=== PATIENT | female | born 1945 | race Caucasian/White ===

== ENCOUNTER 2019-05-12 19:15 | Emergency (ER) | payer MEDICARE, SELFPAY ==
[2019-05-12] VITALS (8 sets, daily range): BP systolic 117–135; BP diastolic 57–71; PULSE 67–86; RESP 15–25; TEMP 30–36.7; O2SAT 97–99
--- NOTE | ~2019-05-12 | XR_ITS ---
EXAMINATION: XR chest 2V EXAM DATE: 05/12/2019 19:53 INDICATION: Cough and shortness of breath, symptoms one week. TECHNIQUE: Frontal and lateral projections of the chest obtained and reviewed. There is no prior laila dy for comparison. FINDINGS: Symmetric nodular densities, patient's nipples. Chondral cartilage calcification. Right ax illary surgical clips. No confluent consolidation, pneumothorax or pleural effusion suspected. Chroni c hyperinflation. Cardiomediastinal silhouette is normal. There are mild bony degenerative changes. M ild to moderate chronic anterior wedging midthoracic level. IMPRESSION: 1. Hyperinflation. Reviewed, dictated and finalized at [facility]. ER IMPRESSION: 1. Hyperinflation.
--- NOTE | 2019-05-12 19:41 | ECG_ITS ---
Measurements Intervals [place] Rate: 69 P: 70 ID: [id number] QRS: 24 QRSD: 98 T: 65 QT: 434 QTc: 467 Interpretive Statements SINUS RHYTHM NONSPECIFIC T-WAVE ABNORMALITY- LATERAL LEADS BORDERLINE ECG Electronically Signed On 05-13-2019 7:01:38 REVENUE STAMP CLERK by Armond Hanson D.O.
[2019-05-12 20:07] LABS: Hematocrit 34.2 % (37.0-47.0); Hemoglobin 11.2 g/dL (12.0-15.0); Mean Corpuscular HGB Conc 32.7 g/dl (32-36); Mean Corpuscular Hemoglobin 31.3 pg (26-34); Mean Corpuscular Volume 95.5 fl (80-100); Mean Platelet Volume 9.9 fl (7.4-10.4); Platelet Count Result 179 k/mm3 (150-375); Red Blood Count 3.58 M/mm3 (4.2-5.4); Red Cell Distribution Width 13.4 % (11.5-14.5); White Blood Count 2.6 K/mm3 (4.5-10.0)
[2019-05-12 20:19] LABS: Blood Urea Nitrogen 16 mg/dL (7-17); Calcium 9.6 mg/dL (8.4-10.2); Carbon Dioxide 22 mmol/L (22-30); Chloride 95 mmol/L (98-107); Estimated CRCL calculation 31 ml/min; Estimated Glomerular Filt Rate 48; Glucose 74 mg/dL (65-105); Potassium 3.3 mmol/L (3.4-5.0); Sodium 135 mmol/L (137-145)
[2019-05-12 20:24] LABS: Band Neutrophils Percent 4 % (0-6); Lymphocytes Absolute Manual 0.88 K/mm3 (1.1-4.5); Monocytes Absolute Manual 0.33 K/mm3 (0.1-0.90); Monocytes Percent Manual 13 % (3-9); Neutrophils Absolute Manual 1.37 K/mm3 (1.7-7.2); Neutrophils Percent Manual 49 % (46-73); Total Cells Counted 100
[2019-05-12 20:25] LABS: Platelet Estimate Adequate (Adequate)
[2019-05-12 20:26] LABS: Anisocytosis 1+ (NORMAL)
[2019-05-12] MEDS: predniSONE 20 MG TABLET 60 MG PO (21:36)
[2019-05-12] MEDS: SODIUM CHLORIDE 0.9% IV 1,000 ML 999 ML IV CONT (21:37)
[2019-05-12] MEDS: IPRATROPIUM BR 0.02% INH SOLN 0.5 MG/2.5 ML VIAL INHALATION (21:43)
[2019-05-12] MEDS: ALBUTEROL SULFATE NEB 2.5 MG/0.5 ML INH 5 MG INHALATION (21:43)
[2019-05-12 21:59] LABS: Lactic Acid Reflex 0.8 mmol/L (0.7-2.1)
[2019-05-12 22:00] LABS: Alanine Aminotransferase 24 U/L (4-35); Albumin Level 4.1 g/dL (3.5-5.1); Alkaline Phosphatase 58 U/L (38-126); Aspartate Amino Transferase 42 U/L (14-36); Bilirubin,Total 0.4 mg/dL (0.2-1.3)
--- NOTE | 2019-05-12 22:04 | ED.URI ---
HPI - URI/Sore Throat General Chief Complaint: Upper Respiratory Infection Stated Complaint: SOB and abnormal bowel movements Time Seen by Provider: 05/12/19 20:58 Source: patient Mode of arrival: ambulatory Limitations: no limitations History of Present Illness HPI Narrative: A 73 y/o female presents to the ED with c/o a productive cough with clear phlegm since February 2019. Pt describes the phlegm as ?glue-like.? Pt also c/o a fever that she has measured to be around 100 degrees F at night. Pt last took Tytlenol for her fever 2 days ago. Pt has not been able to see a doctor in regards to these complaints because she ?has a broken back and I just haven?t felt well enough.? Pt has not been on antibiotics in the past 2 months. She reports SOB, generalized weakness, but denies N/V, CP, rhinorrhea, and a PMHx of asthma and COPD. Onset (ago): month(s) (February 2019) Description of mucous: clear Related Data Home Medications Medication Instructions Recorded Confirmed ascorbic acid (vitamin C) 1,000 mg 1,000 mg PO Q12H 03/07/19 tablet,extended release cholecalciferol (vitamin D3) 125 2,000 unit PO DAILY 03/07/19 mcg (5,000 unit) capsule citalopram 20 mg tablet 20 mg PO DAILY 03/07/19 hydrochlorothiazide 25 mg tablet 25 mg PO DAILY 03/07/19 hydroxychloroquine 200 mg tablet 200 mg PO BID 03/07/19 levothyroxine 75 mcg tablet 75 mcg PO DAILY 03/07/19 simvastatin 10 mg tablet 10 mg PO HS 03/07/19 acetaminophen 650 mg PO Q4H PRN 05/12/19 calcium carbonate-vitamin D3 1 tablet PO DAILY 05/12/19 clobetasol 1 applic TOPICAL BID PRN 05/12/19 coenzyme Q10 [CoQ-10] 100 mg PO DAILY 05/12/19 cranberry extract 200 mg PO QID 05/12/19 estradiol [Estrace] 2 g VAGINAL DAILY PRN 05/12/19 multivitamin 1 tablet PO DAILY 05/12/19 mycophenolate mofetil [CellCept] 1,500 mg PO Q12H 05/12/19 oxycodone 5 mg PO Q4H PRN 05/12/19 valacyclovir 500 mg PO DAILY 05/12/19 Allergies Allergy/AdvReac Type Severity Reaction Status Date / Time gemfibrozil Allergy Unknown elevated Verified 05/12/19 22:26 liver enzymes milk Allergy Unknown Nausea Verified 05/12/19 22:26 Sulfa (Sulfonamide Allergy Unknown Skin Verified 05/12/19 22:26 Antibiotics) Reaction sulfacetamide Allergy Unknown Rash Unverified 05/12/19 22:26 sulfamethizole Allergy Unknown Skin Verified 05/12/19 22:26 Reaction Review of Systems Review of Systems: All systems reviewed & are unremarkable except as noted in HPI and below Constitutional: Constitutional: Reports fever(s) and Reports weakness (generalized) ENT: Comments: Denies: rhinorrhea Cardiovascular: Cardiovascular: Denies chest pain Respiratory: Respiratory: Reports cough (productive with clear phlegm) and Reports dyspnea Gastrointestinal: Gastrointestinal: Denies nausea and Denies vomiting PMFSH Past Medical History Medical History (Updated 05/13/19 @ 00:00 by Pernell Matthews) History of right breast cancer HTN (hypertension) Hyperthyroidism UTI (urinary tract infection) Surgical History Surgical History (Updated 05/12/19 @ 22:38 by Grazyna Godoy) H/O mastectomy H/O: hysterectomy History of removal of ovarian cyst History of surgery Nodule removed from skin and Laryngeal nerve removed Family History Family History Father Depression Family history of lung cancer Mother Depression Hypertension Family history of elevated blood lipids Other No family history of cardiovascular disease Social History Social History Smoking status: Former smoker (quit 37 years ago) Alcohol intake: never Gender identity (if verbalized by the patient): Female Comments PCP: Dr. Guevara Exam Const: General: no acute distress and alert Orientation/consciousness: patient oriented x3 HENMT: Head: normocephalic and atraumatic Ears: hearing grossly normal bilaterally, external ears no
[2019-05-12 22:33] LABS: Add Urine Microscopic? YES; Appearance Urine Clear (Clear); Bacteria Urine Trace /hpf; Bilirubin Urine Negative (Negative); Color Urine Yellow (Yellow); Glucose Urine UA Negative (Negative); Ketones Urine 2+ mg/dL (Negative); Leukocyte Esterase Ur 2+ LEU/UL (Negative); Mucus Urine Rare /lpf; Nitrate Urine Negative (Negative); Protein Urine Negative (Negative); RBC Urine 0-2 /hpf (0-2); Specific Grav Ur 1.019 (1.001-1.035); Squamous Epithelial Cell Urine Few /hpf (Few); Urobilinogen Urine Negative mg/dL (<2.0); WBC Urine 16-20 /hpf
[2019-05-12 22:34] LABS: Blood Urine Negative (Negative)
[2019-05-12] MEDS: OSELTAMIVIR PHOSPHATE 75 MG CAP PO (23:00)
== END 2019-05-12 23:15 | disposition home or self-care (01) ==
PROVIDERS: Emergency Medicine; Emergency Provider General Practice
DX: J10.1 Influenza due to other identified influenza virus with other respiratory manifestations (principal); I10 Essential (primary) hypertension; Z85.3 Personal history of malignant neoplasm of breast; Z90.10 Acquired absence of unspecified breast and nipple; E05.90 Thyrotoxicosis, unspecified without thyrotoxic crisis or storm; Z87.891 Personal history of nicotine dependence
CPT/HCPCS: 36415; 71046; 80048; 80076; 81001; 83605; 83735; 85025; 87086; 87088; 87804; 93005; 94640; 99284; A9270; J7030; J7512

== ENCOUNTER 2020-08-20 11:28 | Emergency (ER) | payer MEDICARE, SELFPAY ==
[2020-08-20] VITALS (19 sets, daily range): BP systolic 109–133; BP diastolic 44–58; PULSE 67–74; RESP 16–26; TEMP 37.1; O2SAT 98–100
--- NOTE | 2020-08-20 12:12 | ED.GENADULT ---
HPI - General Adult General Chief complaint: Nausea/Vomiting/Diarrhea Stated complaint: DIARRHEA X10D Time Seen by Provider: 08/20/20 11:34 Source: patient History of Present Illness HPI narrative: Patient is a 74 y/o female complaining of severe diarrhea for last 1 1/2 weeks. She describes her diarrhea as watery with no blood. There is no alleviating or exacerbating factor. She had one episode of vomiting yesterday. She has no abdominal pain. Of note, she was on antibiotics after she had jaw surgery recently. She states that she saw her dentist today for follow up and was told to come to ED to be checked for possible C diff. Related Data Home Medications Medication Instructions Recorded Confirmed ascorbic acid (vitamin C) 1,000 mg 1,000 mg PO Q12H 03/07/19 07/16/20 tablet,extended release cholecalciferol (vitamin D3) 125 2,000 unit PO DAILY 03/07/19 07/16/20 mcg (5,000 unit) capsule citalopram 20 mg tablet 20 mg PO DAILY 03/07/19 07/16/20 hydroxychloroquine 200 mg tablet 200 mg PO BID 03/07/19 07/16/20 acetaminophen 650 mg PO Q4H PRN 05/12/19 07/16/20 calcium carbonate-vitamin D3 1 tablet PO DAILY 05/12/19 07/16/20 clobetasol 1 applic TOPICAL BID PRN 05/12/19 07/16/20 coenzyme Q10 [CoQ-10] 100 mg PO DAILY 05/12/19 07/16/20 cranberry extract 200 mg PO QID 05/12/19 07/16/20 multivitamin 1 tablet PO DAILY 05/12/19 07/16/20 mycophenolate mofetil [CellCept] 1,500 mg PO Q12H 05/12/19 07/16/20 Allergies Allergy/AdvReac Type Severity Reaction Status Date / Time Sulfa (Sulfonamide Allergy Unknown Skin Verified 08/20/20 12:01 Antibiotics) Reaction sulfacetamide Allergy Unknown Rash Verified 08/20/20 12:01 sulfamethizole Allergy Unknown Skin Verified 08/20/20 12:01 Reaction gemfibrozil AdvReac Unknown elevated Verified 08/20/20 12:14 liver enzymes milk AdvReac Unknown Nausea Verified 08/20/20 12:14 Review of Systems Constitutional: Constitutional: Denies chills, Denies fever(s), Denies headache(s) and Reports weakness Eyes: Eyes: Denies blurry vision ENT: Denies headache(s) and Denies neck pain Cardiovascular: Cardiovascular: Denies chest pain and Denies dyspnea Respiratory: Respiratory: Denies cough and Denies dyspnea Gastrointestinal: Gastrointestinal: Denies abdominal pain, Reports diarrhea, Reports nausea and Reports vomiting Genitourinary: Genitourinary: Denies hematuria and Denies dysuria Musculoskeletal: Musculoskeletal: Denies back pain and Denies neck pain Neurologic: Denies headache(s) and Denies weakness [facility] Past Medical History Medical History (Updated 08/20/20 @ 16:05 by China Washington MD) GERD (gastroesophageal reflux disease) History of right breast cancer HTN (hypertension) Hyperthyroidism Mixed hyperlipidemia UTI (urinary tract infection) Surgical History Surgical History H/O mastectomy H/O: hysterectomy History of removal of ovarian cyst History of surgery Nodule removed from skin and Laryngeal nerve removed Family History Family History Father Depression Family history of lung cancer Mother Depression Hypertension Family history of elevated blood lipids Other No family history of cardiovascular disease Social History Social History (Updated 08/03/20 @ 10:16 by Jenni Bourgeois [facility]) Years smoked: 5 Smoking status: Former smoker Alcohol intake: never Substance use: unknown Gender identity (if verbalized by the patient): Female Exam Const: General: no acute distress and well developed Orientation/consciousness: oriented to person, oriented to place, oriented to time and patient oriented x3 HENMT: Head: normocephalic Ears: external ears normal General nose exam: Normal external nose present Eyes: General: appearance normal, both eyes and all related structures Conjunctivae: conjunctivae normal Neck: Neck: normal visual i
[2020-08-20] MEDS: SODIUM CHLORIDE 0.9% IV 1,000 ML 999 ML IV CONT ×2 (12:13→13:12)
[2020-08-20 12:41] LABS: Basophils Percent Auto 0.5 % (0.2-1.2); Eosinophils Percent Auto 0.6 % (0-4.4); Hematocrit 34.7 % (37.0-47.0); Hemoglobin 11.1 g/dL (12.0-15.0); Immature Granulocyte Absolute 0.03 K/mm3 (0.00-0.031); Immature Granulocyte Percent A 0.5 % (0-0.5); Lymphocytes Absolute Auto 0.84 K/mm3 (0.9-3.2); Lymphocytes Percent Auto 13.5 % (18.3-44.2); Mean Corpuscular Hemoglobin 28.7 pg (26-34); Mean Corpuscular Volume 89.7 fl (80-100); Mean Platelet Volume 9.6 fl (7.4-10.4); Monocytes Percent Auto 16.2 % (2.6-8.5); Neutrophils Absolute Auto 4.3 K/mm3 (1.3-6.7); Neutrophils Percent Auto 68.7 % (45.5-73.1); Platelet Count Result 263 k/mm3 (150-375); Red Blood Count 3.87 M/mm3 (4.2-5.4); Red Cell Distribution Width 13.7 % (11.5-14.5); White Blood Count 6.2 K/mm3 (4.5-10.0)
[2020-08-20 12:53] LABS: Alanine Aminotransferase 14 U/L (4-35); Albumin Level 4.4 g/dL (3.5-5.1); Alkaline Phosphatase 52 U/L (38-126); Anion Gap 16 mmol/L (8-16); Aspartate Amino Transferase 45 U/L (14-36); Bilirubin,Total 0.5 mg/dL (0.2-1.3); Blood Urea Nitrogen 15 mg/dL (7-17); Calcium 10.6 mg/dL (8.4-10.2); Carbon Dioxide 19 mmol/L (22-30); Chloride 101 mmol/L (98-107); Estimated CRCL calculation 37 ml/min; Estimated Glomerular Filt Rate > 60; Glucose 71 mg/dL (65-105); Lipase 171 U/L (23-300); Potassium 3.6 mmol/L (3.4-5.0); Sodium 136 mmol/L (137-145)
[2020-08-20] MEDS: LOPERAMIDE HCL 2 MG CAPSULE PO (12:58)
[2020-08-20 13:29] LABS: Add Urine Microscopic? YES; Appearance Urine Cloudy (Clear); Bilirubin Urine Negative (Negative); Budding Yeast Urine Present /hpf; Color Urine Amber (Yellow); Glucose Urine UA Negative (Negative); Hyaline Casts Urine 15-19 /lpf; Ketones Urine 2+ mg/dL (Negative); Leukocyte Esterase Ur 1+ LEU/UL (Negative); Mucus Urine Heavy /lpf; Nitrate Urine Negative (Negative); Protein Urine 3+ mg/dL (Negative); Squamous Epithelial Cell Urine Many /hpf (Few); Urobilinogen Urine Negative mg/dL (<2.0); WBC Urine 31-50 /hpf
[2020-08-20 13:31] LABS: Blood Urine Negative (Negative); Specific Grav Ur 1.039 (1.001-1.035)
== END 2020-08-20 16:15 | disposition home or self-care (01) ==
PROVIDERS: Emergency Provider Emergency Medicine; PCP Family Medicine
DX: R19.7 Diarrhea, unspecified (principal); K21.9 Gastro-esophageal reflux disease without esophagitis; Z85.3 Personal history of malignant neoplasm of breast; I10 Essential (primary) hypertension; E05.90 Thyrotoxicosis, unspecified without thyrotoxic crisis or storm; E78.2 Mixed hyperlipidemia; Z87.440 Personal history of urinary (tract) infections; Z87.891 Personal history of nicotine dependence; Z90.10 Acquired absence of unspecified breast and nipple; R82.998 Other abnormal findings in urine
CPT/HCPCS: 36415; 80053; 81001; 83690; 85025; 87086; 87088; 96360; 96361; 99283; A9270; J7030

== ENCOUNTER 2020-08-23 15:06 | Outpatient (NON) | payer MEDICARE, SELFPAY | END 2020-08-23 15:07 | disposition home or self-care (01) | PROVIDERS: PCP Family Medicine; Referring Provider Family Medicine; Visit Provider Emergency Medicine | DX: R19.7 Diarrhea, unspecified (principal) | CPT/HCPCS: 87045; 87046; 87427 ==

== ENCOUNTER → 2020-08-24 09:17 | Outpatient (CLI) | payer MEDICARE, SELFPAY ==
--- NOTE | ~2020-08-24 | CT_ITS ---
EXAMINATION: CT abdomen pelvis wo con DATE: 08/24/2020 09:42 INDICATION: Ventral hernia. History of breast cancer. Diarrhea. TECHNIQUE: Computed tomography (CT) of the abdomen and pelvis was performed without intravenous contr ast. Automated exposure control and iterative reconstruction technique were employed. Exam dose: 337 .92 mGy-cm total exam DLP. COMPARISON: None. FINDINGS: There is a prominent band of discoid atelectasis or more likely scarring in the left lower lobe. No consolidation at the included lower lung zones. Heart size is within normal limits. No pericardial or pleural effusion. Right breast implant is noted. The liver, gallbladder, bile ducts, spleen, pancreas, pancreatic duct and adrenal glands are unremark able. 2.2 cm probable posterior mid left renal cyst. No urinary tract calculus or hydroureteronephrosis. There is atherosclerotic calcification of the abdominal aorta but no aneurysm. No intraperitoneal or retroperitoneal or pelvic mass lesion or adenopathy or ascites. The urinary bladder is unremarkable. Status post hysterectomy. Normal appendix. No bowel obstruction. There is however a herniated loop of small bowel through a rig ht anterolateral abdominal spigelian hernia. Severe degenerative disc disease at L4-5 Grade 1 anterolisthesis at L4-5 due to degenerative change at the apophyseal joints. No suspicious osteolytic or osteoblastic lesions. IMPRESSION: Anterolateral right ventral spigelian hernia containing a nonobstructed loop of small alisha wel Right breast implant; history of breast cancer 2.2 cm left renal cyst Reviewed, dictated and finalized at [facility]. Reviewed, dictated and finalized at [facility]. IMPRESSION: Anterolateral right ventral spigelian hernia containing a nonobstr ucted loop of small bowel Right breast implant; history of breast cancer 2.2 cm left renal cyst
== END ==
PROVIDERS: PCP Family Medicine; Visit Provider Surgery
DX: K43.9 Ventral hernia without obstruction or gangrene (principal); Z85.3 Personal history of malignant neoplasm of breast; Z98.82 Breast implant status; N28.1 Cyst of kidney, acquired
CPT/HCPCS: 74176

== ENCOUNTER 2020-09-27 11:32 | Outpatient (CLI) | payer MEDICARE, SELFPAY ==
--- NOTE | 2020-09-27 11:33 | ECG_ITS ---
Measurements Intervals [place] Rate: 75 P: 82 NC: 173 QRS: 66 QRSD: 85 T: 78 QT: 412 QTc: 461 Interpretive Statements SINUS RHYTHM CANNOT RULE OUT SEPTAL INFARCT, AGE INDETERMINATE NONSPECIFIC T-WAVE ABNORMALITY- HIGH LATERAL LEADS BASELINE ARTIFACT- I, III, AVR, AVL, AVF ABNORMAL ECG Electronically Signed On 09-27-2020 11:51:02 CDT by Armond Hanson D.O.
== END 2020-09-27 11:33 | disposition home or self-care (01) ==
LOC: ANHSURGERY 11:33
PROVIDERS: PCP Family Medicine; Visit Provider Surgery
DX: Z01.818 Encounter for other preprocedural examination (principal); K43.9 Ventral hernia without obstruction or gangrene; I10 Essential (primary) hypertension
CPT/HCPCS: 36415; 86850; 86900; 86901; 93005

== ENCOUNTER 2020-10-03 00:34 | Day surgery (SDC) | payer MEDICARE, SELFPAY ==
[2020-08-24 15:52] VITALS: BMI 21.7
--- NOTE | 2020-09-25 18:05 | PC.NURSE ---
Pt. states no changes since interview completed on 08/24/2020. Medications and allergies reviewed and instructions updated. Verbalizes understanding.
--- NOTE | 2020-10-02 09:12 | WPDANESEPPF ---
Anes - Initial Pre Proc Eval Procedure: Operation Date: 10/03/20 07:30 Proposed Procedures p Laparoscopic Right Spigelian Hernia Repair with Mesh, Davinci Assisted - Hill Martinez DO Date/Time: 10/02/20 09:12 Surgeon: Hill Martinez DO Pre Op Diagnosis: right spigelian hernia Patient Data Age: 75 Gender: F Height: 1.6 m Weight: 55.8 kg Allergies Allergy/AdvReac Type Severity Reaction Status Date / Time Sulfa (Sulfonamide AdvReac Mild Skin Verified 10/03/20 06:20 Antibiotics) Reaction sulfamethizole AdvReac Mild Skin Verified 10/03/20 06:20 Reaction gemfibrozil AdvReac Unknown elevated Verified 10/03/20 06:20 liver enzymes milk AdvReac Unknown Thickened Verified 10/03/20 06:20 phlegm sulfacetamide AdvReac Unknown Rash Verified 10/03/20 06:20 Home Medications Medication Instructions Recorded Confirmed Type ascorbic acid (vitamin C) 1,000 mg 1,000 mg PO Q12H 03/07/19 10/03/20 History tablet,extended release cholecalciferol (vitamin D3) 125 2,000 unit PO DAILY 03/07/19 10/03/20 History mcg (5,000 unit) capsule citalopram 20 mg tablet 20 mg PO DAILY 03/07/19 10/03/20 History hydroxychloroquine 200 mg tablet 200 mg PO BID 03/07/19 10/03/20 History acetaminophen 650 mg PO Q4H PRN 05/12/19 08/24/20 History albuterol sulfate [ProAir HFA] 2 puff INHALATION QID #6.7 gm 05/12/19 08/24/20 Rx clobetasol 1 applic TOPICAL BID PRN 05/12/19 08/24/20 History coenzyme Q10 [CoQ-10] 100 mg PO DAILY 05/12/19 10/03/20 History cranberry extract 200 mg PO BID 05/12/19 10/03/20 History multivitamin 1 tablet PO DAILY 05/12/19 10/03/20 History mycophenolate mofetil [CellCept] 1,500 mg PO Q12H 05/12/19 10/03/20 History hydrochlorothiazide 25 mg tablet 25 mg PO DAILY #90 tablet 08/13/20 08/24/20 Rx levothyroxine 75 mcg tablet 75 mcg PO DAILY #90 tablet 09/24/20 10/03/20 Rx gabapentin 100 mg PO TID 09/25/20 10/03/20 History metoprolol succinate 50 mg PO DAILY 09/25/20 10/03/20 History omeprazole 20 mg PO DAILY 09/25/20 09/25/20 History simvastatin 10 mg PO HS 09/25/20 09/25/20 History Patient hx anesthesia problems: none Family hx anesthesia problems: none [facility] Past Medical History Medical History GERD (gastroesophageal reflux disease) History of right breast cancer HTN (hypertension) Hyperthyroidism Mixed hyperlipidemia UTI (urinary tract infection) Surgical History Surgical History H/O mastectomy H/O: hysterectomy History of removal of ovarian cyst History of surgery Nodule removed from skin and Laryngeal nerve removed Family History Family History Father Depression Family history of lung cancer Mother Depression Hypertension Family history of elevated blood lipids Other No family history of cardiovascular disease Social History Social History Smoking packs per day: 0.5 Smoking cigarettes per day: 10.0 Years smoked: 10 Smoking pack-years: 5.00 Smoking status: Former smoker Tobacco type: cigarettes Smoking end date: 03/09/69 Alcohol intake: never Substance use: unknown Living arrangements: alone Gender identity (if verbalized by the patient): Female Spiritual care concerns: No Anes - Eval Final PreProcedure Day of Procedure 10/02/20 09:12 Patient weight: normal Heart: regular rate and rhythm Lungs: clear to auscultation Airway: Mallampati scale class II Neurological: alert and oriented Last oral intake: >/= 8 hours ASA classification: III Emergent: no Anesthetic plan: proceed Anesthesia type and monitoring: general ETT and standard monitoring Informed Consent: The patient's anesthetic plan and its attendant risks and benefits were discussed with the patient/family/POA. Questions were solicited and answers provid
[2020-10-03] VITALS (10 sets, daily range): BP systolic 100–127; BP diastolic 47–62; PULSE 64–85; RESP 16–20; TEMP 36.7–36.9; O2SAT 97–100; BMI 22.2
[2020-10-03] MEDS: LACTATED RINGERS 1,000 ML 30 ML IV CONT ×2 (06:35→09:54)
[2020-10-03] MEDS: KETOROLAC 15 MG/ML VIAL (*BKC) IV PUSH (06:40)
[2020-10-03] MEDS: ACETAMINOPHEN 500 MG TABLET 1000 MG PO (06:41)
--- NOTE | 2020-10-03 07:01 | PM.IMHP ---
H&P: HPI History of Present Illness Date/Time: 10/03/20 07:01 Chief Complaint: R spigelian hernia Narrative: 75 yo woman presents for right spigelian hernia repair. She was having pain and a bulge in her RLQ. A CT was obtained which confirmed a hernia in this location. Review of Systems Review of Systems: All systems reviewed & are unremarkable except as noted in HPI and below Constitutional: Constitutional: Denies chills, Denies fever(s), Denies headache(s) and Denies weight loss Eyes: Eyes: Denies change in vision ENT: Denies dizziness, Denies headache(s), Denies neck mass and Denies throat swelling Cardiovascular: Cardiovascular: Denies chest pain, Denies lightheadedness and Denies dyspnea Respiratory: Respiratory: Denies cough, Denies dyspnea and Denies wheezing Gastrointestinal: Gastrointestinal: Denies abdominal pain, Denies change in bowel habits, Denies nausea and Denies vomiting Genitourinary: Genitourinary: Denies hematuria and Denies dysuria Musculoskeletal: Musculoskeletal: Reports as per HPI Integumentary/Breasts: Skin/Breast: Reports as per HPI Neurologic: Denies dizziness and Denies headache(s) Allergic/Immunologic: Allergic/Immunologic: Denies throat swelling and Denies wheezing PMFSH Past Medical History Medical History GERD (gastroesophageal reflux disease) History of right breast cancer HTN (hypertension) Hyperthyroidism Mixed hyperlipidemia UTI (urinary tract infection) Surgical History Surgical History H/O mastectomy H/O: hysterectomy History of removal of ovarian cyst History of surgery Nodule removed from skin and Laryngeal nerve removed Family History Family History Father Depression Family history of lung cancer Mother Depression Hypertension Family history of elevated blood lipids Other No family history of cardiovascular disease Social History Social History Smoking packs per day: 0.5 Smoking cigarettes per day: 10.0 Years smoked: 10 Smoking pack-years: 5.00 Smoking status: Former smoker Tobacco type: cigarettes Smoking end date: 03/09/69 Alcohol intake: never Substance use: unknown Living arrangements: alone Gender identity (if verbalized by the patient): Female Spiritual care concerns: No Meds Home Medications and Allergies Home Medications Medication Instructions Recorded Confirmed Type ascorbic acid (vitamin C) 1,000 mg 1,000 mg PO Q12H 03/07/19 10/03/20 History tablet,extended release cholecalciferol (vitamin D3) 125 2,000 unit PO DAILY 03/07/19 10/03/20 History mcg (5,000 unit) capsule citalopram 20 mg tablet 20 mg PO DAILY 03/07/19 10/03/20 History hydroxychloroquine 200 mg tablet 200 mg PO BID 03/07/19 10/03/20 History acetaminophen 650 mg PO Q4H PRN 05/12/19 08/24/20 History albuterol sulfate [ProAir HFA] 2 puff INHALATION QID #6.7 gm 05/12/19 08/24/20 Rx clobetasol 1 applic TOPICAL BID PRN 05/12/19 08/24/20 History coenzyme Q10 [CoQ-10] 100 mg PO DAILY 05/12/19 10/03/20 History cranberry extract 200 mg PO BID 05/12/19 10/03/20 History multivitamin 1 tablet PO DAILY 05/12/19 10/03/20 History mycophenolate mofetil [CellCept] 1,500 mg PO Q12H 05/12/19 10/03/20 History hydrochlorothiazide 25 mg tablet 25 mg PO DAILY #90 tablet 08/13/20 08/24/20 Rx levothyroxine 75 mcg tablet 75 mcg PO DAILY #90 tablet 09/24/20 10/03/20 Rx gabapentin 100 mg PO TID 09/25/20 10/03/20 History metoprolol succinate 50 mg PO DAILY 09/25/20 10/03/20 History omeprazole 20 mg PO DAILY 09/25/20 09/25/20 History simvastatin 10 mg PO HS 09/25/20 09/25/20 History Allergies Allergy/AdvReac Type Severity Reaction Status Date / Time Sulfa (Sulfonamide AdvReac Mild Skin Verified 10/03/20 06:20 Antibiotics) Reaction sulfa
--- NOTE | 2020-10-03 07:04 | WPDHPUPDATE1 ---
History and Physical Update Update Date/Time: 10/03/20 07:04 History and Physical has been reviewed, including an updated exam of the patient. There are NO changes in the patient's condition. Risks, benefits, and alternatives have been discussed and questions answered. Patient agrees to proceed with procedure.
[2020-10-03] MEDS: ceFAZolin 2 GM/D5W 50 ML 2 GM/50 ML BAG IVPB (07:33)
--- NOTE | 2020-10-03 09:51 | W.PM.PROC2 ---
Procedure Note - Detailed Date of Procedure 10/03/20 Pre-op Diagnosis right spigelian hernia Post-op Diagnosis other (RLQ incisional hernia) Procedure Performed Laparoscopic RLQ Incisional Hernia Repair with Mesh, da Josephine assisted Surgeon Hill Martinez, Anesthesia general and local (Exparel) Indications this is a 75-year-old woman who presents with a right lower quadrant bulge and groin pain for the past several years. This has gradually become more prominent and is causing more significant pain. She also notices that there is bowel protruding into the hernia and this causes some gurgling sounds through the hernia. A CT of her abdomen and pelvis was performed and this showed evidence of a right lower quadrant abdominal wall hernia consistent with a spigelian hernia. Discussions were made with the patient about treatment options and decision was made to proceed with laparoscopic right spigelian hernia repair with mesh, de Josephine assisted. Findings Upon entering the abdominal cavity laparoscopically, there were many abdominal adhesions. Omentum and 1 loop of bowel were adherent up to the abdominal wall. The bowel was carefully taken down from the abdominal wall using robotic curved scissors. The remainder of the omental adhesions came down easily with scissors with electrocautery. I was then able to visualize the entire lower abdominal wall and the hernia appeared to be an incisional hernia at the lateral edge of a prior low Pfannenstiel incision. Due to the low location near the iliac crest and inguinal region, I chose to perform a preperitoneal approach similar to repairing a inguinal hernia. A preperitoneal pocket was started up above the hernia defect and this was extended caudally to below the inguinal tract. I also transected the round ligament using scissors with electrocautery to ensure that the mesh was going to lie flat within the preperitoneal pocket. The hernia defect measured 2 cm and was in close proximity to the iliac bone which made me concerned about closing the defect and entrapping a nerve. I chose to leave the defect open and repair this with the [employer] mesh. The 10 cm x 15 cm mesh was too large to fit within the preperitoneal pocket, therefore I cut this down to 10 cm x 10 cm. The mesh was then placed within the preperitoneal pocket with it centered on the hernia defect. The preperitoneal pocket was then closed using 3 0 V lock running absorbable suture. No specimens were obtained for pathology. Description of Procedure Procedure as well as risks, benefits, and alternatives were discussed with the patient. Written consent was obtained and placed in chart prior to procedure. Patient was brought back to surgical suite. She was placed supine on operating table. Time-out was done to confirm patient and procedure. She was then intubated by the anesthesia department. Her abdomen was prepped and draped in sterile fashion using chlorhexidine prep. A 5 millimeter incision was made in the left upper quadrant, and a 5 millimeter Optiview trocar was advanced through the abdominal layers under direct visualization. Once inside the abdominal cavity, carbon dioxide insufflation was used to create a pneumoperitoneum. Her abdomen was inspected. An 8 millimeter incision was made in the right upper quadrant, and an 8 millimeter robotic trocar was placed under direct visualization. Another 8 millimeter incision was made in the supraumbilical region, and an 8 millimeter robotic trocar was placed under direct visualization. Exparel was infiltrated along the lateral abdominal price to perform a transversus abdominis plane block bilaterally. The robotic arms were brought up to the patient's bedside and secured to the ports. The camera and instruments were inserted, and I then moved over to the robotic console and took control of the camera and instruments. After careful thorough inspection of the abdominal cavity, I began my dissection at
[2020-10-03] MEDS: oxyCODONE HCL (*CRX) 2.5 MG TAB IR PO (11:14)
== END 2020-10-03 12:11 | disposition home or self-care (01) ==
PROVIDERS: PCP Family Medicine; Visit Provider Surgery
PROC: (CPT 49654; principal; 2020-10-03 07:30)
DX: K43.2 Incisional hernia without obstruction or gangrene (principal); I10 Essential (primary) hypertension; E78.2 Mixed hyperlipidemia; K21.9 Gastro-esophageal reflux disease without esophagitis; Z85.3 Personal history of malignant neoplasm of breast; Z79.51 Long term (current) use of inhaled steroids; Z87.891 Personal history of nicotine dependence
CPT/HCPCS: 49654; S2900; A9270; C1781; C9290; J0690; J1100; J1885; J2405; J2704; J3010; J7030; J7120

== ENCOUNTER 2020-12-06 10:32 | Inpatient (IN) | payer MEDICARE, SELFPAY ==
[2020-12-06] VITALS (23 sets, daily range): BP systolic 114–158; BP diastolic 48–64; PULSE 71–99; RESP 14–32; TEMP 36.6–37.2; O2SAT 99–100
--- NOTE | ~2020-12-06 | CT_ITS ---
EXAMINATION: CT abdomen pelvis w con DATE: 12/06/2020 12:24 INDICATION: Abdominal pain, nausea, diarrhea for 2 weeks TECHNIQUE: Computed tomography (CT) of the abdomen and pelvis was performed with 100 cc Omnipaque 350 intravenous contrast. Automated exposure control and iterative reconstruction technique were employe d. Exam dose: 230.67 mGy-cm total exam DLP. COMPARISON: 08/24/2020 CT abdomen pelvis FINDINGS: Right breast implant. Mild discoid atelectasis or scarring at the lung bases, left lobe greater than right lower lobe. No p ulmonary consolidation. Normal heart size. Trace pericardial fluid. The gallbladder is distended; no gallbladder wall thickening or bile duct or pancreatic duct dilatati on is evident. The liver, spleen, pancreas and adrenal glands are unremarkable. A very small right renal cyst is suggested. 2.4 cm and 7 mm left renal cysts. No urinary tract calculus or hydroureteronephrosis is detected. There is atherosclerotic calcification but normal caliber of the abdominal aorta. No intraperitoneal or retroperitoneal or pelvic mass lesion or adenopathy or ascites is detected. The urinary bladder is unremarkable. Status post hysterectomy. No bowel obstruction, bowel wall thickening, pneumatosis or intraperitoneal free air is detected. The right-sided spigelian hernia is no longer evident since 08/24/2020. Transitional lumbosacral vertebra. Severe degenerative disc disease and grade 1 anterolisthesis at L5-S1. Severe degenerative change at the apophyseal joints at L5-S1. IMPRESSION: Right spigelian hernia is no longer evident since 08/24/2020 Right breast implant Renal cysts Status post hysterectomy Reviewed, dictated and finalized at [facility]. Reviewed, dictated and finalized at [facility].
--- NOTE | ~2020-12-06 | US_ITS ---
US right upper quadrant INDICATION: Abdominal pain PROCEDURE: Realtime right upper abdominal ultrasound. COMPARISON: No prior studies for comparison. FINDINGS: The pancreas is normal without focal mass or pancreatic ductal dilation. Liver echotexture is normal without focal mass or intrahepatic biliary dilatation. There is normal directional flow i n the portal vein. The gallbladder is normal without stones, gallbladder wall thickening or pericholecystic fluid. Comm on bile duct measures 7 mm. No sonographic Shafer's sign. IMPRESSION: 1: Mild biliary dilatation. CBD measures 7 mm. No obstructing stone or mass identified. Reviewed, dictated and finalized at [facility]. IMPRESSION: 1: Mild biliary dilatation. CBD measures 7 mm. No obstructing stone or mass kevin ntified.
[2020-12-06] MEDS: SODIUM CHLORIDE 0.9% IV 1,000 ML 999 ML IV CONT ×2 (11:25→16:44)
--- NOTE | 2020-12-06 11:26 | ED.ABDPAIN ---
HPI - Abdominal Pain General Chief Complaint: Abdominal Pain Stated Complaint: diarrhea Time Seen by Provider: 12/06/20 11:00 Source: RN notes reviewed History of Present Illness HPI narrative: Patient presents emergency department from home for diarrhea. Patient states symptoms been ongoing for the past 2 weeks she states she has loose stools whenever she eats states is associate with abdominal pain described as cramping she denies any current abdominal pain she denies any fevers or chills nausea vomiting or any other symptoms states she has had problems with diarrhea before in the past and has had a colonoscopy Related Data Home Medications Medication Instructions Recorded Confirmed ascorbic acid (vitamin C) 1,000 mg 1,000 mg PO Q12H 03/07/19 11/16/20 tablet,extended release cholecalciferol (vitamin D3) 125 2,000 unit PO DAILY 03/07/19 11/16/20 mcg (5,000 unit) capsule citalopram 20 mg tablet 20 mg PO DAILY 03/07/19 11/16/20 hydroxychloroquine 200 mg tablet 200 mg PO BID 03/07/19 11/16/20 acetaminophen 650 mg PO Q4H PRN 05/12/19 11/16/20 clobetasol 1 applic TOPICAL BID PRN 05/12/19 11/16/20 coenzyme Q10 [CoQ-10] 100 mg PO DAILY 05/12/19 11/16/20 cranberry extract 200 mg PO BID 05/12/19 11/16/20 multivitamin 1 tablet PO DAILY 05/12/19 11/16/20 mycophenolate mofetil [CellCept] 1,500 mg PO Q12H 05/12/19 11/16/20 omeprazole 20 mg PO DAILY 09/25/20 11/16/20 simvastatin 10 mg PO HS 09/25/20 11/16/20 Allergies Allergy/AdvReac Type Severity Reaction Status Date / Time Sulfa (Sulfonamide AdvReac Mild Skin Verified 12/06/20 10:46 Antibiotics) Reaction sulfamethizole AdvReac Mild Skin Verified 12/06/20 10:46 Reaction gemfibrozil AdvReac Unknown elevated Verified 12/06/20 10:46 liver enzymes milk AdvReac Unknown Thickened Verified 12/06/20 10:46 phlegm sulfacetamide AdvReac Unknown Rash Verified 12/06/20 10:46 Review of Systems Review of Systems: Gen.: Denies fevers or chills ENT: Denies congestion Respiratory: Denies shortness of breath or cough CV: Denies chest pain or palpitations GI: See HPI Musculoskeletal: Denies back pain or muscle pain Neuro: Denies numbness, tingling, weakness or focal weakness Skin: Denies rash Except as documented, all other systems reviewed and negative PMFSH Past Medical History Medical History GERD (gastroesophageal reflux disease) History of right breast cancer HTN (hypertension) Hyperthyroidism Mixed hyperlipidemia UTI (urinary tract infection) Surgical History Surgical History H/O mastectomy H/O: hysterectomy History of incisional hernia repair 10/03/20 Laparoscopic RLQ Incisional Hernia Repair with Mesh, da Josephine assisted History of removal of ovarian cyst History of surgery Nodule removed from skin and Laryngeal nerve removed Family History Family History Father Depression Family history of lung cancer Mother Depression Hypertension Family history of elevated blood lipids Other No family history of cardiovascular disease Social History Social History Smoking packs per day: 0.5 Smoking cigarettes per day: 10.0 Years smoked: 10 Smoking pack-years: 5.00 Smoking status: Former smoker Tobacco type: cigarettes Smoking end date: 03/09/69 Alcohol intake: never Substance use: unknown Gender identity (if verbalized by the patient): Female Spiritual care concerns: No Exam Narrative: APPEARANCE: No acute distress, nontoxic, resting in bed HEENT: Normocephalic, atraumatic, OMM RESPIRATORY: No respiratory distress, clear to auscultation bilaterally with no rhonchi wheezing or rales CARDIOVASCULAR: RRR s murmur ABDOMINAL: Soft nondistended diffusely tender palpation no rebound or guarding MUSCULOSKELE
[2020-12-06 11:40] LABS: Basophils Absolute Auto 0.1 K/mm3 (0.0-0.1); Eosinophils Absolute Auto 0.1 K/mm3 (0-0.3); Eosinophils Percent Auto 0.8 % (0-4.4); Hematocrit 40.1 % (37.0-47.0); Hemoglobin 13.1 g/dL (12.0-15.0); Immature Granulocyte Absolute 0.24 K/mm3 (0.00-0.031); Immature Granulocyte Percent A 2.7 % (0-0.5); Lymphocytes Absolute Auto 1.34 K/mm3 (0.9-3.2); Mean Corpuscular HGB Conc 32.7 g/dl (32-36); Mean Corpuscular Hemoglobin 28.7 pg (26-34); Mean Corpuscular Volume 87.7 fl (80-100); Mean Platelet Volume 9.3 fl (7.4-10.4); Monocytes Absolute Auto 0.9 K/mm3 (0.1-0.6); Monocytes Percent Auto 9.5 % (2.6-8.5); Neutrophils Absolute Auto 6.3 K/mm3 (1.3-6.7); Platelet Count Result 280 k/mm3 (150-375); Red Blood Count 4.57 M/mm3 (4.2-5.4); Red Cell Distribution Width 12.9 % (11.5-14.5); White Blood Count 8.9 K/mm3 (4.5-10.0)
--- NOTE | 2020-12-06 12:01 | ECG_ITS ---
Measurements Intervals [place] Rate: 83 P: 86 NE: 168 QRS: 17 QRSD: 90 T: -30 QT: 380 QTc: 448 Interpretive Statements SINUS RHYTHM CANNOT RULE OUT SEPTAL INFARCT, AGE INDETERMINATE BORDERLINE T WAVE ABNORMALITY- DIFFUSE LEADS BASELINE ARTIFACT- I, II, III, AVR, AVL, AVF, V1-V6 ABNORMAL ECG Electronically Signed On 12-06-2020 12:55:29 CDT by Armond Hanson D.O.
[2020-12-06 12:02] LABS: Alanine Aminotransferase 15 U/L (4-35); Albumin Level 4.6 g/dL (3.5-5.1); Alkaline Phosphatase 67 U/L (38-126); Anion Gap 25 mmol/L (8-16); Aspartate Amino Transferase 37 U/L (14-36); Bilirubin,Total 0.6 mg/dL (0.2-1.3); Blood Urea Nitrogen 20 mg/dL (7-17); Calcium 10.3 mg/dL (8.4-10.2); Carbon Dioxide 17 mmol/L (22-30); Chloride 95 mmol/L (98-107); Estimated CRCL calculation 27 ml/min; Estimated Glomerular Filt Rate 44; Glucose 80 mg/dL (65-110); Lipase 106 U/L (23-300); Potassium 2.7 mmol/L (3.4-5.0); Sodium 137 mmol/L (137-145)
[2020-12-06] MEDS: SODIUM CHLORIDE 0.9% IV 1,000 ML 100 ML IV CONT (12:33)
[2020-12-06 12:53] LABS: Magnesium 2.1 mg/dL (1.6-2.3)
[2020-12-06 13:24] LABS: Add Urine Microscopic? YES; Appearance Urine Clear (Clear); Bacteria Urine Trace /hpf; Bilirubin Urine Negative (Negative); Color Urine Yellow (Yellow); Glucose Urine UA Negative (Negative); Ketones Urine 2+ mg/dL (Negative); Leukocyte Esterase Ur Trace LEU/UL (Negative); Nitrate Urine Negative (Negative); Protein Urine 1+ mg/dL (Negative); Squamous Epithelial Cell Urine Few /hpf (Few); Urobilinogen Urine Negative mg/dL (<2.0)
[2020-12-06 13:26] LABS: Blood Urine Negative (Negative); Specific Grav Ur 1.046 (1.001-1.035)
[2020-12-06] MEDS: POTASSIUM CHLORIDE 20 MEQ TABLET 40 MEQ PO (13:47)
--- NOTE | 2020-12-06 15:58 | PC.NURSE ---
This patient, Christen Black, was admitted to 3 [facility] Surg Room 305-01 on 12/06/20 @ 5858. Patient/family oriented to hospital policies and general routines including ID bracelet, bed and alarms, visiting hours, pain management, procedures, bathroom and other care routines, personal items, smoking policy, room service/diet, and visiting hours. Information on how to activate the Rapid Response Team has been discussed. Patient/Family are encouraged to report perceived risks to care and to ask questions if they do not understand what they are told or what they should do.
--- NOTE | 2020-12-06 16:00 | PM.IMHP ---
H&P: HPI History of Present Illness Date/Time: 12/06/20 16:00 Chief Complaint: Abdominal pain, nausea, and diarrhea. 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 For the past couple of weeks she has had intermittent nausea however she has been able to eat a bit at a time. Unfortunately not long after eating she will develop abdominal cramping followed by loose stools. She believes that she has lost several lbs due to decreased intake and ongoing diarrhea and she has also become progressively more weak. Despite drinking Pedialyte and Gatorade she continues to feel weak and dehydrated. She goes on to say that she has been off of her mycophenolate and hydroxychloroquine for right around a month as she held it 2 weeks before her 3rd COVID booster shot and she was told to hold it after her booster ?for as long as I can manage.? She has not had fever, chills, or sweats. She denies recent travel. No recent antibiotic use. She denies sick contacts. No blood or mucus in the stool. Review of Systems Review of Systems: Twelve systems were reviewed with pertinent positives and negatives as per HPI. No recent cold or flu symptoms. She had issues with recurrent urinary tract infections though that has improved since she started taking cranberry extract. She does have GERD but has not had an increase in symptoms recently though she has been belching and passing a bit more gas than usual. No focal weakness or paresthesias. No syncope or near syncope. No chest pain or shortness of breath. Except as documented, all other systems were reviewed and are negative. [facility] Past Medical History Medical History (Updated 12/06/20 @ 23:16 by Radha Mccarty PA-C) Anxiety and depression Cancer of right breast Dermatomyositis Gastroesophageal reflux disease Hypertension Hypothyroidism Long-term use of immunosuppressant medication Mixed hyperlipidemia Stable burst fracture of T8 vertebra Surgical History Surgical History (Updated 12/06/20 @ 15:57 by Radha Mccarty PA-C) History of hysterectomy History of incisional hernia repair (10/03/20) Laparoscopic right lower quadrant incisional hernia repair with mesh, Christopheri per Dr. Martinez. History of removal of ovarian cyst History of right mastectomy (2010) History of surgery Nodule removed from skin and Laryngeal nerve removed Family History Family History Father Depression Family history of lung cancer Mother Depression Hypertension Family history of elevated blood lipids Other No family history of cardiovascular disease Social History Social History Social History: Surrogate decision maker: Viridiana Becker, daughter. Code status: Full code. Smoking packs per day: 0.5 Smoking cigarettes per day: 10.0 Years smoked: 10 Smoking pack-years: 5.00 Smoking status: Former smoker Tobacco type: cigarettes Smoking end date: 03/09/69 Alcohol intake: never Substance use: never Substance use type: does not use Additional living arrangements comments: Resides in her own home in [place]. as of December 2019. Additional occupation/education comments: Retired. Spiritual care concerns: No Meds Home Medications and Allergies Home Medications Medication Instructions Recorded Confirmed Type cholecalciferol (vitamin D3) 125 5,000 unit PO DAILY 03/07/19 12/06/20 History mcg (5,000 unit) capsule citalopram 20 mg tablet 20 mg PO DAILY 03/07/19 12/06/20 History hydroxychloroquine 200 mg tablet 200 mg PO BID 03/07/19 12/06/20 History clobetasol 1 applic TOPICAL BID PRN 05/12/19 12/06/20 History coenzyme Q10 [CoQ-10] 200 mg PO DAILY 05/12/19 12/06/20 History cran
[2020-12-06 17:16] LABS: Anion Gap 12 mmol/L (8-16); Blood Urea Nitrogen 16 mg/dL (7-17); Calcium 8.9 mg/dL (8.4-10.2); Carbon Dioxide 21 mmol/L (22-30); Chloride 100 mmol/L (98-107); Estimated CRCL calculation 36 ml/min; Estimated Glomerular Filt Rate > 60; Glucose 119 mg/dL (65-110); Potassium 3.2 mmol/L (3.4-5.0); Sodium 133 mmol/L (137-145)
[2020-12-06] MEDS: POTASSIUM CHLORIDE 20 MEQ TABLET PO (23:50)
[2020-12-07] VITALS (11 sets, daily range): BP systolic 112–147; BP diastolic 49–58; PULSE 71–109; RESP 16–20; TEMP 36.8–37.2; O2SAT 97–99; BMI 19.5
[2020-12-07] MEDS: LEVOTHYROXINE SODIUM 75 MCG TABLET PO (05:49)
[2020-12-07 06:42] LABS: Hemoglobin 10.7 g/dL (12.0-15.0); Mean Corpuscular HGB Conc 32.4 g/dl (32-36); Mean Corpuscular Hemoglobin 28.8 pg (26-34); Mean Corpuscular Volume 88.9 fl (80-100); Mean Platelet Volume 9.6 fl (7.4-10.4); Platelet Count Result 215 k/mm3 (150-375); Red Blood Count 3.71 M/mm3 (4.2-5.4); Red Cell Distribution Width 12.8 % (11.5-14.5); White Blood Count 6.7 K/mm3 (4.5-10.0)
[2020-12-07 06:53] LABS: Anion Gap 9 mmol/L (8-16); Blood Urea Nitrogen 9 mg/dL (7-17); Calcium 8.9 mg/dL (8.4-10.2); Carbon Dioxide 20 mmol/L (22-30); Chloride 107 mmol/L (98-107); Estimated CRCL calculation 40 ml/min; Estimated Glomerular Filt Rate > 60; Glucose 77 mg/dL (65-110); Magnesium 1.8 mg/dL (1.6-2.3); Potassium 3.2 mmol/L (3.4-5.0); Sodium 136 mmol/L (137-145)
--- NOTE | 2020-12-07 09:00 | PM.IMPN ---
Progress Note: A&P Assessment and Plan (1) Dehydration: Code(s): E86.0 - Dehydration Status: Acute Assessment and Plan: ongoing diarrhea and decreased oral intake. Hydrated with repeat BMP BUN and creatinine are correcting as well as her anion gap secondary to ketoacidosis related to poor oral intake x2 weeks BUN/Cr 9/0.80 Continue to trend labs PT/OT (2) Hypokalemia: Code(s): E87.6 - Hypokalemia Status: Acute Assessment and Plan: Potassium is being replaced and will be monitored closely. Magnesium 1.8 Continue to trend replace as needed (3) Diarrhea: Code(s): R19.7 - Diarrhea, unspecified Status: Acute Assessment and Plan: intermittent issues with diarrhea No infection noted on the CT Did show the gallbladder is distended RUQ ultrasound ordered (4) Hypertension: Code(s): I10 - Essential (primary) hypertension Status: Acute Assessment and Plan: Blood pressures were reviewed and they are well controlled. Today 147/56 Hydrochlorothiazide is currently on hold given dehydration and increased creatinine from baseline. Continue metoprolol monitor blood pressures daily. (5) Long-term use of immunosuppressant medication: Code(s): Z79.899 - [facility] ([facility] drug therapy Status: Acute Assessment and Plan: been off hydroxychloroquine and mycophenolate per cloud services architect as she received the COVID booster due to progressive weakness hydroxychloroquine restarted yesterday mycophenolate restarted today (6) Anxiety and depression: Code(s): F41.9 - Anxiety disorder, unspecified; F32.9 - Major depressive disorder, single episode, unspecified Status: Acute Assessment and Plan: No acute issues. Continue citalopram. monitor as her last year DEC 25 (7) Hypothyroidism: Code(s): E03.9 - Hypothyroidism, unspecified Status: Acute Assessment and Plan: Continue levothyroxine TSH 2.860 (8) Dermatomyositis: Code(s): M33.90 - Dermatopolymyositis, unspecified, organ involvement unspecified Status: Acute Assessment and Plan: Continue home medications (9) Hypokalemia: Code(s): E87.6 - Hypokalemia Status: Acute Assessment and Plan: K 3.2 Replace as needed Trend labs Time Spent With Patient Time with patient: Greater than 35 minutes Subjective Date/time seen: 12/07/20 09:00 Interval history: Patient is a 75-year-old female with past medical history of hypertension, dyslipidemia, and dermatomyositis who is here for abdominal pain, nausea, vomiting and diarrhea. Today she stated that she is not having the abdominal pain, diarrhea, or nausea. She did state that she has not ate anything for her to have those things. She did state that when she does it comes with explosive gas. She also stated that she is weak and having some appetite issues. She also stated that she just did not feel good and could not explain to me what was going on. Patient denies nausea, vomiting, diarrhea, constipation, chills, fevers, sweats. Patient also denies chest pain and shortness of breath. I did notice on her CT that does show the gallbladder is distended with no wall thickening or bile duct or pancreatic duct dilatation. I did get a ultrasound of the right upper quadrant to check to make sure that this isn't the reason for the nausea vomiting diarrhea or abdominal pain issue. Review of Systems Review of Systems: All systems reviewed & are unremarkable except as noted in HPI and below Exam Const: General: cooperative, healthy appearing, no acute distress, well developed, alert and awake Nutritional Appearance: well nourished Orientation/consciousness: oriented to person, oriented to place, oriented to time and patient oriented x3 Limitations: no limitations HENMT: Head
--- NOTE | 2020-12-07 09:00 | P.PNIM_ITS ---
Progress Note: A&P Assessment and Plan (1) Dehydration: Code(s): E86.0 - Dehydration Status: Acute Assessment and Plan: * ongoing diarrhea and decreased oral intake. * Hydrated with repeat BMP * BUN and creatinine are correcting as well as her anion gap * secondary to ketoacidosis related to poor oral intake x2 weeks * BUN/Cr 9/0.80 * Continue to trend labs * PT/OT (2) Hypokalemia: Code(s): E87.6 - Hypokalemia Status: Acute Assessment and Plan: * Potassium is being replaced and will be monitored closely. * Magnesium 1.8 * Continue to trend * replace as needed (3) Diarrhea: Code(s): R19.7 - Diarrhea, unspecified Status: Acute Assessment and Plan: * intermittent issues with diarrhea * No infection noted on the CT * Did show the gallbladder is distended * RUQ ultrasound ordered (4) Hypertension: Code(s): I10 - Essential (primary) hypertension Status: Acute Assessment and Plan: * Blood pressures were reviewed and they are well controlled. Today 147/56 * Hydrochlorothiazide is currently on hold given dehydration and increased creatinine from baseline. * Continue metoprolol * monitor blood pressures daily. (5) Long-term use of immunosuppressant medication: Code(s): Z79.899 - Other [facility] (current) drug therapy Status: Acute Assessment and Plan: * been off hydroxychloroquine and mycophenolate per perioperative tech as she received the COVID booster * due to progressive weakness hydroxychloroquine restarted yesterday * mycophenolate restarted today (6) Anxiety and depression: Code(s): F41.9 - Anxiety disorder, unspecified; F32.9 - Major depressive disorder, single episode, unspecified Status: Acute Assessment and Plan: * No acute issues. Continue citalopram. * monitor as her last year DEC 25 (7) Hypothyroidism: Code(s): E03.9 - Hypothyroidism, unspecified Status: Acute Assessment and Plan: * Continue levothyroxine * TSH 2.860 (8) Dermatomyositis: Code(s): M33.90 - Dermatopolymyositis, unspecified, organ involvement unspecified Status: Acute Assessment and Plan: * Continue home medications (9) Hypokalemia: Code(s): E87.6 - Hypokalemia Status: Acute Assessment and Plan: * K 3.2 * Replace as needed * Trend labs Time Spent With Patient Time with patient: Greater than 35 minutes Subjective Date/time seen: 12/07/20 09:00 Interval history: Patient is a 75-year-old female with past medical history of hypertension, dyslipidemia, and dermatomyositis who is here for abdominal pain, nausea, vomiting and diarrhea. Today she stated that she is not having the abdominal pain, diarrhea, or nausea. She did state that she has not ate anything for her to have those things. She did state that when she does it comes with explosive gas. She also stated that she is weak and having some appetite issues. She also stated that she just did not feel good and could not explain to me what was going on. Patient denies nausea, vomiting, diarrhea, constipation, chills, fevers, sweats. Patient also denies chest pain and shortness of breath. I did notice on her CT that does show the gallbladder is distended with no wall thickening or bile duct or pancreatic duct dilatation. I did get a ultrasound of the right upper quadrant to check to gely
[2020-12-07] MEDS: mycophenolate mofetiL 250 MG CAPSULE 500 MG PO ×3 (09:27→18:57)
[2020-12-07] MEDS: CHOLECALCIFEROL 1,000 UNITS TABLET 5000 UNITS PO (09:28)
[2020-12-07] MEDS: MULTIVITAMINS THERAPEUTIC TAB (*BKC) 1 TABLET PO (09:29)
[2020-12-07] MEDS: HYDROXYCHLOROQUINE SULFATE 200 MG TABLET PO ×2 (09:29→16:30)
[2020-12-07] MEDS: METOPROLOL SUCCINATE EXT REL 50 MG TABCR PO (09:29)
[2020-12-07] MEDS: CITALOPRAM HYDROBROMIDE 20 MG TABLET PO (09:29)
[2020-12-07] MEDS: GABAPENTIN 100 MG CAPSULE PO ×3 (09:29→18:57)
[2020-12-07] MEDS: ALBUTEROL SULFATE (*SP) AEROSOL 1 PUFF 2 PUFF INHALATION ×2 (09:45→14:01)
[2020-12-07 22:13] LABS: Glucose Point of Care 91 mg/dl (65-105)
[2020-12-08] VITALS (11 sets, daily range): BP systolic 116–132; BP diastolic 51–61; PULSE 65–88; RESP 16–18; TEMP 36.7–37.2; O2SAT 98–99
[2020-12-08] MEDS: LEVOTHYROXINE SODIUM 75 MCG TABLET PO (06:41)
[2020-12-08 06:43] LABS: Basophils Absolute Auto 0.1 K/mm3 (0.0-0.1); Basophils Percent Auto 1.2 % (0.2-1.2); Eosinophils Absolute Auto 0.2 K/mm3 (0-0.3); Eosinophils Percent Auto 2.3 % (0-4.4); Hematocrit 32.9 % (37.0-47.0); Hemoglobin 10.8 g/dL (12.0-15.0); Immature Granulocyte Absolute 0.25 K/mm3 (0.00-0.031); Immature Granulocyte Percent A 3.6 % (0-0.5); Lymphocytes Percent Auto 21.6 % (18.3-44.2); Mean Corpuscular HGB Conc 32.8 g/dl (32-36); Mean Corpuscular Hemoglobin 28.4 pg (26-34); Mean Corpuscular Volume 86.6 fl (80-100); Mean Platelet Volume 9.3 fl (7.4-10.4); Monocytes Percent Auto 14.1 % (2.6-8.5); Neutrophils Percent Auto 57.2 % (45.5-73.1); Platelet Count Result 223 k/mm3 (150-375); Red Cell Distribution Width 12.9 % (11.5-14.5)
[2020-12-08 07:00] LABS: Alanine Aminotransferase 13 U/L (4-35); Albumin Level 3.2 g/dL (3.5-5.1); Alkaline Phosphatase 42 U/L (38-126); Anion Gap 9 mmol/L (8-16); Aspartate Amino Transferase 35 U/L (14-36); Bilirubin,Total 0.4 mg/dL (0.2-1.3); Blood Urea Nitrogen 6 mg/dL (7-17); Carbon Dioxide 22 mmol/L (22-30); Chloride 107 mmol/L (98-107); Estimated CRCL calculation 48 ml/min; Estimated Glomerular Filt Rate > 60; Glucose 82 mg/dL (65-110); Magnesium 1.8 mg/dL (1.6-2.3); Potassium 2.8 mmol/L (3.4-5.0); Sodium 138 mmol/L (137-145)
--- NOTE | 2020-12-08 08:37 | P.PNIM_ITS ---
Progress Note: A&P Assessment and Plan (1) Dehydration: Code(s): E86.0 - Dehydration Status: Acute Assessment and Plan: * ongoing diarrhea and decreased oral intake. * Hydrated with repeat BMP, replenishing electrolytes * BUN and creatinine are correcting as well as her anion gap * secondary to ketoacidosis related to poor oral intake x2 weeks * BUN/Cr 9/0.80 * Continue to trend labs * PT/OT * tolerating POs well, but still having diarrhea (2) Hypokalemia: Code(s): E87.6 - Hypokalemia Status: Acute Assessment and Plan: * Potassium is being replaced and will be monitored closely. * Magnesium 1.8 * She was dehydrated * low potassium at admission, and continues to have low potassium (K=2.8 today).Improved to 3.5 with 2 dosings today. * Continue to trend * replace as needed (3) Diarrhea: Code(s): R19.7 - Diarrhea, unspecified Status: Acute Assessment and Plan: * intermittent issues with diarrhea continue on a daily basis * No infection noted on the CT * CT at admission showed gallbladder distended; no gallbladder wall thickening or bile duct or pancreatic duct dilatation is evident. * US showed only mild biliary dilatation. CBD measures 7 mm. * Lipase was normal. * Stool cultures pending. Added C.diff toxin test. * Prior to this, she has been consistently continent, with no difficulties. * Today she continues to have the abdominal pain, diarrhea, gas, and cramping. These symptoms can be intermittent and may or may not be related to eating. She stated that after eating, she will develop abdominal pain with explosive gas and an urgency to have a BM. Then after stooling, she experiences relief. She also complained of intermittent abdominal cramping and urgency with incontinence when not after a meal. * Appreciate GI consultation. * Unable to see her stool today. Will hold off on IV antibiotics until stool culture results are known. * Checking LDH and CRP levels. Monitoring K level and ordering oral supplementation. (4) Hypertension: Code(s): I10 - Essential (primary) hypertension Status: Acute Assessment and Plan: * Blood pressures were reviewed and they are well controlled. Today 132/61 * Hydrochlorothiazide is currently on hold given dehydration and increased creatinine from baseline. * Continue metoprolol * monitor blood pressures daily. (5) Long-term use of immunosuppressant medication: Code(s): Z79.899 - Other [facility] drug therapy Status: Acute Assessment and Plan: * been off hydroxychloroquine and mycophenolate per cider maker as she received the COVID booster * due to progressive weakness hydroxychloroquine restarted yesterday * mycophenolate restarted today (6) Anxiety and depression: Code(s): F41.9 - Anxiety disorder, unspecified; F32.9 - Major depressive disorder, single episode, unspecified Status: Acute Assessment and Plan: * No acute issues. Continue citalopram. * monitor as her last year DEC 25 (7) Hypothyroidism: Code(s): E03.9 - Hypothyroidism, unspecified Status: Acute Assessment and Plan: * Continue levothyroxine * TSH 2.860 (8) Dermatomyositis: Code(s): M33.90 - Dermatopolymyositis, unspecified, organ involvement unspecified Status: Acute Assessment and Plan: * Continue home medications Subjective Date/time seen: 12/08/20 08:37 Interval history: Patient is a 75-year-old female with past medical history o
--- NOTE | 2020-12-08 08:37 | PM.IMPN ---
Progress Note: A&P Assessment and Plan (1) Dehydration: Code(s): E86.0 - Dehydration Status: Acute Assessment and Plan: ongoing diarrhea and decreased oral intake. Hydrated with repeat BMP, replenishing electrolytes BUN and creatinine are correcting as well as her anion gap secondary to ketoacidosis related to poor oral intake x2 weeks BUN/Cr 9/0.80 Continue to trend labs PT/OT tolerating POs well, but still having diarrhea (2) Hypokalemia: Code(s): E87.6 - Hypokalemia Status: Acute Assessment and Plan: Potassium is being replaced and will be monitored closely. Magnesium 1.8 She was dehydrated low potassium at admission, and continues to have low potassium (K=2.8 today).Improved to 3.5 with 2 dosings today. Continue to trend replace as needed (3) Diarrhea: Code(s): R19.7 - Diarrhea, unspecified Status: Acute Assessment and Plan: intermittent issues with diarrhea continue on a daily basis No infection noted on the CT CT at admission showed gallbladder distended; no gallbladder wall thickening or bile duct or pancreatic duct dilatation is evident. US showed only mild biliary dilatation. CBD measures 7 mm. Lipase was normal. Stool cultures pending. Added C.diff toxin test. Prior to this, she has been consistently continent, with no difficulties. Today she continues to have the abdominal pain, diarrhea, gas, and cramping. These symptoms can be intermittent and may or may not be related to eating. She stated that after eating, she will develop abdominal pain with explosive gas and an urgency to have a BM. Then after stooling, she experiences relief. She also complained of intermittent abdominal cramping and urgency with incontinence when not after a meal. Appreciate GI consultation. Unable to see her stool today. Will hold off on IV antibiotics until stool culture results are known. Checking LDH and CRP levels. Monitoring K level and ordering oral supplementation. (4) Hypertension: Code(s): I10 - Essential (primary) hypertension Status: Acute Assessment and Plan: Blood pressures were reviewed and they are well controlled. Today 132/61 Hydrochlorothiazide is currently on hold given dehydration and increased creatinine from baseline. Continue metoprolol monitor blood pressures daily. (5) Long-term use of immunosuppressant medication: Code(s): Z79.899 - Other superintendent marine oil terminal (current) drug therapy Status: Acute Assessment and Plan: been off hydroxychloroquine and mycophenolate per cleaner housekeeping as she received the COVID booster due to progressive weakness hydroxychloroquine restarted yesterday mycophenolate restarted today (6) Anxiety and depression: Code(s): F41.9 - Anxiety disorder, unspecified; F32.9 - Major depressive disorder, single episode, unspecified Status: Acute Assessment and Plan: No acute issues. Continue citalopram. 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 She was dehydrated and had low potassium at admission, and continues to have low potassium (K=2.8 today). Prior to this, she has been consistently continent, with no difficulties. Today she continues to have the abdominal pain, diarrhea, gas, and cramping. These symptoms can be intermittent and may or may not be relat
[2020-12-08] MEDS: ALBUTEROL SULFATE (*SP) AEROSOL 1 PUFF 2 PUFF INHALATION ×3 (09:34→21:07)
[2020-12-08] MEDS: POTASSIUM CHLORIDE 20 MEQ TABLET 40 MEQ PO ×2 (10:41→12:07)
[2020-12-08] MEDS: HYDROXYCHLOROQUINE SULFATE 200 MG TABLET PO ×2 (10:41→17:13)
[2020-12-08] MEDS: MULTIVITAMINS THERAPEUTIC TAB (*BKC) 1 TABLET PO (10:41)
[2020-12-08] MEDS: GABAPENTIN 100 MG CAPSULE PO ×3 (10:41→17:14)
[2020-12-08] MEDS: METOPROLOL SUCCINATE EXT REL 50 MG TABCR PO (10:42)
[2020-12-08] MEDS: mycophenolate mofetiL 250 MG CAPSULE 500 MG PO ×3 (10:42→17:10)
[2020-12-08] MEDS: CITALOPRAM HYDROBROMIDE 20 MG TABLET PO (10:43)
[2020-12-08] MEDS: CHOLECALCIFEROL 1,000 UNITS TABLET 5000 UNITS PO (10:43)
[2020-12-08 15:28] LABS: Anion Gap 9 mmol/L (8-16); Blood Urea Nitrogen 7 mg/dL (7-17); Calcium 8.8 mg/dL (8.4-10.2); Carbon Dioxide 23 mmol/L (22-30); Chloride 105 mmol/L (98-107); Estimated CRCL calculation 48 ml/min; Estimated Glomerular Filt Rate > 60; Glucose 102 mg/dL (65-110); Potassium 3.5 mmol/L (3.4-5.0); Sodium 137 mmol/L (137-145)
[2020-12-08] MEDS: POTASSIUM CHLORIDE 20 MEQ TABLET PO (17:09)
[2020-12-08 20:34] LABS: IFOB Positive Control Positive; Immunochemical Fecal Occult Bl Positive (N)
[2020-12-09] VITALS (10 sets, daily range): BP systolic 107–127; BP diastolic 53–67; PULSE 64–86; RESP 16–20; TEMP 36.1–36.3; O2SAT 97–100
[2020-12-09] MEDS: LEVOTHYROXINE SODIUM 75 MCG TABLET PO (06:31)
[2020-12-09 06:43] LABS: Hematocrit 33.1 % (37.0-47.0); Hemoglobin 10.4 g/dL (12.0-15.0); Mean Corpuscular HGB Conc 31.4 g/dl (32-36); Mean Corpuscular Hemoglobin 28.3 pg (26-34); Mean Corpuscular Volume 90.2 fl (80-100); Mean Platelet Volume 9.7 fl (7.4-10.4); Platelet Count Result 223 k/mm3 (150-375); Red Blood Count 3.67 M/mm3 (4.2-5.4); Red Cell Distribution Width 13.2 % (11.5-14.5); White Blood Count 6.6 K/mm3 (4.5-10.0)
[2020-12-09 06:57] LABS: Alanine Aminotransferase 12 U/L (4-35); Albumin Level 2.8 g/dL (3.5-5.1); Alkaline Phosphatase 28 U/L (38-126); Anion Gap 4 mmol/L (8-16); Aspartate Amino Transferase 28 U/L (14-36); Bilirubin,Total 0.3 mg/dL (0.2-1.3); Blood Urea Nitrogen 8 mg/dL (7-17); Calcium 8.9 mg/dL (8.4-10.2); Carbon Dioxide 22 mmol/L (22-30); Chloride 111 mmol/L (98-107); Estimated CRCL calculation 48 ml/min; Estimated Glomerular Filt Rate > 60; Glucose 90 mg/dL (65-110); Lactate Dehydrogenase 491 U/L (313-618); Phosphorus 2.6 mg/dL (2.5-4.5); Potassium 3.8 mmol/L (3.4-5.0); Sodium 137 mmol/L (137-145)
[2020-12-09] MEDS: CHOLECALCIFEROL 1,000 UNITS TABLET 5000 UNITS PO (08:08)
[2020-12-09] MEDS: MULTIVITAMINS THERAPEUTIC TAB (*BKC) 1 TABLET PO (08:08)
[2020-12-09] MEDS: CITALOPRAM HYDROBROMIDE 20 MG TABLET PO (08:09)
[2020-12-09] MEDS: METOPROLOL SUCCINATE EXT REL 50 MG TABCR PO (08:09)
[2020-12-09] MEDS: GABAPENTIN 100 MG CAPSULE PO ×3 (08:09→17:34)
[2020-12-09] MEDS: mycophenolate mofetiL 250 MG CAPSULE 500 MG PO ×3 (08:09→17:34)
[2020-12-09] MEDS: HYDROXYCHLOROQUINE SULFATE 200 MG TABLET PO ×2 (08:10→17:35)
[2020-12-09] MEDS: ALBUTEROL SULFATE (*SP) AEROSOL 1 PUFF 2 PUFF INHALATION ×2 (08:47→14:49)
--- NOTE | 2020-12-09 08:52 | P.PNIM_ITS ---
Progress Note: A&P Assessment and Plan (1) Dehydration: Code(s): E86.0 - Dehydration Status: Acute Assessment and Plan: * ongoing diarrhea and decreased oral intake, and now colonoscopy prep too. * replenishing electrolytes * secondary to ketoacidosis related to poor oral intake x2 weeks * creat 0.7 * Continue to trend labs * tolerating POs not very well, any fluid or supplement leads to diarrhea output * Started continuous IVFs today as she looks dry and the colonoscopy prep may only exacerbate that. Her Albumin is also dropping at 2.8, replenished overnight. Rechecking in morning. (2) Hypokalemia: Code(s): E87.6 - Hypokalemia Status: Acute Assessment and Plan: * Potassium is being replaced and will be monitored closely. * Magnesium 1.8 * She was dehydrated * low potassium at admission, and continues to have low potassium (K=2.8 today).Improved to 3.5 with 2 dosings today. * Continue to trend * replace as needed * last potassium (K=3.8) (3) Diarrhea: Code(s): R19.7 - Diarrhea, unspecified Status: Acute Assessment and Plan: * intermittent issues with diarrhea continue on a daily basis * No infection noted on the CT * CT at admission showed gallbladder distended; no gallbladder wall thickening or bile duct or pancreatic duct dilatation is evident. * US showed only mild biliary dilatation. CBD measures 7 mm. * Lipase was normal. * Prior to this, she has been consistently continent, with no difficulties. * Appreciate GI consultation. * Unable to see her stool today. Will hold off on IV antibiotics until stool culture results are known. * GI planning colonoscopy on Thursday. * Stool cultures and samples pending, including salmonella and C.Diff. * LDH and CRP levels normal. Monitoring K level. Strict I and Os. (4) Hypertension: Code(s): I10 - Essential (primary) hypertension Status: Acute Assessment and Plan: * Blood pressures were reviewed and they are well controlled. Today 132/61 * Hydrochlorothiazide is currently on hold given dehydration and increased creatinine from baseline. * Continue metoprolol * monitor blood pressures daily. 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 Continue citalopram. 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 She was dehydrated and had low potassium at admission, and potassium (K=3.8) replenished. [place]
--- NOTE | 2020-12-09 08:52 | PM.IMPN ---
Progress Note: A&P Assessment and Plan (1) Dehydration: Code(s): E86.0 - Dehydration Status: Acute Assessment and Plan: ongoing diarrhea and decreased oral intake, and now colonoscopy prep too. replenishing electrolytes secondary to ketoacidosis related to poor oral intake x2 weeks creat 0.7 Continue to trend labs tolerating POs not very well, any fluid or supplement leads to diarrhea output Started continuous IVFs today as she looks dry and the colonoscopy prep may only exacerbate that. Her Albumin is also dropping at 2.8, replenished overnight. Rechecking in morning. (2) Hypokalemia: Code(s): E87.6 - Hypokalemia Status: Acute Assessment and Plan: Potassium is being replaced and will be monitored closely. Magnesium 1.8 She was dehydrated low potassium at admission, and continues to have low potassium (K=2.8 today).Improved to 3.5 with 2 dosings today. Continue to trend replace as needed last potassium (K=3.8) (3) Diarrhea: Code(s): R19.7 - Diarrhea, unspecified Status: Acute Assessment and Plan: intermittent issues with diarrhea continue on a daily basis No infection noted on the CT CT at admission showed gallbladder distended; no gallbladder wall thickening or bile duct or pancreatic duct dilatation is evident. US showed only mild biliary dilatation. CBD measures 7 mm. Lipase was normal. Prior to this, she has been consistently continent, with no difficulties. Appreciate GI consultation. Unable to see her stool today. Will hold off on IV antibiotics until stool culture results are known. GI planning colonoscopy on Thursday. Stool cultures and samples pending, including salmonella and C.Diff. LDH and CRP levels normal. Monitoring K level. Strict I and Os. (4) Hypertension: Code(s): I10 - Essential (primary) hypertension Status: Acute Assessment and Plan: Blood pressures were reviewed and they are well controlled. Today 132/61 Hydrochlorothiazide is currently on hold given dehydration and increased creatinine from baseline. Continue metoprolol monitor blood pressures daily. (5) Long-term use of immunosuppressant medication: Code(s): Z79.899 - Other senior living (current) drug therapy Status: Acute Assessment and Plan: been off hydroxychloroquine and mycophenolate per firestopper installer as she received the COVID booster due to progressive weakness hydroxychloroquine restarted yesterday mycophenolate restarted today (6) Anxiety and depression: Code(s): F41.9 - Anxiety disorder, unspecified; F32.9 - Major depressive disorder, single episode, unspecified Status: Acute Assessment and Plan: No acute issues. Continue citalopram. 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 She was dehydrated and had low potassium at admission, and potassium (K=3.8) replenished. Prior to this, she has been consistently continent, with no difficulties. Today she continues to have the abdominal pain, diarrhea, gas, and cramping. These symptoms can be intermittent and may or may not be related to eating. She stated that after eating, she will develop abdominal pain with explosive gas and an urgency to have a BM. Then after stooling, she experiences relief. She also complained of intermittent abdominal cramping
--- NOTE | 2020-12-09 10:13 | WPDGICN ---
Assessment and Plan Assessment and plan (1) Diarrhea: Code(s): R19.7 - Diarrhea, unspecified Status: Acute Assessment and Plan: given immunocompromised state and duration of diarrhea, will perform colonoscopy tomorrow with bx (assess if microscopic colitis, infectious, etc) pending other stool studies will get also serology for celiac disease dehydration already treated will prescribe questran to see if will help to slow down diarrhea (after her colonoscopy) and bentyl prn (2) Acute renal insufficiency: Code(s): N28.9 - Disorder of kidney and ureter, unspecified Status: Acute Assessment and Plan: on admission but resolved after treatment (3) Acute hypokalemia: Code(s): E87.6 - Hypokalemia Status: Acute Assessment and Plan: resolved after treated with kcl (4) Dermatomyositis: Code(s): 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) here with almost 3 weeks of persistent diarrhea. She says that few months ago had self-limited diarrhea after taking antibiotics when had oral surgery but then went back to her baseline, also about 2 months ago had right spigelian hernia repaired without any problem. For almost 3 weeks she has been having explosive diarrhea mostly after eating with gas and abdominal cramping. She had colonoscopy ~ 5 years ago and last year had cologuard. Also had intermittent nausea and lost some weight. On presentation to hospital had hypokalemia 2.7 but corrected since, also had mild shen with creatinine 1.2 and now normal. She is still having loose stools after eating, stool studies pending. CT scan a/p reviewed and no major findings, also normal liver enzymes. Review of Systems Constitutional: Constitutional: Denies chills Eyes: Eyes: Denies blurry vision ENT: Reports Normal hearing present Cardiovascular: Cardiovascular: Denies chest pain Respiratory: Respiratory: Denies dyspnea Gastrointestinal: Gastrointestinal: Reports abdominal pain and Reports diarrhea Genitourinary: Genitourinary: Denies hematuria Musculoskeletal: Comments: h/p dermatomyositis Integumentary/Breasts: Skin/Breast: Denies dry skin Neurologic: Denies headache(s) Psychiatric: Psychiatric: Reports no additional psychiatric complaints ON LICENSE OF [facility] Past Medical History Medical History (Updated 12/07/20 @ 16:40 by JOSSELYN Manrique) Anxiety and depression Cancer of right breast Dermatomyositis Gastroesophageal reflux disease Hypertension Hypothyroidism Long-term use of immunosuppressant medication Mixed hyperlipidemia Stable burst fracture of T8 vertebra Surgical History Surgical History (Updated 12/06/20 @ 15:57 by Radha Mccarty PA-C) History of hysterectomy History of incisional hernia repair (10/03/20) Laparoscopic right lower quadrant incisional hernia repair with mesh, Brian per Dr. Martinez. History of removal of ovarian cyst History of right mastectomy (2010) History of surgery Nodule removed from skin and Laryngeal nerve removed Family History Family History Father Depression Family history of lung cancer Mother Depression Hypertension Family history of elevated blood lipids Other No family history of cardiovascular disease Social History Social History Social History: Surrogate decision maker: Viridiana Becker
[2020-12-09] MEDS: SODIUM CHLORIDE 0.9% IV 1,000 ML 100 ML IV CONT ×2 (11:40→22:56)
[2020-12-09] MEDS: BISACODYL 5 MG TABLET EC 20 MG PO (17:34)
[2020-12-09] MEDS: polyethylene glycoL 3350 238 GM BOTTLE PO (17:36)
[2020-12-09] MEDS: ALBUMIN HUMAN 25% 25 GM/100 ML 100 ML IVPB ×2 (18:40→23:52)
[2020-12-09] MEDS: ALBUTEROL SULFATE (*SP) INHALER 2 PUFF INHALATION (22:06)
--- NOTE | 2020-12-09 23:07 | PC.NURSE ---
per GI, HOLD colonoscopy prep due to new c.diff dx
[2020-12-09] MEDS: VANCOMYCIN ORAL 125 MG/2.5 ML SYRUP PO (23:52)
[2020-12-10] VITALS: PULSE 82
[2020-12-10 06:00] VITALS: BP 126/53; PULSE 73; RESP 16; TEMP 36.1; O2SAT 98
[2020-12-10] MEDS: ALBUMIN HUMAN 25% 25 GM/100 ML 100 ML IVPB (06:09)
[2020-12-10] MEDS: VANCOMYCIN ORAL 125 MG/2.5 ML SYRUP PO ×4 (06:09→23:41)
[2020-12-10] MEDS: LEVOTHYROXINE SODIUM 75 MCG TABLET PO (06:09)
[2020-12-10 06:46] LABS: Hematocrit 31.6 % (37.0-47.0); Hemoglobin 9.9 g/dL (12.0-15.0); Mean Corpuscular HGB Conc 31.3 g/dl (32-36); Mean Corpuscular Hemoglobin 28.7 pg (26-34); Mean Corpuscular Volume 91.6 fl (80-100); Mean Platelet Volume 9.6 fl (7.4-10.4); Platelet Count Result 184 k/mm3 (150-375); Red Blood Count 3.45 M/mm3 (4.2-5.4); Red Cell Distribution Width 13.4 % (11.5-14.5); White Blood Count 6.3 K/mm3 (4.5-10.0)
[2020-12-10 07:05] LABS: Anion Gap 8 mmol/L (8-16); Blood Urea Nitrogen 4 mg/dL (7-17); Calcium 8.8 mg/dL (8.4-10.2); Carbon Dioxide 21 mmol/L (22-30); Chloride 110 mmol/L (98-107); Estimated CRCL calculation 48 ml/min; Estimated Glomerular Filt Rate > 60; Glucose 95 mg/dL (65-110); Potassium 3.1 mmol/L (3.4-5.0); Sodium 139 mmol/L (137-145)
[2020-12-10] MEDS: ALBUTEROL SULFATE (*SP) INHALER 2 PUFF INHALATION ×3 (07:50→21:30)
[2020-12-10] MEDS: SODIUM CHLORIDE 0.9% IV 1,000 ML 100 ML IV CONT (09:54)
[2020-12-10 09:55] VITALS: PULSE 62
[2020-12-10] MEDS: DICYCLOMINE HCL 10 MG CAPSULE PO (09:55)
[2020-12-10] MEDS: CLOBETASOL PROPIONATE 0.05% CREAM 30 GM 1 APPLIC TOPICAL (09:55)
[2020-12-10] MEDS: METOPROLOL SUCCINATE EXT REL 50 MG TABCR PO (09:55)
[2020-12-10] MEDS: HYDROXYCHLOROQUINE SULFATE 200 MG TABLET PO ×2 (09:55→18:05)
[2020-12-10] MEDS: SACCHAROMYCES BOULARDII 250 MG CAPSULE PO ×2 (09:55→18:06)
[2020-12-10] MEDS: GABAPENTIN 100 MG CAPSULE PO ×3 (09:55→18:05)
[2020-12-10] MEDS: mycophenolate mofetiL 250 MG CAPSULE 500 MG PO ×3 (09:55→18:05)
[2020-12-10] MEDS: CHOLECALCIFEROL 1,000 UNITS TABLET 5000 UNITS PO (09:55)
[2020-12-10] MEDS: MULTIVITAMINS THERAPEUTIC TAB (*BKC) 1 TABLET PO (09:56)
[2020-12-10] MEDS: POTASSIUM CHLORIDE 20 MEQ PACKET (FOR LIQUID) 40 MEQ PO (09:56)
[2020-12-10] MEDS: CITALOPRAM HYDROBROMIDE 20 MG TABLET PO (09:56)
[2020-12-10 14:00] VITALS: BP 113/63; PULSE 71; RESP 16; TEMP 36.6; O2SAT 100
--- NOTE | 2020-12-10 16:34 | P.PNIM_ITS ---
Progress Note: A&P Assessment and Plan (1) Clostridium difficile colitis: Code(s): A04.72 - Enterocolitis due to Clostridium difficile, not specified as recurrent Status: Acute Assessment and Plan: Stool cultures collected 12/08/2020 positive for C diff. She reports recent prolonged antibiotic use given oral surgery and hernia surgery * Continue oral vancomycin * Continue probiotics, questran, banatrol * Gentle IV fluid rehydration given ongoing diarrhea * Appreciate gastroenterology consultation * Colonoscopy planned for today given ongoing diarrhea, however this was canceled after positive C diff result. She did complete prep for this yesterday. (2) Dehydration: Code(s): E86.0 - Dehydration Status: Acute Assessment and Plan: Secondary to ongoing diarrhea and poor p.o. intake * She has been rehydrated with IV fluids and appears euvolemic on exam today * Continue with gentle IV fluid rehydration while diarrhea persists * Continue to monitor volume status closely (3) Hypokalemia: Code(s): E87.6 - Hypokalemia Status: Acute Assessment and Plan: Secondary to GI losses * Potassium low at 3.1 today * Supplement with 40 mEq p.o. KCl * Given ongoing diarrhea, will schedule 20 meq b.i.d. * Monitor BMP closely, check magnesium levels (4) Hypertension: Code(s): I10 - Essential (primary) hypertension Status: Acute Assessment and Plan: Blood pressure reviewed and has been generally well controlled. Last BP 113/63 * Hydrochlorothiazide is currently on hold given dehydration * Continue metoprolol * Monitor blood pressure trends daily (5) Long-term use of immunosuppressant medication: Code(s): Z79.899 - Other termite control technician (current) drug therapy Status: Acute Assessment and Plan: She is maintained on hydroxychloroquine and mycophenolate for history of dermatomyositis * Had been on hold for approximately 1 month following administration of COVID- 19 booster vaccine (Moderna-11/15/2020) per Rheumatology recommendations * Hydroxychloroquine and mycophenolate have been restarted this admission due to progressive weakness (6) Anxiety and depression: Code(s): F41.9 - Anxiety disorder, unspecified; F32.9 - Major depressive disorder, single episode, unspecified Status: Acute Assessment and Plan: Mood is stable at this time * Continue citalopram (7) Hypothyroidism: Code(s): E03.9 - Hypothyroidism, unspecified Status: Acute Assessment and Plan: TSH is within normal limits * Continue levothyroxine Subjective Date/time seen: 12/10/20 16:34 Interval history: Date of service: 12/10/2020 Christen Black is a 75-year-old female with a history of breast cancer, dermat omyositis on long-term immunosuppressive therapy, hypertension, hypothyroidism, anxiety and depression who is seen in follow-up for C diff colitis. She is feeling a little bit better today. She notes that when she eats anything she has abdominal cramping and this triggers her to have more episodes of diarrhea. Continues to endorse watery stool. She did undergo colonoscopy prep last night but was unable to have a colonoscopy completed as she tested positive for C diff. Denies fevers, chills, nausea, or vomiting. Denies shortness breath, chest pain, or palpitations. Endorses chronic cough, no sputum production. Denies headaches or body aches. She has no additional concerns at this time. Review of Systems Review of Systems: All system
--- NOTE | 2020-12-10 16:34 | PM.IMPN ---
Progress Note: A&P Assessment and Plan (1) Clostridium difficile colitis: Code(s): A04.72 - Enterocolitis due to Clostridium difficile, not specified as recurrent Status: Acute Assessment and Plan: Stool cultures collected 12/08/2020 positive for C diff. She reports recent prolonged antibiotic use given oral surgery and hernia surgery Continue oral vancomycin Continue probiotics, questran, banatrol Gentle IV fluid rehydration given ongoing diarrhea Appreciate gastroenterology consultation Colonoscopy planned for today given ongoing diarrhea, however this was canceled after positive C diff result. She did complete prep for this yesterday. (2) Dehydration: Code(s): E86.0 - Dehydration Status: Acute Assessment and Plan: Secondary to ongoing diarrhea and poor p.o. intake She has been rehydrated with IV fluids and appears euvolemic on exam today Continue with gentle IV fluid rehydration while diarrhea persists Continue to monitor volume status closely (3) Hypokalemia: Code(s): E87.6 - Hypokalemia Status: Acute Assessment and Plan: Secondary to GI losses Potassium low at 3.1 today Supplement with 40 mEq p.o. KCl Given ongoing diarrhea, will schedule 20 meq b.i.d. Monitor BMP closely, check magnesium levels (4) Hypertension: Code(s): I10 - Essential (primary) hypertension Status: Acute Assessment and Plan: Blood pressure reviewed and has been generally well controlled. Last BP 113/63 Hydrochlorothiazide is currently on hold given dehydration Continue metoprolol Monitor blood pressure trends daily (5) Long-term use of immunosuppressant medication: Code(s): Z79.899 - Other rat exterminator (current) drug therapy Status: Acute Assessment and Plan: She is maintained on hydroxychloroquine and mycophenolate for history of dermatomyositis Had been on hold for approximately 1 month following administration of COVID-19 booster vaccine (Moderna-11/15/2020) per Rheumatology recommendations Hydroxychloroquine and mycophenolate have been restarted this admission due to progressive weakness (6) Anxiety and depression: Code(s): F41.9 - Anxiety disorder, unspecified; F32.9 - Major depressive disorder, single episode, unspecified Status: Acute Assessment and Plan: Mood is stable at this time Continue citalopram (7) Hypothyroidism: Code(s): E03.9 - Hypothyroidism, unspecified Status: Acute Assessment and Plan: TSH is within normal limits Continue levothyroxine Subjective Date/time seen: 12/10/20 16:34 Interval history: Date of service: 12/10/2020 Christen Black is a 75-year-old female with a history of breast cancer, dermatomyositis on long-term immunosuppressive therapy, hypertension, hypothyroidism, anxiety and depression who is seen in follow-up for C diff colitis. She is feeling a little bit better today. She notes that when she eats anything she has abdominal cramping and this triggers her to have more episodes of diarrhea. Continues to endorse watery stool. She did undergo colonoscopy prep last night but was unable to have a colonoscopy completed as she tested positive for C diff. Denies fevers, chills, nausea, or vomiting. Denies shortness breath, chest pain, or palpitations. Endorses chronic cough, no sputum production. Denies headaches or body aches. She has no additional concerns at this time. Review of Systems Review of Systems: All systems reviewed & are unremarkable except as noted in HPI and below Exam Narrative: Ms. Black is a well-nourished, well-appearing 75-year-old female who is lying semi recumbent in bed. She appears comfortable and is in NARD. Neuro: awake, alert and oriented x4, speech clear, no focal neuro deficits noted HEENMT: normocephalic, atraumatic, EOMI, sclerae anicteric, moist oral mucosa Neck: supple, no lymphadenopathy Respirat
--- NOTE | 2020-12-10 17:44 | WPDGIPROGNO ---
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 C diff stool was positive therefore canceled colonoscopy today (she had some of bowel prep last night) and started on oral vancomycin Review of Systems Review of Systems: All systems reviewed & are unremarkable except as noted in HPI and below Exam Const: General: comfortable and no acute distress HENMT: General nose exam: Normal nares present Eyes: General: appearance normal, both eyes and all related structures Neck: Neck: no JVD Resp: Auscultation: clear to auscultation bilaterally Cardio: Rate: regular rate Rhythm: regular rhythm GI: Inspection: non-distended GI Palp: Yes Soft to palpation and Yes Tenderness to palpation present (GI) (mild ttp, no rebound) Auscultation: normal bowel sounds Skin: General skin exam: normal color Neuro: Speech: normal speech Motor exam (neuro): Normal motor muscle tone present throughout Extrem: General: normal to inspection Psych: Mental Status: mental status grossly normal Objective Data Vital Signs Vital Signs: Vital Signs - 24 hr 12/09/20 20:00 12/09/20 22:00 12/10/20 00:00 Temperature 97.3 F L Pulse Rate 65 73 82 Respiratory Rate 16 Blood Pressure 127/67 Pulse Oximetry 100 12/10/20 06:00 12/10/20 09:55 12/10/20 14:00 Temperature 97 F L 97.9 F Pulse Rate 73 62 71 Respiratory Rate 16 16 Blood Pressure 126/53 L 113/63 Pulse Oximetry 98 100 Intake/Output Intake/Output: Intake & Output 12/07/20 12/08/20 12/09/20 12/10/20 23:59 23:59 23:59 23:59 Intake Total 1730 1480 3320 2405 Output Total 186 681 8409 Balance 3410 691 5960 2405 Meds/Results Medications: Active Medications Generic Name Dose Route Start Last Admin Trade Name Freq PRN Reason Stop Dose Admin Albuterol 2 puff 12/09/20 20:00 12/10/20 13:57 Albuterol Sulfate (*Sp) Inhaler INHALATION 2 puff TIDRT FERN Administration Cholestyramine Resin 4 gm 12/11/20 10:00 Cholestyramine Light 4 Gm Powd.Pack PO QAM@1000 [facility] Citalopram Hydrobromide 20 mg 12/07/20 09:00 12/10/20 09:56 Citalopram Hydrobromide 20 Mg Tablet PO 20 mg DAILY FERN Administration Clobetasol Propionate 1 applic 12/06/20 23:21 12/10/20 09:55 Clobetasol Propionate 0.05% Cream 30 Gm TOPICAL 1 applic BID PRN Administration Rash Dicyclomine HCl 10 mg 12/09/20 10:22 12/10/20 09:55 Dicyclomine Hcl 10 Mg Capsule PO 10 mg Q8H PRN Administration Abdominal Cramping Gabapentin 100 mg 12/07/20 09:00 12/10/20 12:33 Gabapentin 100 Mg Capsule PO 100 mg TID FERN Administration Hydroxychloroquine Sulfate 200 mg 12/07/20 08:00 12/10/20 09:55 Hydroxychloroquine Sulfate 200 Mg Tablet PO 200 mg BIDWM FERN Administration Sodium Chloride 1,000 mls @ 65 mls/hr 12/09/20 11:05 12/10/20 09:54 Normal Saline Iv IV CONT 100 mls/hr .[id number] FERN Administration Levothyroxine Sodium 75 mcg 12/07/20 06:30 12/10/20 06:09 Levothyroxine Sodium 75 Mcg Tablet P
[2020-12-10] MEDS: SODIUM CHLORIDE 0.9% IV 1,000 ML 65 ML IV CONT (20:41)
[2020-12-10 21:30] VITALS: PULSE 71; RESP 16
[2020-12-10 22:00] VITALS: BP 120/57; PULSE 74; RESP 18; TEMP 37.1; O2SAT 100
[2020-12-11 00:40] VITALS: PULSE 71; RESP 16; O2SAT 98
[2020-12-11 06:00] VITALS: BP 114/54; PULSE 66; RESP 18; TEMP 36.7; O2SAT 98
[2020-12-11] MEDS: VANCOMYCIN ORAL 125 MG/2.5 ML SYRUP PO ×3 (06:20→17:27)
[2020-12-11] MEDS: LEVOTHYROXINE SODIUM 75 MCG TABLET PO (06:20)
[2020-12-11 06:48] LABS: Hematocrit 27.9 % (37.0-47.0); Hemoglobin 8.9 g/dL (12.0-15.0); Mean Corpuscular HGB Conc 31.9 g/dl (32-36); Mean Corpuscular Hemoglobin 28.9 pg (26-34); Mean Corpuscular Volume 90.6 fl (80-100); Mean Platelet Volume 9.8 fl (7.4-10.4); Platelet Count Result 155 k/mm3 (150-375); Red Blood Count 3.08 M/mm3 (4.2-5.4); Red Cell Distribution Width 13.4 % (11.5-14.5); White Blood Count 3.8 K/mm3 (4.5-10.0)
[2020-12-11 06:59] LABS: Anion Gap 8 mmol/L (8-16); Blood Urea Nitrogen 4 mg/dL (7-17); Calcium 8.5 mg/dL (8.4-10.2); Carbon Dioxide 21 mmol/L (22-30); Chloride 111 mmol/L (98-107); Estimated CRCL calculation 48 ml/min; Estimated Glomerular Filt Rate > 60; Glucose 89 mg/dL (65-110); Magnesium 1.7 mg/dL (1.6-2.3); Sodium 140 mmol/L (137-145)
[2020-12-11] MEDS: MAGNESIUM SULF 2 GM/WATER 50ML 2 GM/50 ML BAG IVPB (10:39)
[2020-12-11] MEDS: SODIUM CHLORIDE 0.9% IV 1,000 ML 65 ML IV CONT (10:44)
--- NOTE | 2020-12-11 10:44 | PCNFU ---
Nutrition Follow-Up Complete: Unintended weight loss as related to Diarrhea/Nausea as evdienced by 11 ibs weight loss in 3 weeks. Goal: Adequate Intake of at least 75% of meals/supplements Patient is progressing towards goal. We will continue current goal. Pt current nutrition is Low fiber. Last recorded weight is 59 kg, up from 50 kg on admit. Bowel Motility:+BM reported 12/10 Labs Reviewed: K 3.0,BUN 4,Hct 27.9, Hgb 8.9 Meds Noted:Celexa,Bentyl, Synthroid, Toprol, MVI, NS , Vanco, Vit D Additional Notes: Nutrition follow up. Patient is consuming 50-75% of low fiber diet. Banatrol Plus TID for stool bulking. Agree with diet orders.Skin: WNL. Monitoring :Will monitor every 5 days.
[2020-12-11 10:47] VITALS: PULSE 67
[2020-12-11] MEDS: SACCHAROMYCES BOULARDII 250 MG CAPSULE PO ×2 (10:47→17:28)
[2020-12-11] MEDS: CITALOPRAM HYDROBROMIDE 20 MG TABLET PO (10:47)
[2020-12-11] MEDS: METOPROLOL SUCCINATE EXT REL 50 MG TABCR PO (10:47)
[2020-12-11] MEDS: mycophenolate mofetiL 250 MG CAPSULE 500 MG PO ×3 (10:48→17:29)
[2020-12-11] MEDS: GABAPENTIN 100 MG CAPSULE PO ×3 (10:49→17:29)
[2020-12-11] MEDS: DICYCLOMINE HCL 10 MG CAPSULE PO (10:49)
[2020-12-11] MEDS: HYDROXYCHLOROQUINE SULFATE 200 MG TABLET PO ×2 (10:49→17:29)
[2020-12-11] MEDS: MULTIVITAMINS THERAPEUTIC TAB (*BKC) 1 TABLET PO (10:49)
[2020-12-11] MEDS: CHOLECALCIFEROL 1,000 UNITS TABLET 5000 UNITS PO (10:50)
[2020-12-11] MEDS: POTASSIUM CHLORIDE 20 MEQ PACKET (FOR LIQUID) PO ×2 (10:51→17:30)
[2020-12-11] MEDS: CHOLESTYRAMINE LIGHT 4 GM POWD.PACK PO (12:56)
[2020-12-11] MEDS: ALBUTEROL SULFATE (*SP) INHALER 2 PUFF INHALATION ×2 (13:03→19:59)
[2020-12-11 14:00] VITALS: BP 131/58; PULSE 74; RESP 16; TEMP 36.8; O2SAT 97
--- NOTE | 2020-12-11 16:34 | WPDGIPROGNO ---
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, unspecified, organ involvement unspecified Status: Acute Assessment and Plan: no acute issues (5) Long-term use of immunosuppressant medication: Code(s): Z79.899 - Other correction (current) drug therapy Status: Acute Assessment and Plan: higher risk for more infections Subjective Date/time seen: 12/11/20 16:34 Interval history: slowly doing better with less diarrhea and more appetite today Review of Systems Review of Systems: All systems reviewed & are unremarkable except as noted in HPI and below Exam Const: General: comfortable and no acute distress HENMT: General nose exam: Normal nares present Eyes: General: appearance normal, both eyes and all related structures Neck: Neck: no JVD Resp: Auscultation: clear to auscultation bilaterally Cardio: Rate: regular rate Rhythm: regular rhythm GI: Inspection: non-distended GI Palp: Yes Soft to palpation and Yes Tenderness to palpation present (GI) (mild ttp, no rebound) Auscultation: normal bowel sounds Skin: General skin exam: normal color Neuro: Speech: normal speech Motor exam (neuro): Normal motor muscle tone present throughout Extrem: General: normal to inspection Psych: Mental Status: mental status grossly normal Objective Data Vital Signs Vital Signs: Vital Signs - 24 hr 12/10/20 21:30 12/10/20 22:00 12/11/20 00:40 Temperature 98.7 F Pulse Rate 71 74 71 Respiratory Rate 16 18 16 Blood Pressure 120/57 L Pulse Oximetry 100 98 12/11/20 06:00 12/11/20 10:47 12/11/20 14:00 Temperature 98.1 F 98.2 F Pulse Rate 66 67 74 Respiratory Rate 18 16 Blood Pressure 114/54 L 131/58 L Pulse Oximetry 98 97 Intake/Output Intake/Output: Intake & Output 12/08/20 12/09/20 12/10/20 12/11/20 23:59 23:59 23:59 23:59 Intake Total 1480 3320 3975 2090 Output Total 900 1050 250 150 Balance 580 2270 3725 1940 Meds/Results Medications: Active Medications Generic Name Dose Route Start Last Admin Trade Name Freq PRN Reason Stop Dose Admin Albuterol 2 puff 12/09/20 20:00 12/11/20 13:04 Albuterol Sulfate (*Sp) Inhaler INHALATION Not Given TIDRT [facility] Cholestyramine Resin 4 gm 12/11/20 10:00 12/11/20 12:56 Cholestyramine Light 4 Gm Powd.Pack PO 4 gm QAM@1000 FERN Administration Citalopram Hydrobromide 20 mg 12/07/20 09:00 12/11/20 10:47 Citalopram Hydrobromide 20 Mg Tablet PO 20 mg DAILY FERN Administration Clobetasol Propionate 1 applic 12/06/20 23:21 12/10/20 09:55 Clobetasol Propionate 0.05% Cream 30 Gm TOPICAL 1 applic BID PRN Administration Rash Dicyclomine HCl 10 mg 12/09/20 10:22 12/11/20 10:49 Dicyclomine Hcl 10 Mg Capsule PO 10 mg Q8H PRN Administration Abdominal Cramping Gabapentin 100 mg 12/07/20 09:00 12/11/20 12:56 Gabapentin 100 Mg Capsule PO 100 mg TID FERN Administration Hydroxychloroquine Sulfate 200 mg 12/07/20 08:00 12/11/20 10:49 Hydroxychloroquine Sulfate 200 Mg Tablet PO 200 mg BIDWM FERN Administration Sodium Chloride 1,000 mls @ 65 mls/hr 12/09/20 11:05 12/11/20 15:48 Normal Saline Iv IV CONT 65 mls/hr .[id number] FERN Infusion Levothyroxine Sodium 75 mcg 12/07/20 06:30 12/11/20 06:20 Levothyroxine Sodium 75 Mcg Tablet PO 75 mcg DAILY@063
--- NOTE | 2020-12-11 16:57 | P.PNIM_ITS ---
Progress Note: A&P Assessment and Plan (1) Clostridium difficile colitis: Code(s): A04.72 - Enterocolitis due to Clostridium difficile, not specified as recurrent Status: Acute Assessment and Plan: Stool cultures collected 12/08/2020 positive for C diff. She reports recent prolonged antibiotic use given oral surgery and hernia surgery * Continue oral vancomycin, started on 12/10 * Continue probiotics, questran, banatrol * Gentle IV fluid rehydration given ongoing diarrhea * Appreciate gastroenterology consultation * Dicyclomine as needed for cramping. Simethicone as needed for gas. (2) Dehydration: Code(s): E86.0 - Dehydration Status: Acute Assessment and Plan: Secondary to ongoing diarrhea and poor p.o. intake * She has been rehydrated with IV fluids and appears euvolemic on exam today * Continue with gentle IV fluid rehydration, decreased to 50 ml/hr, while diarrhea persists * Monitor volume status closely (3) Hypokalemia: Code(s): E87.6 - Hypokalemia Status: Acute Assessment and Plan: Secondary to GI losses * Potassium low at 3.0 today * Supplement with 40 mEq IV KCl * Magnesium 1.7 today, supplement with 2 g IV magnesium sulfate * Continue with 20 mEq KCL p.o. b.i.d. given ongoing diarrhea * Monitor BMP closely (4) Hypertension: Code(s): I10 - Essential (primary) hypertension Status: Acute Assessment and Plan: Blood pressure reviewed and has been generally well controlled. Last BP 131/58 * Holding hydrochlorothiazide * Continue metoprolol * Monitor blood pressure trends daily (5) Long-term use of immunosuppressant medication: Code(s): Z79.899 - Other ferry [employer] (current) drug therapy Status: Acute Assessment and Plan: She is maintained on hydroxychloroquine and mycophenolate for history of dermatomyositis * Had been on hold for approximately 1 month following administration of COVID- 19 booster vaccine (Moderna-11/15/2020) per Rheumatology recommendations * Hydroxychloroquine and mycophenolate have been restarted this admission as she had been feeling weak. (6) Anxiety and depression: Code(s): F41.9 - Anxiety disorder, unspecified; F32.9 - Major depressive disorder, single episode, unspecified Status: Acute Assessment and Plan: Mood is stable at this time * Continue citalopram (7) Hypothyroidism: Code(s): E03.9 - Hypothyroidism, unspecified Status: Acute Assessment and Plan: TSH is within normal limits * Continue levothyroxine Subjective Date/time seen: 12/11/20 16:57 Interval history: Date of service: 12/10/2020 Christen Black is a 75-year-old female with a history of breast cancer, dermatomyositis on long-term immunosuppressive therapy, hypertension, hypothyroidism, anxiety and depression who is seen in follow-up for C diff colitis. She is doing better today. She is having less diarrhea and reports her stools becoming more formed. She reports approximately 3 episodes of loose stool today. She does endorse abdominal cramping and complains of gas. She has not been eating much due to this discomfort. She has been drinking plenty of liquids and states that today is the first day her mouth and lips have not been feeling dry. She denies nausea or vomiting. Denies fevers or chills. She has been able to get up to the commode without difficulty. Denies dizziness or lightheadedness. No shortness of breath or chest pain. She does complain of postnasal drip that has been making her
--- NOTE | 2020-12-11 16:57 | PM.IMPN ---
Progress Note: A&P Assessment and Plan (1) Clostridium difficile colitis: Code(s): A04.72 - Enterocolitis due to Clostridium difficile, not specified as recurrent Status: Acute Assessment and Plan: Stool cultures collected 12/08/2020 positive for C diff. She reports recent prolonged antibiotic use given oral surgery and hernia surgery Continue oral vancomycin, started on 12/10 Continue probiotics, questran, banatrol Gentle IV fluid rehydration given ongoing diarrhea Appreciate gastroenterology consultation Dicyclomine as needed for cramping. Simethicone as needed for gas. (2) Dehydration: Code(s): E86.0 - Dehydration Status: Acute Assessment and Plan: Secondary to ongoing diarrhea and poor p.o. intake She has been rehydrated with IV fluids and appears euvolemic on exam today Continue with gentle IV fluid rehydration, decreased to 50 ml/hr, while diarrhea persists Monitor volume status closely (3) Hypokalemia: Code(s): E87.6 - Hypokalemia Status: Acute Assessment and Plan: Secondary to GI losses Potassium low at 3.0 today Supplement with 40 mEq IV KCl Magnesium 1.7 today, supplement with 2 g IV magnesium sulfate Continue with 20 mEq KCL p.o. b.i.d. given ongoing diarrhea Monitor BMP closely (4) Hypertension: Code(s): I10 - Essential (primary) hypertension Status: Acute Assessment and Plan: Blood pressure reviewed and has been generally well controlled. Last BP 131/58 Holding hydrochlorothiazide Continue metoprolol Monitor blood pressure trends daily (5) Long-term use of immunosuppressant medication: Code(s): Z79.899 - Other [facility] (current) drug therapy Status: Acute Assessment and Plan: She is maintained on hydroxychloroquine and mycophenolate for history of dermatomyositis Had been on hold for approximately 1 month following administration of COVID-19 booster vaccine (Moderna-11/15/2020) per Rheumatology recommendations Hydroxychloroquine and mycophenolate have been restarted this admission as she had been feeling weak. (6) Anxiety and depression: Code(s): F41.9 - Anxiety disorder, unspecified; F32.9 - Major depressive disorder, single episode, unspecified Status: Acute Assessment and Plan: Mood is stable at this time Continue citalopram (7) Hypothyroidism: Code(s): E03.9 - Hypothyroidism, unspecified Status: Acute Assessment and Plan: TSH is within normal limits Continue levothyroxine Subjective Date/time seen: 12/11/20 16:57 Interval history: Date of service: 12/10/2020 Christen Black is a 75-year-old female with a history of breast cancer, dermatomyositis on long-term immunosuppressive therapy, hypertension, hypothyroidism, anxiety and depression who is seen in follow-up for C diff colitis. She is doing better today. She is having less diarrhea and reports her stools becoming more formed. She reports approximately 3 episodes of loose stool today. She does endorse abdominal cramping and complains of gas. She has not been eating much due to this discomfort. She has been drinking plenty of liquids and states that today is the first day her mouth and lips have not been feeling dry. She denies nausea or vomiting. Denies fevers or chills. She has been able to get up to the commode without difficulty. Denies dizziness or lightheadedness. No shortness of breath or chest pain. She does complain of postnasal drip that has been making her cough today. Denies sinus congestion or chest congestion. Review of Systems Review of Systems: All systems reviewed & are unremarkable except as noted in HPI and below Exam Narrative: Ms. Black is a well-nourished, well-appearing 75-year-old female who is lying semi recumbent in bed. She appears comfortable and is in NARD. Neuro: awake, alert and oriented x4, speech clear, no focal neuro def
[2020-12-11 19:59] VITALS: PULSE 75; RESP 18; O2SAT 98
[2020-12-11 22:00] VITALS: BP 122/61; PULSE 68; RESP 18; TEMP 36.7; O2SAT 98
[2020-12-12] MEDS: VANCOMYCIN ORAL 125 MG/2.5 ML SYRUP PO ×5 (00:49→23:23)
[2020-12-12] MEDS: LEVOTHYROXINE SODIUM 75 MCG TABLET PO (05:30)
[2020-12-12 06:00] VITALS: BP 117/53; PULSE 68; RESP 18; TEMP 36.6; O2SAT 99
[2020-12-12] MEDS: ALBUTEROL SULFATE (*SP) INHALER 2 PUFF INHALATION ×3 (08:40→19:36)
[2020-12-12] MEDS: SACCHAROMYCES BOULARDII 250 MG CAPSULE PO ×2 (08:41→17:11)
[2020-12-12] MEDS: HYDROXYCHLOROQUINE SULFATE 200 MG TABLET PO ×2 (08:42→17:11)
[2020-12-12] MEDS: MULTIVITAMINS THERAPEUTIC TAB (*BKC) 1 TABLET PO (08:42)
[2020-12-12] MEDS: CHOLECALCIFEROL 1,000 UNITS TABLET 5000 UNITS PO (08:42)
[2020-12-12] MEDS: DICYCLOMINE HCL 10 MG CAPSULE PO (08:42)
[2020-12-12] MEDS: CITALOPRAM HYDROBROMIDE 20 MG TABLET PO (08:42)
[2020-12-12 08:43] VITALS: PULSE 67
[2020-12-12] MEDS: mycophenolate mofetiL 250 MG CAPSULE 500 MG PO ×3 (08:43→17:11)
[2020-12-12] MEDS: METOPROLOL SUCCINATE EXT REL 50 MG TABCR PO (08:43)
[2020-12-12] MEDS: POTASSIUM CHLORIDE 20 MEQ PACKET (FOR LIQUID) PO ×2 (08:44→17:11)
[2020-12-12] MEDS: GABAPENTIN 100 MG CAPSULE PO ×3 (09:00→17:11)
[2020-12-12 09:48] LABS: Hematocrit 30.2 % (37.0-47.0); Hemoglobin 9.5 g/dL (12.0-15.0); Mean Corpuscular HGB Conc 31.5 g/dl (32-36); Mean Corpuscular Hemoglobin 28.7 pg (26-34); Mean Corpuscular Volume 91.2 fl (80-100); Mean Platelet Volume 9.7 fl (7.4-10.4); Platelet Count Result 163 k/mm3 (150-375); Red Blood Count 3.31 M/mm3 (4.2-5.4); Red Cell Distribution Width 13.7 % (11.5-14.5); White Blood Count 3.8 K/mm3 (4.5-10.0)
[2020-12-12 09:58] LABS: Anion Gap 5 mmol/L (8-16); Blood Urea Nitrogen 3 mg/dL (7-17); Calcium 9.1 mg/dL (8.4-10.2); Carbon Dioxide 25 mmol/L (22-30); Chloride 108 mmol/L (98-107); Estimated CRCL calculation 42 ml/min; Estimated Glomerular Filt Rate > 60; Glucose 104 mg/dL (65-110); Magnesium 2.2 mg/dL (1.6-2.3); Potassium 3.9 mmol/L (3.4-5.0); Sodium 138 mmol/L (137-145)
--- NOTE | 2020-12-12 10:50 | P.PNIM_ITS ---
Progress Note: A&P Assessment and Plan (1) Clostridium difficile colitis: Code(s): A04.72 - Enterocolitis due to Clostridium difficile, not specified as recurrent Status: Acute Assessment and Plan: Stool cultures collected 12/08/2020 positive for C diff. She reports recent prolonged antibiotic use given oral surgery and hernia surgery * Continue oral vancomycin, started on 12/10 * Continue probiotics, questran, banatrol * Gentle IV fluid rehydration given ongoing diarrhea * Appreciate gastroenterology consultation * Dicyclomine as needed for cramping. Simethicone as needed for gas. * Slowly improving, stools becoming less frequent and more formed (2) Dehydration: Code(s): E86.0 - Dehydration Status: Acute Assessment and Plan: Secondary to ongoing diarrhea and poor p.o. intake * She has been rehydrated with IV fluids and appears euvolemic on exam today * Continue with gentle IV fluid rehydration, decreased to 50 ml/hr, while diarrhea persists * Monitor volume status closely (3) Hypokalemia: Code(s): E87.6 - Hypokalemia Status: Acute Assessment and Plan: Secondary to GI losses * Potassium stable at 3.9 today * Continue with 20 mEq KCL p.o. b.i.d. given ongoing diarrhea * Monitor BMP closely (4) Hypertension: Code(s): I10 - Essential (primary) hypertension Status: Acute Assessment and Plan: Blood pressure reviewed and has been generally well controlled. Last BP 117/53 * Holding hydrochlorothiazide * Continue metoprolol * Monitor blood pressure trends daily (5) Long-term use of immunosuppressant medication: Code(s): Z79.899 - Other skilled nursing (current) drug therapy Status: Acute Assessment and Plan: She is maintained on hydroxychloroquine and mycophenolate for history of dermatomyositis * Had been on hold for approximately 1 month following administration of COVID- 19 booster vaccine (Moderna-11/15/2020) per Rheumatology recommendations * Hydroxychloroquine and mycophenolate have been restarted this admission as she had been feeling weak. (6) Anxiety and depression: Code(s): F41.9 - Anxiety disorder, unspecified; F32.9 - Major depressive disorder, single episode, unspecified Status: Acute Assessment and Plan: Mood is stable at this time * Continue citalopram (7) Hypothyroidism: Code(s): E03.9 - Hypothyroidism, unspecified Status: Acute Assessment and Plan: TSH is within normal limits * Continue levothyroxine Subjective Date/time seen: 12/12/20 10:50 Interval history: Date of service: 12/12/2020 Christen Black is a 75-year-old female with a history of breast cancer, dermatomyositis on long-term immunosuppressive therapy, hypertension, hypothyroidism, anxiety and depression who is seen in follow-up for C diff colitis. She is feeling about the same today. She continues to report loose stools, but feels they are starting to become more formed. She has been able to get up to the commode without difficulty. She continues to endorse abdominal cramping and this is worse when she eats anything. She does have some acid reflux today. Denies nausea, vomiting, fever, or chills. Denies shortness breath, cough, chest pain, palpitations, dizziness, lightheadedness. Review of Systems Review of Systems: All systems reviewed & are unremarkable except as noted in HPI and below Exam Narrative: Ms. Black is a well-nourished, well-appearin
--- NOTE | 2020-12-12 10:50 | PM.IMPN ---
Progress Note: A&P Assessment and Plan (1) Clostridium difficile colitis: Code(s): A04.72 - Enterocolitis due to Clostridium difficile, not specified as recurrent Status: Acute Assessment and Plan: Stool cultures collected 12/08/2020 positive for C diff. She reports recent prolonged antibiotic use given oral surgery and hernia surgery Continue oral vancomycin, started on 12/10 Continue probiotics, questran, banatrol Gentle IV fluid rehydration given ongoing diarrhea Appreciate gastroenterology consultation Dicyclomine as needed for cramping. Simethicone as needed for gas. Slowly improving, stools becoming less frequent and more formed (2) Dehydration: Code(s): E86.0 - Dehydration Status: Acute Assessment and Plan: Secondary to ongoing diarrhea and poor p.o. intake She has been rehydrated with IV fluids and appears euvolemic on exam today Continue with gentle IV fluid rehydration, decreased to 50 ml/hr, while diarrhea persists Monitor volume status closely (3) Hypokalemia: Code(s): E87.6 - Hypokalemia Status: Acute Assessment and Plan: Secondary to GI losses Potassium stable at 3.9 today Continue with 20 mEq KCL p.o. b.i.d. given ongoing diarrhea Monitor BMP closely (4) Hypertension: Code(s): I10 - Essential (primary) hypertension Status: Acute Assessment and Plan: Blood pressure reviewed and has been generally well controlled. Last BP 117/53 Holding hydrochlorothiazide Continue metoprolol Monitor blood pressure trends daily (5) Long-term use of immunosuppressant medication: Code(s): Z79.899 - Other nursing home (current) drug therapy Status: Acute Assessment and Plan: She is maintained on hydroxychloroquine and mycophenolate for history of dermatomyositis Had been on hold for approximately 1 month following administration of COVID-19 booster vaccine (Moderna-11/15/2020) per Rheumatology recommendations Hydroxychloroquine and mycophenolate have been restarted this admission as she had been feeling weak. (6) Anxiety and depression: Code(s): F41.9 - Anxiety disorder, unspecified; F32.9 - Major depressive disorder, single episode, unspecified Status: Acute Assessment and Plan: Mood is stable at this time Continue citalopram (7) Hypothyroidism: Code(s): E03.9 - Hypothyroidism, unspecified Status: Acute Assessment and Plan: TSH is within normal limits Continue levothyroxine Subjective Date/time seen: 12/12/20 10:50 Interval history: Date of service: 12/12/2020 Christen Black is a 75-year-old female with a history of breast cancer, dermatomyositis on long-term immunosuppressive therapy, hypertension, hypothyroidism, anxiety and depression who is seen in follow-up for C diff colitis. She is feeling about the same today. She continues to report loose stools, but feels they are starting to become more formed. She has been able to get up to the commode without difficulty. She continues to endorse abdominal cramping and this is worse when she eats anything. She does have some acid reflux today. Denies nausea, vomiting, fever, or chills. Denies shortness breath, cough, chest pain, palpitations, dizziness, lightheadedness. Review of Systems Review of Systems: All systems reviewed & are unremarkable except as noted in HPI and below Exam Narrative: Ms. Black is a well-nourished, well-appearing 75-year-old female who is lying semi recumbent in bed. She appears comfortable and is in NARD. Neuro: awake, alert and oriented x4, speech clear, no focal neuro deficits noted HEENMT: normocephalic, atraumatic, EOMI, sclerae anicteric, moist oral mucosa Neck: supple, no lymphadenopathy Respiratory: clear to auscultation bilaterally, nonlabored breathing Cardio: regular rate, regular rhythm with S1-S2 Abdomen: nondistended, normoactive bowel sounds, soft
[2020-12-12] MEDS: CHOLESTYRAMINE LIGHT 4 GM POWD.PACK PO (11:46)
[2020-12-12 14:00] VITALS: BP 124/65; PULSE 66; RESP 18; TEMP 36.4; O2SAT 99
[2020-12-12] MEDS: SODIUM CHLORIDE 0.9% IV 1,000 ML 50 ML IV CONT (14:47)
--- NOTE | 2020-12-12 15:56 | WPDGIPROGNO ---
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, unspecified, organ involvement unspecified Status: Acute Assessment and Plan: no acute issues (5) Long-term use of immunosuppressant medication: Code(s): Z79.899 - Other geospatial extractor analysis (current) drug therapy Status: Acute Subjective Date/time seen: 12/12/20 15:56 Interval history: feeling better, stools more formed Review of Systems Review of Systems: All systems reviewed & are unremarkable except as noted in HPI and below Exam Const: General: comfortable and no acute distress HENMT: General nose exam: Normal nares present Eyes: General: appearance normal, both eyes and all related structures Neck: Neck: no JVD Resp: Auscultation: clear to auscultation bilaterally Cardio: Rate: regular rate Rhythm: regular rhythm GI: Inspection: non-distended GI Palp: Yes Soft to palpation and No Guarding due to palpation present (GI) Auscultation: normal bowel sounds Skin: General skin exam: normal color Neuro: Speech: normal speech Motor exam (neuro): Normal motor muscle tone present throughout Extrem: General: normal to inspection Psych: Mental Status: mental status grossly normal Objective Data Vital Signs Vital Signs: Vital Signs - 24 hr 12/11/20 19:59 12/11/20 22:00 12/12/20 06:00 Temperature 98.0 F 97.9 F Pulse Rate 75 68 68 Respiratory Rate 18 18 18 Blood Pressure 122/61 117/53 L Pulse Oximetry 98 98 99 12/12/20 08:43 12/12/20 14:00 Temperature 97.6 F Pulse Rate 67 66 Respiratory Rate 18 Blood Pressure 124/65 Pulse Oximetry 99 Intake/Output Intake/Output: Intake & Output 12/09/20 12/10/20 12/11/20 12/12/20 23:59 23:59 23:59 23:59 Intake Total 3320 3975 3380 2070 Output Total 8764 126 0260 800 Balance 2270 3725 2030 1270 Meds/Results Medications: Active Medications Generic Name Dose Route Start Last Admin Trade Name Freq PRN Reason Stop Dose Admin Albuterol 2 puff 12/09/20 20:00 12/12/20 14:53 Albuterol Sulfate (*Sp) Inhaler INHALATION 2 puff TIDRT FERN Administration Calcium Carbonate 200 mg 12/12/20 12:35 Calcium Carbonate (Tums) 500 Mg (200 Mg Elemental) PO Q6H PRN Indigestion Cholestyramine Resin 4 gm 12/11/20 10:00 12/12/20 11:46 Cholestyramine Light 4 Gm Powd.Pack PO 4 gm QAM@1000 FERN Administration Citalopram Hydrobromide 20 mg 12/07/20 09:00 12/12/20 08:42 Citalopram Hydrobromide 20 Mg Tablet PO 20 mg DAILY FERN Administration Clobetasol Propionate 1 applic 12/06/20 23:21 12/10/20 09:55 Clobetasol Propionate 0.05% Cream 30 Gm TOPICAL 1 applic BID PRN Administration Rash Dicyclomine HCl 10 mg 12/09/20 10:22 12/12/20 08:42 Dicyclomine Hcl 10 Mg Capsule PO 10 mg Q8H PRN Administration Abdominal Cramping Famotidine 20 mg 12/12/20 21:00 Famotidine 20 Mg Tablet PO Q12HR FERN Gabapentin 100 mg 12/07/20 09:00 12/12/20 13:11 Gabapentin 100 Mg Capsule PO 100 mg TID FERN Administration Hydroxychloroquine Sulfate 200 mg 12/07/20 08:00 12/12/20 08:42 Hydroxychloroquine Sulfate 200 Mg Tablet PO 200 mg BIDWM FERN Administration Sodium Chloride 1,000 mls @ 50 mls/hr 12/09/20 11:05 12/12/20 14:47 Normal Saline Iv IV CONT 50 ml
--- NOTE | 2020-12-12 16:17 | PC.NURSE ---
pt's daughter,Shyanne Plasencia, called wanting an update on pt's condition as well as needing information about precautions for when pt is discharged. Shyanne also asked if I knew when pt was going to be discharged. Shyanne finally asked that she be given as much notice of pt's discharge so that arrangements for transportation and preparation of the home environment can be made.
[2020-12-12] MEDS: FAMOTIDINE 20 MG TABLET PO (20:43)
[2020-12-12 22:00] VITALS: BP 127/56; PULSE 73; RESP 18; TEMP 36.2; O2SAT 97
[2020-12-13] VITALS (8 sets, daily range): BP systolic 94–132; BP diastolic 53–66; PULSE 64–97; RESP 16–64; TEMP 36.4–37; O2SAT 90–100
[2020-12-13] MEDS: VANCOMYCIN ORAL 125 MG/2.5 ML SYRUP PO ×3 (05:24→17:19)
[2020-12-13] MEDS: LEVOTHYROXINE SODIUM 75 MCG TABLET PO (05:25)
[2020-12-13 06:39] LABS: Hematocrit 30.7 % (37.0-47.0); Hemoglobin 8.9 g/dL (12.0-15.0); Mean Corpuscular Hemoglobin 28.3 pg (26-34); Mean Corpuscular Volume 97.5 fl (80-100); Mean Platelet Volume 10.1 fl (7.4-10.4); Platelet Count Result 161 k/mm3 (150-375); Red Blood Count 3.15 M/mm3 (4.2-5.4); White Blood Count 4.6 K/mm3 (4.5-10.0)
[2020-12-13 06:50] LABS: Anion Gap 6 mmol/L (8-16); Blood Urea Nitrogen 2 mg/dL (7-17); Calcium 9.1 mg/dL (8.4-10.2); Carbon Dioxide 23 mmol/L (22-30); Chloride 110 mmol/L (98-107); Estimated CRCL calculation 42 ml/min; Estimated Glomerular Filt Rate > 60; Glucose 89 mg/dL (65-110); Potassium 4.2 mmol/L (3.4-5.0); Sodium 139 mmol/L (137-145)
[2020-12-13] MEDS: ALBUTEROL SULFATE (*SP) INHALER 2 PUFF INHALATION ×3 (08:49→22:13)
[2020-12-13] MEDS: FAMOTIDINE 20 MG TABLET PO ×2 (08:51→20:04)
[2020-12-13] MEDS: HYDROXYCHLOROQUINE SULFATE 200 MG TABLET PO ×2 (08:52→16:13)
[2020-12-13] MEDS: mycophenolate mofetiL 250 MG CAPSULE 500 MG PO ×3 (08:52→16:13)
[2020-12-13] MEDS: CITALOPRAM HYDROBROMIDE 20 MG TABLET PO (08:52)
[2020-12-13] MEDS: CHOLECALCIFEROL 1,000 UNITS TABLET 5000 UNITS PO (08:52)
[2020-12-13] MEDS: MULTIVITAMINS THERAPEUTIC TAB (*BKC) 1 TABLET PO (08:52)
[2020-12-13] MEDS: METOPROLOL SUCCINATE EXT REL 50 MG TABCR PO (08:53)
[2020-12-13] MEDS: DICYCLOMINE HCL 10 MG CAPSULE PO (08:56)
[2020-12-13] MEDS: POTASSIUM CHLORIDE 20 MEQ PACKET (FOR LIQUID) PO (08:56)
[2020-12-13] MEDS: GABAPENTIN 100 MG CAPSULE PO ×3 (08:56→16:14)
[2020-12-13] MEDS: CHOLESTYRAMINE LIGHT 4 GM POWD.PACK PO (08:56)
[2020-12-13] MEDS: SACCHAROMYCES BOULARDII 250 MG CAPSULE PO ×2 (11:50→16:13)
--- NOTE | 2020-12-13 15:03 | PM.IMPN ---
Progress Note: A&P Assessment and Plan (1) Clostridium difficile colitis: Code(s): A04.72 - Enterocolitis due to Clostridium difficile, not specified as recurrent Status: Acute Assessment and Plan: Stool cultures collected 12/08/2020 positive for C diff. She reports recent prolonged antibiotic use given oral surgery and hernia surgery Continue oral vancomycin, started on 12/10. Planning for 2 weeks of treatment per GI recommendations. I have requested martínez check per CC. Continue probiotics, questran, banatrol Appreciate gastroenterology consultation Dicyclomine as needed for cramping. Simethicone as needed for gas. She is tolerating low-fiber diet Slowly improving, stools becoming less frequent and more formed. Hopeful discharge tomorrow if continued improvement. (2) Dehydration: Code(s): E86.0 - Dehydration Status: Acute Assessment and Plan: Secondary to ongoing diarrhea and poor p.o. intake She has been rehydrated with IV fluids and appears euvolemic on exam today Will discontinue IV fluids today as stool is becoming more formed and she is tolerating PO intake. Monitor volume status closely (3) Hypokalemia: Code(s): E87.6 - Hypokalemia Status: Acute Assessment and Plan: Secondary to GI losses Potassium stable at 4.2 today Had been getting 20 mEq KCL bid due to ongoing diarrhea. Will decrease to once daily. Monitor BMP closely (4) Hypertension: Code(s): I10 - Essential (primary) hypertension Status: Acute Assessment and Plan: Blood pressure reviewed and has been generally well controlled. Last BP 132/66 Resume hydrochlorothiazide Continue metoprolol Monitor blood pressure trends daily (5) Long-term use of immunosuppressant medication: Code(s): Z79.899 - Other jail (current) drug therapy Status: Acute Assessment and Plan: She is maintained on hydroxychloroquine and mycophenolate for history of dermatomyositis Had been on hold for approximately 1 month following administration of COVID-19 booster vaccine (Moderna-11/15/2020) per Rheumatology recommendations Hydroxychloroquine and mycophenolate have been restarted this admission as she had been feeling weak. (6) Anxiety and depression: Code(s): F41.9 - Anxiety disorder, unspecified; F32.9 - Major depressive disorder, single episode, unspecified Status: Acute Assessment and Plan: Mood is stable at this time Continue citalopram (7) Hypothyroidism: Code(s): E03.9 - Hypothyroidism, unspecified Status: Acute Assessment and Plan: TSH is within normal limits Continue levothyroxine Subjective Date/time seen: 12/13/20 15:03 Interval history: Date of service: 12/12/2020 Christen Black is a 75-year-old female with a history of breast cancer, dermatomyositis on long-term immunosuppressive therapy, hypertension, hypothyroidism, anxiety and depression who is seen in follow-up for C diff colitis. She is feeling better today. She reports 2 loose stools but reports that is becoming more formed. She has some cramping only when she has bowel movements. She is having less abdominal pain overall and her appetite is improving. She has been able to get up in ambulate without difficulty. She denies nausea or vomiting. No fevers, chills, dizziness, lightheadedness, weakness. She complains of cough that is nonproductive. No shortness of breath. Denies urinary symptoms. She has been sleeping well. She has no additional concerns at this time. She is having her home disinfected today and is hopeful for discharge home tomorrow. Review of Systems Review of Systems: All systems reviewed & are unremarkable except as noted in HPI and below Exam Narrative: Ms. Black is a well-nourished, well-appearing 75-year-old female who is lying semi recumbent in bed. She appears comfortable and is in NARD. Neuro
--- NOTE | 2020-12-13 15:03 | P.PNIM_ITS ---
Progress Note: A&P Assessment and Plan (1) Clostridium difficile colitis: Code(s): A04.72 - Enterocolitis due to Clostridium difficile, not specified as recurrent Status: Acute Assessment and Plan: Stool cultures collected 12/08/2020 positive for C diff. She reports recent prolonged antibiotic use given oral surgery and hernia surgery * Continue oral vancomycin, started on 12/10. Planning for 2 weeks of treatment per GI recommendations. I have requested martínez check per CC. * Continue probiotics, questran, banatrol * Appreciate gastroenterology consultation * Dicyclomine as needed for cramping. Simethicone as needed for gas. * She is tolerating low-fiber diet * Slowly improving, stools becoming less frequent and more formed. Hopeful discharge tomorrow if continued improvement. (2) Dehydration: Code(s): E86.0 - Dehydration Status: Acute Assessment and Plan: Secondary to ongoing diarrhea and poor p.o. intake * She has been rehydrated with IV fluids and appears euvolemic on exam today * Will discontinue IV fluids today as stool is becoming more formed and she is tolerating PO intake. * Monitor volume status closely (3) Hypokalemia: Code(s): E87.6 - Hypokalemia Status: Acute Assessment and Plan: Secondary to GI losses * Potassium stable at 4.2 today * Had been getting 20 mEq KCL bid due to ongoing diarrhea. Will decrease to once daily. * Monitor BMP closely (4) Hypertension: Code(s): I10 - Essential (primary) hypertension Status: Acute Assessment and Plan: Blood pressure reviewed and has been generally well controlled. Last BP 132/66 * Resume hydrochlorothiazide * Continue metoprolol * Monitor blood pressure trends daily (5) Long-term use of immunosuppressant medication: Code(s): Z79.899 - Other calender inspector (current) drug therapy Status: Acute Assessment and Plan: She is maintained on hydroxychloroquine and mycophenolate for history of dermatomyositis * Had been on hold for approximately 1 month following administration of COVID- 19 booster vaccine (Moderna-11/15/2020) per Rheumatology recommendations * Hydroxychloroquine and mycophenolate have been restarted this admission as she had been feeling weak. (6) Anxiety and depression: Code(s): F41.9 - Anxiety disorder, unspecified; F32.9 - Major depressive disorder, single episode, unspecified Status: Acute Assessment and Plan: Mood is stable at this time * Continue citalopram (7) Hypothyroidism: Code(s): E03.9 - Hypothyroidism, unspecified Status: Acute Assessment and Plan: TSH is within normal limits * Continue levothyroxine Subjective Date/time seen: 12/13/20 15:03 Interval history: Date of service: 12/12/2020 Christen Black is a 75-year-old female with a history of breast cancer, dermatomyositis on long-term immunosuppressive therapy, hypertension, hypothyroidism, anxiety and depression who is seen in follow-up for C diff colitis. She is feeling better today. She reports 2 loose stools but reports that is becoming more formed. She has some cramping only when she has bowel movements. She is having less abdominal pain overall and her appetite is improving. She has been able to get up in ambulate without difficulty. She denies nausea or vomiting. No fevers, chills, dizziness, lightheadedness, weakness. She complains of cough that is nonproductive. No shortness of breath. Denies urinary symptoms. She has been sleeping well. Sh
[2020-12-14] MEDS: VANCOMYCIN ORAL 125 MG/2.5 ML SYRUP PO ×3 (00:37→11:40)
[2020-12-14 00:48] VITALS: PULSE 61; O2SAT 99
[2020-12-14 06:00] VITALS: BP 108/53; PULSE 71; RESP 18; TEMP 36.9; O2SAT 98
[2020-12-14] MEDS: LEVOTHYROXINE SODIUM 75 MCG TABLET PO (06:06)
[2020-12-14 06:53] LABS: Hemoglobin 8.5 g/dL (12.0-15.0)
[2020-12-14 07:11] LABS: Anion Gap 5 mmol/L (8-16); Blood Urea Nitrogen 4 mg/dL (7-17); Calcium 8.3 mg/dL (8.4-10.2); Carbon Dioxide 21 mmol/L (22-30); Chloride 112 mmol/L (98-107); Estimated CRCL calculation 48 ml/min; Estimated Glomerular Filt Rate > 60; Glucose 82 mg/dL (65-110); Potassium 3.6 mmol/L (3.4-5.0); Sodium 138 mmol/L (137-145)
[2020-12-14] MEDS: POTASSIUM CHLORIDE 20 MEQ PACKET (FOR LIQUID) PO (08:08)
[2020-12-14] MEDS: ALBUTEROL SULFATE (*SP) INHALER 2 PUFF INHALATION (08:08)
[2020-12-14] MEDS: FAMOTIDINE 20 MG TABLET PO (08:09)
[2020-12-14] MEDS: HYDROXYCHLOROQUINE SULFATE 200 MG TABLET PO (08:09)
[2020-12-14] MEDS: mycophenolate mofetiL 250 MG CAPSULE 500 MG PO (08:09)
[2020-12-14] MEDS: CHOLECALCIFEROL 1,000 UNITS TABLET 5000 UNITS PO (08:09)
[2020-12-14] MEDS: SACCHAROMYCES BOULARDII 250 MG CAPSULE PO (08:09)
[2020-12-14 08:10] VITALS: PULSE 71
[2020-12-14] MEDS: hydroCHLOROthiazide 25 MG TABLET PO (08:10)
[2020-12-14] MEDS: METOPROLOL SUCCINATE EXT REL 50 MG TABCR PO (08:10)
[2020-12-14] MEDS: GABAPENTIN 100 MG CAPSULE PO (08:10)
[2020-12-14] MEDS: CITALOPRAM HYDROBROMIDE 20 MG TABLET PO (08:10)
[2020-12-14] MEDS: MULTIVITAMINS THERAPEUTIC TAB (*BKC) 1 TABLET PO (08:11)
[2020-12-14] MEDS: CHOLESTYRAMINE LIGHT 4 GM POWD.PACK PO (10:20)
--- NOTE | 2020-12-14 10:59 | P.DS_ITS ---
DS: Admitting Diagnosis Discharge Date 12/14/2020 Admitting Diagnosis diarrhea DS: Discharge Diagnosis Discharge Diagnosis (1) Clostridium difficile colitis: Code(s): A04.72 - Enterocolitis due to Clostridium difficile, not specified as recurrent Status: Acute Assessment and Plan: Stool cultures collected 12/08/2020 positive for C diff. She reports recent prolonged antibiotic use given oral surgery and hernia surgery * Continue oral vancomycin, started on 12/10. Planning for 2 weeks of treatment per GI recommendations, total 10 more days at [facility]. CC to check martínez and cost for the med * Continue probiotics, questran, banatrol * Appreciate gastroenterology consultation. will have her fu with him in 1 week. stool occult blod was also positive with some anemia. recheck level in a week and monitor. * Dicyclomine as needed for cramping. Simethicone as needed for gas. * She is tolerating low-fiber diet * Slowly improving, stools becoming less frequent and more formed. Hopeful discharge tomorrow if continued improvement. (2) Dehydration: Code(s): E86.0 - Dehydration Status: Acute Assessment and Plan: Secondary to ongoing diarrhea and poor p.o. intake * She has been rehydrated with IV fluids and appears euvolemic on exam ,discontinued ivf and encouraged oral intake (3) Hypokalemia: Code(s): E87.6 - Hypokalemia Status: Acute Assessment and Plan: Secondary to GI losses * Potassium stable at 4.2 * Had been getting 20 mEq KCL bid due to ongoing diarrhea. Will decrease to once daily. * with hctz will start k cl supp at discharge. recheck bmp in 1 week (4) Hypertension: Code(s): I10 - Essential (primary) hypertension Status: Acute Assessment and Plan: Blood pressure reviewed and has been generally well controlled. 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 (6) Anxiety and depression: Code(s): F41.9 - Anxiety disorder, unspecified; F32.9 - Major depressive disorder, single episode, unspecified Status: Acute Assessment and Plan: Mood is stable at this time * Continue citalopram (7) Hypothyroidism: Code(s): E03.9 - Hypothyroidism, unspecified Status: Acute Assessment and Plan: TSH is within normal limits * Continue levothyroxine DS: Summary Hospital Course Hospital Course: see above Time Spent with Patient Time attestation: Total time spent providing and/or coordinating discharge services:40 mins Exam Narrative: Neuro: awake, alert and oriented x4, speech clear, no focal neuro deficits noted HEENMT: normocephalic, atraumatic, EOMI, sclerae anicteric, moist oral mucosa Neck: supple, no lymphadenopathy Respiratory: clear to auscultation bilaterally, nonlabored breathing Cardio: regular rate, regular rhythm with S1-S2 Abdomen: nondistended, normoactive bowel sounds, soft, nontender
--- NOTE | 2020-12-14 10:59 | PM.DS ---
DS: Admitting Diagnosis Discharge Date 12/14/2020 Admitting Diagnosis diarrhea DS: Discharge Diagnosis Discharge Diagnosis (1) Clostridium difficile colitis: Code(s): A04.72 - Enterocolitis due to Clostridium difficile, not specified as recurrent Status: Acute Assessment and Plan: Stool cultures collected 12/08/2020 positive for C diff. She reports recent prolonged antibiotic use given oral surgery and hernia surgery Continue oral vancomycin, started on 12/10. Planning for 2 weeks of treatment per GI recommendations, total 10 more days at [facility] [place]. CC to check martínez and cost for the med Continue probiotics, questran, banatrol Appreciate gastroenterology consultation. will have her fu with him in 1 week. stool occult blod was also positive with some anemia. recheck level in a week and monitor. Dicyclomine as needed for cramping. Simethicone as needed for gas. She is tolerating low-fiber diet Slowly improving, stools becoming less frequent and more formed. Hopeful discharge tomorrow if continued improvement. (2) Dehydration: Code(s): E86.0 - Dehydration Status: Acute Assessment and Plan: Secondary to ongoing diarrhea and poor p.o. intake She has been rehydrated with IV fluids and appears euvolemic on exam ,discontinued ivf and encouraged oral intake (3) Hypokalemia: Code(s): E87.6 - Hypokalemia Status: Acute Assessment and Plan: Secondary to GI losses Potassium stable at 4.2 Had been getting 20 mEq KCL bid due to ongoing diarrhea. Will decrease to once daily. with hctz will start k cl supp at discharge. recheck bmp in 1 week (4) Hypertension: Code(s): I10 - Essential (primary) hypertension Status: Acute Assessment and Plan: Blood pressure reviewed and has been generally well controlled. Last BP 132/66 Resume hydrochlorothiazide Continue metoprolol Monitor blood pressure trends daily (5) Long-term use of immunosuppressant medication: Code(s): Z79.899 - Other buttermaker helper (current) drug therapy Status: Acute Assessment and Plan: She is maintained on hydroxychloroquine and mycophenolate for history of dermatomyositis Had been on hold for approximately 1 month following administration of COVID-19 booster vaccine (Moderna-11/15/2020) per Rheumatology recommendations Hydroxychloroquine and mycophenolate have been restarted this admission as she had been feeling weak. (6) Anxiety and depression: Code(s): F41.9 - Anxiety disorder, unspecified; F32.9 - Major depressive disorder, single episode, unspecified Status: Acute Assessment and Plan: Mood is stable at this time Continue citalopram (7) Hypothyroidism: Code(s): E03.9 - Hypothyroidism, unspecified Status: Acute Assessment and Plan: TSH is within normal limits Continue levothyroxine DS: Summary Hospital Course Hospital Course: see above Time Spent with Patient Time attestation: Total time spent providing and/or coordinating discharge services:40 mins Exam Narrative: Neuro: awake, alert and oriented x4, speech clear, no focal neuro deficits noted HEENMT: normocephalic, atraumatic, EOMI, sclerae anicteric, moist oral mucosa Neck: supple, no lymphadenopathy Respiratory: clear to auscultation bilaterally, nonlabored breathing Cardio: regular rate, regular rhythm with S1-S2 Abdomen: nondistended, normoactive bowel sounds, soft, nontender to palpation Extremities: no edema, erythema, or tenderness to palpation, DP pulses 2+ bilaterally Skin: no rashes or lesions, warm and dry Psych: appropriate mood and affect, judgment and insight intact DS: Data Data Completed and Pending Labs on day of discharge: Labs from last 24 hours 12/14/20 12/14/20 06:03 06:03 Hgb 8.5 L Hct 27.0 L Sodium 138 Potassium 3.6 Chloride 112 H Carbon Dioxide 21 L Anion Gap 5 L BUN 4 L Creatinine 0.
--- NOTE | 2020-12-14 12:59 | PC.NURSE ---
[facility] called for clarification of prevalite and cellcept interaction making cellcept less active. discuss with Dr. Barillas and he said only take prevalite as needed and not for long time use. Pharmacy called back with clarification.
--- NOTE | 2020-12-15 10:35 | PCCCNOTE ---
Received call from nursing that pt. discharge yesterday. Did not want [facility] at discharge and requested OP PT/OT. Pt. called this morning stating she changed her mind and would like [facility] to follow for PT/OT. Left message for Sonia at [facility] that pt. has changed her mind and would like PT/OT and to please call pt. to arrange.
[2020-12-16 20:43] LABS: Tissue Transglutaminase IgA Ab <1.0 U/mL (<15.0)
[2020-12-17 08:03] LABS: Tissue Transglutaminase IgG Ab <1.0 U/mL (<15.0)
== END 2020-12-14 12:06 | disposition home or self-care (01) | DRG 372 ==
LOC: ANHED 13:13 → ANH3MEDSUR 15:21
PROVIDERS: Internal Medicine Gastroenterology; Nurse Practitioner; Physician Assistant; Admitting Provider Family Medicine; Emergency Provider Emergency Medicine; PCP Family Medicine; Visit Provider Physician Assistant
DX: A04.72 Enterocolitis due to Clostridium difficile, not specified as recurrent (principal); M33.90 Dermatopolymyositis, unspecified, organ involvement unspecified; E87.2 Acidosis; N28.9 Disorder of kidney and ureter, unspecified; E86.0 Dehydration; E87.6 Hypokalemia; I10 Essential (primary) hypertension; E78.2 Mixed hyperlipidemia; F41.9 Anxiety disorder, unspecified; F32.9 Major depressive disorder, single episode, unspecified; E03.9 Hypothyroidism, unspecified; Z23 Encounter for immunization; Z79.899 Other long term (current) drug therapy; Z87.891 Personal history of nicotine dependence; Z85.3 Personal history of malignant neoplasm of breast
CPT/HCPCS: 36415; 74177; 76705; 80048; 80053; 81001; 82274; 82948; 83516; 83615; 83690; 83735; 84100; 84443; 85014; 85018; 85025; 85027; 86140; 87015; 87045; 87086; 87088; 87177; 87209; 87269; 87272; 87324; 87427; 89055; 90471; 90653; 93005; 94640; 96361; 96365; 96366; 97110; 97116; 97161; 97165; 99285; A9270; G0008; G0378; J3475; J3480; J7030; J7517; P9047; Q9967

== ENCOUNTER 2020-12-19 11:09 | Outpatient (NON) | payer MEDICARE, SELFPAY ==
[2020-12-19 12:57] LABS: Basophils Absolute Auto 0.1 K/mm3 (0.0-0.1); Basophils Percent Auto 1.8 % (0.2-1.2); Eosinophils Absolute Auto 0.1 K/mm3 (0-0.3); Eosinophils Percent Auto 3.5 % (0-4.4); Hematocrit 36.5 % (37.0-47.0); Hemoglobin 11.6 g/dL (12.0-15.0); Immature Granulocyte Absolute 0.01 K/mm3 (0.00-0.031); Immature Granulocyte Percent A 0.3 % (0-0.5); Lymphocytes Absolute Auto 1.36 K/mm3 (0.9-3.2); Lymphocytes Percent Auto 40.1 % (18.3-44.2); Mean Corpuscular HGB Conc 31.8 g/dl (32-36); Mean Corpuscular Hemoglobin 29.1 pg (26-34); Mean Corpuscular Volume 91.7 fl (80-100); Mean Platelet Volume 10.7 fl (7.4-10.4); Monocytes Absolute Auto 0.5 K/mm3 (0.1-0.6); Monocytes Percent Auto 13.3 % (2.6-8.5); Neutrophils Absolute Auto 1.4 K/mm3 (1.3-6.7); Platelet Count Result 267 k/mm3 (150-375); Red Blood Count 3.98 M/mm3 (4.2-5.4); Red Cell Distribution Width 13.8 % (11.5-14.5); White Blood Count 3.4 K/mm3 (4.5-10.0)
[2020-12-19 13:56] LABS: Alanine Aminotransferase 27 U/L (4-35); Albumin Level 4.6 g/dL (3.5-5.1); Alkaline Phosphatase 48 U/L (38-126); Anion Gap 8 mmol/L (8-16); Aspartate Amino Transferase 38 U/L (14-36); Bilirubin,Total 0.2 mg/dL (0.2-1.3); Blood Urea Nitrogen 11 mg/dL (7-17); Calcium 10.5 mg/dL (8.4-10.2); Carbon Dioxide 31 mmol/L (22-30); Chloride 99 mmol/L (98-107); Cholesterol 148 mg/dL (0-200); Estimated Glomerular Filt Rate 48; Glucose 91 mg/dL (65-110); HDL Direct 43 mg/dL; LDL Cholesterol Direct 64 mg/dL; Potassium 4.2 mmol/L (3.4-5.0); Sodium 138 mmol/L (137-145); Triglycerides 191 mg/dL (<150)
[2020-12-19 13:58] LABS: Free T4 Free Thyroxine 1.71 ng/mL (0.78-2.19)
== END 2020-12-19 11:10 | disposition home or self-care (01) ==
PROVIDERS: PCP Family Medicine; Visit Provider Family Medicine
DX: E87.6 Hypokalemia (principal); I12.9 Hypertensive chronic kidney disease with stage 1 through stage 4 chronic kidney disease, or unspecified chronic kidney disease; N18.30 Chronic kidney disease, stage 3 unspecified; A04.72 Enterocolitis due to Clostridium difficile, not specified as recurrent
CPT/HCPCS: 80053; 80061; 84439; 84443; 85025

== ENCOUNTER 2021-01-11 14:21 | Outpatient (NON) | payer MEDICARE, SELFPAY | END 2021-01-11 14:22 | disposition home or self-care (01) | LOC: ANHLAB 14:23 → HOME HLTH 14:27 | PROVIDERS: PCP Family Medicine; Visit Provider Internal Medicine Gastroenterology | DX: A04.72 Enterocolitis due to Clostridium difficile, not specified as recurrent (principal); I12.9 Hypertensive chronic kidney disease with stage 1 through stage 4 chronic kidney disease, or unspecified chronic kidney disease; N18.30 Chronic kidney disease, stage 3 unspecified; E87.6 Hypokalemia | CPT/HCPCS: 87324 ==

== ENCOUNTER 2021-03-07 16:10 | Outpatient (NON) | payer MEDICARE, SELFPAY | END 2021-03-07 16:11 | disposition home or self-care (01) | PROVIDERS: PCP Family Medicine; Visit Provider Internal Medicine Gastroenterology | DX: R19.7 Diarrhea, unspecified (principal) | CPT/HCPCS: 87045; 87324; 87427 ==

== ENCOUNTER 2021-04-11 17:37 | Inpatient (IN) | payer MEDICARE, SELFPAY ==
--- NOTE | ~2021-04-11 | CT_ITS ---
EXAMINATION: CT abdomen pelvis w con INDICATION: Fever and leukocytosis TECHNIQUE: Computed tomographic images of the abdomen and pelvis were obtained after the administrati on of 100 cc of Omnipaque 350 intravenous contrast. The dose-length product (DLP) was 484.34 mGy-cm. Automated exposure control and iterative reconstruction technique were employed. COMPARISON: 04/19/2021 FINDINGS: There are small to moderate-sized pleural effusions with passive atelectasis of the visuali zed lung bases. Changes of right mastectomy with implant reconstruction are noted. The heart size is normal. There is calcified coronary artery atherosclerosis. The nasogastric tube is in the distal sto mach. The liver, spleen, pancreas, and adrenal glands are normal. The gallbladder is distended. Cysts of the kidneys measure up to 2.7 cm on the left. There are surgical changes of right hemicolectomy. There is an approximately 9.2 x 3.4 cm abscess of the right lateral abdomen situated between the live r and kidney. There is a large abscess of the left abdomen which extends across the midline into the right pelvis. The abscess is difficult to measure due to multiple components. A component of the absc ess in the left abdomen measures approximately 20 cm from the inferior pole of the spleen and the lef t pelvis. This then crosses the midline with a nodular component measuring approximately 8 cm in cran iocaudal dimension. There is severe lumbar spondylosis at L4-5. IMPRESSION: 1. Large abdominal and pelvic abscesses as described above. 2. Gallbladder distention which may be due to fasting state. Reviewed, dictated and finalized at location A. GGER
--- NOTE | ~2021-04-11 | CT_ITS ---
EXAMINATION: CT abdomen pelvis w con EXAM DATE: 04/11/2021 19:11 INDICATION: Abdominal pain. C. difficile diagnosed one week ago. Vomiting. TECHNIQUE: Spiral CT of the abdomen and pelvis was performed following intravenous injection of 100 m L Omnipaque 350. Axial, coronal and sagittal images of the abdomen and pelvis were reviewed. The do se-length product (DLP) for this examination was 213.25 mGy-cm. The exposure was tailored according to patient size (auto mA exposure control), and iterative reconstruction (ASIR) was used as additiona l dose reduction technique. Comparison is made to prior examination from 12/06/2020. FINDINGS: Colonic redundancy was demonstrated on previous examination. There is severely dilated loop of bowel, most likely the cecum in the left upper quadrant. Differential diagnosis includes cecal ba scule, cecal volvulus. Ascending colonic transition point identified on axial image 76, coronal locat ion -22. Diameter of this air and fluid fluid-filled bowel up to 8 cm. The remainder of the colon is collapsed. No small bowel dilation. There is small amount of colonic fluid, diarrhea. The liver, spleen, adrenal glands and pancreas are unremarkable. The gallbladder is distended but ot herwise unremarkable. There is no biliary duct dilation. Portal and splenic veins are patent. Kidn eys enhance symmetrically. There is no hydronephrosis. There is a left renal 3 cm cyst. Small gastro esophageal hiatal hernia. Lung bases unremarkable. The uterus is not identified and has likely been surgically resected. The bladder is unremarkable. There is no retroperitoneal or pelvic lymphadenop athy. The heart is normal in size. There are no pericardial or pleural effusions. The lung bases are unre markable. There are no osteoblastic or osteolytic lesions identified. IMPRESSION: Distended, 8 cm bowel with air and fluid most likely cecum with ascending colonic transit ion point. Consider cecal bascule, cecal volvulus. No pneumatosis or perforation. Reviewed, dictated and finalized at location G. S FINISHER IMPRESSION: Distended, 8 cm bowel with air and fluid most likely cecum with asc ending colonic transition point. Consider cecal bascule, cecal volvulus. No pne umatosis or perforation.
--- NOTE | ~2021-04-11 | XR_ITS ---
XR abdomen NG/feed tube insert 05/07/2021 03:17 Indication: Verify NG tube placement Procedure: AP portable chest/abdomen Comparison: Comparison to multiple prior studies sequentially, with oldest reviewed study dated 04/22. Findings: NG tube in the stomach. Central line tip in the SVC. Visualized bowel gas pattern is nonobs tructive. There is left lower lobe airspace disease which may represent atelectasis and/or pneumonia. Impression: 1: NG tube in the stomach. Reviewed, dictated and finalized at location A. CARE CONTACT SPECIALIST Impression: 1: NG tube in the stomach.
--- NOTE | ~2021-04-11 | XR_ITS ---
EXAMINATION: XR abdomen NG/feed tube insert DATE: 04/20/2021 15:42 INDICATION: Nasogastric tube placement. TECHNIQUE: An upright view of the abdomen was obtained. COMPARISON: CT abdomen and pelvis 04/19/2021 FINDINGS: There are multiple dilated loops of small bowel. The colon is decompressed. The lower abdom en is not occluded. Skin rita are noted. The nasogastric tube tip is in the distal stomach. There are airspace opacities in the lower lung zones. There is a small right pleural effusion. Surgical cli ps overlie right chest. IMPRESSION: 1. Nasogastric tube tip in the distal stomach. 2. Dilated small bowel, likely adynamic ileus. 3. Airspace opacities in the lower lung zones, consistent with atelectasis versus pneumonia. 4. Small right pleural effusion. Reviewed, dictated and finalized at location E. LLMENT MANAGEMENT COORDINATOR IMPRESSION: 1. Nasogastric tube tip in the distal stomach. 2. Dilated small bowel, likely adynamic ileus. 3. Airspace opacities in the lower lung zones, consistent with atelectasis vers us pneumonia. 4. Small right pleural effusion.
--- NOTE | ~2021-04-11 | XR_ITS ---
XR abdomen/kub 1V DATE: 05/09/2021 05:48 INDICATION: Small bowel obstruction TECHNIQUE: Portable supine AP view on 05/26/2021 at 0523 hours COMPARISON: 05/07/2021 small bowel series FINDINGS: An NG tube is present in the upper body of the stomach. There is minimal residual contrast material within the proximal small bowel. Left lower lobe infiltrate and/or atelectasis. IMPRESSION: NG tube in stomach Minimal residual contrast material in the proximal small bowel; no contrast material is noted beyond the obstruction noted in the proximal jejunum on 05/07/2021 small bowel series Reviewed, dictated and finalized at Location A. Reviewed, dictated and finalized at location A. APPLIANCE TECHNICIAN IMPRESSION: NG tube in stomach Minimal residual contrast material in the proximal small bowel; no contrast mat erial is noted beyond the obstruction noted in the proximal jejunum on 05/07/2021 small bowel series
--- NOTE | ~2021-04-11 | CT_ITS ---
EXAMINATION: CT chest abdomen pelvis wo con EXAM DATE: 04/19/2021 10:06 INDICATION: Leukocytosis with abd pain; recent surgery for cecal volvulus. TECHNIQUE: Spiral CT of the chest, abdomen and pelvis was performed without contrast. Axial, fernandez l and sagittal images chest, abdomen and pelvis were reviewed. Coronal maximum intensity pixel image s of chest reviewed. The dose-length product (DLP) for this examination was 601.08 mGy-cm. The expo sure was tailored according to patient size (auto mA exposure control), and iterative reconstruction (ASIR) was used as additional dose reduction technique. Comparison is made to prior examination from 04/11/2021. FINDINGS: CHEST: There is moderate right, and small left pleural effusion. There is moderate pericardial effusi on. Bibasilar subsegmental atelectasis. No evidence of superimposed pneumonia. Tracheobronchial tree is patent. There is no mediastinal, hilar or axillary lymphadenopathy. There is no pneumothorax. Heart normal in size. Dense coronary arteries or stents. Right breast implant. Right axillary lagos rgical clips. ABDOMEN PELVIS: Laparotomy rita. There is moderate amount of pelvic fluid. Several punctate foci o f peritoneal gas. This could be postoperative given history provided. There is right hemicolectomy an d bowel anastomosis material. Multiple loops of moderately distended jejunum with air-fluid levels pr obably postoperative ileus. The colon appears collapsed. Liver, spleen, adrenal glands, pancreas are unremarkable. Small sliding gastroesophageal hiatal hernia with reflux demonstrated. There is a left renal 3 cm cyst. No hydronephrosis or nephrolithiasis. Bladder is unremarkable. Probable hysterectomy . There are no osteoblastic or osteolytic lesions identified. IMPRESSION: 1. Recent laparotomy, right hemicolectomy. Moderate amount of abdominal fluid with punctate foci of free peritoneal gas probably postoperative. 2. Moderately distended jejunum probably postoperative ileus. 3. Moderate right, small left pleural effusions with adjacent atelectasis. Reviewed, dictated and finalized at location B. K TRAILER FINAL INSPECTOR
--- NOTE | ~2021-04-11 | CT_ITS ---
EXAMINATION: CT abdomen pelvis w con EXAM DATE: 05/09/2021 08:47 INDICATION: Small bowel obstruction. TECHNIQUE: Spiral CT of the abdomen and pelvis was performed following intravenous injection of 100 m L Omnipaque 350. Axial, coronal and sagittal images of the abdomen and pelvis were reviewed. The do se-length product (DLP) for this examination was 259.19 mGy-cm. The exposure was tailored according to patient size (auto mA exposure control), and iterative reconstruction (ASIR) was used as additiona l dose reduction technique. Correlation is made to upper GI from 05/07/2021. FINDINGS: Previously seen large peritoneal abscess has significantly decreased in size, with once nick s-shaped pocket in the left anterior aspect measuring 3.5 cm in diameter by 7 mm in thickness, which does extend inferiorly to the midline, indicated with arrows on there may be 2 other smaller pockets of abscess in the right side of the pelvis, indicated on axial image 115. There is a nasogastric tube in position. Bowel anastomosis sites. Small amount residual contrast with in small bowel and also the rectum from small bowel exam performed 2 days ago. Only several mildly di lated regions of small bowel, probably ileus. There is inflammation throughout the abdomen. No gross free intraperitoneal gas. No significant bowel dilation. Probable laparotomy. Liver, gallbladder, adrenal glands, spleen, pancreas are unremarkable. Kidneys enhance symmetrically. There is a 3 cm left renal cyst. Couple punctate foci of gas within the bladder. Hysterectomy. No en larged retroperitoneal lymph nodes. Small to moderate left, small right pleural effusions with adjace nt atelectasis. There are no osteoblastic or osteolytic lesions identified. Right breast implant. IMPRESSION: 1. Small amount of residual small bowel and rectosigmoid contrast from administration 2 days earlier . Diffuse mesenteric inflammation. 2. Significant interval decrease in size of peritoneal abscesses. 3. Small to moderate left, small right pleural effusions. Adjacent atelectasis. Reviewed, dictated and finalized at location B. OPERATIONS FORESTER IMPRESSION: 1. Small amount of residual small bowel and rectosigmoid contrast from adminis tration 2 days earlier. Diffuse mesenteric inflammation. 2. Significant interval decrease in size of peritoneal abscesses. 3. Small to moderate left, small right pleural effusions. Adjacent atelectasis .
--- NOTE | ~2021-04-11 | XR_ITS ---
EXAMINATION: XR abdomen obstructive series DATE: 05/11/2021 12:10 INDICATION: Nausea and vomiting. TECHNIQUE: Upright and supine views of abdomen were obtained. COMPARISON: CT abdomen and pelvis 05/09/2021 FINDINGS: There are no dilated loops of bowel. There is a paucity of gas in the bowel. The nasogastri c tube tip is in the stomach. No free intraperitoneal gas. IMPRESSION: 1. Nonobstructive bowel gas pattern. Reviewed, dictated and finalized at location A. TING VEHICLE INFANTRYMAN
--- NOTE | ~2021-04-11 | XR_ITS ---
XR sm bowel follow through [facility] DATE: 05/07/2021 23:29 INDICATION: Vomiting TECHNIQUE: Serial images of the abdomen up to 8 1/2 hours after administration of 300 CC Omnipaque 35 0 water-soluble contrast material through the NG tube COMPARISON: April 23, 2021 CT abdomen pelvis FINDINGS: There is gastric distention. There is proximal small bowel dilatation with complete obstruc tion of the jejunum in the left midabdomen. IMPRESSION: Complete proximal small bowel obstruction; surgical consultation is recommended Reviewed, dictated and finalized at Location A. Reviewed, dictated and finalized at location A. TY GROOVING MACHINE OPERATOR
--- NOTE | ~2021-04-11 | XR_ITS ---
EXAMINATION: XR abdomen/kub 1V DATE: 04/22/2021 07:48 INDICATION: Adynamic ileus. TECHNIQUE: A supine view of the abdomen was obtained. COMPARISON: Abdomen radiograph 04/20/2021, CT abdomen and pelvis 04/19/2021 FINDINGS: There are multiple dilated loops of small bowel. The colon is decompressed. The nasogastric tube tip is in the distal stomach. Skin rita are noted. There are airspace opacities in the lower lung zones. IMPRESSION: 1. Persistently dilated small bowel, likely adynamic ileus. 2. Airspace opacities in the lower lung zones, consistent with atelectasis versus pneumonia. Reviewed, dictated and finalized at location A. NGE MAKER HELPER IMPRESSION: 1. Persistently dilated small bowel, likely adynamic ileus. 2. Airspace opacities in the lower lung zones, consistent with atelectasis vers us pneumonia.
--- NOTE | ~2021-04-11 | XR_ITS ---
EXAMINATION: XR abdomen/kub 1V DATE: 04/19/2021 16:16 INDICATION: Abdominal pain. Leukocytosis. TECHNIQUE: A supine view of the abdomen on 2 radiographs was obtained. COMPARISON: CT abdomen and pelvis 04/19/2021 FINDINGS: There are dilated loops of small bowel. The stomach is distended. The colon is normal in ca liber. Skin rita are noted. IMPRESSION: 1. Dilated small bowel, most likely postoperative ileus. Reviewed, dictated and finalized at location E. OME WAGON HOST/HOSTESS
--- NOTE | ~2021-04-11 | XR_ITS ---
EXAMINATION: XR abdomen NG/feed tube insert EXAM DATE: 04/11/2021 20:46 INDICATION: NG tube insert TECHNIQUE: Frontal projection(s) of the abdomen for interpretation. Correlation is made to CT perfor med earlier same date. FINDINGS: Feeding tube tip projects over the gastroesophageal junction; this could be safely advanced 5-cm. There is dilated loop of bowel in the upper abdomen with air-fluid level, probably the suspect ed cecum reported on CT scan. Contrast within nonobstructed calyces. Lung bases clear. IMPRESSION: Feeding tube could be safely advanced 5-10 cm. Distended loop of bowel. Reviewed, dictated and finalized at location G. T MARKETING INTERN IMPRESSION: Feeding tube could be safely advanced 5-10 cm. Distended loop of b owel.
--- NOTE | ~2021-04-11 | XR_ITS ---
EXAMINATION: XR abdomen/kub 1V INDICATION: Abdominal pain status post right hemicolectomy TECHNIQUE: Supine view of the abdomen is obtained. COMPARISON: 04/19/2021 FINDINGS: Mildly dilated loops of small bowel persist without significant change. Gastric distention also persists. The visualized lung bases are clear. The colon is normal in caliber. No free intraperi toneal gas is identified. IMPRESSION: 1. Unchanged mildly dilated small bowel, likely postoperative ileus. Reviewed, dictated and finalized at location A. ING CLERK
--- NOTE | ~2021-04-11 | XR_ITS ---
EXAMINATION: XR abdomen obstructive series EXAM DATE: 05/05/2021 12:28 INDICATION: New onset vomiting, 8 Days S/P Re-Exploration . TECHNIQUE: Frontal upright projection of the upper abdomen, frontal projection of the lower abdomen f or interpretation. Comparison is made to prior examination from 04/22/2021. FINDINGS: There is a left-sided PICC line. Left lower lobe segmental consolidation. Previously seen feeding tube has been removed. No evidence of free intraperitoneal gas. There is a nonobstructive bow el gas pattern. There are bony degenerative changes. IMPRESSION: 1. Nonobstructive bowel gas pattern. 2. Segmental left lower lobe consolidation. Reviewed, dictated and finalized at location A. ACT LENS POLISHER
[2021-04-11 17:39] VITALS: BP 140/76; PULSE 72; RESP 18; TEMP 36.6; O2SAT 100
[2021-04-11] MEDS: SODIUM CHLORIDE 0.9% IV 500 ML 999 ML IV CONT (18:08)
[2021-04-11] MEDS: ONDANSETRON INJ 4 MG/2 ML VIAL IV PUSH (18:11)
--- NOTE | 2021-04-11 18:27 | ED.ABDPAIN ---
HPI - Abdominal Pain General Chief Complaint: Abdominal Pain Stated Complaint: NAUSEA/VOMITING X 2-3 DAYS Time Seen by Provider: 04/11/21 17:41 Source: patient and RN notes reviewed History of Present Illness HPI narrative: 75-year-old female presented tot he emergency department for evaluation of nausea and vomiting. Patient does have a history of recent C. difficile infection. Patient states that this was recently taken care of. Patient states that last night she was eating chicken when she had onset of epigastric pain associated nausea and vomiting. Patient states even through the day she has been unable to keep fluids down. Related Data Home Medications Medication Instructions Recorded Confirmed cholecalciferol (vitamin D3) 125 5,000 unit PO DAILY 03/07/19 04/12/21 mcg (5,000 unit) capsule hydroxychloroquine 200 mg tablet 200 mg PO BID 03/07/19 04/12/21 multivitamin 1 tablet PO DAILY 05/12/19 04/12/21 albuterol sulfate [ProAir HFA] 2 puff INHALATION TID 12/06/20 04/12/21 gabapentin 100 mg PO TID 12/06/20 04/12/21 metoprolol succinate 50 mg PO DAILY 12/06/20 04/12/21 Allergies Allergy/AdvReac Type Severity Reaction Status Date / Time Sulfa (Sulfonamide AdvReac Mild Skin Verified 04/11/21 19:36 Antibiotics) Reaction sulfamethizole AdvReac Mild Skin Verified 04/11/21 19:36 Reaction gemfibrozil AdvReac Unknown elevated Verified 04/11/21 19:36 liver enzymes sulfacetamide AdvReac Unknown Rash Verified 04/11/21 19:36 Review of Systems Review of Systems: CONSTITUTIONAL: Denies fever, chills, or sweats. EYES: Denies visual changes, redness, or discharge. ENT: Denies rhinorrhea, congestion, sore throat, or otalgia. CARDIOVASCULAR: Denies chest pain, palpitations, or edema. RESPIRATORY: Denies cough or dyspnea. GASTROINTESTINAL: Abdominal pain with associated nausea and vomiting GENITOURINARY: Denies dysuria or hematuria. SKIN: Denies rash or itching. MUSCULOSKELETAL: Denies back pain, joint pain, or myalgia. NEUROLOGIC: Denies headache, numbness, or weakness. PSYCHIATRIC: Denies anxiety or depression. [facility] Past Medical History Medical History Anxiety and depression Cancer of right breast Dermatomyositis Gastroesophageal reflux disease Hypertension Hypothyroidism Long-term use of immunosuppressant medication Mixed hyperlipidemia Stable burst fracture of T8 vertebra Surgical History Surgical History History of hysterectomy History of incisional hernia repair (10/03/20) Laparoscopic right lower quadrant incisional hernia repair with mesh, daVinci per Dr. Martinez. History of removal of ovarian cyst History of right mastectomy (2010) History of surgery Nodule removed from skin and Laryngeal nerve removed Family History Family History Father Depression Family history of lung cancer Mother Depression Hypertension Family history of elevated blood lipids Other No family history of cardiovascular disease Social History Social History Social History: Surrogate decision maker: Viridiana Becker, daughter. Code status: Full code. Smoking packs per day: 0.5 Smoking cigarettes per day: 10.0 Years smoked: 10 Smoking pack-years: 5.00 Smoking status: Former smoker Tobacco type: cigarettes Smoking end date: 03/09/69 Alcohol intake: never Substance use: never Substance use type: does not use Additional living arrangements comments: Resides in her own home in [place]. as of December 2019. Additional occupation/education comments: Retired. Spiritual care concerns: No Exam Narrative: APPEARANCE: Well appearing, no pain, no distress, well-nourished. HEAD: normocephalic, atraumatic. EYES: PERRLA/EOMI, conjunctivae clear. NOSE: Normal
[2021-04-11 18:35] LABS: Hematocrit 36.5 % (37.0-47.0); Hemoglobin 11.9 g/dL (12.0-15.0); Mean Corpuscular HGB Conc 32.6 g/dl (32-36); Mean Corpuscular Hemoglobin 28.7 pg (26-34); Mean Platelet Volume 9.3 fl (7.4-10.4); Platelet Count Result 238 k/mm3 (150-375); Red Blood Count 4.15 M/mm3 (4.2-5.4); Red Cell Distribution Width 13.7 % (11.5-14.5); White Blood Count 8.3 K/mm3 (4.5-10.0)
[2021-04-11 18:43] LABS: Lactic Acid Reflex 3.3 mmol/L (0.7-2.1)
[2021-04-11 18:47] LABS: Alanine Aminotransferase 20 U/L (4-35); Albumin Level 4.6 g/dL (3.5-5.1); Alkaline Phosphatase 48 U/L (38-126); Anion Gap 13 mmol/L (8-16); Aspartate Amino Transferase 40 U/L (14-36); Bilirubin,Total 0.9 mg/dL (0.2-1.3); Blood Urea Nitrogen 25 mg/dL (7-17); Calcium 9.9 mg/dL (8.4-10.2); Carbon Dioxide 19 mmol/L (22-30); Chloride 101 mmol/L (98-107); Estimated CRCL calculation 38 ml/min; Estimated Glomerular Filt Rate > 60; Glucose 103 mg/dL (65-110); Lipase 102 U/L (23-300); Potassium 3.2 mmol/L (3.4-5.0); Sodium 133 mmol/L (137-145)
[2021-04-11 18:54] LABS: Band Neutrophils Percent 1 % (0-6); Lymphocytes Absolute Manual 1.07 K/mm3 (1.1-4.5); Lymphocytes Percent Manual 13 % (18-44); Monocytes Absolute Manual 0.49 K/mm3 (0.1-0.90); Monocytes Percent Manual 6 % (3-9); Neutrophils Absolute Manual 6.55 K/mm3 (1.7-7.2); Neutrophils Percent Manual 78 % (46-73); Total Cells Counted 100
[2021-04-11 18:55] LABS: Eosinophils Absolute Manual 0.16 K/mm3 (0.02-0.5); Eosinophils Percent Manual 2 % (0-4); Ovalocytes 1+ (NORMAL); Platelet Estimate Adequate (Adequate)
[2021-04-11 19:13] LABS: Add Urine Microscopic? YES; Appearance Urine Clear (Clear); Bilirubin Urine Negative (Negative); Color Urine Yellow (Yellow); Glucose Urine UA Negative (Negative); Ketones Urine 2+ mg/dL (Negative); Leukocyte Esterase Ur Negative LEU/UL (Negative); Mucus Urine Rare /lpf; Nitrate Urine Negative (Negative); Protein Urine 2+ mg/dL (Negative); Specific Grav Ur 1.028 (1.001-1.035); Squamous Epithelial Cell Urine Rare /hpf (Few); Urobilinogen Urine Negative mg/dL (<2.0)
[2021-04-11 19:18] LABS: Blood Urine Negative (Negative)
[2021-04-11 19:19] VITALS: BP 141/62; PULSE 83; RESP 22; O2SAT 100
--- NOTE | 2021-04-11 19:20 | PC.NURSE ---
Assumed care of pt at this time, report taken from Kary VANCE. Pt alert and upright on stretcher, wtih c/o pain in abd. Pt updated on POC.
[2021-04-11] MEDS: METOCLOPRAMIDE HCL INJ 10 MG/2 ML VIAL IV PUSH (19:36)
[2021-04-11] MEDS: fentaNYL CITRATE INJ (*CRX) 100 MCG/2 ML VIAL 50 MCG IV PUSH (19:46)
[2021-04-11 20:37] VITALS: BP 135/50; PULSE 85; RESP 18; O2SAT 100
[2021-04-11 21:32] LABS: Reflex Lactic Acid Yes or No Add Lactic
--- NOTE | 2021-04-11 21:36 | PM.IMHP ---
H&P: HPI History of Present Illness Date/Time: 04/11/21 21:36 Chief Complaint: Nausea and vomiting Narrative: This is a 75-year-old female with past medical history significant for right breast cancer, status post right total mastectomy, dermatomyositis, C difficile, patient on tapering course of vancomycin, hypothyroidism, hypertension, gastroesophageal reflux disease. Patient presented to the emergency room due to nausea vomiting of 1 day duration according to patient she has not been feeling well due to her C difficile colitis and on the day before she was feeling slightly better and decided to have a meal however then she started having nausea and vomiting. Patient has had some diarrhea as well, denies any rigors, any chills, any cough sputum production. Preliminary workup was significant for CT of abdomen and pelvis with possible volvulus. Patient is being admitted for the evaluation management and treatment. Review of Systems Review of Systems: Nausea vomiting and abdominal pain Constitutional: Constitutional: Denies chills, Denies fatigue, Denies fever(s), Denies malaise, Denies night sweats, Reports poor appetite and Denies weakness Eyes: Eyes: Denies change in vision ENT: Denies dysphagia, Denies vertigo, Denies dizziness, Denies nasal congestion, Denies nasal discharge, Denies nasal obstruction and Denies odynophagia Cardiovascular: Cardiovascular: Denies edema, Denies irregular heart rhythm, Denies claudication, Denies leg edema, Denies lightheadedness, Denies radiating jaw, neck or arm pain, Denies palpitations, Denies dyspnea on exertion and Denies orthopnea Respiratory: Respiratory: Denies cough, Denies excessive phlegm production and Denies dyspnea Gastrointestinal: Gastrointestinal: Reports abdominal pain, Denies melena, Denies hematochezia, Denies dyspepsia, Denies heartburn, Reports nausea and Reports vomiting Genitourinary: Genitourinary: Denies dysuria and Denies flank pain Musculoskeletal: Musculoskeletal: Denies arthralgias, Denies joint swelling and Denies muscle weakness Integumentary/Breasts: Skin/Breast: Denies rash Neurologic: Denies focal weakness and Denies Sensory deficit (Neuro) Psychiatric: Psychiatric: Reports no additional psychiatric complaints and Reports as per HPI Endocrine: Endocrine: Denies cold intolerance, Denies excessive sweating, Denies heat intolerance, Denies polyphagia, Denies polydipsia, Denies polyuria and Denies palpitations Hematologic/Lymphatic: Hematologic/Lymphatic: Reports no additional hematologic/lymphatic complaints and Reports as per HPI Allergic/Immunologic: Allergic/Immunologic: Reports no additional allergic/immunologic complaints and Reports as per HPI [facility] Past Medical History Medical History Anxiety and depression Cancer of right breast Dermatomyositis Gastroesophageal reflux disease Hypertension Hypothyroidism Long-term use of immunosuppressant medication Mixed hyperlipidemia Stable burst fracture of T8 vertebra Surgical History Surgical History History of hysterectomy History of incisional hernia repair (10/03/20) Laparoscopic right lower quadrant incisional hernia repair with mesh, Brian per Dr. Martinez. History of removal of ovarian cyst History of right mastectomy (2010) History of surgery Nodule removed from skin and Laryngeal nerve removed Family History Family History Father Depression Family history of lung cancer Mother Depression Hypertension Family history of elevated blood lipids Other No family history of cardiovascular disease Social History Social History Social History: Surrogate decision maker: Viridiana Becker, daughter. Code status: Full code. Smoking packs per day: 0.5 Smoking c
[2021-04-11 21:48] VITALS: BP 137/57; PULSE 78; RESP 19; O2SAT 99
--- NOTE | 2021-04-11 22:47 | PC.NURSE ---
Attempted to call report to floor at this time. Was informed RN is in pt room and will call back when available.
[2021-04-11] MEDS: HYDROmorphone HCL INJ (*CRX) 1 MG/ML SYR 0.5 MG IV PUSH (23:54)
[2021-04-11] MEDS: SODIUM CHLORIDE 0.9% IV 1,000 ML 125 ML IV CONT (23:55)
[2021-04-12] VITALS (14 sets, daily range): BP systolic 80–132; BP diastolic 40–52; PULSE 65–97; RESP 10–18; TEMP 36.2–37.4; O2SAT 98–100
--- NOTE | 2021-04-12 00:05 | ADMGEN ---
This patient, Christen Black, was admitted to 3 [facility] Surg Room 328-01. Patient/family oriented to hospital policies and general routines including ID bracelet, bed and alarms, visiting hours, pain management, procedures, bathroom and other care routines, personal items, smoking policy, room service/diet, and visiting hours. Information on how to activate the Rapid Response Team has been discussed. Patient/Family are encouraged to report perceived risks to care and to ask questions if they do not understand what they are told or what they should do.
[2021-04-12] MEDS: HYDROmorphone HCL INJ (*CRX) 1 MG/ML SYR 0.5 MG IV PUSH ×2 (05:45→10:12)
[2021-04-12 08:04] LABS: SARS-CoV-2 RNA PCR Negative
--- NOTE | 2021-04-12 09:09 | PM.CNGS ---
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 She has evidence of a cecal volvulus. I discussed that even with detorsion there is a high likelihood of recurrence. Surgical resection of the cecal volvulus will be the best long-term treatment. She was admitted to the hospital and NG tube was placed. Will plan to proceed with open right hemicolectomy today. She is not showing any signs of bowel ischemia currently and is remaining hemodynamically stable. I have discussed this treatment and the typical recovery with the patient in detail and she is in agreement with proceeding. I also discussed this with her daughter over the phone. History of Present Illness Consult details Consult date: 04/12/21 Reason for consult: other (Cecal volvulus) Requesting physician: Delgado Mao MD Narrative: This is a 75-year-old woman well known to me from a prior hernia repair who presented to the emergency department last night with abdominal pain and nausea and vomiting for the past 2 days. She states that she had eaten some fried chicken and began experiencing bloating with nausea and vomiting. She was experiencing some lower abdominal pain and right lower quadrant pain. She had never experienced anything like this before. She did have a small amount of diarrhea and even did have a small bowel movement yesterday, but she is not passing any flatus currently. She denies any fevers or chills. She has a recent history of C diff which has been treated over the past 4 months. Prior CTs showed no abnormality in relation to volvulus, but CT in the emergency department last night showed evidence of cecal volvulus. NG tube was placed and she was admitted to the hospital. Review of Systems Review of Systems: All systems reviewed & are unremarkable except as noted in HPI and below Constitutional: Constitutional: Denies chills and Denies fever(s) Eyes: Eyes: Denies change in vision ENT: Denies hearing loss, Denies neck pain and Denies sore throat Cardiovascular: Cardiovascular: Denies chest pain and Denies dyspnea Respiratory: Respiratory: Denies cough, Denies dyspnea and Denies wheezing Gastrointestinal: Gastrointestinal: Reports as per HPI Genitourinary: Genitourinary: Denies hematuria and Denies dysuria Musculoskeletal: Musculoskeletal: Denies arthralgias, Denies joint swelling and Denies neck pain Allergic/Immunologic: Allergic/Immunologic: Denies wheezing [facility] Past Medical History Medical History (Updated 04/12/21 @ 09:14 by Hill Martinez DO) Anxiety and depression Cancer of right breast Dermatomyositis Gastroesophageal reflux disease Hypertension Hypothyroidism Long-term use of immunosuppressant medication Mixed hyperlipidemia Stable burst fracture of T8 vertebra Surgical History Surgical History History of hysterectomy History of incisional hernia repair (10/03/20) Laparoscopic right lower quadrant incisional hernia repair with mesh, Brian per Dr. Martinez. History of removal of ovarian cyst History of right mastectomy (2010) History of surgery Nodule removed from skin and Laryngeal nerve removed Family History Family History Father Depression Family history of lung cancer Mother Depression Hypertension Family history of elevated blood lipids Other No family history of cardiovascular disease Social History Social History Social History: Surrogate decision maker: Viridiana Becker, daughter. Code status: Full code. Smoking packs per day: 0.5 Smoking cigarettes per day: 10.0 Years smoked: 10 Smoking pack-years: 5.00 Smoking status: Former smoker Tobacco type: cigare
[2021-04-12] MEDS: SODIUM CHLORIDE 0.9% IV 1,000 ML 125 ML IV CONT (09:20)
[2021-04-12 09:53] LABS: Basophils Percent Auto 0.3 % (0.2-1.2); Hematocrit 32.5 % (37.0-47.0); Hemoglobin 10.9 g/dL (12.0-15.0); Immature Granulocyte Absolute 0.02 K/mm3 (0.00-0.031); Immature Granulocyte Percent A 0.3 % (0-0.5); Lymphocytes Absolute Auto 0.96 K/mm3 (0.9-3.2); Lymphocytes Percent Auto 14.9 % (18.3-44.2); Mean Corpuscular HGB Conc 33.5 g/dl (32-36); Mean Corpuscular Hemoglobin 29.7 pg (26-34); Mean Corpuscular Volume 88.6 fl (80-100); Mean Platelet Volume 9.6 fl (7.4-10.4); Monocytes Absolute Auto 1.1 K/mm3 (0.1-0.6); Monocytes Percent Auto 17.3 % (2.6-8.5); Neutrophils Absolute Auto 4.3 K/mm3 (1.3-6.7); Neutrophils Percent Auto 67.2 % (45.5-73.1); Platelet Count Result 195 k/mm3 (150-375); Red Blood Count 3.67 M/mm3 (4.2-5.4); Red Cell Distribution Width 13.8 % (11.5-14.5); White Blood Count 6.4 K/mm3 (4.5-10.0)
[2021-04-12 10:06] LABS: Alanine Aminotransferase 13 U/L (4-35); Albumin Level 3.9 g/dL (3.5-5.1); Alkaline Phosphatase 42 U/L (38-126); Anion Gap 5 mmol/L (8-16); Aspartate Amino Transferase 30 U/L (14-36); Bilirubin,Total 0.6 mg/dL (0.2-1.3); Blood Urea Nitrogen 20 mg/dL (7-17); Calcium 9.3 mg/dL (8.4-10.2); Carbon Dioxide 20 mmol/L (22-30); Chloride 106 mmol/L (98-107); Estimated CRCL calculation 42 ml/min; Estimated Glomerular Filt Rate > 60; Glucose 101 mg/dL (65-110); Potassium 2.9 mmol/L (3.4-5.0); Sodium 131 mmol/L (137-145)
[2021-04-12] MEDS: ONDANSETRON INJ 4 MG/2 ML VIAL IV PUSH (10:11)
--- NOTE | 2021-04-12 10:33 | PM.IMPN ---
Progress Note: A&P Assessment and Plan (1) Volvulus: Code(s): K56.2 - Volvulus Status: Inactive Assessment and Plan: Patietn presents to ED with abd pain, nausea and vomiting. CT Abd/Pelvis showing distended bowel with air and fluid most likely cecum with ascending colonic transition point consistent with volvulus. Patient made NPO. NGT placed and on suction. General surgery consult with plans for surgery today. Resume metoprolol. (2) Lactic acidosis: Code(s): E87.2 - Acidosis Status: Acute Assessment and Plan: Patient presents with a nongap metabolic acidosis felt related to the Lactic acid level of 3.3. Not felt to be sepsis but more likely related to bowel ischemia from the volvulus. LA level normal now. Metabolic acidosis slightly better but with declining anion gap. Follow. (3) Nausea and vomiting: Code(s): R11.2 - Nausea with vomiting, unspecified Status: Acute Assessment and Plan: Likely secondary to volvulus. NGT in place and to suction. As above (4) Clostridium difficile colitis: Code(s): A04.72 - Enterocolitis due to Clostridium difficile, not specified as recurrent Status: Acute Assessment and Plan: Patient on tapering course of vancomycin on admission. Resume when able. (5) Chronic kidney disease, stage 3 (moderate): Code(s): N18.3 - Chronic kidney disease, stage 3 (moderate) Status: Chronic Assessment and Plan: Patient with a normal baseline Cr but with CrCl in the 30-40 range. Cr normal here but with metabolic nongap acidosis probably realted to the lactic acid. Continue to monitor BUN and creatinine. (6) Polymyositis, organ involvement unspecified: Code(s): M33.20 - Polymyositis, organ involvement unspecified Status: Chronic Assessment and Plan: Stable. Patient takes HCQ which irene resume when able. Follow-up in outpatient setting. (7) Long-term use of immunosuppressant medication: Code(s): Z79.899 - Other superintendent terminal (current) drug therapy Status: Acute Assessment and Plan: As above. (8) DVT prophylaxis: Code(s): Z29.9 - Encounter for prophylactic measures, unspecified Status: Acute Assessment and Plan: SCDs Subjective Date/time seen: 04/12/21 10:33 Interval history: 75yo female with CKD, HTN and recent CDiff currently on a taperinig dose of oral Vanco here for n/v and found to have cecal volvulus. Abd pain persistent in the right flank. No vomiting but nausea still requiring Zofran. She denies CP but has metoprolol for palpitations. Dry chronic cough. No hx of COVID and has had vaccine including booster. Exam Narrative: AF 99.0 132/50 78 16 100% ra Gen - NARD lying semi-recumbent in bed HEENT - NGT secured with dark brownish fluid in the tubing Chest - CTA bilaterally, nml RR CV - RRR S1/S2 Abd - Soft, Positive BS, mildly protuberant, tender in the right flank area. Ext - No pedal edema Psych - anxious mood Skin - Warm and dry Objective Data Vital Signs Vital Signs: Vital Signs - 24 hr 04/11/21 17:39 04/11/21 19:19 04/11/21 20:37 Temperature 97.8 F Pulse Rate 72 83 85 Respiratory Rate 18 22 H 18 Blood Pressure 140/76 141/62 H 135/50 L Pulse Oximetry 100 100 100 04/11/21 21:48 04/12/21 05:46 Temperature 99.0 F Pulse Rate 78 78 Respiratory Rate 19 16 Blood Pressure 137/57 L 132/50 L Pulse Oximetry 99 100 Intake/Output Intake/Output: Intake & Output 04/09/21 04/10/21 04/11/21 04/12/21 23:59 23:59 23:59 23:59 Intake Total 500 1750 Output Total 20 100 Balance 480 1650 Meds/Results Medications: Active Medications Generic Name Dose Route Start Last Admin Trade Name Freq PRN Reason Stop Dose Admin Acetaminophen 1,000 mg 04/12/21 13:00 Acetaminophen 500 Mg Tablet PO 04/12/21 13:01 ONCE ONE Hydromorphone HCl 0.5 mg 04/11/21 20:12 04/12/21 10:12 Hydromorp
[2021-04-12] MEDS: POTASSIUM CHLORIDE INJ 40 MEQ in SODIUM CHLORIDE 0.9% IV 500 ML 130 MEQ IVPB (11:01)
[2021-04-12] MEDS: METOPROLOL TARTRATE 12.5 MG TABLET PO ×2 (11:24→20:56)
--- NOTE | 2021-04-12 13:46 | WPDHPUPDATE1 ---
History and Physical Update Update Date/Time: 04/12/21 13:46 History and Physical has been reviewed, including an updated exam of the patient. There are NO changes in the patient's condition. Risks, benefits, and alternatives have been discussed and questions answered. Patient agrees to proceed with procedure.
[2021-04-12] MEDS: KETOROLAC 15 MG/ML VIAL (*BKC) IV PUSH (13:53)
--- NOTE | 2021-04-12 13:53 | WPDANESEPPF ---
Anes - Initial Pre Proc Eval Procedure: Operation Date: 04/12/21 14:30 Proposed Procedures p Right Hemicolectomy - Hill Martinez DO Date/Time: 04/12/21 13:53 Surgeon: Elsy Vee MD Pre Op Diagnosis: Cecal Volvulus Patient Data Age: 75 Gender: F Height: 1.6 m Weight: 54.9 kg Last Vital Signs Temp 37.2 C 04/12/21 05:46 Pulse 97 04/12/21 11:24 Resp 16 04/12/21 05:46 BP 80/40 L 04/12/21 12:30 Pulse Ox 100 04/12/21 05:46 Allergies Allergy/AdvReac Type Severity Reaction Status Date / Time Sulfa (Sulfonamide AdvReac Mild Skin Verified 04/11/21 19:36 Antibiotics) Reaction sulfamethizole AdvReac Mild Skin Verified 04/11/21 19:36 Reaction gemfibrozil AdvReac Unknown elevated Verified 04/11/21 19:36 liver enzymes sulfacetamide AdvReac Unknown Rash Verified 04/11/21 19:36 Home Medications Medication Instructions Recorded Confirmed Type cholecalciferol (vitamin D3) 125 5,000 unit PO DAILY 03/07/19 04/12/21 History mcg (5,000 unit) capsule hydroxychloroquine 200 mg tablet 200 mg PO BID 03/07/19 04/12/21 History multivitamin 1 tablet PO DAILY 05/12/19 04/12/21 History albuterol sulfate [ProAir HFA] 2 puff INHALATION TID 12/06/20 04/12/21 History gabapentin 100 mg PO TID 12/06/20 04/12/21 History metoprolol succinate 50 mg PO DAILY 12/06/20 04/12/21 History Saccharomyces boulardii [Florastor] 250 mg PO BID #60 cap 12/14/20 04/12/21 Rx simvastatin 10 mg tablet See Rx Instructions .ROUTE 01/01/21 04/11/21 Rx .COMPLEX #90 tablet cholestyramine-aspartame 4 gram 4 g PO QAM@1000 #14 ea 01/09/21 02/28/21 Rx oral powder for susp in a packet hydrochlorothiazide 25 mg tablet See Rx Instructions .ROUTE 02/05/21 04/12/21 Rx .COMPLEX #90 tablet vancomycin 125 mg capsule 125 mg PO DIRECTED #91 cap 03/08/21 04/12/21 Rx levothyroxine 75 mcg tablet 75 mcg PO DAILY #90 tablet 03/25/21 04/12/21 Rx Laboratory Tests 04/11/21 04/11/21 04/11/21 18:25 18:25 18:25 WBC 8.3 K/mm3 K/mm3 (4.5-10.0) RBC 4.15 M/mm3 L M/mm3 (4.2-5.4) Hgb 11.9 g/dL L g/dL (12.0-15.0) Hct 36.5 % L % (37.0-47.0) MCV 88.0 fl fl (80-100) MCH 28.7 pg pg (26-34) MCHC 32.6 g/dl g/dl (32-36) RDW 13.7 % % (11.5-14.5) Plt Count 238 k/mm3 k/mm3 (150-375) MPV 9.3 fl fl (7.4-10.4) Immature Gran % (Auto) Not Reportable Neut % (Auto) Not Reportable Lymph % (Auto) Not Reportable Nobles % (Auto) Not Reportable Eos % (Auto) Not Reportable Baso % (Auto) Not Reportable Lymph # (Auto) Not Reportable Nobles # (Auto) Not Reportable Eos # (Auto) Not Reportable Baso # (Auto) Not Reportable Abs Immat Gran (auto) Not Reportable Absolute Neuts (auto) Not Reportable Absolute Nucleated RBC Not Reportable Total Counted 100 Neutrophils % (Manual) 78 % H % (46-73) Band Neutrophils % 1 % % (0-6) Lymphocytes % (Manual) 13 % L % (18-44) Monocytes % (Manual) 6 % % (3-9) Eosinophils % (Manual) 2 % % (0-4) Nucleated RBC % Not Reportable Abs Neuts (Manual) 6.55 K/mm3 K/mm3 (1.7-7.2) Abs Lymphs (Manual) 1.07 K/mm3 L K/mm3 (1.1-4.5) Abs Monocytes (Manual) 0.49 K/mm3 K/mm3 (0.1-0.90) Absolute Eos (Manual) 0.16 K/mm3 K/mm3 (0.02-0.5) Platelet Estimate Adequate (Adequate) Ovalocytes 1+ (NORMAL) Sodium 133 mmol/L L mmol/L (137-145) Potassium 3.2 mmol/L L mmol/L (3.4-5.0) Chloride 101 mmol/L mmol/L (98-107) Carbon Dioxide 19 mmol/L L mmol/L (22-30) Anion Gap 13 mmol/L mmol/L (8-16) BUN 25 mg/dL H D mg/dL (7-17) Creatinine 0.90 mg/dL mg/dL
[2021-04-12] MEDS: LACTATED RINGERS 1,000 ML 30 ML IV CONT (13:57)
[2021-04-12] MEDS: ceFAZolin 2 GM/D5W 50 ML 2 GM/50 ML BAG IVPB (14:09)
[2021-04-12] MEDS: metroNIDAZOLE 500 MG/ISO 100ML 500 MG/100 ML BAG 100 MG IVPB (14:09)
--- NOTE | 2021-04-12 16:21 | W.PM.PROC2 ---
Procedure Note - Detailed Date of Procedure 04/12/21 Pre-op Diagnosis Cecal Volvulus Post-op Diagnosis same Procedure Performed Open right hemicolectomy with ileocolic anastomosis Surgeon Hill Martinez, DO Anesthesia general Indications This is a 75-year-old woman who presented to the emergency department with abdominal pain, bloating, nausea, and vomiting. CT of her abdomen and pelvis showed evidence of cecal volvulus. NG tube was placed and she was admitted to the hospital for further treatment. Discussions were made with the patient about treatment options and decision was made to proceed with open right hemicolectomy. Findings Open right hemicolectomy was performed. The cecum was de torsed and appeared very dilated but appeared healthy and viable. The cecum and ascending colon was very redundant. There were multiple loops of small bowel adherent down into the pelvis and there also appeared to be a small Meckel's diverticulum on the ileum. The adhesions were fairly dense down into the right pelvic region. I carefully took down all of these adhesions and then chose to resect the small bowel that was involved with these adhesions. More proximal small bowel all appeared to be decompressed and healthy and viable. A right hemicolectomy was performed and a [id number] stapled ileocolic anastomosis was performed. The right colon was sent to the lab for pathology. Description of Procedure Procedure as well as risks, benefits, and alternatives were discussed with the patient. Written consent was obtained and placed in chart prior to procedure. Patient was brought back to surgical suite. She was placed supine on operating table. Time-out was done to confirm patient and procedure. She was then intubated by the anesthesia department. Her abdomen was prepped and draped in sterile fashion using chlorhexidine prep. A 12 cm vertical midline incision was made using a 10 blade scalpel. Electrocautery was used for hemostasis and for dissection down through the subcutaneous tissue. The linea alba was then incised using electrocautery. The peritoneum was then entered using a curved hemostat. The fascial and peritoneal opening was then extended throughout the length of the skin incision using electrocautery. There were a few adhesions up to the abdominal wall and these were carefully taken down using blunt dissection and electrocautery. Once the abdominal wall was free of adhesions I was then able to place an Sumit wound protector. The abdominal cavity was then carefully inspected. The cecum was identified up in the left upper quadrant. Cecum was gently delivered through the incision and was carefully de torsed to allow the bowel to be carefully inspected for viability. Lateral peritoneal attachments were carefully taken down using electrocautery. Then took down the hepatic flexure with LigaSure bipolar cautery. This allowed adequate mobility the ascending colon and proximal transverse colon to perform the anastomosis. I then continued following the cecum down to the terminal ileum. The terminal ileum appeared densely adherent to the right pelvic wall. There were also 2 or 3 more loops of small bowel down in the pelvis with adhesions as well. These adhesions were carefully taken down using Metzenbaum scissors until the small bowel was able to be delivered through the incision. I then ensured that the small bowel came up to the transverse colon without any tension. Then chose a point on the ileum that appeared healthy viable and created a window in mesentery using blunt dissection with a curved hemostat. A MAIKEL 75 mm blue load stapler was then advanced across the ileum at this point and it was clamped and fired. I then identified a point on the transverse colon that appeared healthy and. Window was created in the mesocolon using electrocautery then a MAIKEL 75 mm blue load stapler was advanced across the transverse colon at this point. Stapler was clampe
[2021-04-12] MEDS: fentaNYL CITRATE INJ (*CRX) 100 MCG/2 ML VIAL 25 MCG IV PUSH ×2 (16:48→17:20)
--- NOTE | 2021-04-12 16:58 | SUR.PHASEI ---
Simple mask removed at 1655.
[2021-04-12] MEDS: MORPHINE SULFATE (*CRX) 4 MG/ML INJ IV PUSH (20:58)
[2021-04-13] VITALS (8 sets, daily range): BP systolic 118–132; BP diastolic 43–55; PULSE 74–84; RESP 16–18; TEMP 36.7–37.6; O2SAT 97–100
[2021-04-13] MEDS: MORPHINE SULFATE (*CRX) 4 MG/ML INJ IV PUSH ×4 (00:57→23:31)
[2021-04-13] MEDS: LACTATED RINGERS 1,000 ML 100 ML IV CONT ×2 (03:59→17:36)
[2021-04-13 07:01] LABS: Basophils Percent Auto 0.2 % (0.2-1.2); Hematocrit 31.6 % (37.0-47.0); Hemoglobin 9.8 g/dL (12.0-15.0); Immature Granulocyte Absolute 0.13 K/mm3 (0.00-0.031); Immature Granulocyte Percent A 0.9 % (0-0.5); Lymphocytes Absolute Auto 0.59 K/mm3 (0.9-3.2); Lymphocytes Percent Auto 4.1 % (18.3-44.2); Mean Corpuscular Hemoglobin 28.9 pg (26-34); Mean Corpuscular Volume 93.2 fl (80-100); Mean Platelet Volume 9.7 fl (7.4-10.4); Monocytes Absolute Auto 1.9 K/mm3 (0.1-0.6); Monocytes Percent Auto 13.5 % (2.6-8.5); Neutrophils Absolute Auto 11.6 K/mm3 (1.3-6.7); Neutrophils Percent Auto 81.3 % (45.5-73.1); Platelet Count Result 172 k/mm3 (150-375); Red Blood Count 3.39 M/mm3 (4.2-5.4); Red Cell Distribution Width 13.9 % (11.5-14.5); White Blood Count 14.3 K/mm3 (4.5-10.0)
[2021-04-13 07:13] LABS: Albumin Level 3.2 g/dL (3.5-5.1); Anion Gap 5 mmol/L (8-16); Blood Urea Nitrogen 25 mg/dL (7-17); Calcium 9.1 mg/dL (8.4-10.2); Carbon Dioxide 20 mmol/L (22-30); Chloride 108 mmol/L (98-107); Estimated CRCL calculation 38 ml/min; Estimated Glomerular Filt Rate > 60; Glucose 96 mg/dL (65-110); Magnesium 1.9 mg/dL (1.6-2.3); Potassium 3.8 mmol/L (3.4-5.0); Sodium 133 mmol/L (137-145)
--- NOTE | 2021-04-13 07:19 | WPDANESPN ---
Anes - Prog Note Post-Op Date/Time: 04/13/21 07:19 Cardiovascular status: normal Respiratory status: normal Airway patency: baseline Mental status: baseline Post-Op hydration status: normal Vital Signs: Last Vital Signs Temp 99.0 F 04/13/21 03:31 Pulse 78 04/13/21 03:31 Resp 16 04/13/21 03:31 BP 131/47 L 04/13/21 03:31 Pulse Ox 100 04/13/21 03:31 Pain Score (VAS): 03/18 I/O: Intake & Output 04/12/21 04/12/21 04/13/21 15:59 23:59 07:59 Intake Total 150 200 Output Total 82 Balance 150 118 Laboratory Tests 04/13/21 06:25 04/11/21 04/12/21 04/12/21 20:29 09:10 09:10 WBC 6.4 RBC 3.67 L Hgb 10.9 L Hct 32.5 L MCV 88.6 MCH 29.7 MCHC 33.5 RDW 13.8 Plt Count 195 MPV 9.6 Immature Gran % (Auto) 0.3 Neut % (Auto) 67.2 Lymph % (Auto) 14.9 L Boundary % (Auto) 17.3 H Eos % (Auto) 0.0 Baso % (Auto) 0.3 Lymph # (Auto) 0.96 Boundary # (Auto) 1.1 H Eos # (Auto) 0.0 Baso # (Auto) 0.0 Abs Immat Gran (auto) 0.02 Absolute Neuts (auto) 4.3 Absolute Nucleated RBC 0.0 Nucleated RBC % 0.0 Sodium 131 L Potassium 2.9 L Chloride 106 Carbon Dioxide 20 L Anion Gap 5 L BUN 20 H Creatinine 0.80 Estim Creat Clear Calc 42 Estimated GFR > 60 Glucose 101 Calcium 9.3 Phosphorus Magnesium Total Bilirubin 0.6 AST 30 ALT 13 Alkaline Phosphatase 42 Total Protein 6.0 L Albumin 3.9 SARS-CoV-2 RNA (RT-PCR) Negative Blood Type Antibody Screen 04/12/21 04/13/21 04/13/21 09:13 06:25 06:25 WBC Pending RBC Pending Hgb Pending Hct Pending MCV Pending MCH Pending MCHC Pending RDW Pending Plt Count Pending MPV Pending Immature Gran % (Auto) Pending Neut % (Auto) Pending Lymph % (Auto) Pending Boundary % (Auto) Pending Eos % (Auto) Pending Baso % (Auto) Pending Lymph # (Auto) Pending Boundary # (Auto) Pending Eos # (Auto) Pending Baso # (Auto) Pending Abs Immat Gran (auto) Pending Absolute Neuts (auto) Pending Absolute Nucleated RBC Pending Nucleated RBC % Pending Sodium 133 L Potassium 3.8 Chloride 108 H Carbon Dioxide 20 L Anion Gap 5 L BUN 25 H Creatinine 0.90 Estim Creat Clear Calc 38 Estimated GFR > 60 Glucose 96 Calcium 9.1 Phosphorus 3.0 Magnesium 1.9 Total Bilirubin AST ALT Alkaline Phosphatase Total Protein Albumin 3.2 L SARS-CoV-2 RNA (RT-PCR) Blood Type A Positive Antibody Screen Negative Post-procedural complaints: none Patient Feedback: Patient satisfied with anesthetic care.
[2021-04-13] MEDS: METOPROLOL TARTRATE 12.5 MG TABLET PO ×2 (08:25→19:34)
[2021-04-13] MEDS: ENOXAPARIN 40 MG/0.4 ML SYRINGE SUB-Q (08:26)
--- NOTE | 2021-04-13 10:49 | PM.IMPN ---
Progress Note: A&P Assessment and Plan (1) Volvulus: Code(s): K56.2 - Volvulus Status: Inactive Assessment and Plan: 2/ POD 1 Right hemicolectomy, doing well (2) Lactic acidosis: Onset Date: ~04/2021 Code(s): E87.2 - Acidosis Status: Acute Assessment and Plan: Resolved (3) Nausea and vomiting: Qualifiers: Vomiting type: unspecified Qualified Code(s): R11.2 - Nausea with vomiting, unspecified Code(s): R11.2 - Nausea with vomiting, unspecified Status: Acute Assessment and Plan: Likely secondary to volvulus. Resolved (4) Clostridium difficile colitis: Onset Date: Unknown Code(s): A04.72 - Enterocolitis due to Clostridium difficile, not specified as recurrent Status: Acute Assessment and Plan: Patient on tapering course of vancomycin on admission. Resume when feasible (5) Chronic kidney disease, stage 3 (moderate): Qualifiers: Chronic kidney disease stage 3 subtype: stage 3a (GFR 45-59) Qualified Code(s): N18.31 - Chronic kidney disease, stage 3a Code(s): N18.3 - Chronic kidney disease, stage 3 (moderate) Status: Chronic Assessment and Plan: 2 creatinine 0.9 Avoid nephrotoxic drugs F/u Lab (6) Polymyositis, organ involvement unspecified: Code(s): M33.20 - Polymyositis, organ involvement unspecified Status: Chronic Assessment and Plan: Stable. Patient takes HCQ which irene resume when able. Follow-up in outpatient setting. Subjective Date/time seen: 04/13/21 10:49 Interval history: Patient is status post right hemicolectomy on April 12 for cecal volvulus. 2/ visit. POD #1. Incisional discomfort moderate. Worse with movement. No chest pain or shortness of breath. No swelling. No nausea or vomiting. No flatus or stool. Review of Systems Review of Systems: All systems reviewed & are unremarkable except as noted in HPI and below Exam Narrative: HEENT: PERRL, sclerae nonicteric, pharyngeal mucosa pink and intact NECK: No JVD CHEST: Clear to auscultation. Normal effort. HEART: NL S1/S2, regular, no murmur ABDOMEN: Quiet. Incisional tenderness. Soft. EXTREMITIES: No cyanosis, edema, or clubbing NEUROLOGIC: CN intact and symmetric to inspection. MUSCULOSKELETAL: Tone and strength symmetric. PSYCH: Alert. Oriented to person, place, and time. Objective Data Vital Signs Vital Signs: Vital Signs - 24 hr 04/12/21 11:24 04/12/21 12:30 04/12/21 14:03 Temperature 98.7 F Pulse Rate 97 73 Respiratory Rate 18 Blood Pressure 80/40 L 121/51 L Pulse Oximetry 98 04/12/21 16:21 04/12/21 16:35 04/12/21 16:50 Temperature 97.6 F Pulse Rate 79 65 65 Respiratory Rate 16 10 L 18 Blood Pressure 120/46 L 125/47 L 128/50 L Pulse Oximetry 100 100 100 04/12/21 17:05 04/12/21 17:20 04/12/21 17:35 Temperature Pulse Rate 65 70 66 Respiratory Rate 17 18 16 Blood Pressure 128/52 L 121/48 L 119/49 L Pulse Oximetry 99 100 98 04/12/21 18:31 04/12/21 19:31 04/12/21 20:56 Temperature 97.1 F L 99.4 F Pulse Rate 76 73 74 Respiratory Rate 14 16 Blood Pressure 119/43 L 122/45 L Pulse Oximetry 100 100 04/12/21 23:31 04/13/21 03:31 04/13/21 07:31 Temperature 98.4 F 99.0 F 99.6 F Pulse Rate 84 78 74 Respiratory Rate 16 16 18 Blood Pressure 121/46 L 131/47 L 126/43 L Pulse Oximetry 100 100 100 04/13/21 08:25 Temperature Pulse Rate 74 Respiratory Rate Blood Pressure Pulse Oximetry Intake/Output Intake/Output: Intake & Output 04/10/21 04/11/21 04/12/21 04/13/21 23:59 23:59 23:59 23:59 Intake Total 500 2100 Output Total 20 182 Balance 480 1918 Meds/Results Medications: Active Medications Generic Name Dose Route Start Last Admin Trade Name Freq PRN Reason Stop Dose Admin Enoxaparin Sodium 40 mg 04/13/21 09:00 04/13/21 08:26 Enoxaparin 40 Mg/0.4 Ml Syringe SUB-Q 40 mg KAMRON
--- NOTE | 2021-04-13 14:03 | PM.PNGS ---
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 At the time of surgery significant adhesions were noted in the pelvis and had to be taken down in order to appropriately assure no postoperative small bowel obstruction and to lengthen the area small bowel that needed to be resected due to the finding of a Meckel's diverticulum. Cecum was viable at the time of resection. Right hemicolectomy performed (see op note). (2) Lactic acidosis: Onset Date: ~04/2021 Code(s): E87.2 - Acidosis Status: Acute Assessment and Plan: this is now resolved (3) Clostridium difficile colitis: Onset Date: Unknown Code(s): A04.72 - Enterocolitis due to Clostridium difficile, not specified as recurrent Status: Acute Assessment and Plan: This is been ongoing problem for the patient. However, she did have a bowel resection on unprepped bowel so therefore will continue her perioperative antibiotics for 24 hrs. and we will watch for signs of Infection and start antibiotics only if these occur. If any sign of significant diarrhea make consider prophylactic treatment with a once daily dose of vancomycin. Additional Plan I will begin a NG clamping routine and possibly remove NG if patient has a bowel movement or if there is minimal out during the 1/4 hours that it is clamped over the next half day. Time Spent With Patient Time with patient: less than 15 minutes Subjective Subjective Date/Time Seen: 04/13/21 14:03 Post Op day: 1 ( status post open right hemicolectomy with excision of some distal small bowel due to adhesions and possible Meckel's.) Patient reports: no new complaints, feels better, no flatus and no bowel movement Interval history: patient still with NG in but very little out overnight. States she is not nauseated. Review of Systems Review of Systems: All systems reviewed & are unremarkable except as noted in HPI and below Constitutional: Constitutional: Reports as per HPI, Denies chills and Denies fever(s) Cardiovascular: Cardiovascular: Denies chest pain and Denies dyspnea Respiratory: Respiratory: Reports no additional respiratory complaints and Denies dyspnea Gastrointestinal: Gastrointestinal: Reports as per HPI, Denies bloating, Denies loose stools, Denies nausea and Denies vomiting Musculoskeletal: Musculoskeletal: Reports no additional musculoskeletal complaints Neurologic: Denies memory loss Psychiatric: Psychiatric: Denies anxiety and Denies memory loss Exam Const: General: cooperative, comfortable, alert and awake Orientation/consciousness: patient oriented x3 HENMT: Head: normal to inspection Mouth: Yes moist mucous membranes Eyes: Sclera: sclerae normal Pupils: Equal, round and reactive pupils present Neck: Neck: normal visual inspection and no JVD Chest: Chest palpation & inspection: normal inspection of the chest Resp: Effort & Inspection: normal respiratory effort Auscultation: clear to auscultation bilaterally Cardio: Jugular venous distension: no JVD Rate: regular rate GI: Inspection: incision ( Dressing not changed today. Postoperative dressing clean and dry.) GI Palp: Yes abdominal tenderness ( mild near incision) Auscultation: Hypoactive bowel sounds present Rectal Exam: deferred Neuro: General: patient oriented x3 Cranial nerves: Yes Equal, round and reactive pupils present Objective Data Vital Signs Vital Signs: Vital Signs - 24 hr 04/12/21 16:21 04/12/21 16:35 04/12/21 16:50 Temperature 36.4 C Pulse Rate 79 65 65 Respiratory Rate 16 10 L 18 Blood Pressure 120/46 L 125/47 L 128/50 L Pulse Oximetry 100 100 100 04/12/21 17:05 04/12/21 17:20 04/12/21 17:35 Temperature Pulse Rate 65 70 66 Respiratory Rate 17 18 16 Blood Pressure 128/52 L 121/48 L 119/49 L
[2021-04-13] MEDS: MORPHINE SULFATE (*CRX) 2 MG/ML INJ IV PUSH ×2 (15:34→19:32)
[2021-04-14] VITALS (11 sets, daily range): BP systolic 130–156; BP diastolic 55–75; PULSE 79–101; RESP 16–18; TEMP 36.6–37.1; O2SAT 95–98
[2021-04-14] MEDS: LACTATED RINGERS 1,000 ML 100 ML IV CONT ×2 (02:44→13:02)
[2021-04-14] MEDS: MORPHINE SULFATE (*CRX) 2 MG/ML INJ IV PUSH ×4 (02:57→20:44)
[2021-04-14 06:48] LABS: Basophils Absolute Auto 0.1 K/mm3 (0.0-0.1); Basophils Percent Auto 0.6 % (0.2-1.2); Eosinophils Absolute Auto 0.2 K/mm3 (0-0.3); Eosinophils Percent Auto 2.2 % (0-4.4); Hematocrit 28.7 % (37.0-47.0); Hemoglobin 8.8 g/dL (12.0-15.0); Immature Granulocyte Absolute 0.06 K/mm3 (0.00-0.031); Immature Granulocyte Percent A 0.7 % (0-0.5); Lymphocytes Absolute Auto 0.53 K/mm3 (0.9-3.2); Lymphocytes Percent Auto 6.4 % (18.3-44.2); Mean Corpuscular HGB Conc 30.7 g/dl (32-36); Mean Corpuscular Hemoglobin 29.3 pg (26-34); Mean Corpuscular Volume 95.7 fl (80-100); Mean Platelet Volume 9.8 fl (7.4-10.4); Monocytes Absolute Auto 1.1 K/mm3 (0.1-0.6); Monocytes Percent Auto 12.7 % (2.6-8.5); Neutrophils Absolute Auto 6.4 K/mm3 (1.3-6.7); Neutrophils Percent Auto 77.4 % (45.5-73.1); Platelet Count Result 165 k/mm3 (150-375); Red Cell Distribution Width 14.1 % (11.5-14.5); White Blood Count 8.3 K/mm3 (4.5-10.0)
[2021-04-14 07:06] LABS: Anion Gap 4 mmol/L (8-16); Blood Urea Nitrogen 22 mg/dL (7-17); Carbon Dioxide 24 mmol/L (22-30); Chloride 107 mmol/L (98-107); Estimated CRCL calculation 48 ml/min; Estimated Glomerular Filt Rate > 60; Glucose 98 mg/dL (65-110); Potassium 3.7 mmol/L (3.4-5.0); Sodium 135 mmol/L (137-145)
[2021-04-14] MEDS: ONDANSETRON INJ 4 MG/2 ML VIAL IV PUSH ×3 (08:02→20:57)
--- NOTE | 2021-04-14 08:31 | PC.NURSE ---
This nurse and charge nurse made aware of abdominal wound dressing saturated in blood. Upon assessment, wound site noted to have slow active bleeding at umbilicus site. Dr. Vargas exchange paged. New orders noted. Patient denies any pain or discomfort when asked. Wound site clotting noted upon Dr. Vargas's arrival. Lab orders received. Patient noted to lay flat and to call for any assistance. Patient's call light placed within reach and understanding to call for any assistance. Monitor site in one hour prior to patient getting up unless noted earlier. Will continue to monitor.
[2021-04-14 09:21] LABS: Hematocrit 23.6 % (37.0-47.0); Hemoglobin 7.8 g/dL (12.0-15.0)
[2021-04-14] MEDS: METOPROLOL TARTRATE 12.5 MG TABLET PO ×2 (09:30→20:43)
[2021-04-14 09:32] LABS: INR 1.3; Partial Thromboplastin Time 32.5 SECONDS (22.3-36.8); Prothrombin Time 15.5 Seconds (11.1-14.7)
[2021-04-14] MEDS: MORPHINE SULFATE (*CRX) 4 MG/ML INJ IV PUSH ×2 (10:53→16:31)
--- NOTE | 2021-04-14 10:53 | PCOTNOTE ---
Attempted to see pt for occupational therapy tx this AM, however, due to increased bleeding at incision site and Dr not wanting pt to move, RN advised for pt to not be seen for tx today. Will continue per poc duration/frequency tomorrow.
--- NOTE | 2021-04-14 11:26 | PCPTNOTE ---
Attempted therapy session, due to increased bleeding at incision site and Dr not wanting pt to move, RN advised to hold therapy this date. Will continue per poc duration/frequency tomorrow.
--- NOTE | 2021-04-14 11:50 | PM.IMPN ---
Progress Note: A&P Assessment and Plan (1) Volvulus: Code(s): K56.2 - Volvulus Status: Inactive Assessment and Plan: 2/ POD 2 Right hemicolectomy, doing well (2) Lactic acidosis: Onset Date: ~04/2021 Code(s): E87.2 - Acidosis Status: Acute Assessment and Plan: Resolved (3) Nausea and vomiting: Qualifiers: Vomiting type: unspecified Qualified Code(s): R11.2 - Nausea with vomiting, unspecified Code(s): R11.2 - Nausea with vomiting, unspecified Status: Acute Assessment and Plan: Likely secondary to volvulus. Resolved (4) Clostridium difficile colitis: Onset Date: Unknown Code(s): A04.72 - Enterocolitis due to Clostridium difficile, not specified as recurrent Status: Acute Assessment and Plan: Patient on tapering course of vancomycin on admission. Resume when feasible 2/6 Staring clear liquids (5) Chronic kidney disease, stage 3 (moderate): Qualifiers: Chronic kidney disease stage 3 subtype: stage 3a (GFR 45-59) Qualified Code(s): N18.31 - Chronic kidney disease, stage 3a Code(s): N18.3 - Chronic kidney disease, stage 3 (moderate) Status: Chronic Assessment and Plan: 2/ creatinine 0.9, 2/ 0.7 Avoid nephrotoxic drugs F/u Lab (6) Polymyositis, organ involvement unspecified: Code(s): M33.20 - Polymyositis, organ involvement unspecified Status: Chronic Assessment and Plan: Stable. Patient takes HCQ, resume when able. Subjective Date/time seen: 04/14/21 11:50 Interval history: Patient is status post right hemicolectomy on April 12 for cecal volvulus. 2/ visit. POD #2 NG out Incisional discomfort moderate. Worse with movement. No chest pain or shortness of breath. No swelling. No nausea or vomiting. No flatus or stool. Review of Systems Review of Systems: All systems reviewed & are unremarkable except as noted in HPI and below Exam Narrative: HEENT: PERRL, sclerae nonicteric, pharyngeal mucosa pink and intact NECK: No JVD CHEST: Clear to auscultation. Normal effort. HEART: NL S1/S2, regular, no murmur ABDOMEN: BS+. Incisional tenderness. Soft. EXTREMITIES: No cyanosis, edema, or clubbing NEUROLOGIC: CN intact and symmetric to inspection. MUSCULOSKELETAL: Tone and strength symmetric. PSYCH: Alert. Oriented to person, place, and time. Objective Data Vital Signs Vital Signs: Vital Signs - 24 hr 04/13/21 15:31 04/13/21 19:34 04/13/21 22:00 Temperature 98.1 F 98.3 F Pulse Rate 76 80 84 Respiratory Rate 16 16 Blood Pressure 118/44 L 128/55 L Pulse Oximetry 97 97 04/14/21 06:00 04/14/21 08:00 04/14/21 09:30 Temperature 98 F Pulse Rate 79 84 84 Respiratory Rate 18 18 Blood Pressure 130/55 L Pulse Oximetry 98 98 Intake/Output Intake/Output: Intake & Output 04/11/21 04/12/21 04/13/21 04/14/21 23:59 23:59 23:59 23:59 Intake Total 500 2100 1120 1000 Output Total 20 182 250 Balance 480 6335 414 6508 Meds/Results Medications: Active Medications Generic Name Dose Route Start Last Admin Trade Name Freq PRN Reason Stop Dose Admin Hydrocodone Bitart/Acetaminophen 1 tab 04/13/21 14:11 Hydrocodone/Acetaminophen (*Crx) 5-325 Mg Tablet PO Q6H PRN Pain Rated 4-6 Hydrocodone Bitart/Acetaminophen 1 tab 04/13/21 14:11 Hydrocodone/Acetaminophen (*Crx) 7.5-325 Mg Tablet PO Q6H PRN Pain Rated 7-10 Enoxaparin Sodium 40 mg 04/13/21 09:00 04/14/21 08:27 Enoxaparin 40 Mg/0.4 Ml Syringe SUB-Q Not Given DAILY FERN Lactated Ringer's 1,000 mls @ 100 mls/hr 04/12/21 17:46 04/14/21 02:44 Lr - Lactated Ringers Iv IV CONT 100 mls/hr .Q10H FERN Administration Metoprolol Tartrate 12.5 mg 04/12/21 21:00 04/14/21 09:30 Metoprolol Tartrate 12.5 Mg Tablet PO 12.5 mg Q12HR FERN Administration Morphine Sulfate 2 mg 04/12/21 17:46 04/14/21 08:02 Morph
--- NOTE | 2021-04-14 13:53 | PM.PNGS ---
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 At the time of surgery significant adhesions were noted in the pelvis and had to be taken down in order to appropriately assure no postoperative small bowel obstruction and to lengthen the area small bowel that needed to be resected due to the finding of a Meckel's diverticulum. Cecum was viable at the time of resection. Right hemicolectomy performed (see op note). postop day# 2.---- Has tolerated the NG out and some clear liquids. We have cut her backed ice chips until we sort out the bleeding noted below. (2) Lactic acidosis: Onset Date: ~04/2021 Code(s): E87.2 - Acidosis Status: Acute Assessment and Plan: this is now resolved (3) Clostridium difficile colitis: Onset Date: Unknown Code(s): A04.72 - Enterocolitis due to Clostridium difficile, not specified as recurrent Status: Acute Assessment and Plan: This is been ongoing problem for the patient. However, she did have a bowel resection on unprepped bowel so therefore will continue her perioperative antibiotics for 24 hrs. and we will watch for signs of Infection and start antibiotics only if these occur. If any sign of significant diarrhea make consider prophylactic treatment with a once daily dose of vancomycin. (4) Postoperative bleeding from incision: Status: Acute Assessment and Plan: Hold Lovenox, follow q.6 hours H&H is. Possible CT scan if hemoglobin continues to drop. Additional Plan NG tube has been out since last evening. She started having oozing from her incision this morning so we held the Lovenox. Pressure was applied and yet she saturated the dressing again. This seems to be now only coming from the upper 3rd of the incision. She states she did have some big coughing so I suspect that the incision just disrupted a little bit in the subcu tissues and that is worse bleeding. Her hemoglobin however has dropped some. We are rechecking this q.6 hours if it becomes worse will do CT scan of the abdomen and pelvis to be sure there is not intra-abdominal bleeding leaking up through. Will hold Lovenox Will give 1 unit of FFP since her INR and her PT or just slightly elevated. Subjective Subjective Date/Time Seen: 04/14/21 13:53 Patient lying in bed when I entered the room. The nurse called me because she was having some general oozing along her incision. This did look like fairly bright red blood. We applied pressure and a new dressing. I 1st saw her at about 0 900 and then came back at this time. It seems to be that initially she was losing both at the umbilicus and in the upper abdomen now it seems to be just about 3 cm down from the top of the incision and it tends to stop with pressure. Her H&H has been dropping slightly so we are doing q.6 our H&H is. Patient is complaining of some incisional pain but nothing out of the ordinary. Tolerated her NG tube out and is passing gas but no bowel movement yet Review of Systems Review of Systems: All systems reviewed & are unremarkable except as noted in HPI and below Constitutional: Constitutional: Reports as per HPI, Denies chills and Denies fever(s) Eyes: Eyes: Denies change in vision ENT: Denies hearing loss, Denies neck pain and Denies sore throat Cardiovascular: Cardiovascular: Denies chest pain and Denies dyspnea Respiratory: Respiratory: Reports no additional respiratory complaints, Denies cough, Denies dyspnea and Denies wheezing Gastrointestinal: Gastrointestinal: Reports as per HPI, Denies bloating, Denies loose stools, Denies nausea and Denies vomiting Genitourinary: Genitourinary: Denies hematuria and Denies dysuria Musculoskeletal: Musculoskeletal: Reports no additional musculoskeletal complaints, Denies arthralg
[2021-04-14 15:29] LABS: Hematocrit 26.6 % (37.0-47.0); Hemoglobin 8.5 g/dL (12.0-15.0)
[2021-04-14 22:08] LABS: Hemoglobin 8.1 g/dL (12.0-15.0)
[2021-04-15] MEDS: MORPHINE SULFATE (*CRX) 4 MG/ML INJ IV PUSH ×4 (01:23→18:06)
[2021-04-15 03:14] VITALS: BP 124/53; PULSE 88; RESP 17; TEMP 37.2; O2SAT 98
[2021-04-15 07:23] LABS: Basophils Percent Auto 0.3 % (0.2-1.2); Hemoglobin 7.5 g/dL (12.0-15.0); Immature Granulocyte Absolute 0.06 K/mm3 (0.00-0.031); Immature Granulocyte Percent A 0.8 % (0-0.5); Lymphocytes Absolute Auto 0.29 K/mm3 (0.9-3.2); Mean Corpuscular Volume 96.5 fl (80-100); Mean Platelet Volume 9.8 fl (7.4-10.4); Monocytes Absolute Auto 0.6 K/mm3 (0.1-0.6); Monocytes Percent Auto 8.5 % (2.6-8.5); Neutrophils Absolute Auto 6.2 K/mm3 (1.3-6.7); Neutrophils Percent Auto 86.4 % (45.5-73.1); Platelet Count Result 189 k/mm3 (150-375); Red Blood Count 2.59 M/mm3 (4.2-5.4); Red Cell Distribution Width 14.1 % (11.5-14.5); White Blood Count 7.2 K/mm3 (4.5-10.0)
[2021-04-15 07:32] LABS: Prothrombin Time 13.5 Seconds (11.1-14.7)
[2021-04-15 07:33] LABS: Partial Thromboplastin Time 32.1 SECONDS (22.3-36.8)
[2021-04-15 07:34] LABS: Anion Gap 8 mmol/L (8-16); Blood Urea Nitrogen 20 mg/dL (7-17); Carbon Dioxide 21 mmol/L (22-30); Chloride 104 mmol/L (98-107); Estimated CRCL calculation 48 ml/min; Estimated Glomerular Filt Rate > 60; Glucose 99 mg/dL (65-110); Potassium 3.4 mmol/L (3.4-5.0); Sodium 133 mmol/L (137-145)
[2021-04-15] MEDS: ONDANSETRON INJ 4 MG/2 ML VIAL IV PUSH ×3 (08:38→18:06)
[2021-04-15 08:41] VITALS: PULSE 88
[2021-04-15] MEDS: METOPROLOL TARTRATE 12.5 MG TABLET PO ×2 (08:41→20:29)
[2021-04-15] MEDS: MORPHINE SULFATE (*CRX) 2 MG/ML INJ IV PUSH (08:41)
[2021-04-15 08:54] LABS: Platelet Estimate Adequate (Adequate)
[2021-04-15 08:59] LABS: Acanthocytes 2+ (NORMAL); Anisocytosis 1+ (NORMAL)
--- NOTE | 2021-04-15 12:10 | PM.PNGS ---
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 Increase activity Await return of bowel function. NG out currently, but if patient having more nausea or vomiting, might have to replace NG. Subjective Subjective Date/Time Seen: 04/15/21 12:10 Interval history: Passing some flatus. Still feeling bloated and nauseated. Not getting up much. No BM yet. Exam GI: Inspection: incision (minimal ecchymosis superior to umbilicus. No bleeding.) GI Palp: Yes Soft to palpation and Yes Tenderness to palpation present (GI) (incisional) Auscultation: Hypoactive bowel sounds present Objective Data Vital Signs Vital Signs: Vital Signs - 24 hr 04/14/21 14:16 04/14/21 16:44 04/14/21 17:06 Temperature 36.7 C 37.1 C 36.8 C Pulse Rate 86 99 91 Respiratory Rate 18 18 16 Blood Pressure 136/56 L 155/66 H 156/63 H Pulse Oximetry 98 96 95 04/14/21 18:06 04/14/21 19:51 04/14/21 20:05 Temperature 36.7 C 36.6 C 36.6 C Pulse Rate 96 99 99 Respiratory Rate 18 18 18 Blood Pressure 147/60 H 140/75 140/75 Pulse Oximetry 96 95 95 04/14/21 20:43 04/14/21 20:50 04/15/21 03:14 Temperature 36.7 C 37.2 C Pulse Rate 99 101 H 88 Respiratory Rate 18 17 Blood Pressure 150/60 H 124/53 L Pulse Oximetry 96 98 04/15/21 08:41 Temperature Pulse Rate 88 Respiratory Rate Blood Pressure Pulse Oximetry Intake/Output Intake/Output: Intake & Output 04/12/21 04/13/21 04/14/21 04/15/21 23:59 23:59 23:59 23:59 Intake Total 2100 1120 2307 Output Total 182 250 Balance 6431 234 3648 Meds/Results Medications: Active Medications Generic Name Dose Route Start Last Admin Trade Name Freq PRN Reason Stop Dose Admin Hydrocodone Bitart/Acetaminophen 1 tab 04/13/21 14:11 Hydrocodone/Acetaminophen (*Crx) 5-325 Mg Tablet PO Q6H PRN Pain Rated 4-6 Hydrocodone Bitart/Acetaminophen 1 tab 04/13/21 14:11 Hydrocodone/Acetaminophen (*Crx) 7.5-325 Mg Tablet PO Q6H PRN Pain Rated 7-10 Enoxaparin Sodium 40 mg 04/13/21 09:00 04/14/21 08:27 Enoxaparin 40 Mg/0.4 Ml Syringe SUB-Q Not Given DAILY FERN Lactated Ringer's 1,000 mls @ 100 mls/hr 04/12/21 17:46 04/14/21 13:02 Lr - Lactated Ringers Iv IV CONT 100 mls/hr .Q10H FERN Administration Metoprolol Tartrate 12.5 mg 04/12/21 21:00 04/15/21 08:41 Metoprolol Tartrate 12.5 Mg Tablet PO 12.5 mg Q12HR FERN Administration Morphine Sulfate 2 mg 04/12/21 17:46 04/15/21 08:41 Morphine Sulfate (*Crx) 2 Mg/Ml Inj IV PUSH 2 mg Q2H PRN Administration Pain Rated 4-6 Morphine Sulfate 4 mg 04/12/21 17:46 04/15/21 05:47 Morphine Sulfate (*Crx) 4 Mg/Ml Inj IV PUSH 4 mg Q2H PRN Administration Pain Rated 7-10 Ondansetron HCl 4 mg 04/11/21 20:12 04/15/21 08:38 Ondansetron Inj 4 Mg/2 Ml Vial IV PUSH 4 mg Q4H PRN Administration Nausea Radiology Results: ITS Impressions Abdomen/Pelvis CT 04/11/21 19:17 IMPRESSION: Distended, 8 cm bowel with air and fluid most likely cecum with ascending colonic transition point. Consider cecal bascule, cecal volvulus. No pneumatosis or perforation. Abdomen X-Ray 04/11/21 20:49 IMPRESSION: Feeding tube could be safely advanced 5-10 cm. Distended loop of bowel. Labs Labs: Laboratory Results - last 24 hr 04/14/21 04/14/21 04/15/21 15:23 21:58 06:31 WBC RBC Hgb 8.5 L 8.1 L Hct 26.6 L 25.0 L MCV MCH MCHC RDW Plt Count MPV Immature Gran % (Auto) Neut % (Auto) Lymph % (Auto) [place] % (Auto) Eos % (Auto) Baso % (Auto) Lymph # (Auto) [place] # (Auto) Eos # (Auto) Baso # (Auto) Abs Immat Gran (auto) Absolute Neuts (auto) Absolute Nucleated RBC Nucleated RBC % Platelet Estimate Anisocytosis
--- NOTE | 2021-04-15 12:39 | PM.IMPN ---
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 CT Abd/Pelvis showing distended bowel with air and fluid most likely cecum with ascending colonic transition point consistent with volvulus. Patient made NPO. NGT placed and General surgery consulted. Patient underwent open right hemicolectomy with ileocolic anastomosis 04/12/21. She is POD #3. Pasing flatus but no BM. Increase activity as tolerated. Diet per surgery (2) Anemia: Code(s): D64.9 - Anemia, unspecified Status: Acute Assessment and Plan: Hgb on admission was 11.9 and has dropped to 7.5 today. EBL was 100mL. Suspect related to acute blood loss anemia from surgery, from the recent blood loss from the incision and possibly from IV fluids. Did receive FFP x1. Remains on IV fluids. Follow HH. Transfuse as needed. Decrease IV fluid rate. Lovenox on hold. (3) Lactic acidosis: Onset Date: ~04/2021 Code(s): E87.2 - Acidosis Status: Acute Assessment and Plan: Patient presents with a nongap metabolic acidosis felt related to the Lactic acid level of 3.3. Not felt to be sepsis but more likely related to bowel ischemia from the volvulus. LA level normal now. Mild metabolic acidosis with closed anion gap. Follow. (4) Abnormal urinalysis: Code(s): R82.90 - Unspecified abnormal findings in urine Status: Acute Assessment and Plan: Urinalysis showing 2+ protein, 2+ ketones, 11-20 red cells and 7-9 white cells. Patient denies any urinary symptoms on admission. Urine culture growing [place] of 10-49K CFU. White count is normal and no fevers. Suspect this is a contaminated specimen. Will continue to monitor for evidence of infection. (5) Nausea and vomiting: Qualifiers: Vomiting type: unspecified Qualified Code(s): R11.2 - Nausea with vomiting, unspecified Code(s): R11.2 - Nausea with vomiting, unspecified Status: Acute Assessment and Plan: Likely secondary to volvulus. NGT was in place and now out. Continue to follow. (6) Clostridium difficile colitis: Onset Date: Unknown Code(s): A04.72 - Enterocolitis due to Clostridium difficile, not specified as recurrent Status: Acute Assessment and Plan: Patient on tapering course of vancomycin on admission. Resume when able. (7) Chronic kidney disease, stage 3 (moderate): Qualifiers: Chronic kidney disease stage 3 subtype: stage 3a (GFR 45-59) Qualified Code(s): N18.31 - Chronic kidney disease, stage 3a Code(s): N18.3 - Chronic kidney disease, stage 3 (moderate) Status: Chronic Assessment and Plan: Patient with a normal baseline Cr but with CrCl in the 30-40 range. Cr normal here but with metabolic nongap acidosis probably realted to the lactic acid. Cr 0.7 with CrCl 48 now. Continue to monitor BUN and creatinine. (8) Polymyositis, organ involvement unspecified: Code(s): M33.20 - Polymyositis, organ involvement unspecified Status: Chronic Assessment and Plan: Stable. Patient takes HCQ which irene resume when able. Follow-up in outpatient setting. (9) Long-term use of immunosuppressant medication: Code(s): Z79.899 - Other senior care (current) drug therapy Status: Acute Assessment and Plan: As above. (10) DVT prophylaxis: Code(s): Z29.9 - Encounter for prophylactic measures, unspecified Status: Acute Assessment and Plan: SCDs Subjective Date/time seen: 04/15/21 12:39 Interval history: 75yo female with CKD, HTN and recent CDiff currently on a taperinig dose of oral Vanco here for n/v and found to have cecal volvulus. Resuming care. Chart reviewed. No BM but having flatus. No CP or SOB. Not out of bed much due to 'bleedi
[2021-04-15] MEDS: LACTATED RINGERS 1,000 ML 100 ML IV CONT (13:38)
[2021-04-15 13:57] LABS: Hematocrit 23.8 % (37.0-47.0); Hemoglobin 7.6 g/dL (12.0-15.0)
[2021-04-15 14:00] VITALS: BP 130/52; PULSE 74; RESP 18; TEMP 36.5; O2SAT 98
--- NOTE | 2021-04-15 15:40 | PCPTNOTE ---
PT attempted to see patient 2x this afternoon. Patient declined both attempts due to feeling nauseated. PT will continue to follow per plan of care.
[2021-04-15] MEDS: BISACODYL 10 MG SUPPOSITORY RECTAL (18:07)
[2021-04-15 19:29] LABS: Hematocrit 22.4 % (37.0-47.0); Hemoglobin 7.1 g/dL (12.0-15.0)
[2021-04-15 20:29] VITALS: PULSE 82
[2021-04-15 22:00] VITALS: BP 141/55; PULSE 78; RESP 18; TEMP 36.8; O2SAT 97
[2021-04-16] MEDS: ONDANSETRON INJ 4 MG/2 ML VIAL IV PUSH ×3 (00:10→12:26)
[2021-04-16] MEDS: MORPHINE SULFATE (*CRX) 4 MG/ML INJ IV PUSH ×2 (00:10→04:48)
[2021-04-16 06:00] VITALS: BP 151/60; PULSE 97; RESP 18; TEMP 36.4; O2SAT 92
[2021-04-16 08:19] VITALS: PULSE 97
[2021-04-16] MEDS: METOPROLOL TARTRATE 12.5 MG TABLET PO ×2 (08:19→20:27)
[2021-04-16 08:50] LABS: Hematocrit 24.4 % (37.0-47.0); Hemoglobin 7.9 g/dL (12.0-15.0); Mean Corpuscular HGB Conc 32.4 g/dl (32-36); Mean Corpuscular Hemoglobin 29.8 pg (26-34); Mean Corpuscular Volume 92.1 fl (80-100); Mean Platelet Volume 9.3 fl (7.4-10.4); Platelet Count Result 218 k/mm3 (150-375); Red Blood Count 2.65 M/mm3 (4.2-5.4); Red Cell Distribution Width 14.1 % (11.5-14.5); White Blood Count 6.6 K/mm3 (4.5-10.0)
--- NOTE | 2021-04-16 08:51 | PM.PNGS ---
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 - Volvulus Status: Acute Assessment and Plan: Start clear liquids today Increase activity Subjective Subjective Date/Time Seen: 04/16/21 08:51 Interval history: Bowels moving. Still having some nausea. Pain controlled. Exam GI: Inspection: incision (minimal ecchymosis superior to umbilicus. No bleeding.) GI Palp: Yes Soft to palpation and Yes Tenderness to palpation present (GI) (incisional) Auscultation: normal bowel sounds Objective Data Vital Signs Vital Signs: Vital Signs - 24 hr 04/15/21 14:00 04/15/21 20:29 04/15/21 22:00 Temperature 36.5 C 36.8 C Pulse Rate 74 82 78 Respiratory Rate 18 18 Blood Pressure 130/52 L 141/55 H Pulse Oximetry 98 97 04/16/21 06:00 04/16/21 08:19 Temperature 36.4 C Pulse Rate 97 97 Respiratory Rate 18 Blood Pressure 151/60 H Pulse Oximetry 92 Intake/Output Intake/Output: Intake & Output 04/13/21 04/14/21 04/15/21 04/16/21 23:59 23:59 23:59 23:59 Intake Total 1120 3307 30 Output Total 250 450 300 Balance 870 3307 -420 -300 Meds/Results Medications: Active Medications Generic Name Dose Route Start Last Admin Trade Name Freq PRN Reason Stop Dose Admin Hydrocodone Bitart/Acetaminophen 1 tab 04/13/21 14:11 Hydrocodone/Acetaminophen (*Crx) 5-325 Mg Tablet PO Q6H PRN Pain Rated 4-6 Hydrocodone Bitart/Acetaminophen 1 tab 04/13/21 14:11 Hydrocodone/Acetaminophen (*Crx) 7.5-325 Mg Tablet PO Q6H PRN Pain Rated 7-10 Enoxaparin Sodium 40 mg 04/13/21 09:00 04/14/21 08:27 Enoxaparin 40 Mg/0.4 Ml Syringe SUB-Q Not Given DAILY FERN Lactated Ringer's 1,000 mls @ 70 mls/hr 04/12/21 17:46 04/15/21 16:02 Lr - Lactated Ringers Iv IV CONT Not Given .[id number] FERN Metoprolol Tartrate 12.5 mg 04/12/21 21:00 04/16/21 08:19 Metoprolol Tartrate 12.5 Mg Tablet PO 12.5 mg Q12HR FERN Administration Morphine Sulfate 2 mg 04/12/21 17:46 04/15/21 08:41 Morphine Sulfate (*Crx) 2 Mg/Ml Inj IV PUSH 2 mg Q2H PRN Administration Pain Rated 4-6 Morphine Sulfate 4 mg 04/12/21 17:46 04/16/21 04:48 Morphine Sulfate (*Crx) 4 Mg/Ml Inj IV PUSH 4 mg Q2H PRN Administration Pain Rated 7-10 Ondansetron HCl 4 mg 04/11/21 20:12 04/16/21 04:48 Ondansetron Inj 4 Mg/2 Ml Vial IV PUSH 4 mg Q4H PRN Administration Nausea Radiology Results: ITS Impressions Abdomen/Pelvis CT 04/11/21 19:17 IMPRESSION: Distended, 8 cm bowel with air and fluid most likely cecum with ascending colonic transition point. Consider cecal bascule, cecal volvulus. No pneumatosis or perforation. Abdomen X-Ray 04/11/21 20:49 IMPRESSION: Feeding tube could be safely advanced 5-10 cm. Distended loop of bowel. Labs Labs: Laboratory Results - last 24 hr 04/15/21 04/15/21 04/15/21 06:31 13:48 19:24 WBC 7.2 RBC 2.59 L Hgb 7.5 L 7.6 L 7.1 L Hct 25.0 L 23.8 L 22.4 L MCV 96.5 MCH 29.0 MCHC 30.0 L RDW 14.1 Plt Count 189 MPV 9.8 Immature Gran % (Auto) 0.8 H Neut % (Auto) 86.4 H Lymph % (Auto) 4.0 L [place] % (Auto) 8.5 Eos % (Auto) 0.0 Baso % (Auto) 0.3 Lymph # (Auto) 0.29 L [place] # (Auto) 0.6 Eos # (Auto) 0.0 Baso # (Auto) 0.0 Abs Immat Gran (auto) 0.06 H Absolute Neuts (auto) 6.2 Absolute Nucleated RBC 0.0 Nucleated RBC % 0.0 Platelet Estimate Adequate Anisocytosis 1+ Acanthocytes ([place]) 2+ Quality VTE Prophylaxis VTE prophylaxis: pharmacologic ordered (enoxaparin)
[2021-04-16 08:57] LABS: Anion Gap 5 mmol/L (8-16); Blood Urea Nitrogen 22 mg/dL (7-17); Calcium 9.2 mg/dL (8.4-10.2); Carbon Dioxide 26 mmol/L (22-30); Chloride 106 mmol/L (98-107); Estimated CRCL calculation 48 ml/min; Estimated Glomerular Filt Rate > 60; Glucose 86 mg/dL (65-110); Potassium 3.3 mmol/L (3.4-5.0); Sodium 137 mmol/L (137-145)
[2021-04-16] MEDS: LACTATED RINGERS 1,000 ML 70 ML IV CONT (09:54)
--- NOTE | 2021-04-16 11:52 | PM.IMPN ---
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 CT Abd/Pelvis showing distended bowel with air and fluid most likely cecum with ascending colonic transition point consistent with volvulus. Patient made NPO. NGT placed and General surgery consulted. Patient underwent open right hemicolectomy with ileocolic anastomosis 04/12/21. She is POD #4 now. Passing stool now. Increase activity as tolerated. Advance diet as toelrated. (2) Anemia: Code(s): D64.9 - Anemia, unspecified Status: Acute Assessment and Plan: Hgb on admission was 11.9 and has dropped to 7 range. EBL was 100mL. Suspect related to acute blood loss anemia from surgery and bleeding around the incision site and possibly from IV fluids. She did received FFP x1 unit on 04/14/21. No further evidence of bleeding around the site. Remains on IV fluids. Follow HH. Transfuse as needed. Lovenox on hold. (3) Lactic acidosis: Onset Date: ~04/2021 Code(s): E87.2 - Acidosis Status: Acute Assessment and Plan: Patient presents with a nongap metabolic acidosis felt related to the Lactic acid level of 3.3. Not felt to be sepsis but more likely related to bowel ischemia from the volvulus. LA level normal now. Mild metabolic acidosis with closed anion gap. Follow. (4) Abnormal urinalysis: Code(s): R82.90 - Unspecified abnormal findings in urine Status: Acute Assessment and Plan: Urinalysis showing 2+ protein, 2+ ketones, 11-20 red cells and 7-9 white cells. Patient denies any urinary symptoms on admission. Urine culture growing Providencia of 10-49K CFU. White count is normal and no fevers. Suspect this is a contaminated specimen. Will continue to monitor for evidence of infection. (5) Nausea and vomiting: Qualifiers: Vomiting type: unspecified Qualified Code(s): R11.2 - Nausea with vomiting, unspecified Code(s): R11.2 - Nausea with vomiting, unspecified Status: Acute Assessment and Plan: Likely secondary to volvulus. NGT was in place and now out. No further nausea or vomiting. Continue to follow. (6) Clostridium difficile colitis: Onset Date: Unknown Code(s): A04.72 - Enterocolitis due to Clostridium difficile, not specified as recurrent Status: Acute Assessment and Plan: Patient on tapering course of vancomycin on admission. Resume when able. (7) Chronic kidney disease, stage 3 (moderate): Qualifiers: Chronic kidney disease stage 3 subtype: stage 3a (GFR 45-59) Qualified Code(s): N18.31 - Chronic kidney disease, stage 3a Code(s): N18.3 - Chronic kidney disease, stage 3 (moderate) Status: Chronic Assessment and Plan: Patient with a normal baseline Cr but with CrCl in the 30-40 range. Cr normal here but with metabolic nongap acidosis probably related to the lactic acid. Cr 0.7 now. Continue to monitor BUN and creatinine. (8) Polymyositis, organ involvement unspecified: Code(s): M33.20 - Polymyositis, organ involvement unspecified Status: Chronic Assessment and Plan: Stable. Patient takes HCQ which will resume when able. Follow-up in outpatient setting. (9) Long-term use of immunosuppressant medication: Code(s): Z79.899 - Other lobsterman (current) drug therapy Status: Acute Assessment and Plan: As above. (10) DVT prophylaxis: Code(s): Z29.9 - Encounter for prophylactic measures, unspecified Status: Acute Assessment and Plan: SCDs Subjective Date/time seen: 04/16/21 11:52 Interval history: 75yo female with CKD, HTN and recent CDiff currently on a taperinig dose of oral Vanco here for n/v and found to have cecal volvulus. Feeling better. Abdominal pain has decreas
[2021-04-16] MEDS: HYDROcodone/acetaminophen (*CRX) 5-325 MG TABLET 1 TAB PO (12:37)
[2021-04-16] MEDS: POTASSIUM CHLORIDE 20 MEQ PACKET (FOR LIQUID) PO (12:37)
--- NOTE | 2021-04-16 15:22 | PCOTNOTE ---
The OT treatment was unable to be completed this date. Will continue plan of care tomorrow, 04/17/21.
--- NOTE | 2021-04-16 18:21 | PC.NURSE ---
On 04/16/21, the student, [Nirmal Dickey ], provided care and completed [facility] documentation on this patient. I have reviewed the student's documentation and agree with the findings.
[2021-04-16 20:27] VITALS: PULSE 80
[2021-04-16 22:00] VITALS: BP 129/51; PULSE 77; RESP 18; TEMP 36.6; O2SAT 95
[2021-04-17] MEDS: HYDROcodone/acetaminophen (*CRX) 5-325 MG TABLET 1 TAB PO (00:25)
[2021-04-17] MEDS: LACTATED RINGERS 1,000 ML 70 ML IV CONT ×2 (00:27→23:35)
[2021-04-17 06:00] VITALS: BP 132/50; PULSE 93; RESP 16; TEMP 36.6; O2SAT 94
[2021-04-17 07:20] LABS: Hematocrit 23.4 % (37.0-47.0); Hemoglobin 7.5 g/dL (12.0-15.0); Mean Corpuscular HGB Conc 32.1 g/dl (32-36); Mean Corpuscular Hemoglobin 29.4 pg (26-34); Mean Corpuscular Volume 91.8 fl (80-100); Mean Platelet Volume 9.4 fl (7.4-10.4); Platelet Count Result 209 k/mm3 (150-375); Red Blood Count 2.55 M/mm3 (4.2-5.4); Red Cell Distribution Width 14.1 % (11.5-14.5); White Blood Count 5.3 K/mm3 (4.5-10.0)
[2021-04-17 07:30] LABS: Anion Gap -1 mmol/L (8-16); Blood Urea Nitrogen 18 mg/dL (7-17); Calcium 8.8 mg/dL (8.4-10.2); Carbon Dioxide 30 mmol/L (22-30); Chloride 105 mmol/L (98-107); Estimated CRCL calculation 48 ml/min; Estimated Glomerular Filt Rate > 60; Glucose 103 mg/dL (65-110); Sodium 134 mmol/L (137-145)
[2021-04-17 08:12] LABS: Glucose Point of Care 110 mg/dl (65-105)
[2021-04-17 09:30] VITALS: PULSE 104
[2021-04-17] MEDS: METOPROLOL TARTRATE 12.5 MG TABLET PO ×2 (09:30→23:31)
[2021-04-17] MEDS: ONDANSETRON INJ 4 MG/2 ML VIAL IV PUSH ×2 (09:31→15:39)
[2021-04-17] MEDS: MORPHINE SULFATE (*CRX) 4 MG/ML INJ IV PUSH ×2 (09:55→15:38)
--- NOTE | 2021-04-17 11:44 | PM.PNGS ---
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 - Volvulus Status: Acute Assessment and Plan: Still having nausea, but no vomiting. Does not seem to be correlating with her pain medication, but could consider switching her oral analgesics if this continues. Keep her on clear liquids today. Replace K+ and repeat labs tomorrow. Encouraged increasing activity, walking the halls Additional Plan I have discussed the plan of care with Dr. Martinez. Subjective Subjective Date/Time Seen: 04/17/21 09:54 Post Op day: 5 Patient reports: still having pain, voiding w/o difficulty, flatus, bowel movement, nausea and afebrile Interval history: Patient seen and examined. She reports feeling about the same today. Still having nausea and complaining of midline abdominal pain near incision. No new pain. Bowels are moving. Her nausea does not seem to be following pain medication. She actually had Zofran for her nausea prior to even receiving pain medication this morning. Review of Systems Review of Systems: All systems reviewed & are unremarkable except as noted in HPI and below Exam Const: General: alert and awake; No acute distress Orientation/consciousness: patient oriented x3 GI: Inspection: non-distended and incision (minimal ecchymosis, no drainage/erythema/warmth) GI Palp: Yes Soft to palpation, Yes Tenderness to palpation present (GI) (incisional) and No Guarding due to palpation present (GI) Auscultation: normal bowel sounds Skin: General skin exam: normal color Neuro: General: moves all extremities and no focal motor deficits Extrem: General: normal to inspection and no calf tenderness Psych: Insight: Fair insight present (Psych) Judgement: Fair judgement present (Psych) Objective Data Vital Signs Vital Signs: Vital Signs - 24 hr 04/16/21 20:27 04/16/21 22:00 04/17/21 06:00 Temperature 97.8 F 97.9 F Pulse Rate 80 77 93 Respiratory Rate 18 16 Blood Pressure 129/51 L 132/50 L Pulse Oximetry 95 94 04/17/21 09:30 Temperature Pulse Rate 104 H Respiratory Rate Blood Pressure Pulse Oximetry Intake/Output Intake/Output: Intake & Output 04/14/21 04/15/21 04/16/21 04/17/21 23:59 23:59 23:59 23:59 Intake Total 3307 30 1150 1100 Output Total 450 300 Balance 3307 -720 591 5628 Meds/Results Medications: Active Medications Generic Name Dose Route Start Last Admin Trade Name Freq PRN Reason Stop Dose Admin Hydrocodone Bitart/Acetaminophen 1 tab 04/13/21 14:11 04/17/21 00:25 Hydrocodone/Acetaminophen (*Crx) 5-325 Mg Tablet PO 1 tab Q6H PRN Administration Pain Rated 4-6 Hydrocodone Bitart/Acetaminophen 1 tab 04/13/21 14:11 Hydrocodone/Acetaminophen (*Crx) 7.5-325 Mg Tablet PO Q6H PRN Pain Rated 7-10 Enoxaparin Sodium 40 mg 04/13/21 09:00 04/14/21 08:27 Enoxaparin 40 Mg/0.4 Ml Syringe SUB-Q Not Given DAILY FERN Lactated Ringer's 1,000 mls @ 70 mls/hr 04/12/21 17:46 04/17/21 09:30 Lr - Lactated Ringers Iv IV CONT 70 mls/hr .[id number] FERN Infusion Metoprolol Tartrate 12.5 mg 04/12/21 21:00 04/17/21 09:30 Metoprolol Tartrate 12.5 Mg Tablet PO 12.5 mg Q12HR FERN Administration Morphine Sulfate 2 mg 04/12/21 17:46 04/15/21 08:41 Morphine Sulfate (*Crx) 2 Mg/Ml Inj IV PUSH 2 mg Q2H PRN Administration Pain Rated 4-6 Morphine Sulfate 4 mg 04/12/21 17:46 04/17/21 09:55 Morphine Sulfate (*Crx) 4 Mg/Ml Inj IV PUSH 4 mg Q2H PRN Administration Pain Rated 7-10 Ondansetron HCl 4 mg 04/11/21 20:12 04/17/21 09:31 Ondansetron Inj 4 Mg/2 Ml Vial IV PUSH 4 mg Q4H PRN Administration Nausea Radiology Results: ITS Impressions Abdomen/Pelvis CT 04/11/21 19:17 IMPRESSION: Distended, 8 cm bowel with air and fluid most likely cecum with ascending colonic transition point. Consider cecal bascule, cecal volvulus. No pneumatosis or p
--- NOTE | 2021-04-17 12:06 | PM.IMPN ---
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 CT Abd/Pelvis showing distended bowel with air and fluid most likely cecum with ascending colonic transition point consistent with volvulus. Patient made NPO. NGT placed and General surgery consulted. Patient underwent open right hemicolectomy with ileocolic anastomosis 04/12/21. She is POD #5 now. Passing stool now. Increase activity as tolerated. Advance diet as tolerated per GenSurg. Potassium being replaced. (2) Anemia: Code(s): D64.9 - Anemia, unspecified Status: Acute Assessment and Plan: Hgb on admission was 11.9 and has dropped to 7 range. EBL was 100mL. Suspect related to acute blood loss anemia from surgery and bleeding around the incision site and possibly from IV fluids. She did received FFP x1 unit on 04/14/21. No further evidence of bleeding around the site. Remains on IV fluids. Follow HH. Transfuse as needed. Lovenox on hold. (3) Lactic acidosis: Onset Date: ~04/2021 Code(s): E87.2 - Acidosis Status: Acute Assessment and Plan: Patient presents with a nongap metabolic acidosis felt related to the Lactic acid level of 3.3. Not felt to be sepsis but more likely related to bowel ischemia from the volvulus. LA level normal now. Resolved (4) Abnormal urinalysis: Code(s): R82.90 - Unspecified abnormal findings in urine Status: Acute Assessment and Plan: Urinalysis showing 2+ protein, 2+ ketones, 11-20 red cells and 7-9 white cells. Patient denies any urinary symptoms on admission. Urine culture growing Providencia of 10-49K CFU. White count is normal and no fevers. Suspect this is a contaminated specimen. Will continue to monitor for evidence of infection. (5) Nausea and vomiting: Qualifiers: Vomiting type: unspecified Qualified Code(s): R11.2 - Nausea with vomiting, unspecified Code(s): R11.2 - Nausea with vomiting, unspecified Status: Acute Assessment and Plan: Likely secondary to volvulus. NGT was in place and now out. Continue to follow. (6) Clostridium difficile colitis: Onset Date: Unknown Code(s): A04.72 - Enterocolitis due to Clostridium difficile, not specified as recurrent Status: Acute Assessment and Plan: Patient had vancomycin on her home med list on admission but she has completed this treatment. Resolved. (7) Chronic kidney disease, stage 3 (moderate): Qualifiers: Chronic kidney disease stage 3 subtype: stage 3a (GFR 45-59) Qualified Code(s): N18.31 - Chronic kidney disease, stage 3a Code(s): N18.3 - Chronic kidney disease, stage 3 (moderate) Status: Chronic Assessment and Plan: Patient with a normal baseline Cr but with CrCl in the 30-40 range. Cr normal here but with metabolic nongap acidosis probably realted to the lactic acid. Cr 0.7. Continue to monitor BUN and creatinine. (8) Polymyositis, organ involvement unspecified: Code(s): M33.20 - Polymyositis, organ involvement unspecified Status: Chronic Assessment and Plan: Stable. 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 Patient takes HCQ and CellCept which we will resume when able. Follow-up in outpatient setting. 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 (10) DVT prophylaxis: Code(s): Z29.9 - Encounter for prophylactic measures, unspecified Status: Acute Assessment and Plan: SCDs Subjective Date/time seen: 04/17/21 12:06 Interval history: 75yo female with CKD, HTN and recent CDiff currently on a taperinig dose of oral Vanco here for n/v and found to h
[2021-04-17 12:07] LABS: Glucose Point of Care 98 mg/dl (65-105)
[2021-04-17] MEDS: POTASSIUM CHLORIDE 20 MEQ PACKET (FOR LIQUID) 40 MEQ PO (13:36)
[2021-04-17 16:00] VITALS: BP 130/52; PULSE 90; RESP 16; TEMP 36.4; O2SAT 94
[2021-04-17 17:03] LABS: Glucose Point of Care 96 mg/dl (65-105)
[2021-04-17 22:59] VITALS: BP 128/58; PULSE 85; RESP 18; TEMP 36.5; O2SAT 97
[2021-04-17 23:31] VITALS: PULSE 84
[2021-04-18] VITALS (7 sets, daily range): BP systolic 132–140; BP diastolic 53–61; PULSE 76–98; RESP 18–20; TEMP 36.3–37.1; O2SAT 97–99
[2021-04-18 06:56] LABS: Hematocrit 22.8 % (37.0-47.0); Hemoglobin 7.3 g/dL (12.0-15.0); Mean Corpuscular Hemoglobin 29.2 pg (26-34); Mean Corpuscular Volume 91.2 fl (80-100); Mean Platelet Volume 9.3 fl (7.4-10.4); Platelet Count Result 227 k/mm3 (150-375); Red Cell Distribution Width 14.1 % (11.5-14.5); White Blood Count 4.7 K/mm3 (4.5-10.0)
[2021-04-18 07:09] LABS: Anion Gap 0 mmol/L (8-16); Blood Urea Nitrogen 11 mg/dL (7-17); Calcium 8.8 mg/dL (8.4-10.2); Carbon Dioxide 29 mmol/L (22-30); Chloride 104 mmol/L (98-107); Estimated CRCL calculation 48 ml/min; Estimated Glomerular Filt Rate > 60; Glucose 97 mg/dL (65-110); Magnesium 1.7 mg/dL (1.6-2.3); Potassium 3.5 mmol/L (3.4-5.0); Sodium 133 mmol/L (137-145)
[2021-04-18 08:20] LABS: Glucose Point of Care 96 mg/dl (65-105)
--- NOTE | 2021-04-18 09:21 | PM.IMPN ---
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 CT Abd/Pelvis showing distended bowel with air and fluid most likely cecum with ascending colonic transition point consistent with volvulus. Patient made NPO. NGT placed and General surgery consulted. Patient underwent open right hemicolectomy with ileocolic anastomosis 04/12/21. She is POD #6 now. Passing stool now. Increase activity as tolerated. Advance diet as tolerated per GenSurg. Resume some home meds. (2) Anemia: Code(s): D64.9 - Anemia, unspecified Status: Acute Assessment and Plan: Hgb on admission was 11.9 and has dropped to 7 range. EBL was 100mL. Suspect related to acute blood loss anemia from surgery and bleeding around the incision site and possibly from IV fluids. She did received FFP x1 unit on 04/14/21. No further evidence of bleeding around the site. Remains on IV fluids. Follow HH. Transfuse as needed. Lovenox on hold. (3) Lactic acidosis: Onset Date: ~04/2021 Code(s): E87.2 - Acidosis Status: Acute Assessment and Plan: Patient presents with a nongap metabolic acidosis felt related to the Lactic acid level of 3.3. Not felt to be sepsis but more likely related to bowel ischemia from the volvulus. LA level normal now. Resolved (4) Abnormal urinalysis: Code(s): R82.90 - Unspecified abnormal findings in urine Status: Acute Assessment and Plan: Urinalysis showing 2+ protein, 2+ ketones, 11-20 red cells and 7-9 white cells. Patient denies any urinary symptoms on admission. Urine culture growing Providencia of 10-49K CFU. White count remains normal and no fevers. Suspect this is a contaminated specimen. No complaints of symptoms. Will continue to monitor for evidence of infection. (5) Nausea and vomiting: Qualifiers: Vomiting type: unspecified Qualified Code(s): R11.2 - Nausea with vomiting, unspecified Code(s): R11.2 - Nausea with vomiting, unspecified Status: Acute Assessment and Plan: Likely secondary to volvulus. NGT was in place and now out. Still with nausea and vomiting last night but improved today and tolerating oral intake. Continue to follow. (6) Clostridium difficile colitis: Onset Date: Unknown Code(s): A04.72 - Enterocolitis due to Clostridium difficile, not specified as recurrent Status: Acute Assessment and Plan: Patient had vancomycin on her home med list on admission but she has completed this treatment. Resolved. (7) Chronic kidney disease, stage 3 (moderate): Qualifiers: Chronic kidney disease stage 3 subtype: stage 3a (GFR 45-59) Qualified Code(s): N18.31 - Chronic kidney disease, stage 3a Code(s): N18.3 - Chronic kidney disease, stage 3 (moderate) Status: Chronic Assessment and Plan: Patient with a normal baseline Cr but with CrCl in the 30-40 range. Cr normal here but had a metabolic nongap acidosis probably related to the lactic acid which has resolved. Cr remains normal. Continue to monitor. (8) Polymyositis, organ involvement unspecified: Code(s): M33.20 - Polymyositis, organ involvement unspecified Status: Chronic Assessment and Plan: Stable. Patient has dermatomyositis with polymyositis. Patient takes HCQ and CellCept which we will resume when able. Follow-up in outpatient setting. (9) Long-term use of immunosuppressant medication: Code(s): Z79.899 - Other snf (current) drug therapy Status: Acute Assessment and Plan: As above. (10) DVT prophylaxis: Code(s): Z29.9 - Encounter for prophylactic measures, unspecified Status: Acute Assessment and Plan: SCDs. Resume Lovenox? Subjective Date/time seen: 04/18/21 09:21
[2021-04-18] MEDS: HYDROcodone/acetaminophen (*CRX) 5-325 MG TABLET 1 TAB PO ×2 (09:38→20:59)
[2021-04-18] MEDS: METOPROLOL TARTRATE 12.5 MG TABLET PO (10:31)
[2021-04-18] MEDS: GABAPENTIN 100 MG CAPSULE PO ×3 (10:32→17:21)
--- NOTE | 2021-04-18 10:38 | PM.PNGS ---
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 - Volvulus Status: Acute Assessment and Plan: Slowly improving. Will advance to full liquids. Increase activity, continue PT/OT. Patient very resistant to going to skilled rehab, would need home health with PT if going home on discharge. Spoke with her daughter who lives nearby and also could check in on the patient. They are looking into private duty options to help the patient at home initially as an option. Additional Plan I have discussed the plan of care with Dr. Martinez. Subjective Subjective Date/Time Seen: 04/18/21 10:08 Post Op day: 6 Patient reports: tolerating liquids well, flatus, bowel movement and afebrile Interval history: Patient seen and examined today sitting up in the chair after working with therapy. She reports having slight nausea through the night at one point, but this has improved and she has not required zofran since yesterday around 1500. She denies vomiting. Her bowels are moving. She reports loose dark brown stools. She reports incisional pain with movement that is improving. She has not required IV analgesics since yesterday. No other complaints at this time. Review of Systems Review of Systems: All systems reviewed & are unremarkable except as noted in HPI and below Exam Const: General: alert and awake; No acute distress Orientation/consciousness: patient oriented x3 GI: Inspection: non-distended and incision (minimal ecchymosis, no drainage/erythema/warmth) Auscultation: normal bowel sounds Skin: General skin exam: normal color Neuro: General: moves all extremities and no focal motor deficits Extrem: General: normal to inspection and no calf tenderness Psych: Insight: Fair insight present (Psych) Judgement: Fair judgement present (Psych) Objective Data Vital Signs Vital Signs: Vital Signs - 24 hr 04/17/21 16:00 04/17/21 22:59 04/17/21 23:31 Temperature 97.6 F 97.7 F Pulse Rate 90 85 84 Respiratory Rate 16 18 Blood Pressure 130/52 L 128/58 L Pulse Oximetry 94 97 04/18/21 06:48 04/18/21 08:00 04/18/21 10:31 Temperature 97.4 F L Pulse Rate 80 80 88 Respiratory Rate 18 18 Blood Pressure 134/56 L Pulse Oximetry 97 97 Intake/Output Intake/Output: Intake & Output 04/15/21 04/16/21 04/17/21 04/18/21 23:59 23:59 23:59 23:59 Intake Total 30 1150 2972 Output Total 450 300 Balance -405 443 6477 Meds/Results Medications: Active Medications Generic Name Dose Route Start Last Admin Trade Name Freq PRN Reason Stop Dose Admin Hydrocodone Bitart/Acetaminophen 1 tab 04/13/21 14:11 04/18/21 09:38 Hydrocodone/Acetaminophen (*Crx) 5-325 Mg Tablet PO 1 tab Q6H PRN Administration Pain Rated 4-6 Hydrocodone Bitart/Acetaminophen 1 tab 04/13/21 14:11 Hydrocodone/Acetaminophen (*Crx) 7.5-325 Mg Tablet PO Q6H PRN Pain Rated 7-10 Albuterol 2 puff 04/18/21 09:30 Albuterol Sulfate (*Sp) Aerosol 1 Puff INHALATION TID PRN Shortness Of Breath Enoxaparin Sodium 40 mg 04/13/21 09:00 04/14/21 08:27 Enoxaparin 40 Mg/0.4 Ml Syringe SUB-Q Not Given DAILY FERN Gabapentin 100 mg 04/18/21 09:35 04/18/21 10:32 Gabapentin 100 Mg Capsule PO 100 mg TID FERN Administration Lactated Ringer's 1,000 mls @ 70 mls/hr 04/12/21 17:46 04/17/21 23:35 Lr - Lactated Ringers Iv IV CONT 70 mls/hr .[id number] FERN Administration Magnesium Sulfate/Dextrose 1 gm in 100 mls @ 100 mls/hr 04/18/21 10:03 Magnesium Sulf 1 Gm/D5w 100 Ml IVPB 04/18/21 11:02 ONCE ONE Levothyroxine Sodium 75 mcg 04/18/21 09:35 04/18/21 10:32 Levothyroxine Sodium 75 Mcg Tablet PO Not Given DAILY@0630 FERN Metoprolol Tartrate 25 mg 04/18/21 21:00 Metoprolol Tartrate 25 Mg Tablet PO Q12HR FERN Morphine Sulfate 2 mg 04/12/21 17:46 04/15/21 08:41 Morphine Sulfate (*Crx) 2 Mg/Ml Inj IV PUS
[2021-04-18 11:42] LABS: Glucose Point of Care 101 mg/dl (65-105)
[2021-04-18] MEDS: MAGNESIUM SULF 1 GM/D5W 100 ML 1 GM/100 ML BAG IVPB (12:34)
[2021-04-18] MEDS: POTASSIUM CHLORIDE 20 MEQ TABLET 40 MEQ PO (14:06)
[2021-04-18 16:23] LABS: Glucose Point of Care 112 mg/dl (65-105)
[2021-04-18] MEDS: HYDROcodone/acetaminophen (*CRX) 7.5-325 MG TABLET 1 TAB PO (17:21)
[2021-04-18] MEDS: SIMVASTATIN 10 MG TABLET PO (20:08)
[2021-04-18] MEDS: METOPROLOL TARTRATE 25 MG TABLET PO (20:09)
[2021-04-19] MEDS: LEVOTHYROXINE SODIUM 75 MCG TABLET PO (05:58)
[2021-04-19 07:41] LABS: Glucose Point of Care 122 mg/dl (65-105)
[2021-04-19 07:48] LABS: Hematocrit 32.6 % (37.0-47.0); Hemoglobin 10.8 g/dL (12.0-15.0); Mean Corpuscular HGB Conc 33.1 g/dl (32-36); Mean Corpuscular Volume 87.6 fl (80-100); Mean Platelet Volume 9.1 fl (7.4-10.4); Platelet Count Result 431 k/mm3 (150-375); Red Blood Count 3.72 M/mm3 (4.2-5.4); Red Cell Distribution Width 14.9 % (11.5-14.5); White Blood Count 26.1 K/mm3 (4.5-10.0)
[2021-04-19 07:59] LABS: Anion Gap 5 mmol/L (8-16); Blood Urea Nitrogen 12 mg/dL (7-17); Calcium 9.1 mg/dL (8.4-10.2); Carbon Dioxide 24 mmol/L (22-30); Chloride 101 mmol/L (98-107); Estimated CRCL calculation 42 ml/min; Estimated Glomerular Filt Rate > 60; Glucose 119 mg/dL (65-110); Sodium 130 mmol/L (137-145)
[2021-04-19 08:26] LABS: Hematocrit 33.9 % (37.0-47.0); Hemoglobin 10.9 g/dL (12.0-15.0); Mean Corpuscular HGB Conc 32.2 g/dl (32-36); Mean Corpuscular Volume 90.2 fl (80-100); Mean Platelet Volume 9.5 fl (7.4-10.4); Platelet Count Result 438 k/mm3 (150-375); Red Blood Count 3.76 M/mm3 (4.2-5.4); Red Cell Distribution Width 15.1 % (11.5-14.5); White Blood Count 26.3 K/mm3 (4.5-10.0)
--- NOTE | 2021-04-19 08:45 | PCPTNOTE ---
The patient treatment was not able to be completed this A.M.. Dr. Baires examined patient while sitting EOB and patient returned to supine for further examination. Dr. Baires requested patient rest at this time and CT ordered. Transfers and gait were not completed at this time. Will plan to continue treatment per plan of care.
[2021-04-19 08:55] LABS: Band Neutrophils Percent 33 % (0-6); Lymphocytes Absolute Manual 1.05 K/mm3 (1.1-4.5); Monocytes Absolute Manual 1.31 K/mm3 (0.1-0.90); Monocytes Percent Manual 5 % (3-9); Neutrophils Absolute Manual 23.93 K/mm3 (1.7-7.2); Neutrophils Percent Manual 58 % (46-73); Platelet Estimate Adequate (Adequate); Total Cells Counted 100
[2021-04-19] MEDS: HYDROcodone/acetaminophen (*CRX) 7.5-325 MG TABLET 1 TAB PO ×2 (09:06→15:41)
[2021-04-19] MEDS: GABAPENTIN 100 MG CAPSULE PO ×3 (09:08→16:58)
[2021-04-19 09:14] VITALS: PULSE 108
[2021-04-19] MEDS: METOPROLOL TARTRATE 25 MG TABLET PO ×2 (09:14→20:41)
--- NOTE | 2021-04-19 09:14 | PM.IMPN ---
Progress Note: A&P Assessment and Plan (1) Leukocytosis: Code(s): D72.829 - Elevated white blood cell count, unspecified Status: Acute Assessment and Plan: Patient with WBC 26K. Hgb also has climbed to 10 to suggest possible lab error. She does look worse so will repeat labs and check cultures. Check CT to exclude intrabdominal process. Consider CDiff. Consider UTI now. Repeat UA. NPO for now. (2) Cecal volvulus: Onset Date: ~04/11/21 Code(s): K56.2 - Volvulus Status: Acute Assessment and Plan: Patient presents to ED with abd pain, nausea and vomiting. CT Abd/Pelvis showing distended bowel with air and fluid most likely cecum with ascending colonic transition point consistent with volvulus. Patient made NPO. NGT placed and General surgery consulted. Patient underwent open right hemicolectomy with ileocolic anastomosis 04/12/21. She is POD #7 now. Documented that she is passing stool. Increase activity as tolerated. NPO. (3) Anemia: Code(s): D64.9 - Anemia, unspecified Status: Acute Assessment and Plan: Hgb on admission was 11.9 and has dropped to 7 range. EBL was 100mL. Suspect related to acute blood loss anemia from surgery and bleeding around the incision site and possibly from IV fluids. She did received FFP x1 unit on 04/14/21. No further evidence of bleeding around the site. Hgb now 10 but concern this may be a lab error. Follow HH. Transfuse as needed. Lovenox on hold. (4) Lactic acidosis: Onset Date: ~04/2021 Code(s): E87.2 - Acidosis Status: Acute Assessment and Plan: Patient presents with a nongap metabolic acidosis felt related to the Lactic acid level of 3.3. Not felt to be sepsis but more likely related to bowel ischemia from the volvulus. LA level normalized. Will repeat. (5) Abnormal urinalysis: Code(s): R82.90 - Unspecified abnormal findings in urine Status: Acute Assessment and Plan: Urinalysis showing 2+ protein, 2+ ketones, 11-20 red cells and 7-9 white cells. Patient denies any urinary symptoms on admission. Urine culture growing Providencia of 10-49K CFU. White count remains normal and no fevers. Suspect this is a contaminated specimen. Repeat UA. (6) Nausea and vomiting: Qualifiers: Vomiting type: unspecified Qualified Code(s): R11.2 - Nausea with vomiting, unspecified Code(s): R11.2 - Nausea with vomiting, unspecified Status: Acute Assessment and Plan: Likely secondary to volvulus. NGT was in place and now out. Still with nausea today. As above. Continue to follow. (7) Clostridium difficile colitis: Onset Date: Unknown Code(s): A04.72 - Enterocolitis due to Clostridium difficile, not specified as recurrent Status: Acute Assessment and Plan: Patient had vancomycin on her home med list on admission but she has completed this treatment. As above. (8) Chronic kidney disease, stage 3 (moderate): Qualifiers: Chronic kidney disease stage 3 subtype: stage 3a (GFR 45-59) Qualified Code(s): N18.31 - Chronic kidney disease, stage 3a Code(s): N18.3 - Chronic kidney disease, stage 3 (moderate) Status: Chronic Assessment and Plan: Patient with a normal baseline Cr but with CrCl in the 30-40 range. Cr remains normal. Continue to monitor. (9) Polymyositis, organ involvement unspecified: Code(s): M33.20 - Polymyositis, organ involvement unspecified Status: Chronic Assessment and Plan: Stable. Patient has dermatomyositis with polymyositis. Patient takes HCQ and CellCept which we will resume when able. Follow-up in outpatient setting. 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 (11) DVT prophylaxis: Code(s): Z29.9 - Encounter for prophylac
--- NOTE | 2021-04-19 09:20 | PCOTNOTE ---
Per [employer], pt is not appropriate for occupation therapy tx on this date, due to upcoming test. Will continue per poc duration/frequency tomorrow.
[2021-04-19 10:11] LABS: Alanine Aminotransferase 28 U/L (4-35); Anion Gap 5 mmol/L (8-16); Aspartate Amino Transferase 42 U/L (14-36); Bilirubin,Total 0.8 mg/dL (0.2-1.3); Blood Urea Nitrogen 14 mg/dL (7-17); Calcium 9.2 mg/dL (8.4-10.2); Carbon Dioxide 23 mmol/L (22-30); Chloride 103 mmol/L (98-107); Estimated CRCL calculation 34 ml/min; Estimated Glomerular Filt Rate 54; Glucose 120 mg/dL (65-110); Lactic Acid Reflex 1.9 mmol/L (0.7-2.1); Potassium 4.9 mmol/L (3.4-5.0); Sodium 131 mmol/L (137-145)
[2021-04-19 10:12] LABS: Albumin Level 3.1 g/dL (3.5-5.1); Alkaline Phosphatase 53 U/L (38-126); Lipase 16 U/L (23-300)
[2021-04-19 10:19] LABS: Cortisol Random > 123.00 ug/dL
[2021-04-19 11:50] LABS: Glucose Point of Care 113 mg/dl (65-105)
[2021-04-19] MEDS: PANTOPRAZOLE SODIUM IV 40 MG VIAL IV PUSH ×2 (12:52→20:41)
[2021-04-19] MEDS: VANCOMYCIN ORAL 125 MG/2.5 ML SYRUP PO (12:52)
[2021-04-19 13:19] VITALS: BMI 24.4
--- NOTE | 2021-04-19 13:36 | PM.PNGS ---
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 Thought to be lab error initially because H/H and platelets also elevated, but repeat CBC shows similar results. Blood cultures and C diff ordered. 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 I reviewed the CT. No clear sign of anastomotic leak but does have moderate free fluid, probably related to intraoperative blood loss. Continue to closely monitor and will plan to get KUB tomorrow. Will reassess if patient shows fevers, worsening abdominal pain, or other changes. (2) Leukocytosis: Code(s): D72.829 - Elevated white blood cell count, unspecified Status: Acute Subjective Subjective Date/Time Seen: 04/19/21 13:36 Interval history: Patient had more severe pain overnight, but feeling a little better now. Bowels moving. No vomiting. Was tolerating full liquids. Exam GI: Inspection: non-distended and incision (bruising but no open wounds or drainage) GI Palp: Yes Tenderness to palpation present (GI) (mild diffuse tenderness), No Guarding due to palpation present (GI) and No Rebound tenderness present Objective Data Vital Signs Vital Signs: Vital Signs - 24 hr 04/18/21 14:02 04/18/21 20:00 04/18/21 20:09 Temperature 37.1 C 36.4 C Pulse Rate 76 80 80 Respiratory Rate 18 20 Blood Pressure 140/53 L 138/61 Pulse Oximetry 99 98 04/18/21 21:56 04/19/21 09:14 Temperature 36.7 C Pulse Rate 98 108 H Respiratory Rate 18 Blood Pressure 132/60 Pulse Oximetry 99 Intake/Output Intake/Output: Intake & Output 04/16/21 04/17/21 04/18/21 04/19/21 23:59 23:59 23:59 23:59 Intake Total 1150 2972 540 320 Output Total 300 Balance 850 2972 540 320 Meds/Results Medications: Active Medications Generic Name Dose Route Start Last Admin Trade Name Freq PRN Reason Stop Dose Admin Hydrocodone Bitart/Acetaminophen 1 tab 04/13/21 14:11 04/18/21 20:59 Hydrocodone/Acetaminophen (*Crx) 5-325 Mg Tablet PO 1 tab Q6H PRN Administration Pain Rated 4-6 Hydrocodone Bitart/Acetaminophen 1 tab 04/13/21 14:11 04/19/21 09:06 Hydrocodone/Acetaminophen (*Crx) 7.5-325 Mg Tablet PO 1 tab Q6H PRN Administration Pain Rated 7-10 Albuterol 2 puff 04/18/21 09:30 Albuterol Sulfate (*Sp) Aerosol 1 Puff INHALATION TID PRN Shortness Of Breath Enoxaparin Sodium 40 mg 04/13/21 09:00 04/14/21 08:27 Enoxaparin 40 Mg/0.4 Ml Syringe SUB-Q Not Given DAILY FERN Gabapentin 100 mg 04/18/21 09:35 04/19/21 12:52 Gabapentin 100 Mg Capsule PO 100 mg TID FERN Administration Levothyroxine Sodium 75 mcg 04/18/21 09:35 04/19/21 05:58 Levothyroxine Sodium 75 Mcg Tablet PO 75 mcg DAILY@0630 FERN Administration Metoprolol Tartrate 25 mg 04/18/21 21:00 04/19/21 09:14 Metoprolol Tartrate 25 Mg Tablet PO 25 mg Q12HR FERN Administration Morphine Sulfate 2 mg 04/12/21 17:46 04/15/21 08:41 Morphine Sulfate (*Crx) 2 Mg/Ml Inj IV PUSH 2 mg Q2H PRN Administration Pain Rated 4-6 Morphine Sulfate 4 mg 04/12/21 17:46 04/17/21 15:38 Morphine Sulfate (*Crx) 4 Mg/Ml Inj IV PUSH 4 mg Q2H PRN Administration Pain Rated 7-10 Ondansetron HCl 4 mg 04/11/21 20:12 04/17/21 15:39 Ondansetron Inj 4 Mg/2 Ml Vial IV PUSH 4 mg Q4H PRN Administration Nausea Pantoprazole Sodium 40 mg 04/19/21 09:40 04/19/21 12:52 Pantoprazole Sodium Iv 40 Mg Vial IV PUSH 40 mg Q12HR FERN Administration Simvastatin 10 mg 04/18/21 21:00 04/18/21 20:08 Simvastatin 10 Mg Tablet PO 10 mg HS FERN Administration Vancomycin HCl 125 mg 04/19/21 12:00 04/19/21 12:52 Vancomycin Oral 125 Mg/2.5 Ml Syrup PO 125 mg Q6HR FERN Administration Radiology Results: ITS Impressions Abdomen/
[2021-04-19 13:46] LABS: Add Urine Microscopic? YES; Appearance Urine Clear (Clear); Bacteria Urine Trace /hpf; Bilirubin Urine Negative (Negative); Blood Urine Negative (Negative); Color Urine Yellow (Yellow); Glucose Urine UA Negative (Negative); Ketones Urine Negative (Negative); Leukocyte Esterase Ur Trace LEU/UL (Negative); Mucus Urine Rare /lpf; Nitrate Urine Negative (Negative); Protein Urine Negative (Negative); RBC Urine 0-2 /hpf (0-2); Specific Grav Ur 1.012 (1.001-1.035); Squamous Epithelial Cell Urine Few /hpf (Few); Urobilinogen Urine Negative mg/dL (<2.0)
[2021-04-19 14:56] LABS: Hematocrit 30.5 % (37.0-47.0); Hemoglobin 9.8 g/dL (12.0-15.0); Mean Corpuscular HGB Conc 32.1 g/dl (32-36); Mean Corpuscular Hemoglobin 29.1 pg (26-34); Mean Corpuscular Volume 90.5 fl (80-100); Mean Platelet Volume 9.3 fl (7.4-10.4); Platelet Count Result 369 k/mm3 (150-375); Red Blood Count 3.37 M/mm3 (4.2-5.4); Red Cell Distribution Width 15.2 % (11.5-14.5); White Blood Count 26.4 K/mm3 (4.5-10.0)
[2021-04-19 15:56] LABS: Band Neutrophils Percent 30 % (0-6); Lymphocytes Absolute Manual 0.52 K/mm3 (1.1-4.5); Monocytes Absolute Manual 1.05 K/mm3 (0.1-0.90); Monocytes Percent Manual 4 % (3-9); Myelocytes Percent 1 %; Neutrophils Absolute Manual 24.55 K/mm3 (1.7-7.2); Neutrophils Percent Manual 63 % (46-73); Total Cells Counted 100
[2021-04-19 15:57] VITALS: BP 111/57; PULSE 100; RESP 21; TEMP 36.8; O2SAT 98
[2021-04-19 15:57] LABS: Platelet Estimate Adequate (Adequate)
[2021-04-19 16:03] LABS: Anisocytosis 1+ (NORMAL); Poikilocytosis 1+ (NORMAL)
[2021-04-19 16:04] LABS: Burr Cells 1+ (NORMAL)
--- NOTE | 2021-04-19 16:53 | PCPTNOTE ---
PT returned to practice transfers and gait this afternoon, however patient refused due to abdominal pain. Discussed with patient her family's concern of having 12 steps to enter her home. Patient states she is aware of needing to do stairs to enter home but declines at this time. PT will continue to follow per plan of care.
[2021-04-19 17:15] LABS: Glucose Point of Care 107 mg/dl (65-105)
[2021-04-19 18:17] VITALS: BP 126/88; PULSE 86; RESP 20; TEMP 37.1; O2SAT 95
[2021-04-19 20:00] VITALS: PULSE 95; RESP 22; O2SAT 97
[2021-04-19] MEDS: SIMVASTATIN 10 MG TABLET PO (20:41)
[2021-04-19] MEDS: FIDAXOMICIN 200 MG TABLET PO (20:41)
[2021-04-19 22:00] VITALS: BP 121/57; PULSE 95; RESP 22; TEMP 36.4; O2SAT 97
[2021-04-20 06:00] VITALS: BP 116/67; PULSE 99; RESP 16; TEMP 36.6; O2SAT 96
[2021-04-20] MEDS: LEVOTHYROXINE SODIUM 75 MCG TABLET PO (06:11)
[2021-04-20 06:39] LABS: Hematocrit 26.4 % (37.0-47.0); Hemoglobin 8.4 g/dL (12.0-15.0); Mean Corpuscular HGB Conc 31.8 g/dl (32-36); Mean Corpuscular Hemoglobin 28.6 pg (26-34); Mean Corpuscular Volume 89.8 fl (80-100); Mean Platelet Volume 9.2 fl (7.4-10.4); Platelet Count Result 340 k/mm3 (150-375); Red Blood Count 2.94 M/mm3 (4.2-5.4); Red Cell Distribution Width 15.5 % (11.5-14.5); White Blood Count 23.1 K/mm3 (4.5-10.0)
[2021-04-20 06:58] LABS: Anion Gap 1 mmol/L (8-16); Blood Urea Nitrogen 25 mg/dL (7-17); Carbon Dioxide 25 mmol/L (22-30); Chloride 103 mmol/L (98-107); Estimated CRCL calculation 31 ml/min; Estimated Glomerular Filt Rate 48; Glucose 91 mg/dL (65-110); Potassium 4.5 mmol/L (3.4-5.0); Sodium 129 mmol/L (137-145)
[2021-04-20 07:51] LABS: CRP 36.2 mg/dL (<1.0)
[2021-04-20 08:00] VITALS: PULSE 100; RESP 16; O2SAT 96
[2021-04-20] MEDS: HYDROcodone/acetaminophen (*CRX) 5-325 MG TABLET 1 TAB PO (10:01)
[2021-04-20] MEDS: GABAPENTIN 100 MG CAPSULE PO (10:01)
[2021-04-20 10:02] VITALS: PULSE 100
[2021-04-20] MEDS: METOPROLOL TARTRATE 25 MG TABLET PO ×2 (10:02→20:40)
[2021-04-20] MEDS: PANTOPRAZOLE SODIUM IV 40 MG VIAL IV PUSH ×2 (10:02→20:40)
[2021-04-20] MEDS: FIDAXOMICIN 200 MG TABLET PO ×2 (10:02→20:40)
--- NOTE | 2021-04-20 10:59 | PM.PNGS ---
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, await stool cx (no BM), agree c po abx Subjective Subjective Date/Time Seen: 04/20/21 10:59 feels better this am, less pain/pressure, +flatus, no bowel movts, mathew clears Review of Systems Review of Systems: All systems reviewed & are unremarkable except as noted in HPI and below Exam Const: General: cooperative, comfortable and no acute distress Resp: Auscultation: diminished lung sounds Cardio: Rate: regular rate Rhythm: regular rhythm GI: Inspection: normal to inspection and distended GI Palp: Yes Soft to palpation, Yes Tenderness to palpation present (GI), No Guarding due to palpation present (GI) and No Rigid due to palpation Other: incision C/D/I, mild TTP, mod dist Objective Data Vital Signs Vital Signs: Vital Signs - 24 hr 04/19/21 15:57 04/19/21 18:17 04/19/21 20:00 Temperature 36.8 C 37.1 C Pulse Rate 100 86 95 Respiratory Rate 21 H 20 22 H Blood Pressure 111/57 L 126/88 Pulse Oximetry 98 95 97 04/19/21 22:00 04/20/21 06:00 04/20/21 08:00 Temperature 36.4 C 36.6 C Pulse Rate 95 99 100 Respiratory Rate 22 H 16 16 Blood Pressure 121/57 L 116/67 Pulse Oximetry 97 96 96 04/20/21 10:02 Temperature Pulse Rate 100 Respiratory Rate Blood Pressure Pulse Oximetry Intake/Output Intake/Output: Intake & Output 04/17/21 04/18/21 04/19/21 04/20/21 23:59 23:59 23:59 23:59 Intake Total 2972 540 870 600 Balance 2972 540 870 600 Meds/Results Medications: Active Medications Generic Name Dose Route Start Last Admin Trade Name Freq PRN Reason Stop Dose Admin Hydrocodone Bitart/Acetaminophen 1 tab 04/13/21 14:11 04/20/21 10:01 Hydrocodone/Acetaminophen (*Crx) 5-325 Mg Tablet PO 1 tab Q6H PRN Administration Pain Rated 4-6 Hydrocodone Bitart/Acetaminophen 1 tab 04/13/21 14:11 04/19/21 15:41 Hydrocodone/Acetaminophen (*Crx) 7.5-325 Mg Tablet PO 1 tab Q6H PRN Administration Pain Rated 7-10 Albuterol 2 puff 04/18/21 09:30 Albuterol Sulfate (*Sp) Aerosol 1 Puff INHALATION TID PRN Shortness Of Breath Enoxaparin Sodium 40 mg 04/13/21 09:00 04/14/21 08:27 Enoxaparin 40 Mg/0.4 Ml Syringe SUB-Q Not Given DAILY FERN Fidaxomicin 200 mg 04/19/21 21:00 04/20/21 10:02 Fidaxomicin 200 Mg Tablet PO 200 mg Q12HR FERN Administration Gabapentin 100 mg 04/18/21 09:35 04/20/21 10:01 Gabapentin 100 Mg Capsule PO 100 mg TID FERN Administration Levothyroxine Sodium 75 mcg 04/18/21 09:35 04/20/21 06:11 Levothyroxine Sodium 75 Mcg Tablet PO 75 mcg DAILY@0630 FERN Administration Metoprolol Tartrate 25 mg 04/18/21 21:00 04/20/21 10:02 Metoprolol Tartrate 25 Mg Tablet PO 25 mg Q12HR FERN Administration Morphine Sulfate 2 mg 04/12/21 17:46 04/15/21 08:41 Morphine Sulfate (*Crx) 2 Mg/Ml Inj IV PUSH 2 mg Q2H PRN Administration Pain Rated 4-6 Morphine Sulfate 4 mg 04/12/21 17:46 04/17/21 15:38 Morphine Sulfate (*Crx) 4 Mg/Ml Inj IV PUSH 4 mg Q2H PRN Administration Pain Rated 7-10 Ondansetron HCl 4 mg 04/11/21 20:12 04/17/21 15:39 Ondansetron Inj 4 Mg/2 Ml Vial IV PUSH 4 mg Q4H PRN Administration Nausea Pantoprazole Sodium 40 mg 04/19/21 09:40 04/20/21 10:02 Pantoprazole Sodium Iv 40 Mg Vial IV PUSH 40 mg Q12HR FERN Administration Simvastatin 10 mg 04/18/21 21:00 04/19/21 20:41 Simvastatin 10 Mg Tablet PO 10 mg HS FERN Administration Radiology Results: ITS Impressions Abdomen/Pelvis CT 04/11/21 19:17 WENDY
--- NOTE | 2021-04-20 11:08 | PM.IMPN ---
Progress Note: A&P Assessment and Plan (1) Leukocytosis: Code(s): D72.829 - Elevated white blood cell count, unspecified Status: Acute Assessment and Plan: Concern for recurrence of C diff Patient started on Dificid leukocytosis improved (2) Cecal volvulus: Onset Date: ~04/11/21 Code(s): K56.2 - Volvulus Status: Acute Assessment and Plan: Patient presents to ED with abd pain, nausea and vomiting. CT Abd/Pelvis showing distended bowel with air and fluid most likely cecum with ascending colonic transition point consistent with volvulus. Patient made NPO. NGT placed and General surgery consulted. Patient underwent open right hemicolectomy with ileocolic anastomosis 04/12/21.. Documented that she is passing stool. Increase activity as tolerated. Diet managed by surgery (3) Anemia: Code(s): D64.9 - Anemia, unspecified Status: Acute Assessment and Plan: Hgb on admission was 11.9 and has dropped to 7 range. EBL was 100mL. Suspect related to acute blood loss anemia from surgery and bleeding around the incision site and possibly from IV fluids. She did received FFP x1 unit on 04/14/21. No further evidence of bleeding around the site. Follow HH. Transfuse as needed. Lovenox on hold. (4) Lactic acidosis: Onset Date: ~04/2021 Code(s): E87.2 - Acidosis Status: Acute Assessment and Plan: Patient presents with a nongap metabolic acidosis felt related to the Lactic acid level of 3.3. Not felt to be sepsis but more likely related to bowel ischemia from the volvulus. LA level normalized. (5) Abnormal urinalysis: Code(s): R82.90 - Unspecified abnormal findings in urine Status: Acute Assessment and Plan: Urinalysis showing 2+ protein, 2+ ketones, 11-20 red cells and 7-9 white cells. Patient denies any urinary symptoms on admission. Urine culture growing Providencia of 10-49K CFU. White count remains normal and no fevers. Suspect this is a contaminated specimen. Continue to monitor (6) Nausea and vomiting: Qualifiers: Vomiting type: unspecified Qualified Code(s): R11.2 - Nausea with vomiting, unspecified Code(s): R11.2 - Nausea with vomiting, unspecified Status: Acute Assessment and Plan: Likely secondary to volvulus. Status post NGT was in place and now out. S still complains of nausea. Continue to follow. (7) Clostridium difficile colitis: Onset Date: Unknown Code(s): A04.72 - Enterocolitis due to Clostridium difficile, not specified as recurrent Status: Acute Assessment and Plan: Patient had vancomycin on her home med list on admission but she has completed this treatment. As above. Probable recurrence of C diff started on Dificid on 04/19/2021 (8) Chronic kidney disease, stage 3 (moderate): Qualifiers: Chronic kidney disease stage 3 subtype: stage 3a (GFR 45-59) Qualified Code(s): N18.31 - Chronic kidney disease, stage 3a Code(s): N18.3 - Chronic kidney disease, stage 3 (moderate) Status: Chronic Assessment and Plan: Patient with a normal baseline Cr but with CrCl in the 30-40 range. Cr remains normal. Continue to monitor. (9) Polymyositis, organ involvement unspecified: Code(s): M33.20 - Polymyositis, organ involvement unspecified Status: Chronic Assessment and Plan: Stable. Patient has dermatomyositis with polymyositis. Patient takes HCQ and CellCept which we will resume when able. Follow-up in outpatient setting. (10) Long-term use of immunosuppressant medication: Code(s): Z79.899 - Other care home (current) drug therapy Status: Acute Assessment and Plan: As above. (11) DVT prophylaxis: Code(s): Z29.9 - Encounter for prophylactic measures, unspecified Status: Acute Assessment and Plan: SCDs. Resume Lovenox if CT okay. Subjective Date/t
[2021-04-20 13:59] VITALS: BP 137/61; PULSE 79; RESP 20; TEMP 36.8; O2SAT 98
[2021-04-20] MEDS: ONDANSETRON INJ 4 MG/2 ML VIAL IV PUSH (14:16)
[2021-04-20] MEDS: MORPHINE SULFATE (*CRX) 2 MG/ML INJ IV PUSH (15:54)
[2021-04-20 20:00] VITALS: PULSE 79; RESP 20; O2SAT 98
[2021-04-20] MEDS: SIMVASTATIN 10 MG TABLET PO (20:40)
[2021-04-20] MEDS: MORPHINE SULFATE (*CRX) 4 MG/ML INJ IV PUSH (20:47)
[2021-04-20 21:44] VITALS: BP 143/57; PULSE 116; RESP 18; TEMP 37.7; O2SAT 94
[2021-04-21] MEDS: MORPHINE SULFATE (*CRX) 4 MG/ML INJ IV PUSH ×3 (00:26→21:03)
[2021-04-21] MEDS: LEVOTHYROXINE SODIUM 75 MCG TABLET PO (05:29)
[2021-04-21 06:00] VITALS: BP 154/54; PULSE 108; RESP 18; TEMP 37.2; O2SAT 94
[2021-04-21 08:32] VITALS: PULSE 90
[2021-04-21] MEDS: ONDANSETRON INJ 4 MG/2 ML VIAL IV PUSH ×3 (08:32→16:40)
[2021-04-21] MEDS: FIDAXOMICIN 200 MG TABLET PO ×2 (08:32→21:03)
[2021-04-21] MEDS: METOPROLOL TARTRATE 25 MG TABLET PO ×2 (08:32→21:03)
[2021-04-21] MEDS: PANTOPRAZOLE SODIUM IV 40 MG VIAL IV PUSH ×2 (08:32→21:03)
[2021-04-21] MEDS: GABAPENTIN 100 MG CAPSULE PO ×2 (08:32→12:01)
--- NOTE | 2021-04-21 09:44 | PM.IMPN ---
Progress Note: A&P Assessment and Plan (1) Leukocytosis: Code(s): D72.829 - Elevated white blood cell count, unspecified Status: Acute Assessment and Plan: Concern for recurrence of C diff Patient started on Dificid leukocytosis improved Also patient had positive blood culture 1/2 g negative bacilli pending identification continue IV Zosyn (2) Cecal volvulus: Onset Date: ~04/11/21 Code(s): K56.2 - Volvulus Status: Acute Assessment and Plan: Patient presents to ED with abd pain, nausea and vomiting. CT Abd/Pelvis showing distended bowel with air and fluid most likely cecum with ascending colonic transition point consistent with volvulus. Patient made NPO. NGT placed and General surgery consulted. Patient underwent open right hemicolectomy with ileocolic anastomosis 04/12/21.. Diet managed by surgeon patient also has ileus worsening on 04/20/2021 nasogastric tube was replaced (3) Anemia: Code(s): D64.9 - Anemia, unspecified Status: Acute Assessment and Plan: Hgb on admission was 11.9 and has dropped to 7 range. EBL was 100mL. Suspect related to acute blood loss anemia from surgery and bleeding around the incision site and possibly from IV fluids. She did received FFP x1 unit on 04/14/21. No further evidence of bleeding around the site. Follow HH. Transfuse as needed. Lovenox on hold. continue SCD (4) Lactic acidosis: Onset Date: ~04/2021 Code(s): E87.2 - Acidosis Status: Acute Assessment and Plan: Patient presents with a nongap metabolic acidosis felt related to the Lactic acid level of 3.3. Not felt to be sepsis but more likely related to bowel ischemia from the volvulus. LA level normalized. (5) Abnormal urinalysis: Code(s): R82.90 - Unspecified abnormal findings in urine Status: Acute Assessment and Plan: Urinalysis showing 2+ protein, 2+ ketones, 11-20 red cells and 7-9 white cells. Patient denies any urinary symptoms on admission. Urine culture growing Providencia of 10-49K CFU. White count remains normal and no fevers. Suspect this is a contaminated specimen. Continue to monitor (6) Nausea and vomiting: Qualifiers: Vomiting type: unspecified Qualified Code(s): R11.2 - Nausea with vomiting, unspecified Code(s): R11.2 - Nausea with vomiting, unspecified Status: Acute Assessment and Plan: Likely secondary to volvulus. Continue nasogastric tube as patient has ileus (7) Clostridium difficile colitis: Onset Date: Unknown Code(s): A04.72 - Enterocolitis due to Clostridium difficile, not specified as recurrent Status: Acute Assessment and Plan: Patient had vancomycin on her home med list on admission but she has completed this treatment. As above. Probable recurrence of C diff started on Dificid on 04/19/2021 (8) Chronic kidney disease, stage 3 (moderate): Qualifiers: Chronic kidney disease stage 3 subtype: stage 3a (GFR 45-59) Qualified Code(s): N18.31 - Chronic kidney disease, stage 3a Code(s): N18.3 - Chronic kidney disease, stage 3 (moderate) Status: Chronic Assessment and Plan: Patient with a normal baseline Cr but with CrCl in the 30-40 range. Cr remains normal. Continue to monitor. (9) Polymyositis, organ involvement unspecified: Code(s): M33.20 - Polymyositis, organ involvement unspecified Status: Chronic Assessment and Plan: Stable. Patient has dermatomyositis with polymyositis. Patient takes HCQ and CellCept which we will resume when able. Follow-up in outpatient setting. (10) Long-term use of immunosuppressant medication: Code(s): Z79.899 - Other half-way (current) drug therapy Status: Acute Assessment and Plan: As above. (11) DVT prophylaxis: Code(s): Z29.9 - Encounter for prophylactic measures, unspecified Status: Acute
[2021-04-21 10:11] LABS: Basophils Absolute Auto 0.1 K/mm3 (0.0-0.1); Basophils Percent Auto 0.4 % (0.2-1.2); Eosinophils Absolute Auto 0.1 K/mm3 (0-0.3); Eosinophils Percent Auto 0.4 % (0-4.4); Hematocrit 27.3 % (37.0-47.0); Hemoglobin 8.5 g/dL (12.0-15.0); Immature Granulocyte Absolute 0.48 K/mm3 (0.00-0.031); Immature Granulocyte Percent A 2.2 % (0-0.5); Lymphocytes Absolute Auto 0.66 K/mm3 (0.9-3.2); Mean Corpuscular HGB Conc 31.1 g/dl (32-36); Mean Corpuscular Hemoglobin 28.5 pg (26-34); Mean Corpuscular Volume 91.6 fl (80-100); Mean Platelet Volume 9.1 fl (7.4-10.4); Monocytes Absolute Auto 1.9 K/mm3 (0.1-0.6); Monocytes Percent Auto 8.6 % (2.6-8.5); Neutrophils Absolute Auto 18.8 K/mm3 (1.3-6.7); Neutrophils Percent Auto 85.4 % (45.5-73.1); Platelet Count Result 428 k/mm3 (150-375); Red Blood Count 2.98 M/mm3 (4.2-5.4); Red Cell Distribution Width 15.5 % (11.5-14.5)
[2021-04-21 10:28] LABS: Alanine Aminotransferase 20 U/L (4-35); Albumin Level 3.1 g/dL (3.5-5.1); Alkaline Phosphatase 72 U/L (38-126); Anion Gap 9 mmol/L (8-16); Aspartate Amino Transferase 27 U/L (14-36); Bilirubin,Total 0.9 mg/dL (0.2-1.3); Blood Urea Nitrogen 20 mg/dL (7-17); Calcium 9.5 mg/dL (8.4-10.2); Carbon Dioxide 21 mmol/L (22-30); Chloride 104 mmol/L (98-107); Estimated CRCL calculation 34 ml/min; Estimated Glomerular Filt Rate 54; Glucose 87 mg/dL (65-110); Potassium 3.8 mmol/L (3.4-5.0); Sodium 134 mmol/L (137-145)
[2021-04-21 10:59] LABS: Burr Cells 1+ (NORMAL); Platelet Estimate Increased (Adequate)
[2021-04-21] MEDS: MORPHINE SULFATE (*CRX) 2 MG/ML INJ IV PUSH (11:56)
--- NOTE | 2021-04-21 13:38 | PM.PNGS ---
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, cont abx Subjective Subjective Date/Time Seen: 04/21/21 13:38 feels ok this am, reports no further N/V after NG placed, really no abd pain Review of Systems Review of Systems: All systems reviewed & are unremarkable except as noted in HPI and below Exam Const: General: cooperative, comfortable, no acute distress and ill appearing Orientation/consciousness: patient oriented x3 Resp: Auscultation: clear to auscultation bilaterally and diminished lung sounds Cardio: Rate: regular rate Rhythm: regular rhythm GI: Inspection: normal to inspection, distended and incision GI Palp: Yes Soft to palpation, Yes Tenderness to palpation present (GI), No Guarding due to palpation present (GI) and No Rigid due to palpation Objective Data Vital Signs Vital Signs: Vital Signs - 24 hr 04/20/21 13:59 04/20/21 20:00 04/20/21 21:44 Temperature 36.8 C 37.7 C H Pulse Rate 79 79 116 H Respiratory Rate 20 20 18 Blood Pressure 137/61 143/57 H Pulse Oximetry 98 98 94 04/21/21 06:00 04/21/21 08:32 Temperature 37.2 C Pulse Rate 108 H 90 Respiratory Rate 18 Blood Pressure 154/54 H Pulse Oximetry 94 Intake/Output Intake/Output: Intake & Output 04/18/21 04/19/21 04/20/21 04/21/21 23:59 23:59 23:59 23:59 Intake Total 878 102 1378 370 Output Total 900 Balance 540 870 530 370 Meds/Results Medications: Active Medications Generic Name Dose Route Start Last Admin Trade Name Freq PRN Reason Stop Dose Admin Hydrocodone Bitart/Acetaminophen 1 tab 04/13/21 14:11 04/20/21 10:01 Hydrocodone/Acetaminophen (*Crx) 5-325 Mg Tablet PO 1 tab Q6H PRN Administration Pain Rated 4-6 Hydrocodone Bitart/Acetaminophen 1 tab 04/13/21 14:11 04/19/21 15:41 Hydrocodone/Acetaminophen (*Crx) 7.5-325 Mg Tablet PO 1 tab Q6H PRN Administration Pain Rated 7-10 Albuterol 2 puff 04/18/21 09:30 Albuterol Sulfate (*Sp) Aerosol 1 Puff INHALATION TID PRN Shortness Of Breath Enoxaparin Sodium 40 mg 04/13/21 09:00 04/14/21 08:27 Enoxaparin 40 Mg/0.4 Ml Syringe SUB-Q Not Given DAILY FERN Fidaxomicin 200 mg 04/19/21 21:00 04/21/21 08:32 Fidaxomicin 200 Mg Tablet PO 200 mg Q12HR FERN Administration Gabapentin 100 mg 04/18/21 09:35 04/21/21 12:01 Gabapentin 100 Mg Capsule PO 100 mg TID FERN Administration Piperacillin/Tazobactam/Dextrose 3.375 gm in 50 mls @ 100 mls/hr 04/20/21 20:00 04/21/21 11:56 Zosyn 3.375 Gm/D5w 50ml Pm IVPB 100 mls/hr Q8H FERN Administration Levothyroxine Sodium 75 mcg 04/18/21 09:35 04/21/21 05:29 Levothyroxine Sodium 75 Mcg Tablet PO 75 mcg DAILY@0630 FERN Administration Metoprolol Tartrate 25 mg 04/18/21 21:00 04/21/21 08:32 Metoprolol Tartrate 25 Mg Tablet PO 25 mg Q12HR FERN Administration Morphine Sulfate 2 mg 04/12/21 17:46 04/21/21 11:56 Morphine Sulfate (*Crx) 2 Mg/Ml Inj IV PUSH 2 mg Q2H PRN Administration Pain Rated 4-6 Morphine Sulfate 4 mg 04/12/21 17:46 04/21/21 00:26 Morphine Sulfate (*Crx) 4 Mg/Ml Inj IV PUSH 4 mg Q2H PRN Administration Pain Rated 7-10 Ondansetron HCl 4 mg 04/11/21 20:12 04/21/21 12:03 Ondansetron Inj 4 Mg/2 Ml Vial IV PUSH 4 mg Q4H PRN Administration Nausea Pantoprazole Sodium 40 mg 04/19/21 09:40 04/21/21 08:32 Pantoprazole Sodium Iv 40 Mg Vial IV PUSH 40 mg Q12HR FERN Administration Simvastatin 10 mg 04/18/21 21:00 04/20/21 20:40 Simvastatin 10 Mg Tab
[2021-04-21 14:00] VITALS: BP 146/50; PULSE 104; RESP 20; TEMP 37.8; O2SAT 95
[2021-04-21 19:37] VITALS: PULSE 104; RESP 20; O2SAT 95
[2021-04-21] MEDS: SIMVASTATIN 10 MG TABLET PO (21:04)
[2021-04-21 22:00] VITALS: BP 181/64; PULSE 123; RESP 22; TEMP 37.7; O2SAT 91
[2021-04-22 06:05] VITALS: BP 150/60; PULSE 110; RESP 18; TEMP 37.1; O2SAT 93
[2021-04-22] MEDS: LEVOTHYROXINE SODIUM 75 MCG TABLET PO (06:09)
[2021-04-22 07:30] LABS: Basophils Percent Auto 0.2 % (0.2-1.2); Eosinophils Percent Auto 0.2 % (0-4.4); Hematocrit 22.4 % (37.0-47.0); Immature Granulocyte Absolute 0.15 K/mm3 (0.00-0.031); Immature Granulocyte Percent A 1.1 % (0-0.5); Lymphocytes Absolute Auto 0.48 K/mm3 (0.9-3.2); Lymphocytes Percent Auto 3.6 % (18.3-44.2); Mean Corpuscular HGB Conc 31.3 g/dl (32-36); Mean Corpuscular Hemoglobin 28.1 pg (26-34); Mean Platelet Volume 8.9 fl (7.4-10.4); Monocytes Absolute Auto 1.3 K/mm3 (0.1-0.6); Monocytes Percent Auto 9.6 % (2.6-8.5); Neutrophils Absolute Auto 11.3 K/mm3 (1.3-6.7); Neutrophils Percent Auto 85.3 % (45.5-73.1); Platelet Count Result 347 k/mm3 (150-375); Red Blood Count 2.49 M/mm3 (4.2-5.4); Red Cell Distribution Width 15.5 % (11.5-14.5); White Blood Count 13.2 K/mm3 (4.5-10.0)
[2021-04-22 07:39] LABS: Alanine Aminotransferase 15 U/L (4-35); Albumin Level 2.5 g/dL (3.5-5.1); Alkaline Phosphatase 51 U/L (38-126); Anion Gap 9 mmol/L (8-16); Aspartate Amino Transferase 29 U/L (14-36); Bilirubin,Total 0.7 mg/dL (0.2-1.3); Blood Urea Nitrogen 18 mg/dL (7-17); Calcium 8.4 mg/dL (8.4-10.2); Carbon Dioxide 21 mmol/L (22-30); Chloride 104 mmol/L (98-107); Estimated CRCL calculation 42 ml/min; Estimated Glomerular Filt Rate > 60; Glucose 85 mg/dL (65-110); Phosphorus 3.8 mg/dL (2.5-4.5); Potassium 3.4 mmol/L (3.4-5.0); Sodium 134 mmol/L (137-145)
[2021-04-22 08:38] VITALS: PULSE 100
[2021-04-22] MEDS: FIDAXOMICIN 200 MG TABLET PO ×2 (08:38→21:36)
[2021-04-22] MEDS: PANTOPRAZOLE SODIUM IV 40 MG VIAL IV PUSH ×2 (08:38→20:52)
[2021-04-22] MEDS: METOPROLOL TARTRATE 25 MG TABLET PO ×2 (08:38→21:36)
[2021-04-22] MEDS: GABAPENTIN 100 MG CAPSULE PO (08:39)
[2021-04-22] MEDS: cefTRIAXone 2 GM in SODIUM CHLORIDE 0.9% IV 100 ML 200 ML IVPB (08:51)
[2021-04-22] MEDS: MORPHINE SULFATE (*CRX) 4 MG/ML INJ IV PUSH ×3 (08:59→20:52)
[2021-04-22 09:08] LABS: Band Neutrophils Percent 16 % (0-6); Eosinophils Absolute Manual 0.13 K/mm3 (0.02-0.5); Eosinophils Percent Manual 1 % (0-4); Lymphocytes Absolute Manual 0.52 K/mm3 (1.1-4.5); Monocytes Absolute Manual 0.66 K/mm3 (0.1-0.90); Monocytes Percent Manual 5 % (3-9); Neutrophils Absolute Manual 11.88 K/mm3 (1.7-7.2); Neutrophils Percent Manual 74 % (46-73); Platelet Estimate Adequate (Adequate); Total Cells Counted 100
[2021-04-22 09:10] LABS: Anisocytosis 1+ (NORMAL); Crenated RBC 1+ (NORMAL); Hypochromasia 1+ (NORMAL); Poikilocytosis 1+ (NORMAL)
--- NOTE | 2021-04-22 11:16 | PM.PNGS ---
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 - Volvulus Status: Acute Assessment and Plan: NG now in place. Hasn't had any IV fluids all weekend. Will place PICC line today and start TPN. Strict I/Os. Continue PT/OT (2) E coli bacteremia: Code(s): R78.81 - Bacteremia; B96.20 - Unspecified Escherichia coli [E. coli] as the cause of diseases classified elsewhere Status: Acute Assessment and Plan: Continue ceftriaxone per Hospitalist Also on Dificid due to C diff hx. (3) Postoperative ileus: Code(s): K91.89 - Other postprocedural complications and disorders of digestive system; K56.7 - Ileus, unspecified Status: Acute Assessment and Plan: Continue NG decompression. Might get SBFT tomorrow if still no significant improvement. Subjective Subjective Date/Time Seen: 04/22/21 11:16 Interval history: Passing a little flauts. No BM for several days. Hasn't been on IV fluids since NG placed Thursday. I/O's not accurately recorded either. Exam GI: Inspection: non-distended and incision (intact with rita, minimal ecchymosis) Auscultation: Hypoactive bowel sounds present Objective Data Vital Signs Vital Signs: Vital Signs - 24 hr 04/21/21 14:00 04/21/21 19:37 04/21/21 22:00 Temperature 37.8 C H 37.7 C H Pulse Rate 104 H 104 H 123 H Respiratory Rate 20 20 22 H Blood Pressure 146/50 H 181/64 H Pulse Oximetry 95 95 91 04/22/21 06:05 04/22/21 08:38 Temperature 37.1 C Pulse Rate 110 H 100 Respiratory Rate 18 Blood Pressure 150/60 H Pulse Oximetry 93 Intake/Output Intake/Output: Intake & Output 04/19/21 04/20/21 04/21/21 04/22/21 23:59 23:59 23:59 23:59 Intake Total 870 1430 770 0 Output Total 900 Balance 870 530 770 0 Meds/Results Medications: Active Medications Generic Name Dose Route Start Last Admin Trade Name Freq PRN Reason Stop Dose Admin Hydrocodone Bitart/Acetaminophen 1 tab 04/13/21 14:11 04/20/21 10:01 Hydrocodone/Acetaminophen (*Crx) 5-325 Mg Tablet PO 1 tab Q6H PRN Administration Pain Rated 4-6 Hydrocodone Bitart/Acetaminophen 1 tab 04/13/21 14:11 04/19/21 15:41 Hydrocodone/Acetaminophen (*Crx) 7.5-325 Mg Tablet PO 1 tab Q6H PRN Administration Pain Rated 7-10 Albuterol 2 puff 04/18/21 09:30 Albuterol Sulfate (*Sp) Aerosol 1 Puff INHALATION TID PRN Shortness Of Breath Enoxaparin Sodium 40 mg 04/13/21 09:00 04/14/21 08:27 Enoxaparin 40 Mg/0.4 Ml Syringe SUB-Q Not Given DAILY FERN Fidaxomicin 200 mg 04/19/21 21:00 04/22/21 08:38 Fidaxomicin 200 Mg Tablet PO 200 mg Q12HR FERN Administration Gabapentin 100 mg 04/18/21 09:35 04/22/21 08:39 Gabapentin 100 Mg Capsule PO 100 mg TID FERN Administration Ceftriaxone Sodium 2 gm/ 100 mls @ 200 mls/hr 04/22/21 09:00 04/22/21 08:51 Sodium Chloride IVPB 200 mls/hr Q24H FERN Administration Dextrose 1,000 mls @ 50 mls/hr 04/22/21 11:12 Dextrose 10% IV CONT .Q20H PRN if PN is interrupted Multivitamins 2.5 ml/ 2,005 mls @ 50 mls/hr 04/22/21 11:15 Multivitamins 2.5 ml/ Amino IV CONT Acids/Electrolytes/Dextrose .Q24H [facility] Protocol Fat Emulsion Intravenous 250 mls @ 20.833 mls/hr 04/22/21 11:15 Lipids 20% IVPB Q24H FERN Levothyroxine Sodium 75 mcg 04/18/21 09:35 04/22/21 06:09 Levothyroxine Sodium 75 Mcg Tablet PO 75 mcg DAILY@0630 FERN Administration Metoprolol Tartrate 25 mg 04/18/21 21:00 04/22/21 08:38 Metoprolol Tartrate 25 Mg Tablet PO 25 mg Q12HR FERN Administration Miscellaneous Information 1 each 04/21/21 00:01 Morphine Is Due For Renewal; Please Renew If Needed Or Med Will Auto D/C XX 05/21/21 00:00 CLARIFY FERN Morphine Sulfate 2 mg 04/12/21 17:46 04/21/21 11:56 Morphine Sulfate (*Crx) 2 Mg/Ml Inj IV PUSH 2 mg Q2H PRN Administration
--- NOTE | 2021-04-22 11:57 | PCNFU ---
Nutrition Follow-Up Complete: Inadequate oral intake related cecal volvulus as evidenced by NPO Goal: Pt to meet 75% of estimated nutritional needs Pt is not progressing towards goal Pt current nutrition is NPO except with ice chips Last recorded weight is 60.7 kg, down 2.6kg since last reported weight on 04/21/21. Bowel Motility: +BM 04/21 reported Labs Reviewed: hgb 7.0, hct 22.4, alb 2.5, Na 134, CO2 21, BUN 18 Meds Noted: dificid, neurontin, synthroid, lopressor, morphine sulfate, protonix Skin: abdomen wound Additional Notes: Pt is currently NPO. RDN consulted for TPN. Pt has PICC line in place and NG tube was replaced on 04/20/21, per physician notes. Recommend TPN to be initiated at a rate of 40mL/hr over 24 hours with lipids to provide 1182kcal and 48g of protein. Recommend increasing TPN rate by 10mL/hr each day until a goal rate of 50mL/hr is met. TPN running at a rate of 50mL/hr over 24 hours with lipids will provide 1352kcal and 60g of protein to meet 91% of estimated kcal needs and 95% of estimated protein needs. If PPN is to be initiated, recommend initiating PPN at a rate of 80mL/hr over 24 hours with lipids to provide 1153kcal and 82g of protein to meet 77% of estimated kcal needs and 109% of estimated protein needs. Recommend advancing diet as tolerated by pt. Agree with diet orders at this time. Will monitor labs, medication, wt, and reported intake every T/F
[2021-04-22 12:04] LABS: Basophils Percent Auto 0.3 % (0.2-1.2); Eosinophils Percent Auto 0.3 % (0-4.4); Hematocrit 24.7 % (37.0-47.0); Hemoglobin 7.9 g/dL (12.0-15.0); Immature Granulocyte Absolute 0.17 K/mm3 (0.00-0.031); Immature Granulocyte Percent A 1.2 % (0-0.5); Lymphocytes Absolute Auto 0.51 K/mm3 (0.9-3.2); Lymphocytes Percent Auto 3.5 % (18.3-44.2); Mean Corpuscular Hemoglobin 28.7 pg (26-34); Mean Corpuscular Volume 89.8 fl (80-100); Mean Platelet Volume 9.1 fl (7.4-10.4); Monocytes Absolute Auto 1.5 K/mm3 (0.1-0.6); Monocytes Percent Auto 10.2 % (2.6-8.5); Neutrophils Absolute Auto 12.3 K/mm3 (1.3-6.7); Neutrophils Percent Auto 84.5 % (45.5-73.1); Platelet Count Result 359 k/mm3 (150-375); Red Blood Count 2.75 M/mm3 (4.2-5.4); Red Cell Distribution Width 15.5 % (11.5-14.5); White Blood Count 14.5 K/mm3 (4.5-10.0)
[2021-04-22 12:15] LABS: Partial Thromboplastin Time 33.6 SECONDS (22.3-36.8)
[2021-04-22 12:20] LABS: Alanine Aminotransferase 18 U/L (4-35); Albumin Level 2.9 g/dL (3.5-5.1); Alkaline Phosphatase 83 U/L (38-126); Anion Gap 7 mmol/L (8-16); Aspartate Amino Transferase 28 U/L (14-36); Bilirubin,Total 0.7 mg/dL (0.2-1.3); Blood Urea Nitrogen 17 mg/dL (7-17); Calcium 8.8 mg/dL (8.4-10.2); Carbon Dioxide 24 mmol/L (22-30); Chloride 103 mmol/L (98-107); Estimated CRCL calculation 38 ml/min; Estimated Glomerular Filt Rate > 60; Glucose 87 mg/dL (65-110); Magnesium 2.1 mg/dL (1.6-2.3); Potassium 3.3 mmol/L (3.4-5.0); Sodium 134 mmol/L (137-145)
[2021-04-22 12:28] LABS: Transferrin 120 mg/dL (206-381)
--- NOTE | 2021-04-22 12:42 | PM.IMPN ---
Progress Note: A&P Assessment and Plan (1) Leukocytosis: Code(s): D72.829 - Elevated white blood cell count, unspecified Status: Acute Assessment and Plan: WBC jumped to 26K. UA noted and this did not prompt a UCx. CT Ch/A/P showing post-op ileus but no acute findings. Concern for recurrence of C diff so she was started on Dificid. BCx 04/19 returned Enterobacter cloacae (1of2) senstive to Rocephin but intermediate to Zosyn. Leukocytosis has improved but now with low grade fever but could be related to need to adjust abx. Source is unclear but consider urine or bowel. Rocephin started today and Zosyn stopped. Follow. (2) Bacteremia: Code(s): R78.81 - Bacteremia Status: Acute Assessment and Plan: As above. 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 CT Abd/Pelvis showing distended bowel with air and fluid most likely cecum with ascending colonic transition point consistent with volvulus. Patient made NPO. NGT placed and General surgery consulted. Patient underwent open right hemicolectomy with ileocolic anastomosis 04/12/21. Patient NPO due to postoperative ileus. (4) Postoperative ileus: Code(s): K91.89 - Other postprocedural complications and disorders of digestive system; K56.7 - Ileus, unspecified Status: Acute Assessment and Plan: CT scan 04/19 showing moderately distended jejunum consistent with ileus. NG tube in place. KUB today shows persistently dilated small bowel likely adynamic ileus. X-ray also shows airspace opacities in lower lung field zones. Encourage patient to use incentive spirometry. Continue bowel rest. PICC line to be placed with TPN ordered. Appreciate General surgery input. Have patient up as much as possible. (5) Anemia: Code(s): D64.9 - Anemia, unspecified Status: Acute Assessment and Plan: Hgb on admission was 11.9 and has dropped to 7 range. EBL was 100mL. Suspect related to acute blood loss anemia from surgery and bleeding around the incision site and possibly from IV fluids. She did received FFP x1 unit on 04/14/21. No further evidence of bleeding around the site. hgb 7 this morning but 7.9 on repeat Follow HH. Transfuse as needed. Lovenox on hold. Continue SCD (6) Postoperative bleeding from incision: Status: Acute Assessment and Plan: Patient received FFP x1 unit 04/14/2019 to for bleeding around the incision site. No further evidence of this. As above. (7) Lactic acidosis: Onset Date: ~04/2021 Code(s): E87.2 - Acidosis Status: Acute Assessment and Plan: Patient presents with a nongap metabolic acidosis felt related to the Lactic acid level of 3.3. Not felt to be sepsis but more likely related to bowel ischemia from the volvulus. LA level normalized. Lactic acid level remained normal on repeat with the positive blood cultures. (8) Abnormal urinalysis: Code(s): R82.90 - Unspecified abnormal findings in urine Status: Acute Assessment and Plan: Urinalysis on admission showing 2+ protein, 2+ ketones, 11-20 red cells and 7-9 white cells. Patient denies any urinary symptoms on admission. Urine culture growing Providencia of 10-49K CFU. Suspect this is a contaminated specimen. Urinalysis was repeated given the elevated white count but UA was essentially benign and did not prompt a urine culture. Continue to monitor (9) Nausea and vomiting: Qualifiers: Vomiting type: unspecified Qualified Code(s): R11.2 - Nausea with vomiting, unspecified Code(s): R11.2 - Nausea with vomiting, unspecified Status: Acute Assessment and Plan: Likely secondary to volvulus. Continue nasogastric tube as patient has ileus (10) Clostridium difficile colitis: Onset Date: Unknown Cod
[2021-04-22] MEDS: LIDOCAINE HCL 1% PF INJ 5 ML VIAL INFILTRATE (13:40)
[2021-04-22] MEDS: AMINO ACIDS 5%/D15W/E-LYTES/CA 2,000 ML with MULTIVITAMINS-12 INJ VIAL 1 2.5 ML, MULTIV... 50 ML IV CONT (14:37)
[2021-04-22] MEDS: FAT EMULSIONS IV 20% 250 ML 20.83 ML IVPB (14:37)
--- NOTE | 2021-04-22 15:19 | PCOTNOTE ---
Attempted to see patient for OT, patient reporting I'm in too much pain...can we do it later? Due to time of day, unable to postpone. Will continue plan of care tomorrow, 04/23/21.
[2021-04-22 16:00] VITALS: BP 97/63; PULSE 80; RESP 18; TEMP 36.9; O2SAT 95
[2021-04-22] MEDS: ONDANSETRON INJ 4 MG/2 ML VIAL IV PUSH ×2 (17:17→21:42)
[2021-04-22 18:18] LABS: Glucose Point of Care 133 mg/dl (65-105)
[2021-04-22] MEDS: SIMVASTATIN 10 MG TABLET PO (21:35)
[2021-04-22] MEDS: CENTRAL LINE FLUSH 10 ML IV PUSH (21:36)
[2021-04-23] VITALS (18 sets, daily range): BP systolic 116–170; BP diastolic 43–77; PULSE 68–130; RESP 16–31; TEMP 36.6–38.4; O2SAT 95–100
[2021-04-23 00:30] LABS: Glucose Point of Care 182 mg/dl (65-105)
[2021-04-23] MEDS: MORPHINE SULFATE (*CRX) 4 MG/ML INJ IV PUSH ×3 (01:17→08:39)
[2021-04-23 04:40] LABS: Hemoglobin 7.5 g/dL (12.0-15.0); Mean Corpuscular Hemoglobin 28.3 pg (26-34); Mean Corpuscular Volume 94.3 fl (80-100); Mean Platelet Volume 9.6 fl (7.4-10.4); Platelet Count Result 316 k/mm3 (150-375); Red Blood Count 2.65 M/mm3 (4.2-5.4); Red Cell Distribution Width 16.2 % (11.5-14.5); White Blood Count 18.1 K/mm3 (4.5-10.0)
[2021-04-23 04:55] LABS: Lactic Acid Reflex 1.6 mmol/L (0.7-2.1)
[2021-04-23] MEDS: LEVOTHYROXINE SODIUM 75 MCG TABLET PO (05:31)
[2021-04-23] MEDS: CENTRAL LINE FLUSH 10 ML IV PUSH ×2 (05:36→21:50)
[2021-04-23 05:54] LABS: Glucose Point of Care 162 mg/dl (65-105)
[2021-04-23] MEDS: PANTOPRAZOLE SODIUM IV 40 MG VIAL IV PUSH ×2 (08:25→21:18)
[2021-04-23] MEDS: FIDAXOMICIN 200 MG TABLET PO (08:25)
[2021-04-23] MEDS: METOPROLOL TARTRATE 25 MG TABLET PO ×2 (08:25→21:18)
[2021-04-23] MEDS: cefTRIAXone 2 GM in SODIUM CHLORIDE 0.9% IV 100 ML IVPB (08:26)
[2021-04-23] MEDS: GABAPENTIN 100 MG CAPSULE PO ×2 (08:26→21:19)
[2021-04-23] MEDS: ONDANSETRON INJ 4 MG/2 ML VIAL IV PUSH ×3 (08:30→17:31)
--- NOTE | 2021-04-23 10:41 | PM.PNGS ---
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 - Volvulus Status: Acute Assessment and Plan: Still complaining of abdominal pain, febrile overnight and WBC up to 18,000 today. Bowels still not moving and no flatus today. Will repeat CT abd/pelvis with contrast to evaluate further. Continue NG tube, bowel rest, and TPN. Continue PT/OT (2) E coli bacteremia: Code(s): R78.81 - Bacteremia; B96.20 - Unspecified Escherichia coli [E. coli] as the cause of diseases classified elsewhere Status: Acute Assessment and Plan: Continue ceftriaxone per Hospitalist Also on Dificid due to C diff hx. (3) Postoperative ileus: Code(s): K91.89 - Other postprocedural complications and disorders of digestive system; K56.7 - Ileus, unspecified Status: Acute Assessment and Plan: Continue NG decompression, bowel rest, and TPN/Clinimix. Additional Plan I have discussed the plan of care with Dr. Martinez. Subjective Subjective Date/Time Seen: 04/23/21 10:41 Patient reports: still having pain, no flatus (denies flatus today), no bowel movement ( for several days) and fever Interval history: Patient seen and examined. She is primarily complaining of abdominal pain today. She points to the center of her abdomen near the incision when asking where her pain is located. She is rating it at a 10/10 and just received IV morphine prior to my arrival. Showed a temperature of a 101.1? F at midnight last night and this morning is 98.7. No other specific complaints at this time. Review of Systems Review of Systems: All systems reviewed & are unremarkable except as noted in HPI and below Cardiovascular: Cardiovascular: Reports no additional cardiovascular complaints and Denies chest pain Respiratory: Respiratory: Reports no additional respiratory complaints, Denies cough, Denies dyspnea and Denies dyspnea on exertion Gastrointestinal: Gastrointestinal: Reports as per HPI and Reports no additional gastrointestinal complaints Exam Const: General: awake Orientation/consciousness: patient oriented x3 Resp: Effort & Inspection: normal respiratory effort Auscultation: clear to auscultation bilaterally Cardio: Rate: regular rate Rhythm: regular rhythm GI: Inspection: non-distended and incision (dry/intact with rita, minimal ecchymosis, no erythema) GI Palp: Yes Soft to palpation, Yes Tenderness to palpation present (GI) (incisional and tender in LUQ/LLQ), Yes Guarding due to palpation present (GI) (voluntary guarding with palpation on left side) and No Rebound tenderness present Auscultation: Hypoactive bowel sounds present Extrem: General: no pedal edema and no calf tenderness Psych: Insight: Fair insight present (Psych) Objective Data Vital Signs Vital Signs: Vital Signs - 24 hr 04/22/21 16:00 04/23/21 00:00 04/23/21 04:00 Temperature 98.4 F 101.1 F H 99.7 F H Pulse Rate 80 116 H 100 Respiratory Rate 18 16 16 Blood Pressure 97/63 L 150/65 H 156/43 H Pulse Oximetry 95 98 97 04/23/21 08:00 04/23/21 08:25 Temperature 98.7 F Pulse Rate 85 68 Respiratory Rate 18 Blood Pressure 126/62 Pulse Oximetry 98 Intake/Output Intake/Output: Intake & Output 04/20/21 04/21/21 04/22/21 04/23/21 23:59 23:59 23:59 23:59 Intake Total 1430 770 160 120 Output Total 900 490 100 Balance 530 770 -330 20 Meds/Results Medications: Active Medications Generic Name Dose Route Start Last Admin Trade Name Freq PRN Reason Stop Dose Admin Hydrocodone Bitart/Acetaminophen 1 tab 04/13/21 14:11 04/20/21 10:01 Hydrocodone/Acetaminophen (*Crx) 5-325 Mg Tablet PO 1 tab Q6H PRN Administration Pain Rated 4-6 Hydrocodone Bitart/Acetaminophen 1 tab 04/13/21 14:11 04/19/21 15:41 Hydrocodone/Acetaminophen (*Crx) 7.5-325 Mg Tablet PO 1 tab Q6H PRN Administration Pain Rated 7-10 Albuterol 2 puff 04/18/21 09:30
--- NOTE | 2021-04-23 11:12 | PCNFU ---
Nutrition Follow-Up Complete: Inadequate oral intake related cecal volvulus as evidenced by NPO Goal: Pt to meet 75% of estimated nutritional needs Patient is progressing towards goal. We will continue current goal. Pt current nutrition is TPN. Last recorded weight is 60.3 kg, stable Bowel Motility:No BM reported. Labs Reviewed:Hct 25.0,Hgb 7.5 Meds Noted:Clinimix 5/15 at 50 ml/hr, 250 ml of 20% Lipid Emulsion,Dificid, Neurontin, Synthroid, Lopressor, Zofran Skin: WNL Additional Notes: Spoke with nursing today. Patient remains NPO. TPN providing 1352 kcals/72 gms protein, meeting 91% caloric needs and 100% protein needs. Plans for continued NGT and bowel rest. Agree with diet orders. Will monitor labs, medication, weight every Thursday and Thursday.
[2021-04-23 11:27] LABS: Triglycerides 132 mg/dL (<150)
[2021-04-23] MEDS: FAT EMULSIONS IV 20% 250 ML 20.83 ML IVPB (11:53)
[2021-04-23] MEDS: MORPHINE SULFATE (*CRX) 2 MG/ML INJ IV PUSH (11:53)
[2021-04-23 12:15] LABS: Glucose Point of Care 168 mg/dl (65-105)
--- NOTE | 2021-04-23 13:19 | WPDANESEPPF ---
Anes - Initial Pre Proc Eval Procedure: Operation Date: 04/12/21 14:30 Proposed Procedures p Right Hemicolectomy - Hill Martinez DO Operation Date: 04/23/21 14:30 Proposed Procedures p Exploratory Laparotomy, Washout Multiple Abdominal Abscesses, Possible Bowel Resection - Hill Martinez DO Date/Time: 04/23/21 13:19 Surgeon: Elsy Vee MD Pre Op Diagnosis: Cecal Volvulus Patient Data Age: 75 Gender: F Height: 1.6 m Weight: 60.3 kg Last Vital Signs Temp 37.1 C 04/23/21 08:00 Pulse 68 04/23/21 08:25 Resp 18 04/23/21 08:00 BP 126/62 04/23/21 08:00 Pulse Ox 98 04/23/21 08:00 Allergies Allergy/AdvReac Type Severity Reaction Status Date / Time Sulfa (Sulfonamide AdvReac Mild Skin Verified 04/11/21 19:36 Antibiotics) Reaction sulfamethizole AdvReac Mild Skin Verified 04/11/21 19:36 Reaction gemfibrozil AdvReac Unknown elevated Verified 04/11/21 19:36 liver enzymes sulfacetamide AdvReac Unknown Rash Verified 04/11/21 19:36 Home Medications Medication Instructions Recorded Confirmed Type cholecalciferol (vitamin D3) 125 5,000 unit PO DAILY 03/07/19 04/12/21 History mcg (5,000 unit) capsule hydroxychloroquine 200 mg tablet 200 mg PO BID 03/07/19 04/12/21 History multivitamin 1 tablet PO DAILY 05/12/19 04/12/21 History albuterol sulfate [ProAir HFA] 2 puff INHALATION TID 12/06/20 04/12/21 History gabapentin 100 mg PO TID 12/06/20 04/12/21 History metoprolol succinate 50 mg PO DAILY 12/06/20 04/12/21 History Saccharomyces boulardii [Florastor] 250 mg PO BID #60 cap 12/14/20 04/12/21 Rx simvastatin 10 mg tablet See Rx Instructions .ROUTE 01/01/21 04/11/21 Rx .COMPLEX #90 tablet cholestyramine-aspartame 4 gram 4 g PO QAM@1000 #14 ea 01/09/21 04/13/21 Rx oral powder for susp in a packet hydrochlorothiazide 25 mg tablet See Rx Instructions .ROUTE 02/05/21 04/12/21 Rx .COMPLEX #90 tablet vancomycin 125 mg capsule 125 mg PO DIRECTED #91 cap 03/08/21 04/12/21 Rx levothyroxine 75 mcg tablet 75 mcg PO DAILY #90 tablet 03/25/21 04/12/21 Rx Laboratory Tests 04/22/21 04/23/21 04/23/21 18:15 00:16 04:13 WBC 18.1 K/mm3 H K/mm3 (4.5-10.0) RBC 2.65 M/mm3 L M/mm3 (4.2-5.4) Hgb 7.5 g/dL L g/dL (12.0-15.0) Hct 25.0 % L % (37.0-47.0) MCV 94.3 fl D fl (80-100) MCH 28.3 pg pg (26-34) MCHC 30.0 g/dl L g/dl (32-36) RDW 16.2 % H % (11.5-14.5) Plt Count 316 k/mm3 k/mm3 (150-375) MPV 9.6 fl fl (7.4-10.4) Sodium Potassium Chloride Carbon Dioxide Anion Gap BUN Creatinine Estim Creat Clear Calc Estimated GFR Glucose POC Capillary Glucose 133 mg/dl H mg/dl 182 mg/dl H mg/dl (65-105) (65-105) Lactic Acid Calcium Phosphorus Triglycerides 04/23/21 04/23/21 04/23/21 04:13 05:38 10:38 WBC RBC Hgb Hct MCV MCH MCHC RDW Plt Count MPV Sodium Pending Potassium Pending Chloride Pending Carbon Dioxide Pending Anion Gap Pending BUN Pending Creatinine Pending Estim Creat Clear Calc Pending Estimated GFR Pending Glucose Pending POC Capillary Glucose 162 mg/dl H mg/dl (65-105) Lactic Acid 1.6 mmol/L mmol/L (0.7-2.1) Calcium Pending Phosphorus Pending Triglycerides 04/23/21 04/23/21 10:38 12:00 WBC RBC Hgb Hct MCV MCH MCHC RDW Plt Count MPV Sodium [place]
--- NOTE | 2021-04-23 13:53 | PC.NURSE ---
pt off unit for surgery at 1353.
[2021-04-23] MEDS: LACTATED RINGERS 1,000 ML 30 ML IV CONT ×2 (14:00→17:07)
--- NOTE | 2021-04-23 14:00 | WPDHPUPDATE1 ---
History and Physical Update Update Date/Time: 04/23/21 14:00 History and Physical has been reviewed, including an updated exam of the patient. There are NO changes in the patient's condition. Risks, benefits, and alternatives have been discussed and questions answered. Patient agrees to proceed with procedure.
--- NOTE | 2021-04-23 14:00 | PM.PNGS ---
Progress Note: A&P Assessment and Plan (1) Anastomotic leak of intestine: Code(s): K91.89 - Other postprocedural complications and disorders of digestive system Status: Acute Assessment and Plan: I obtained a repeat CT abdomen and pelvis with contrast this morning due to patient's continued severe abdominal pain and fever. She has signs of multiple abdominal abscesses concerning for an anastomotic leak. I have recommended proceeding with emergency exploratory laparotomy and washout of abdominal abscess with possible bowel resection. Patient voiced her concerns that she absolutely does not want an ostomy. I discussed her current condition and surgery plans with her daughter Shyanne over the phone. I will hopefully be able to identify the source of the leak and perform a new anastomosis. She will most likely have multiple drains after the surgery. I discussed that there are concerns for wound infection or wound healing problems postoperatively. Also if she were to have another anastomotic leak, she may not do well with another surgery in the future. Since she does not want any chance of an ostomy, I will respect her wishes and plan to reanastomose her. Discussed possible IMU or ICU stay postoperatively. I will also stop her ceftriaxone and transition to Invanz given possibility of multi organism infection. (2) Protein calorie malnutrition: Code(s): E46 - Unspecified protein-calorie malnutrition Status: Acute Assessment and Plan: Will continue TPN until tolerating enteric nutrition (3) Postoperative ileus: Code(s): K91.89 - Other postprocedural complications and disorders of digestive system; K56.7 - Ileus, unspecified Status: Acute (4) E coli bacteremia: Code(s): R78.81 - Bacteremia; B96.20 - Unspecified Escherichia coli [E. coli] as the cause of diseases classified elsewhere Status: Acute (5) Cecal volvulus: Onset Date: ~04/11/21 Code(s): K56.2 - Volvulus Status: Acute Subjective Subjective Date/Time Seen: 04/23/21 14:00 Interval history: patient was febrile overnight and has had increasing abdominal pain this morning. Still no BM or flatus. Exam GI: Inspection: distended GI Palp: Yes Tenderness to palpation present (GI) and Yes Guarding due to palpation present (GI) ( Predominantly left-sided) Auscultation: absent bowel sounds Objective Data Vital Signs Vital Signs: Vital Signs - 24 hr 04/22/21 16:00 04/23/21 00:00 04/23/21 04:00 Temperature 36.9 C 38.4 C H 37.6 C H Pulse Rate 80 116 H 100 Respiratory Rate 18 16 16 Blood Pressure 97/63 L 150/65 H 156/43 H Pulse Oximetry 95 98 97 04/23/21 08:00 04/23/21 08:25 Temperature 37.1 C Pulse Rate 85 68 Respiratory Rate 18 Blood Pressure 126/62 Pulse Oximetry 98 Intake/Output Intake/Output: Intake & Output 04/20/21 04/21/21 04/22/21 04/23/21 23:59 23:59 23:59 23:59 Intake Total 1430 770 160 370 Output Total 900 490 100 Balance 530 770 -330 270 Meds/Results Medications: Active Medications Generic Name Dose Route Start Last Admin Trade Name Freq PRN Reason Stop Dose Admin Hydrocodone Bitart/Acetaminophen 1 tab 04/13/21 14:11 04/20/21 10:01 Hydrocodone/Acetaminophen (*Crx) 5-325 Mg Tablet PO 1 tab Q6H PRN Administration Pain Rated 4-6 Hydrocodone Bitart/Acetaminophen 1 tab 04/13/21 14:11 04/19/21 15:41 Hydrocodone/Acetaminophen (*Crx) 7.5-325 Mg Tablet PO 1 tab Q6H PRN Administration Pain Rated 7-10 Albuterol 2 puff 04/18/21 09:30 Albuterol Sulfate (*Sp) Aerosol 1 Puff INHALATION TID PRN Shortness Of Breath Enoxaparin Sodium 40 mg 04/13/21 09:00 04/14/21 08:27 Enoxaparin 40 Mg/0.4 Ml Syringe SUB-Q Not Given DAILY FERN Fentanyl Citrate 25 mcg 04/23/21 13:19 Fentanyl Citrate Inj (*Crx) 100 Mcg/2 Ml Vial IV PUSH Q2M PRN Pain Fidaxomicin 200 mg 04/19/21 21:00 04/23/21 08:25 Fidaxomi
--- NOTE | 2021-04-23 14:29 | PM.IMPN ---
Progress Note: A&P Assessment and Plan (1) Anastomotic leak of intestine: Code(s): K91.89 - Other postprocedural complications and disorders of digestive system Status: Acute Assessment and Plan: WBC jumped to 26K on 04/19. UA noted and this did not prompt a UCx. CT Ch/A/P showing post-op ileus but no acute findings. Concern for recurrence of C diff so she was started on Dificid. BCx 04/19 returned Enterobacter cloacae (1of2) sensitive to Rocephin but intermediate to Zosyn. Leukocytosis improved but now with fevers. CT repeated now showing abscess formation concerning for anastomotic leaks. Abx adjusted. She was taken back to the OR today. (2) Leukocytosis: Code(s): D72.829 - Elevated white blood cell count, unspecified Status: Acute Assessment and Plan: As above (3) Bacteremia: Code(s): R78.81 - Bacteremia Status: Acute Assessment and Plan: [place] related to the anastomotic leaks and abdominal abscesses. As above. (4) Cecal volvulus: Onset Date: ~04/11/21 Code(s): K56.2 - Volvulus Status: Acute Assessment and Plan: Patient presents to ED with abd pain, nausea and vomiting. CT Abd/Pelvis showing distended bowel with air and fluid most likely cecum with ascending colonic transition point consistent with volvulus. Patient made NPO. NGT placed and General surgery consulted. Patient underwent open right hemicolectomy with ileocolic anastomosis 04/12/21. Patient developed elevated WBC with CT now showing abscess formation concerning for anastomotic leak. As above. (5) Postoperative ileus: Code(s): K91.89 - Other postprocedural complications and disorders of digestive system; K56.7 - Ileus, unspecified Status: Acute Assessment and Plan: CT scan 04/19 showing moderately distended jejunum consistent with ileus. NG tube in place. KUB today shows persistently dilated small bowel likely adynamic ileus. X-ray also shows airspace opacities in lower lung field zones. Encourage patient to use incentive spirometry. As above. Appreciate General surgery input. (6) Anemia: Code(s): D64.9 - Anemia, unspecified Status: Acute Assessment and Plan: Hgb on admission was 11.9 and has dropped to 7 range. EBL was 100mL. Suspect related to acute blood loss anemia from surgery and bleeding around the incision site and possibly from IV fluids. She did received FFP x1 unit on 04/14/21. No further evidence of bleeding around the site. Hgb remaiing stable in the 7 range. Follow HH. Transfuse as needed. Lovenox on hold. Continue SCD (7) Postoperative bleeding from incision: Status: Acute Assessment and Plan: Patient received FFP x1 unit 04/14/2019 to for bleeding around the incision site. No further evidence of this. As above. (8) Lactic acidosis: Onset Date: ~04/2021 Code(s): E87.2 - Acidosis Status: Acute Assessment and Plan: Patient presents with a nongap metabolic acidosis felt related to the Lactic acid level of 3.3. Not felt to be sepsis but more likely related to bowel ischemia from the volvulus. Lactic acid level remained normal on repeat. (9) Abnormal urinalysis: Code(s): R82.90 - Unspecified abnormal findings in urine Status: Acute Assessment and Plan: Urinalysis on admission showing 2+ protein, 2+ ketones, 11-20 red cells and 7-9 white cells. Patient denies any urinary symptoms on admission. Urine culture growing Providencia of 10-49K CFU. Suspect this is a contaminated specimen. Urinalysis was repeated given the elevated white count but UA was essentially benign and did not prompt a urine culture. Continue to monitor (10) Nausea and vomiting: Qualifiers: Vomiting type: unspecified Qualified Code(s): R11.2 - Nausea with vomiting, unspecified Code(s): R11.2 - Nausea with vomiting, unspecified Status: Acute Assessment and P
[2021-04-23 14:31] LABS: Glucose Point of Care 128 mg/dl (65-105)
[2021-04-23 14:37] LABS: Anion Gap 6 mmol/L (8-16); Blood Urea Nitrogen 22 mg/dL (7-17); Calcium 9.1 mg/dL (8.4-10.2); Carbon Dioxide 24 mmol/L (22-30); Chloride 103 mmol/L (98-107); Estimated CRCL calculation 48 ml/min; Estimated Glomerular Filt Rate > 60; Glucose 168 mg/dL (65-110); Phosphorus 2.9 mg/dL (2.5-4.5); Potassium 3.1 mmol/L (3.4-5.0); Sodium 133 mmol/L (137-145)
--- NOTE | 2021-04-23 14:37 | SUR.PREOP ---
1425-REQUESTED MARK CELIS RN TO SEND PT'S TPN/LIPIDS TO PREOP AREA PER ANESTHESIA REQUEST.
--- NOTE | 2021-04-23 14:43 | SUR.PREOP ---
1440-TPN RECEIVED AND TAKEN TO OR.
--- NOTE | 2021-04-23 15:29 | SUR.OPER ---
Stat type and screen given to rocio zarco. Received by Ninfa in lab at 1700
--- NOTE | 2021-04-23 15:30 | PCPTNOTE ---
The patient treatment was not able to be completed today. Patient out of room in A.M. for test and patient going to surgery this afternoon. Will plan to hold therapy until further orders are received.
[2021-04-23 17:23] LABS: Glucose Point of Care 197 mg/dl (65-105)
--- NOTE | 2021-04-23 17:32 | W.PM.PROC2 ---
Procedure Note - Detailed Date of Procedure 04/23/21 Pre-op Diagnosis Anastomotic leak, intra-abdominal abscess Post-op Diagnosis same Procedure Performed 1. Re-exploration of recent laparotomy 2. Drainage of multiple intra-abdominal abscesses 3. Ileocolic resection with [id number] ileocolic anastomosis 4. Placement of Prevena wound VAC Surgeon Hill Martinez, DO Anesthesia general Indications This is a 75-year-old woman who is 11 days status post right hemicolectomy for cecal volvulus. She was doing well for about 6 days postoperatively, but then on postop day 7 she was having increasing abdominal pain and elevated white blood count. Initial CT showed free intra-abdominal fluid, but no significant free air. She had a prior history of C diff, and there was some concern for possible recurrent C diff infection. She was started on Dificid and was monitored for any worsening symptoms. She appeared to have an ileus but was slowly showing signs of bowel function returning with passing flatus. Her white count fluctuated up and down for several days. On postop day 11 she was having worsening abdominal pain and had fevers overnight the night before. A repeat CT was obtained and this did show evidence of multiple abscesses concerning for anastomotic leak. Decision was then made to proceed with exploratory laparotomy with drainage of intra-abdominal abscesses and possible bowel resection. Findings Exploratory laparotomy was performed. There were fairly dense adhesions from her recent surgery. Careful dissection and adhesiolysis was performed to free up the small bowel and drain all of the intra-abdominal abscesses. The distal ileum had quite a few significant adhesions going right up to where the previous anastomosis was. A leak was identified at the lateral edge of the anastomosis. Once I freed up all the adhesions I was then able to run the entire small bowel. The distal 8-10 inches of the ileum going up to the anastomosis appeared to have multiple serosal injuries. To allow a new anastomosis at healthy appearing bowel, I chose to resect this distal 8-10 inches of small bowel with the anastomosis. A new [id number] ileocolic anastomosis was performed. The anastomosis was oversewn with 3-0 silk seromuscular imbricating sutures. The anastomosis was carefully inspected and appeared healthy and viable. The abdomen was irrigated with about 4 L of sterile saline. A 19 round Yoni drain was then placed through the left upper quadrant and advanced across the anastomosis and into the right upper quadrant. Description of Procedure Procedure as well as risks, benefits, and alternatives were discussed with the patient. Written consent was obtained and placed in chart prior to procedure. Patient was brought back to surgical suite. She was placed supine on operating table. Time-out was done to confirm patient and procedure. She was then intubated by the anesthesia department. Her abdomen was prepped and draped in sterile fashion using chlorhexidine prep. The recent incision was opened using a 10 blade scalpel. The fascial sutures were then identified and cut and carefully removed. The fascia was then carefully spread and I entered the abdomen through this previous incision. I eventually had to extend the incision inferiorly about 5 more cm to allow adequate mobilization and visualization. There were some adhesions of the bowel and omentum up to the anterior abdominal wall. These were carefully taken down using blunt dissection. I was then able to place an Sumit wound protector and then carefully inspect the abdominal cavity. There were multiple abscesses that were encountered and this was suctioned clear. I then continued to perform careful adhesiolysis of the entire small bowel up to the area of the anastomosis. There were some adhesions of the anastomosis up into the right upper quadrant these were carefully taken down using blunt dissection and a LigaS
[2021-04-23] MEDS: fentaNYL CITRATE INJ (*CRX) 100 MCG/2 ML VIAL 25 MCG IV PUSH ×5 (17:34→18:32)
--- NOTE | 2021-04-23 18:52 | PC.NURSE ---
Report received from PINKY Rodríguez with OR/surgery department at 1851. All questions answered and plan of care reviewed. Patient to go to IMU room 212.
--- NOTE | 2021-04-23 19:12 | PC.NURSE ---
Report received by PINKY Littlejohn at 1853 with 3 med-surg. All questions answered and plan of care reviewed. Patient to go to IMU room 231.
--- NOTE | 2021-04-23 19:14 | PC.NURSE ---
Due to patient condition. Patient to be moved to room 231 where they can be closer to nurses station.
--- NOTE | 2021-04-23 19:41 | SUR.PHASEI ---
at 1845 md garcia came by and assessed pt before she went up to the IMU. no additional orders given
--- NOTE | 2021-04-23 19:48 | SUR.PHASEI ---
fentanyl 25 mcg given at 1845
[2021-04-23] MEDS: HYDROmorphone HCL INJ (*CRX) 1 MG/ML SYR IV PUSH (20:11)
[2021-04-23] MEDS: AMINO ACIDS 5%/D15W/E-LYTES/CA 2,000 ML with MULTIVITAMINS-12 INJ VIAL 1 2.5 ML, MULTIV... 50 ML IV CONT (21:19)
[2021-04-23] MEDS: MICAFUNGIN SODIUM 100 MG in SODIUM CHLORIDE 0.9% IV 100 ML IVPB (21:33)
[2021-04-24] VITALS (11 sets, daily range): BP systolic 107–176; BP diastolic 42–57; PULSE 73–109; RESP 15–22; TEMP 36.1–36.9; O2SAT 97–99
[2021-04-24 00:16] LABS: Glucose Point of Care 194 mg/dl (65-105)
[2021-04-24] MEDS: HYDROmorphone HCL INJ (*CRX) 1 MG/ML SYR IV PUSH ×2 (01:57→21:20)
[2021-04-24] MEDS: CENTRAL LINE FLUSH 10 ML IV PUSH ×3 (04:24→21:18)
[2021-04-24] MEDS: LEVOTHYROXINE SODIUM 75 MCG TABLET PO (04:24)
--- NOTE | 2021-04-24 05:22 | PC.NURSE ---
This patient, Christen Black, was received from [[facility] ] on 04/23/21 at 1920. Patient/family oriented to unit policies and routines
[2021-04-24 05:23] LABS: INR 1.2; Prothrombin Time 15.1 Seconds (11.1-14.7)
[2021-04-24 05:24] LABS: Partial Thromboplastin Time 24.1 SECONDS (22.3-36.8)
[2021-04-24 05:29] LABS: Anion Gap 3 mmol/L (8-16); Blood Urea Nitrogen 23 mg/dL (7-17); Calcium 5.9 mg/dL (8.4-10.2); Carbon Dioxide 19 mmol/L (22-30); Chloride 115 mmol/L (98-107); Estimated CRCL calculation 55 ml/min; Estimated Glomerular Filt Rate > 60; Glucose 143 mg/dL (65-110); Phosphorus 2.8 mg/dL (2.5-4.5); Potassium 2.5 mmol/L (3.4-5.0); Sodium 137 mmol/L (137-145)
[2021-04-24 05:36] LABS: Hematocrit 36.1 % (37.0-47.0); Hemoglobin 11.8 g/dL (12.0-15.0); Mean Corpuscular HGB Conc 32.7 g/dl (32-36); Mean Corpuscular Hemoglobin 29.3 pg (26-34); Mean Corpuscular Volume 89.6 fl (80-100); Mean Platelet Volume 10.3 fl (7.4-10.4); Platelet Count Result 220 k/mm3 (150-375); Red Blood Count 4.03 M/mm3 (4.2-5.4)
[2021-04-24] MEDS: KCL 40 MEQ/WATER 100 ML 100 ML 25 ML IVPB (06:24)
[2021-04-24 07:09] LABS: Band Neutrophils Percent 26 % (0-6); Lymphocytes Absolute Manual 1.61 K/mm3 (1.1-4.5); Monocytes Percent Manual 10 % (3-9); Neutrophils Absolute Manual 19.09 K/mm3 (1.7-7.2); Neutrophils Percent Manual 57 % (46-73); Platelet Estimate Adequate (Adequate); Total Cells Counted 100
--- NOTE | 2021-04-24 08:34 | PM.PNGS ---
Progress Note: A&P Assessment and Plan (1) Anastomotic leak of intestine: Code(s): K91.89 - Other postprocedural complications and disorders of digestive system Status: Acute Assessment and Plan: Continue Invanz and Micafungin for intraabdominal abscesses related to anastomotic leak Await return of bowel function Remain in IMU today due to hypokalemia and recent surgery (2) Protein calorie malnutrition: Code(s): E46 - Unspecified protein-calorie malnutrition Status: Acute Assessment and Plan: Continue TPN, monitor electrolytes (3) Postoperative ileus: Code(s): K91.89 - Other postprocedural complications and disorders of digestive system; K56.7 - Ileus, unspecified Status: Acute (4) Cecal volvulus: Onset Date: ~04/11/21 Code(s): K56.2 - Volvulus Status: Acute (5) Hypokalemia: Code(s): E87.6 - Hypokalemia Status: Acute Assessment and Plan: Replaced per Hospitalist, continue to monitor (6) E coli bacteremia: Code(s): R78.81 - Bacteremia; B96.20 - Unspecified Escherichia coli [E. coli] as the cause of diseases classified elsewhere Status: Acute Subjective Subjective Date/Time Seen: 04/24/21 08:34 Interval history: Stable overnight. Minimal NG output. Pain controlled. Exam GI: Inspection: non-distended, incision (Prevena in place. No drainage.) and other (NGUYEN serosanguinous) GI Palp: Yes Soft to palpation Auscultation: absent bowel sounds Objective Data Vital Signs Vital Signs: Vital Signs - 24 hr 04/23/21 14:06 04/23/21 17:07 04/23/21 17:20 Temperature 38.3 C H 37.0 C Pulse Rate 121 H 116 H 84 Respiratory Rate 20 31 H 29 H Blood Pressure 150/49 H 116/55 L 154/77 H Pulse Oximetry 95 100 100 04/23/21 17:35 04/23/21 17:50 04/23/21 18:05 Temperature Pulse Rate 94 96 104 H Respiratory Rate 30 H 30 H 30 H Blood Pressure 170/61 H 159/65 H 157/62 H Pulse Oximetry 100 100 96 04/23/21 18:20 04/23/21 18:35 04/23/21 18:50 Temperature Pulse Rate 105 H 107 H 109 H Respiratory Rate 29 H 28 H 28 H Blood Pressure 170/61 H 149/61 H 155/61 H Pulse Oximetry 97 97 96 04/23/21 19:15 04/23/21 20:00 04/23/21 20:45 Temperature 36.6 C 36.6 C Pulse Rate 128 H 130 H 130 H Respiratory Rate 22 H 20 20 Blood Pressure 139/68 132/53 L Pulse Oximetry 96 97 97 04/23/21 21:18 04/23/21 22:00 04/24/21 00:00 Temperature 36.7 C Pulse Rate 130 H 114 H 102 H Respiratory Rate 20 Blood Pressure 107/55 L Pulse Oximetry 98 04/24/21 02:36 04/24/21 04:00 04/24/21 05:38 Temperature 36.7 C Pulse Rate 98 85 88 Respiratory Rate 20 Blood Pressure 134/57 L Pulse Oximetry 99 04/24/21 08:00 Temperature 36.6 C Pulse Rate 89 Respiratory Rate 18 Blood Pressure 163/53 H Pulse Oximetry 97 Intake/Output Intake/Output: Intake & Output 04/21/21 04/22/21 04/23/21 04/24/21 23:59 23:59 23:59 23:59 Intake Total 177 594 6062 100 Output Total 490 530 250 Balance 770 -330 3195 -150 Meds/Results Medications: Active Medications Generic Name Dose Route Start Last Admin Trade Name Freq PRN Reason Stop Dose Admin Albuterol 2 puff 04/18/21 09:30 Albuterol Sulfate (*Sp) Aerosol 1 Puff INHALATION TID PRN Shortness Of Breath Gabapentin 100 mg 04/18/21 09:35 04/23/21 21:19 Gabapentin 100 Mg Capsule PO 100 mg TID FERN Administration Hydromorphone HCl 0.5 mg 04/23/21 19:00 Hydromorphone Hcl Inj (*Crx) 1 Mg/Ml Syr IV PUSH Q2H PRN Pain Rated 4-6 Hydromorphone HCl 1 mg 04/23/21 19:00 04/24/21 01:57 Hydromorphone Hcl Inj (*Crx) 1 Mg/Ml Syr IV PUSH 1 mg Q2H PRN Administration Pain Rated 7-10 Dextrose 1,000 mls @ 50 mls/hr 04/22/21 11:12 Dextrose 10% IV CONT .Q20H PRN if PN is interrupted Fat Emulsion Intravenous 250 mls @ 20.833 mls/hr 04/22/21 12:00 04/23/21 23:56 Lipids 20% IVPB Infused Q24H FERN Infusion
[2021-04-24] MEDS: GABAPENTIN 100 MG CAPSULE PO ×3 (08:51→17:51)
[2021-04-24] MEDS: METOPROLOL TARTRATE 25 MG TABLET PO ×2 (08:51→21:17)
[2021-04-24] MEDS: PANTOPRAZOLE SODIUM IV 40 MG VIAL IV PUSH ×2 (08:51→21:14)
[2021-04-24] MEDS: HYDROmorphone HCL INJ (*CRX) 1 MG/ML SYR 0.5 MG IV PUSH ×2 (09:09→17:52)
--- NOTE | 2021-04-24 09:37 | PCPTNOTE ---
PT will hold treatment at this time due to change in medical status. Patient transferred from medical floor to IMU following surgery on 04/23/2021. PT will hold until further orders are received.
--- NOTE | 2021-04-24 11:17 | WPDANESPN ---
Anes - Prog Note Post-Op Date/Time: 04/24/21 11:17 Cardiovascular status: normal Respiratory status: normal Airway patency: baseline Mental status: baseline Post-Op hydration status: normal Vital Signs: Last Vital Signs Temp 36.6 C 04/24/21 08:00 Pulse 89 04/24/21 08:00 Resp 18 04/24/21 08:00 BP 163/53 H 04/24/21 08:00 Pulse Ox 97 04/24/21 08:00 Pain Score (VAS): 0 I/O: Intake & Output 04/23/21 04/24/21 04/24/21 23:59 07:59 15:59 Intake Total 3355 100 Output Total 430 250 Balance 2925 -150 Laboratory Tests 04/24/21 04:51 04/24/21 04:22 04/23/21 04/23/21 04/23/21 10:38 12:00 13:22 WBC RBC Hgb Hct MCV MCH MCHC RDW Plt Count MPV Immature Gran % (Auto) Neut % (Auto) Lymph % (Auto) [place] % (Auto) Eos % (Auto) Baso % (Auto) Lymph # (Auto) [place] # (Auto) Eos # (Auto) Baso # (Auto) Abs Immat Gran (auto) Absolute Neuts (auto) Absolute Nucleated RBC Total Counted Neutrophils % (Manual) Band Neutrophils % Lymphocytes % (Manual) Monocytes % (Manual) Nucleated RBC % Abs Neuts (Manual) Abs Lymphs (Manual) Abs Monocytes (Manual) Platelet Estimate PT INR APTT Sodium 133 L Potassium 3.1 L Chloride 103 Carbon Dioxide 24 Anion Gap 6 L BUN 22 H Creatinine 0.70 Estim Creat Clear Calc 48 Estimated GFR > 60 Glucose 168 H POC Capillary Glucose 168 H Calcium 9.1 Phosphorus 2.9 Triglycerides 132 Blood Type Antibody Screen Crossmatch 04/23/21 04/23/21 04/23/21 14:28 15:20 17:21 WBC RBC Hgb Hct MCV MCH MCHC RDW Plt Count MPV Immature Gran % (Auto) Neut % (Auto) Lymph % (Auto) [place] % (Auto) Eos % (Auto) Baso % (Auto) Lymph # (Auto) [place] # (Auto) Eos # (Auto) Baso # (Auto) Abs Immat Gran (auto) Absolute Neuts (auto) Absolute Nucleated RBC Total Counted Neutrophils % (Manual) Band Neutrophils % Lymphocytes % (Manual) Monocytes % (Manual) Nucleated RBC % Abs Neuts (Manual) Abs Lymphs (Manual) Abs Monocytes (Manual) Platelet Estimate PT INR APTT Sodium Potassium Chloride Carbon Dioxide Anion Gap BUN Creatinine Estim Creat Clear Calc Estimated GFR Glucose POC Capillary Glucose 128 H 197 H Calcium Phosphorus Triglycerides Blood Type A Positive Antibody Screen Negative Crossmatch See Detail 04/24/21 04/24/21 04/24/21 00:13 04:22 04:22 WBC RBC Hgb Hct MCV MCH MCHC RDW Plt Count MPV Immature Gran % (Auto) Neut % (Auto) Lymph % (Auto) [place] % (Auto) Eos % (Auto) Baso % (Auto) Lymph # (Auto) [place] # (Auto) Eos # (Auto) Baso # (Auto) Abs Immat Gran (auto) Absolute Neuts (auto) Absolute Nucleated RBC Total Counted Neutrophils % (Manual) Band Neutrophils % Lymphocytes % (Manual) Monocytes % (Manual) Nucleated RBC % Abs Neuts (Manual) Abs Lymphs (Manual) Abs Monocytes (Manual) Platelet Estimate PT 15.1 H INR 1.2 APTT 24.1 Sodium 137 Potassium 2.5 L* Chloride 115 H Carbon Dioxide 19 L Anion Gap 3 L BUN 23 H Creatinine 0.60 L Estim Creat Clear Calc 55 Estimated GFR > 60 Glucose 143 H POC Capillary Glucose 194 H Calcium 5.9 L Phosphorus 2.8 Triglycerides Blood Type Antibody Screen Crossmatch 04/24/21 04:51 WBC 23.0 H RBC 4.03 L Hgb 11.8 L D Hct 36.1 L MCV 89.6 MCH 29.3 MCHC 32.7 RDW 15.0 H Plt Count 220 MPV 10.3 Immature Gran % (Auto) Not Reportable Neut % (Auto) Not Reportable Lymph % (Auto) Not Reportable [place] % (Auto) Not Reportable Eos % (Auto) Not Reportable Baso % (Auto) Not Reportable Lymph # (Auto) Not Reportable
[2021-04-24 12:02] LABS: Glucose Point of Care 142 mg/dl (65-105)
[2021-04-24 12:04] LABS: Potassium 3.9 mmol/L (3.4-5.0)
--- NOTE | 2021-04-24 13:37 | PM.IMPN ---
Progress Note: A&P Assessment and Plan (1) Anastomotic leak of intestine: Code(s): K91.89 - Other postprocedural complications and disorders of digestive system Status: Acute Assessment and Plan: WBC jumped to 26K on 04/19. CT Ch/A/P showing post-op ileus and surgical changes but no acute findings. BCx 04/19 returned Enterobacter cloacae (1of2) sensitive to Ertapenem. Leukocytosis up/down and with fevers. CT 04/23 now showing abscess formation concerning for anastomotic leaks. She was taken back to the OR 04/23 and underwent re-exploration of recent laparotomy with drainage of multiple intra-abdominal abscesses and ileocolic resection with [id number]-av-[id number] ileocolic anastomosis. She currently has a wound VAC in place and was started on Micafungin. Continue routine post-operative care. Continue current antifungal and antibiotic treatment. Continue TPN for nutrition. (2) Bacteremia: Code(s): R78.81 - Bacteremia Status: Acute Assessment and Plan: [place] related to the anastomotic leaks and abdominal abscesses. As above. 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 CT Abd/Pelvis showing distended bowel with air and fluid most likely cecum with ascending colonic transition point consistent with volvulus. Patient made NPO. NGT placed and General surgery consulted. Patient underwent open right hemicolectomy with ileocolic anastomosis 04/12/21. Patient did well initially but then her WBC became elevated with CT 04/23 showing abscess formation concerning for anastomotic leak. As above. (4) Postoperative ileus: Code(s): K91.89 - Other postprocedural complications and disorders of digestive system; K56.7 - Ileus, unspecified Status: Acute Assessment and Plan: CT scan 04/19 showing moderately distended jejunum consistent with ileus. NG placed but KUB showed persistently dilated small bowel likely adynamic ileus. Now s/p repeat surgery on 04/23. Encourage patient to use incentive spirometry. As above. Appreciate General surgery input. (5) Anemia: Code(s): D64.9 - Anemia, unspecified Status: Acute Assessment and Plan: Hgb on admission was 11.9 and has dropped to 7 range. EBL was 100mL. Suspect related to acute blood loss anemia from surgery and bleeding around the incision site and possibly from IV fluids. She did received FFP x1 unit on 04/14/21. No further evidence of bleeding around the site. Hgb was stable in the 7 range but 11.8 today after receiving 2U PRBC on 04/23/21. Follow HH. Transfuse as needed. Lovenox on hold. Continue SCD (6) Postoperative bleeding from incision: Status: Acute Assessment and Plan: Patient received FFP x1 unit 04/14/2019 to for bleeding around the incision site. No further evidence of this. As above. (7) Lactic acidosis: Onset Date: ~04/2021 Code(s): E87.2 - Acidosis Status: Acute Assessment and Plan: Patient presents with a nongap metabolic acidosis felt related to the Lactic acid level of 3.3. Not felt to be sepsis but more likely related to bowel ischemia from the volvulus. Lactic acid level remains normal on repeat. (8) Abnormal urinalysis: Code(s): R82.90 - Unspecified abnormal findings in urine Status: Acute Assessment and Plan: Urinalysis on admission showing 2+ protein, 2+ ketones, 11-20 red cells and 7-9 white cells. Patient denies any urinary symptoms on admission. Urine culture growing [place] of 10-49K CFU. Suspect this is a contaminated specimen. Urinalysis was repeated given the elevated white count but UA was essentially benign and did not prompt a urine culture. Continue to monitor (9) Clostridium difficile colitis: Onset Date: Unknown Code(s): A04.72 - Enterocolitis due to Clostridium difficile, not specified a
[2021-04-24 16:51] LABS: Glucose Point of Care 139 mg/dl (65-105)
[2021-04-24] MEDS: ERTAPENEM 1 GM/NS 50 ML 1 GM/50 ML BAG IVPB (17:51)
[2021-04-24] MEDS: ONDANSETRON INJ 4 MG/2 ML VIAL IV PUSH (17:52)
[2021-04-24] MEDS: FAT EMULSIONS IV 20% 250 ML 20.83 ML IVPB (21:00)
[2021-04-24] MEDS: MICAFUNGIN SODIUM 100 MG in SODIUM CHLORIDE 0.9% IV 100 ML IVPB (21:14)
[2021-04-25] VITALS (18 sets, daily range): BP systolic 168–215; BP diastolic 49–85; PULSE 69–101; RESP 15–24; TEMP 35.9–36.8; O2SAT 95–98
--- NOTE | 2021-04-25 | ECHO_ITS ---
Patient Info Name: Christen Black Age: 75 years : 1945 Gender: Female Ht: 63 in Wt: 132 lbs BSA: 1.64 m2 HR: 78 bpm BP: 202 / 52 mmHg Heart Rhythm: Sinus Rhythm Technical Quality: Good Exam Date: 04/25/2021 1:13 PM Exam Location: [facility] Pulmonary Exam Room: [facility] Patient Status: Inpatient Admit Date: 04/11/2021 Staff Ordering Physician: King Baires MD Personnel Technician: Teresa Juares RDCS Attending Provider: Elsy Vee MD Exam Type: CA echo doppler color flow Study Info Indications - HTN Complete two-dimensional, color flow and Doppler transthoracic echocardiogram is performed. Summary 1. Complete two-dimensional, color flow and Doppler transthoracic echocardiogram is performed. 2. Left ventricular chamber dimension is normal. 3. Left ventricular systolic function is normal, estimated at 65-70%. 4. There is no increased left ventricular wall thickness. 5. Left ventricular septal wall motion is abnormal with septal motion related to bundle branch block. 6. The left ventricular diastolic function is grade I diastolic dysfunction. 7. There is trace tricuspid valve regurgitation. 8. Severe pulmonary hypertension is suggested, estimated pulmonary arterial systolic pressure is 63 mmHg. However, this may be overestimated due to poor quality tricuspid regurgitant jet. Left Ventricle Left ventricular chamber dimension is normal. Left ventricular systolic function is normal, estimated at 65-70%. There is no increased left ventricular wall thickness. Left ventricular septal wall motion is abnormal with septal motion related to bundle branch block. The left ventricular diastolic function is grade I diastolic dysfunction. Right Ventricle Right ventricular chamber dimension is normal. Right ventricular systolic function is normal. Left Atria Left atrial chamber dimension is normal. Right Atria Right atrial chamber dimension is normal. Aortic Valve The aortic valve is trileaflet. There is no aortic valve stenosis. There is no aortic valve regurgitation. Pulmonic Valve The pulmonic valve is normal. There is trace pulmonic regurgitation. Mitral Valve The mitral valve has normal leaflets. There is trace mitral valve regurgitation. The mitral valve annulus is mildly calcified. Tricuspid Valve The tricuspid valve leaflets are normal. There is trace tricuspid valve regurgitation. Severe pulmonary hypertension is suggested, estimated pulmonary arterial systolic pressure is 63 mmHg. However, this may be overestimated due to poor quality tricuspid regurgitant jet. Pericardium/Pleural The pericardium appears normal. There is small pericardial effusion. Aorta The aortic root size at the sinus of Valsalva is normal. Left Ventricular Outflow Tract Name Value Normal LVOT 2D LVOT Diameter 2.0 cm LVOT Doppler LVOT Peak Gradient 9 mmHg LVOT Mean Gradient 4 mmHg LVOT VTI 28 cm LVOT VTI/AV VTI Ratio 1.1 LVOT Stroke Volume 89 ml
[2021-04-25 00:29] LABS: Glucose Point of Care 130 mg/dl (65-105)
[2021-04-25] MEDS: HYDROmorphone HCL INJ (*CRX) 1 MG/ML SYR IV PUSH ×6 (00:49→22:33)
[2021-04-25] MEDS: CENTRAL LINE FLUSH 10 ML IV PUSH ×3 (04:48→20:16)
[2021-04-25] MEDS: AMINO ACIDS 5%/D15W/E-LYTES/CA 2,000 ML with MULTIVITAMINS-12 INJ VIAL 1 2.5 ML, MULTIV... 50 ML IV CONT (04:49)
[2021-04-25] MEDS: LEVOTHYROXINE SODIUM 75 MCG TABLET PO (04:51)
[2021-04-25 05:05] LABS: Basophils Absolute Auto 0.1 K/mm3 (0.0-0.1); Basophils Percent Auto 0.6 % (0.2-1.2); Eosinophils Absolute Auto 0.1 K/mm3 (0-0.3); Eosinophils Percent Auto 0.5 % (0-4.4); Hematocrit 29.7 % (37.0-47.0); Hemoglobin 9.7 g/dL (12.0-15.0); Immature Granulocyte Absolute 0.99 K/mm3 (0.00-0.031); Immature Granulocyte Percent A 4.9 % (0-0.5); Immature Platelet Fraction Pct 5.7 % (0.9-11.2); Lymphocytes Absolute Auto 1.27 K/mm3 (0.9-3.2); Lymphocytes Percent Auto 6.3 % (18.3-44.2); Mean Corpuscular HGB Conc 32.7 g/dl (32-36); Mean Corpuscular Hemoglobin 29.3 pg (26-34); Mean Corpuscular Volume 89.7 fl (80-100); Mean Platelet Volume 11.2 fl (7.4-10.4); Monocytes Absolute Auto 2.1 K/mm3 (0.1-0.6); Monocytes Percent Auto 10.3 % (2.6-8.5); Neutrophils Absolute Auto 15.6 K/mm3 (1.3-6.7); Neutrophils Percent Auto 77.4 % (45.5-73.1); Platelet Count Result 212 k/mm3 (150-375); Red Blood Count 3.31 M/mm3 (4.2-5.4); Red Cell Distribution Width 15.2 % (11.5-14.5); White Blood Count 20.2 K/mm3 (4.5-10.0)
[2021-04-25 06:01] LABS: Alanine Aminotransferase 10 U/L (4-35); Albumin Level 1.9 g/dL (3.5-5.1); Alkaline Phosphatase 85 U/L (38-126); Anion Gap 4 mmol/L (8-16); Aspartate Amino Transferase 30 U/L (14-36); Bilirubin,Total 0.7 mg/dL (0.2-1.3); Blood Urea Nitrogen 26 mg/dL (7-17); Carbon Dioxide 23 mmol/L (22-30); Chloride 103 mmol/L (98-107); Estimated CRCL calculation 55 ml/min; Estimated Glomerular Filt Rate > 60; Glucose 111 mg/dL (65-110); Phosphorus 2.9 mg/dL (2.5-4.5); Sodium 130 mmol/L (137-145)
[2021-04-25 06:30] LABS: Triglycerides 225 mg/dL (<150)
[2021-04-25] MEDS: GABAPENTIN 100 MG CAPSULE PO (08:12)
[2021-04-25] MEDS: PANTOPRAZOLE SODIUM IV 40 MG VIAL IV PUSH ×2 (08:13→20:16)
[2021-04-25] MEDS: METOPROLOL TARTRATE 25 MG TABLET PO (08:13)
--- NOTE | 2021-04-25 09:06 | PM.PNGS ---
Progress Note: A&P Assessment and Plan (1) Anastomotic leak of intestine: Code(s): K91.89 - Other postprocedural complications and disorders of digestive system Status: Acute Assessment and Plan: Await return of bowel function. Continue NG tube decompression, bowel rest, TPN. Continue Invanz and Micafungin for intraabdominal abscesses related to anastomotic leak Drop in Hgb from 11.8 to 9.7. No signs of active bleeding. Repeat H/H this afternoon, monitor labs. Will add IV acetaminophen scheduled to help with pain control. (2) Protein calorie malnutrition: Code(s): E46 - Unspecified protein-calorie malnutrition Status: Acute Assessment and Plan: Continue TPN, monitor electrolytes (3) Postoperative ileus: Code(s): K91.89 - Other postprocedural complications and disorders of digestive system; K56.7 - Ileus, unspecified Status: Acute (4) Cecal volvulus: Onset Date: ~04/11/21 Code(s): K56.2 - Volvulus Status: Acute (5) Hypokalemia: Code(s): E87.6 - Hypokalemia Status: Acute Assessment and Plan: K+ is 4.0 this morning. Continue to monitor. (6) E coli bacteremia: Code(s): R78.81 - Bacteremia; B96.20 - Unspecified Escherichia coli [E. coli] as the cause of diseases classified elsewhere Status: Acute Additional Plan I have discussed the plan of care with Dr. Martinez. Subjective Subjective Date/Time Seen: 04/25/21 08:45 Post Op day: 2 Patient reports: no flatus, no bowel movement and afebrile Interval history: Patient seen and examined this morning. She appears uncomfortable when entering the room. Her main complaint is abdominal pain, she recently received Dilaudid. No flatus. Minimal NG output. Review of Systems Review of Systems: All systems reviewed & are unremarkable except as noted in HPI and below Constitutional: Constitutional: Reports as per HPI, Reports no additional constitutional complaints, Denies chills and Denies fever(s) Cardiovascular: Cardiovascular: Reports no additional cardiovascular complaints, Denies chest pain and Denies leg edema Respiratory: Respiratory: Reports no additional respiratory complaints, Denies cough and Denies dyspnea Gastrointestinal: Gastrointestinal: Reports as per HPI and Reports no additional gastrointestinal complaints Neurologic: Reports system reviewed and no additional complaints, except as documented, Denies Abnormal speech present and Denies focal weakness Exam Const: General: no acute distress, awake and uncomfortable Orientation/consciousness: patient oriented x3 Resp: Effort & Inspection: normal respiratory effort Auscultation: clear to auscultation bilaterally Cardio: Rate: regular rate Rhythm: regular rhythm GI: Inspection: non-distended and incision (Prevena dressing dry and intact) GI Palp: Yes Soft to palpation, Yes Tenderness to palpation present (GI) and Yes Other GI palpation findings present (NGUYEN with serosanguineous drainage) Auscultation: High-pitched bowel sounds present and Hypoactive bowel sounds present Extrem: General: no calf tenderness and edema (trace bilateral lower leg edema) Psych: Insight: Good insight present (Psych) Objective Data Vital Signs Vital Signs: Vital Signs - 24 hr 04/24/21 12:00 04/24/21 16:00 04/24/21 20:00 Temperature 98.4 F 98.5 F 97 F L Pulse Rate 89 89 82 Respiratory Rate 18 18 20 Blood Pressure 136/45 L 169/42 H 174/50 H Pulse Oximetry 97 97 98 04/24/21 21:17 04/24/21 22:00 04/24/21 23:56 Temperature 97 F L Pulse Rate 88 80 73 Respiratory Rate 15 Blood Pressure 176/49 H Pulse Oximetry 98 04/25/21 00:00 04/25/21 02:00 04/25/21 04:00 Temperature 96.6 F L Pulse Rate 73 90 90 Respiratory Rate 15 18 Blood Pressure 180/49 H Pulse Oximetry 98 97 04/25/21 05:48 04/25/21 08:00 Temperature 96.7 F L Pulse Rate 90 101 H Respiratory Rate 18 Blood Pressure 190/55 H Pulse Oximetry
--- NOTE | 2021-04-25 11:12 | PM.IMPN ---
Progress Note: A&P Assessment and Plan (1) Anastomotic leak of intestine: Code(s): K91.89 - Other postprocedural complications and disorders of digestive system Status: Acute Assessment and Plan: WBC jumped to 26K on 04/19. CT Ch/A/P 04/19 showing post-op ileus and surgical changes but no acute findings. BCx 04/19 returned Enterobacter cloacae (1of2) sensitive to Ertapenem. Leukocytosis up/down and with fevers. CT 04/23 now showing abscess formation concerning for anastomotic leaks. She was taken back to the OR 04/23 and underwent re-exploration of recent laparotomy with drainage of multiple intra-abdominal abscesses and ileocolic resection with [id number] ileocolic anastomosis. She currently has a wound VAC in place and Micafungin was added. Continue routine post-operative care. Continue current antifungal and antibiotic treatment. Continue TPN for nutrition. (2) Bacteremia: Code(s): R78.81 - Bacteremia Status: Acute Assessment and Plan: [place] related to the anastomotic leaks and abdominal abscesses. As above. 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 CT Abd/Pelvis showing distended bowel with air and fluid most likely cecum with ascending colonic transition point consistent with volvulus. Patient made NPO. NGT placed and General surgery consulted. Patient underwent open right hemicolectomy with ileocolic anastomosis 04/12/21. Patient did well initially but then her WBC became elevated with CT 04/23 showing abscess formation concerning for anastomotic leak. As above. (4) Postoperative ileus: Code(s): K91.89 - Other postprocedural complications and disorders of digestive system; K56.7 - Ileus, unspecified Status: Acute Assessment and Plan: CT scan 04/19 showing moderately distended jejunum consistent with ileus. NG placed but KUB showed persistently dilated small bowel likely adynamic ileus. Now s/p repeat surgery on 04/23. As above. Appreciate General surgery input. (5) HTN (hypertension), benign: Code(s): I10 - Essential (primary) hypertension Status: Acute Assessment and Plan: Patient's blood pressure was reviewed on 04/25 Blood pressure was well controlled but became higher with the change in her condition felt related to pain. On metoprolol orally still. Will change to IV metoprolol. Wide pulse pressure noted possibly related to underlying atherosclerotic disease, hypovolemia, vasodilation or possibly aortic valve disease. Check Echo. (6) Anemia: Code(s): D64.9 - Anemia, unspecified Status: Acute Assessment and Plan: Hgb on admission was 11.9 and has dropped to 7 range. EBL was 100mL. Suspect related to acute blood loss anemia from surgery and bleeding around the incision site and possibly from IV fluids. She did received FFP x1 unit on 04/14/21. No further evidence of bleeding around the site. She received 2U PRBC in OR on 04/23/21. Hgb stable in the 9 range. Continue SCD (7) Postoperative bleeding from incision: Status: Acute Assessment and Plan: Patient received FFP x1 unit 04/14/2019 to for bleeding around the incision site. No further evidence of this. As above. (8) Lactic acidosis: Onset Date: ~04/2021 Code(s): E87.2 - Acidosis Status: Acute Assessment and Plan: Patient presents with a nongap metabolic acidosis felt related to the Lactic acid level of 3.3. Not felt to be sepsis but more likely related to bowel ischemia from the volvulus. Lactic acid level remains normal on repeat. (9) Abnormal urinalysis: Code(s): R82.90 - Unspecified abnormal findings in urine Status: Acute Assessment and Plan: Urinalysis noted on admission. Patient denied any urinary symptoms on admission. Urine culture growing [place] of 10-49K CFU.
[2021-04-25] MEDS: METOPROLOL TARTRATE INJ 5 MG/5 ML VIAL IV PUSH ×3 (12:06→23:30)
[2021-04-25] MEDS: FAT EMULSIONS IV 20% 250 ML 20.83 ML IVPB (12:57)
--- NOTE | 2021-04-25 13:22 | PCOTNOTE ---
Spoke with Dr. Martinez, who informed therapist it is cleared to continued pre procedure therapy orders at this time.
[2021-04-25 13:54] LABS: Glucose Point of Care 118 mg/dl (65-105)
[2021-04-25 17:58] LABS: Glucose Point of Care 94 mg/dl (65-105)
[2021-04-25] MEDS: ERTAPENEM 1 GM/NS 50 ML 1 GM/50 ML BAG IVPB (18:11)
[2021-04-25 18:18] LABS: Hemoglobin 8.9 g/dL (12.0-15.0)
[2021-04-25] MEDS: MICAFUNGIN SODIUM 100 MG in SODIUM CHLORIDE 0.9% IV 100 ML IVPB (20:16)
[2021-04-26] VITALS (18 sets, daily range): BP systolic 175–213; BP diastolic 44–64; PULSE 67–115; RESP 18–24; TEMP 36.4–37.2; O2SAT 97–99; BMI 23.4
[2021-04-26 00:05] LABS: Glucose Point of Care 118 mg/dl (65-105)
[2021-04-26] MEDS: HYDROmorphone HCL INJ (*CRX) 1 MG/ML SYR IV PUSH ×3 (04:01→20:33)
[2021-04-26 05:04] LABS: Hematocrit 28.5 % (37.0-47.0); Hemoglobin 9.4 g/dL (12.0-15.0); Mean Corpuscular Hemoglobin 29.8 pg (26-34); Mean Corpuscular Volume 90.5 fl (80-100); Mean Platelet Volume 10.1 fl (7.4-10.4); Platelet Count Result 238 k/mm3 (150-375); Red Blood Count 3.15 M/mm3 (4.2-5.4); Red Cell Distribution Width 15.5 % (11.5-14.5); White Blood Count 16.1 K/mm3 (4.5-10.0)
[2021-04-26 05:19] LABS: Anion Gap 4 mmol/L (8-16); Blood Urea Nitrogen 20 mg/dL (7-17); Carbon Dioxide 25 mmol/L (22-30); Chloride 102 mmol/L (98-107); Estimated CRCL calculation 55 ml/min; Estimated Glomerular Filt Rate > 60; Glucose 126 mg/dL (65-110); Phosphorus 3.9 mg/dL (2.5-4.5); Potassium 3.6 mmol/L (3.4-5.0); Sodium 131 mmol/L (137-145)
[2021-04-26] MEDS: METOPROLOL TARTRATE INJ 5 MG/5 ML VIAL IV PUSH ×4 (05:43→23:43)
[2021-04-26] MEDS: LEVOTHYROXINE SODIUM INJ 100 MCG/5 ML VIAL 37.5 MCG IV PUSH (05:44)
[2021-04-26] MEDS: CENTRAL LINE FLUSH 10 ML IV PUSH ×3 (05:45→20:31)
[2021-04-26] MEDS: HYDROmorphone HCL INJ (*CRX) 1 MG/ML SYR 0.5 MG IV PUSH (09:34)
[2021-04-26] MEDS: PANTOPRAZOLE SODIUM IV 40 MG VIAL IV PUSH ×2 (09:35→20:31)
[2021-04-26 13:11] LABS: Glucose Point of Care 115 mg/dl (65-105)
--- NOTE | 2021-04-26 13:34 | PM.PNGS ---
Progress Note: A&P Assessment and Plan (1) Anastomotic leak of intestine: Code(s): K91.89 - Other postprocedural complications and disorders of digestive system Status: Acute Assessment and Plan: Bowel function returning--clamp NG today and start sips of clear liquids Continue Invanz and Micafungin Increase activity--will try to remove Hinojosa and NG tomorrow if improving OK to move to Med/Surg bed if medically stable (2) Protein calorie malnutrition: Code(s): E46 - Unspecified protein-calorie malnutrition Status: Acute Assessment and Plan: Continue TPN until tolerating solid diet (3) Postoperative ileus: Code(s): K91.89 - Other postprocedural complications and disorders of digestive system; K56.7 - Ileus, unspecified Status: Acute (4) E coli bacteremia: Code(s): R78.81 - Bacteremia; B96.20 - Unspecified Escherichia coli [E. coli] as the cause of diseases classified elsewhere Status: Acute (5) Cecal volvulus: Onset Date: ~04/11/21 Code(s): K56.2 - Volvulus Status: Acute Subjective Subjective Date/Time Seen: 04/26/21 13:34 Patient reports: flatus, bowel movement and afebrile Interval history: Patient had a BM and passing flatus. Still having a lot of abdominal pain which is her biggest reason for not getting out of bed yet. No fevers. Hinojosa catheter still in place mostly due to immobility. Exam GI: Inspection: non-distended, incision (Prevena wound vac in place, minimal shadowing, no drainage in tubing) and other (NGUYEN serous) GI Palp: Yes Soft to palpation, Yes Tenderness to palpation present (GI) (incisional) and No Guarding due to palpation present (GI) Auscultation: normal bowel sounds Objective Data Vital Signs Vital Signs: Vital Signs - 24 hr 04/25/21 16:00 04/25/21 18:00 04/25/21 20:00 Temperature 36.8 C 36.2 C L Pulse Rate 83 78 75 Respiratory Rate 24 H 18 Blood Pressure 170/58 H 187/56 H Pulse Oximetry 96 97 04/25/21 22:00 04/25/21 23:05 04/25/21 23:30 Temperature 36.6 C Pulse Rate 69 77 77 Respiratory Rate 20 Blood Pressure 178/53 H Pulse Oximetry 97 04/26/21 02:00 04/26/21 04:00 04/26/21 05:43 Temperature 36.6 C Pulse Rate 67 68 72 Respiratory Rate 20 Blood Pressure 198/56 H Pulse Oximetry 98 04/26/21 06:00 04/26/21 08:00 04/26/21 10:00 Temperature 37.1 C Pulse Rate 82 80 82 Respiratory Rate 18 Blood Pressure 189/53 H Pulse Oximetry 97 04/26/21 12:00 04/26/21 12:54 Temperature 36.6 C Pulse Rate 88 93 Respiratory Rate 22 H Blood Pressure 200/56 H Pulse Oximetry 97 Intake/Output Intake/Output: Intake & Output 04/23/21 04/24/21 04/25/21 04/26/21 23:59 23:59 23:59 23:59 Intake Total 3725 350 2705 350 Output Total 530 540 690 880 Balance 3195 -190 2014 -530 Meds/Results Medications: Active Medications Generic Name Dose Route Start Last Admin Trade Name Freq PRN Reason Stop Dose Admin Acetaminophen 1,000 mg 04/26/21 13:31 Acetaminophen 500 Mg Tablet PO Q6H PRN Mild Pain (1-3) or Fever Albuterol 2 puff 04/18/21 09:30 Albuterol Sulfate (*Sp) Aerosol 1 Puff INHALATION TID PRN Shortness Of Breath Gabapentin 100 mg 04/18/21 09:35 04/25/21 08:12 Gabapentin 100 Mg Capsule PO 100 mg TID FERN Administration Hydralazine HCl 10 mg 04/25/21 11:11 Hydralazine Hcl 20 Mg/Ml Vial IV PUSH Q8H PRN Blood Pressure - High >190/110 Hydromorphone HCl 0.5 mg 04/23/21 19:00 04/26/21 09:34 Hydromorphone Hcl Inj (*Crx) 1 Mg/Ml Syr IV PUSH 0.5 mg Q2H PRN Administration Pain Rated 4-6 Hydromorphone HCl 1 mg 04/23/21 19:00 04/26/21 04:01 Hydromorphone Hcl Inj (*Crx) 1 Mg/Ml Syr IV PUSH 1 mg Q2H PRN Administration Pain Rated 7-10 Dextrose 1,000 mls @ 50 mls/hr 04/22/21 11:12 Dextrose 10% IV CONT .Q20H PRN if PN is interrupted Fat Emulsion Intravenous 250 mls
--- NOTE | 2021-04-26 13:39 | PCNFU ---
Nutrition Follow-Up Complete: Inadequate oral intake related cecal volvulus as evidenced by NPO Goal: Pt to meet 75% of estimated nutritional needs Pt is progressing towards goal Pt current nutrition is TPN Last recorded weight is 60 kg, stable. Bowel Motility: +BM 04/26 reported - loose Labs Reviewed: hgb 9.4, hct 28.5, alb 1.9, Na 131, BUN 20, Cr 0.6, Glu 126, Triglycerides 225 Meds Noted: Clinimix 5/15 at 50mL/hr, 250mL of 20% Lipid Emulsion, dilaudid, synthroid, lopressor, protonix, Skin: abdomen wound Additional Notes: Spoke with nursing. Per physician notes, pt had exploratory lap and debridement of abdominal abscesses on 04/24. Pt remains NPO. TPN running at a rate of 50mL/hr over 24 hours w/lipids is providing 1352kcal and 60g of protein to meet 82% of estimated kcal needs and 83% of estimated protein needs. Spoke to physician on staff who reported that is overseeing TPN. Attempted to contact Dr. Martinez but no answer. Recommend holding lipids and rechecking triglycerides before reinitiating lipids. Agree with diet orders this time. Will continue to follow. Will monitor labs, medication, wt, and reported intake every T/F.
[2021-04-26] MEDS: FAT EMULSIONS IV 20% 250 ML 21 ML IVPB (14:15)
[2021-04-26] MEDS: hydrALAZINE HCL 20 MG/ML VIAL 10 MG IV PUSH (14:42)
--- NOTE | 2021-04-26 16:45 | PM.IMPN ---
Progress Note: A&P Assessment and Plan (1) Anastomotic leak of intestine: Code(s): K91.89 - Other postprocedural complications and disorders of digestive system Status: Acute Assessment and Plan: WBC jumped to 26K on 04/19. CT Ch/A/P 04/19 showing post-op ileus and surgical changes but no acute findings. BCx 04/19 returned Enterobacter cloacae (1of2) sensitive to Ertapenem. Leukocytosis up/down and with fevers. CT 04/23 now showing abscess formation concerning for anastomotic leaks. She was taken back to the OR 04/23 and underwent re-exploration of recent laparotomy with drainage of multiple intra-abdominal abscesses and ileocolic resection with [id number] ileocolic anastomosis. She currently has a wound VAC in place and Micafungin was added to the Ertapenem. Continue routine post-operative care. Continue current antifungal and antibiotic treatment. Continue TPN for nutrition. PT/OT (2) Bacteremia: Code(s): R78.81 - Bacteremia Status: Acute Assessment and Plan: [place] related to the anastomotic leaks and abdominal abscesses. As above. 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 CT Abd/Pelvis showing distended bowel with air and fluid most likely cecum with ascending colonic transition point consistent with volvulus. Patient made NPO. NGT placed and General surgery consulted. Patient underwent open right hemicolectomy with ileocolic anastomosis 04/12/21. Patient did well initially but then her WBC became elevated with CT 04/23 showing abscess formation concerning for anastomotic leak. As above. (4) Postoperative ileus: Code(s): K91.89 - Other postprocedural complications and disorders of digestive system; K56.7 - Ileus, unspecified Status: Acute Assessment and Plan: CT scan 04/19 showing moderately distended jejunum consistent with ileus. NG placed but KUB showed persistently dilated small bowel likely adynamic ileus. Now s/p repeat surgery on 04/23. +BMs now. As above. Appreciate General surgery input. (5) HTN (hypertension), benign: Code(s): I10 - Essential (primary) hypertension Status: Acute Assessment and Plan: Patient's blood pressure was reviewed on 04/26 Blood pressure was well controlled but became higher with the change in her condition felt related to pain. Also, pressure being measured in the thigh which is much higher than in the RUE. Continue IV metoprolol. Wide pulse pressure noted possibly related to underlying atherosclerotic disease, hypovolemia, vasodilation or possibly aortic valve disease. Echo showing EF 65-70% with diastolic dysfunction Grade I and severe pulmonary HTN. Will measure right forearm pressure since the thigh pressure inaccurate. Aware of her hx of breast CA and mastectomy. Pulmonary HTN. Could be related to her autoimmune disease. Check apnea link. Consider CTA to exclude chronic VTE. (6) Anemia: Code(s): D64.9 - Anemia, unspecified Status: Acute Assessment and Plan: Hgb on admission was 11.9 and has dropped to 7 range. EBL was 100mL. Suspect related to acute blood loss anemia from surgery and bleeding around the incision site and possibly from IV fluids. She did received FFP x1 unit on 04/14/21. No further evidence of bleeding around the site. She received 2U PRBC in OR on 04/23/21. Hgb stable in the 9-10 range. Continue to monitor (7) Postoperative bleeding from incision: Status: Acute Assessment and Plan: Patient received FFP x1 unit 04/14/2019 to for bleeding around the incision site. No further evidence of this. As above. (8) Lactic acidosis: Onset Date: ~04/2021 Code(s): E87.2 - Acidosis Status: Acute Assessment and Plan: Patient presents with a nongap metabolic acidosis felt related to the Lactic acid level of 3.3. Not fe
[2021-04-26] MEDS: ERTAPENEM 1 GM/NS 50 ML 1 GM/50 ML BAG IVPB (17:34)
[2021-04-26 17:37] LABS: Glucose Point of Care 118 mg/dl (65-105)
[2021-04-26] MEDS: AMINO ACIDS 5%/D15W/E-LYTES/CA 2,000 ML with MULTIVITAMINS-12 INJ VIAL 1 2.5 ML, MULTIV... 50 ML IV CONT (17:45)
[2021-04-26] MEDS: ONDANSETRON INJ 4 MG/2 ML VIAL IV PUSH (18:22)
[2021-04-26] MEDS: MICAFUNGIN SODIUM 100 MG in SODIUM CHLORIDE 0.9% IV 100 ML IVPB (20:28)
[2021-04-26 23:45] LABS: Glucose Point of Care 102 mg/dl (65-105)
[2021-04-27] VITALS (16 sets, daily range): BP systolic 162–185; BP diastolic 51–64; PULSE 70–103; RESP 16–22; TEMP 36.1–36.8; O2SAT 95–98
[2021-04-27] MEDS: HYDROmorphone HCL INJ (*CRX) 1 MG/ML SYR IV PUSH ×3 (02:39→20:24)
[2021-04-27 05:43] LABS: Hematocrit 27.4 % (37.0-47.0); Hemoglobin 8.9 g/dL (12.0-15.0); Mean Corpuscular HGB Conc 32.5 g/dl (32-36); Mean Corpuscular Hemoglobin 29.1 pg (26-34); Mean Corpuscular Volume 89.5 fl (80-100); Mean Platelet Volume 10.1 fl (7.4-10.4); Platelet Count Result 229 k/mm3 (150-375); Red Blood Count 3.06 M/mm3 (4.2-5.4); Red Cell Distribution Width 15.4 % (11.5-14.5); White Blood Count 15.2 K/mm3 (4.5-10.0)
[2021-04-27] MEDS: LEVOTHYROXINE SODIUM INJ 100 MCG/5 ML VIAL 37.5 MCG IV PUSH (05:44)
[2021-04-27] MEDS: CENTRAL LINE FLUSH 10 ML IV PUSH ×3 (05:44→20:22)
[2021-04-27] MEDS: METOPROLOL TARTRATE INJ 5 MG/5 ML VIAL IV PUSH ×4 (05:44→23:09)
[2021-04-27 05:53] LABS: Glucose Point of Care 117 mg/dl (65-105)
[2021-04-27 05:56] LABS: Anion Gap 2 mmol/L (8-16); Blood Urea Nitrogen 16 mg/dL (7-17); Calcium 8.9 mg/dL (8.4-10.2); Carbon Dioxide 29 mmol/L (22-30); Chloride 100 mmol/L (98-107); Estimated CRCL calculation 55 ml/min; Estimated Glomerular Filt Rate > 60; Glucose 117 mg/dL (65-110); Phosphorus 4.4 mg/dL (2.5-4.5); Potassium 3.3 mmol/L (3.4-5.0); Sodium 131 mmol/L (137-145)
[2021-04-27] MEDS: PANTOPRAZOLE SODIUM IV 40 MG VIAL IV PUSH ×2 (10:07→20:21)
[2021-04-27] MEDS: HYDROmorphone HCL INJ (*CRX) 1 MG/ML SYR 0.5 MG IV PUSH ×2 (10:08→15:53)
--- NOTE | 2021-04-27 12:57 | PM.PNGS ---
Progress Note: A&P Assessment and Plan (1) Anastomotic leak of intestine: Code(s): K91.89 - Other postprocedural complications and disorders of digestive system Status: Acute Assessment and Plan: Remove NG and Hinojosa today Continue Invanz and Micafungin Increase activity OK to move to Med/Surg bed if medically stable (2) Protein calorie malnutrition: Code(s): E46 - Unspecified protein-calorie malnutrition Status: Acute Assessment and Plan: Continue TPN until tolerating solid diet (3) Postoperative ileus: Code(s): K91.89 - Other postprocedural complications and disorders of digestive system; K56.7 - Ileus, unspecified Status: Acute (4) E coli bacteremia: Code(s): R78.81 - Bacteremia; B96.20 - Unspecified Escherichia coli [E. coli] as the cause of diseases classified elsewhere Status: Acute (5) Cecal volvulus: Onset Date: ~04/11/21 Code(s): K56.2 - Volvulus Status: Acute Subjective Subjective Date/Time Seen: 04/27/21 12:57 Interval history: NG has been clamped since yesterday. No more BM's yet but says she is passing a little flatus. No fevers. Slowly getting up to sitting, but not much other activity yet. Exam GI: Inspection: non-distended, incision (Prevena wound vac in place, minimal shadowing, no drainage in tubing) and other (NGUYEN serous) GI Palp: Yes Soft to palpation, Yes Tenderness to palpation present (GI) (incisional) and No Guarding due to palpation present (GI) Auscultation: Hypoactive bowel sounds present Objective Data Vital Signs Vital Signs: Vital Signs - 24 hr 04/26/21 14:00 04/26/21 14:44 04/26/21 15:43 Temperature 37.2 C Pulse Rate 85 107 H Respiratory Rate 24 H Blood Pressure 210/64 H 213/49 H Pulse Oximetry 99 04/26/21 16:00 04/26/21 17:37 04/26/21 18:00 Temperature Pulse Rate 107 H 107 H 96 Respiratory Rate Blood Pressure Pulse Oximetry 99 04/26/21 19:33 04/26/21 20:00 04/26/21 22:00 Temperature 36.4 C L Pulse Rate 110 H 115 H 105 H Respiratory Rate 18 18 Blood Pressure 175/44 H Pulse Oximetry 97 97 04/26/21 23:43 04/27/21 00:00 04/27/21 02:00 Temperature 36.1 C L Pulse Rate 104 H 94 97 Respiratory Rate 16 Blood Pressure 173/51 H Pulse Oximetry 96 04/27/21 04:00 04/27/21 05:44 04/27/21 06:00 Temperature 36.4 C L Pulse Rate 95 101 H 89 Respiratory Rate 16 Blood Pressure 169/54 H Pulse Oximetry 97 04/27/21 08:00 Temperature 36.7 C Pulse Rate 92 Respiratory Rate 16 Blood Pressure 166/64 H Pulse Oximetry 95 Intake/Output Intake/Output: Intake & Output 04/24/21 04/25/21 04/26/21 04/27/21 23:59 23:59 23:59 23:59 Intake Total 350 2705 2625 650 Output Total 743 727 2058 1115 Balance -190 7308 885 -823 Meds/Results Medications: Active Medications Generic Name Dose Route Start Last Admin Trade Name Freq PRN Reason Stop Dose Admin Acetaminophen 1,000 mg 04/26/21 13:31 Acetaminophen 500 Mg Tablet PO Q6H PRN Mild Pain (1-3) or Fever Albuterol 2 puff 04/18/21 09:30 Albuterol Sulfate (*Sp) Aerosol 1 Puff INHALATION TID PRN Shortness Of Breath Gabapentin 100 mg 04/18/21 09:35 04/25/21 08:12 Gabapentin 100 Mg Capsule PO 100 mg TID FERN Administration Hydralazine HCl 10 mg 04/25/21 11:11 04/26/21 14:42 Hydralazine Hcl 20 Mg/Ml Vial IV PUSH 10 mg Q8H PRN Administration Blood Pressure - High >190/110 Hydromorphone HCl 0.5 mg 04/23/21 19:00 04/27/21 10:08 Hydromorphone Hcl Inj (*Crx) 1 Mg/Ml Syr IV PUSH 0.5 mg Q2H PRN Administration Pain Rated 4-6 Hydromorphone HCl 1 mg 04/23/21 19:00 04/27/21 05:44 Hydromorphone Hcl Inj (*Crx) 1 Mg/Ml Syr IV PUSH 1 mg Q2H PRN Administration Pain Rated 7-10 Dextrose 1,000 mls @ 50 mls/hr 04/22/21 11:12 Dextrose 10% IV CONT .Q20H PRN if PN is interrupted Fat Emulsion Intravenous 25
[2021-04-27 13:25] LABS: Glucose Point of Care 123 mg/dl (65-105)
--- NOTE | 2021-04-27 14:02 | P.PNIM_ITS ---
Progress Note: A&P Assessment and Plan (1) Anastomotic leak of intestine: Code(s): K91.89 - Other postprocedural complications and disorders of digestive system Status: Acute Assessment and Plan: WBC jumped to 26K on 04/19. CT Ch/A/P 04/19 showing post-op ileus and surgical changes but no acute findings. BCx 04/19 returned Enterobacter cloacae (1of2) sensitive to Ertapenem. Leukocytosis up/down and with fevers. CT 04/23 now showing abscess formation concerning for anastomotic leaks. She was taken back to the OR 04/23 and underwent re-exploration of recent laparotomy with drainage of multiple intra-abdominal abscesses and ileocolic resection with [id number] ileocolic anastomosis. She currently has a wound VAC in place and Micafungin was added to the Ertapenem. Continue routine post-operative care. Continue current antifungal and antibiotic treatment. Continue TPN for nutrition. PT/OT (2) Bacteremia: Code(s): R78.81 - Bacteremia Status: Acute Assessment and Plan: [place] related to the anastomotic leaks and abdominal abscesses. As above. 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 CT Abd/Pelvis showing distended bowel with air and fluid most likely cecum with ascending colonic transition point consistent with volvulus. Patient made NPO. NGT placed and General surgery consulted. Patient underwent open right hemicolectomy with ile ocolic anastomosis 04/12/21. Patient did well initially but then her WBC became elevated with CT 04/23 showing abscess formation concerning for anastomotic leak. As above. (4) Postoperative ileus: Code(s): K91.89 - Other postprocedural complications and disorders of digestive system; K56.7 - Ileus, unspecified Status: Acute Assessment and Plan: CT scan 04/19 showing moderately distended jejunum consistent with ileus. NG placed but KUB showed persistently dilated small bowel likely adynamic ileus. Now s/p repeat surgery on 04/23. +BMs now. As above. Appreciate General surgery input. (5) HTN (hypertension), benign: Code(s): I10 - Essential (primary) hypertension Status: Acute Assessment and Plan: Blood pressure was well controlled but became higher with the change in her condition felt related to pain. Also, pressure being measured in the thigh which is much higher than in the RUE. Continue IV metoprolol. Wide pulse pressure noted possibly related to underlying atherosclerotic disease, hypovolemia, vasodilation or possibly aortic valve disease. Echo showing EF 65-70% with diastolic dysfunction Grade I and severe pulmonary HTN. Will measure right forearm pressure since the thigh pressure inaccurate. Aware of her hx of breast CA and mastectomy. Pulmonary HTN. Could be related to her autoimmune disease. Check apnea link. Consider CTA to exclude chronic VTE. (6) Anemia: Code(s): D64.9 - Anemia, unspecified Status: Acute Assessment and Plan: Hgb on admission was 11.9 and has dropped to 7 range. EBL was 100mL. Suspect related to acute blood loss anemia from surgery and bleeding around the incision site and possibly from IV fluids. She did received FFP x1 unit on 04/14/21. No further evidence of bleeding around the site. She received 2U PRBC in OR on 04/23/21. Hgb stable in the 9-10 range. Continue to monitor (7) Postoperative bleeding from incision: Status: Acute Assessment and Plan: Patient received FFP x1 unit 04/14/2021 for bleeding around the incision site.
[2021-04-27] MEDS: GABAPENTIN 100 MG CAPSULE PO ×2 (15:16→18:23)
[2021-04-27] MEDS: FAT EMULSIONS IV 20% 250 ML 20.8 ML IVPB (15:17)
[2021-04-27] MEDS: KCL 40 MEQ/WATER 100 ML 100 ML 25 ML IVPB (15:19)
[2021-04-27 16:04] LABS: Triglycerides 168 mg/dL (<150)
[2021-04-27 16:52] LABS: Glucose Point of Care 120 mg/dl (65-105)
[2021-04-27] MEDS: ERTAPENEM 1 GM/NS 50 ML 1 GM/50 ML BAG IVPB (18:22)
[2021-04-27] MEDS: MICAFUNGIN SODIUM 100 MG in SODIUM CHLORIDE 0.9% IV 100 ML IVPB (20:20)
[2021-04-27 23:00] LABS: Glucose Point of Care 117 mg/dl (65-105)
[2021-04-28] VITALS (17 sets, daily range): BP systolic 150–165; BP diastolic 53–66; PULSE 81–98; RESP 16–20; TEMP 36.4–37.1; O2SAT 96–99
[2021-04-28] MEDS: HYDROmorphone HCL INJ (*CRX) 1 MG/ML SYR 0.5 MG IV PUSH (00:41)
[2021-04-28 05:14] LABS: Anion Gap 3 mmol/L (8-16); Blood Urea Nitrogen 17 mg/dL (7-17); Carbon Dioxide 27 mmol/L (22-30); Chloride 99 mmol/L (98-107); Estimated CRCL calculation 55 ml/min; Estimated Glomerular Filt Rate > 60; Glucose 123 mg/dL (65-110); Phosphorus 3.9 mg/dL (2.5-4.5); Sodium 129 mmol/L (137-145)
[2021-04-28] MEDS: METOPROLOL TARTRATE INJ 5 MG/5 ML VIAL IV PUSH ×2 (05:37→17:59)
[2021-04-28] MEDS: LEVOTHYROXINE SODIUM INJ 100 MCG/5 ML VIAL 37.5 MCG IV PUSH (05:38)
[2021-04-28] MEDS: CENTRAL LINE FLUSH 10 ML IV PUSH ×3 (05:38→20:33)
[2021-04-28] MEDS: HYDROmorphone HCL INJ (*CRX) 1 MG/ML SYR IV PUSH (05:39)
[2021-04-28 05:57] LABS: Glucose Point of Care 126 mg/dl (65-105)
[2021-04-28] MEDS: PANTOPRAZOLE SODIUM IV 40 MG VIAL IV PUSH ×2 (08:36→20:29)
[2021-04-28] MEDS: GABAPENTIN 100 MG CAPSULE PO (08:36)
--- NOTE | 2021-04-28 09:59 | PM.IMPN ---
Progress Note: A&P Assessment and Plan (1) Anastomotic leak of intestine: Code(s): K91.89 - Other postprocedural complications and disorders of digestive system Status: Acute Assessment and Plan: WBC jumped to 26K on 04/19. CT Ch/A/P 04/19 showing post-op ileus and surgical changes but no acute findings. BCx 04/19 returned Enterobacter cloacae (1of2) sensitive to Ertapenem. Leukocytosis up/down and with fevers. CT 04/23 now showing abscess formation concerning for anastomotic leaks. She was taken back to the OR 04/23 and underwent re-exploration of recent laparotomy with drainage of multiple intra-abdominal abscesses and ileocolic resection with [id number] ileocolic anastomosis. She currently has a wound VAC in place and Micafungin was added to the Ertapenem. Continue routine post-operative care. Continue current antifungal and antibiotic treatment. Continue TPN for nutrition. PT/OT (2) Bacteremia: Code(s): R78.81 - Bacteremia Status: Acute Assessment and Plan: [place] related to the anastomotic leaks and abdominal abscesses. As above. 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 CT Abd/Pelvis showing distended bowel with air and fluid most likely cecum with ascending colonic transition point consistent with volvulus. Patient made NPO. NGT placed and General surgery consulted. Patient underwent open right hemicolectomy with ileocolic anastomosis 04/12/21. Patient did well initially but then her WBC became elevated with CT 04/23 showing abscess formation concerning for anastomotic leak. As above. (4) Postoperative ileus: Code(s): K91.89 - Other postprocedural complications and disorders of digestive system; K56.7 - Ileus, unspecified Status: Acute Assessment and Plan: CT scan 04/19 showing moderately distended jejunum consistent with ileus. NG placed but KUB showed persistently dilated small bowel likely adynamic ileus. Now s/p repeat surgery on 04/23. +BMs now. As above. Appreciate General surgery input. (5) HTN (hypertension), benign: Code(s): I10 - Essential (primary) hypertension Status: Acute Assessment and Plan: Blood pressure was well controlled but became higher with the change in her condition felt related to pain. Also, pressure being measured in the thigh which is much higher than in the RUE. Continue IV metoprolol. Wide pulse pressure noted possibly related to underlying atherosclerotic disease, hypovolemia, vasodilation or possibly aortic valve disease. Echo showing EF 65-70% with diastolic dysfunction Grade I and severe pulmonary HTN. Will measure right forearm pressure since the thigh pressure inaccurate. Aware of her hx of breast CA and mastectomy. Pulmonary HTN. Could be related to her autoimmune disease. Check apnea link. Consider CTA to exclude chronic VTE. (6) Anemia: Code(s): D64.9 - Anemia, unspecified Status: Acute Assessment and Plan: Hgb on admission was 11.9 and has dropped to 7 range. EBL was 100mL. Suspect related to acute blood loss anemia from surgery and bleeding around the incision site and possibly from IV fluids. She did received FFP x1 unit on 04/14/21. No further evidence of bleeding around the site. She received 2U PRBC in OR on 04/23/21. Hgb stable in the 9-10 range. Continue to monitor (7) Postoperative bleeding from incision: Status: Acute Assessment and Plan: Patient received FFP x1 unit 04/14/2021 for bleeding around the incision site. No further evidence of this. As above. (8) Lactic acidosis: Onset Date: ~04/2021 Code(s): E87.2 - Acidosis Status: Acute Assessment and Plan: Patient presents with a nongap metabolic acidosis felt related to the Lactic acid level of 3.3. Not felt to be sepsis but more likely related to bowel
--- NOTE | 2021-04-28 11:27 | PCPTNOTE ---
Attempted to see pt multiple times in the AM, each time the pt is on the bedpan. Will continue per plan of care.
--- NOTE | 2021-04-28 12:28 | PM.PNGS ---
Progress Note: A&P Assessment and Plan (1) Anastomotic leak of intestine: Code(s): K91.89 - Other postprocedural complications and disorders of digestive system Status: Acute Assessment and Plan: Advance to full liquids today Continue Invanz and Micafungin Increase activity OK to move to Med/Surg bed if medically stable (2) Protein calorie malnutrition: Code(s): E46 - Unspecified protein-calorie malnutrition Status: Acute Assessment and Plan: Continue TPN until tolerating solid diet (3) Postoperative ileus: Code(s): K91.89 - Other postprocedural complications and disorders of digestive system; K56.7 - Ileus, unspecified Status: Acute Assessment and Plan: Will give dose or Relistor today and try decreasing narcotics (4) E coli bacteremia: Code(s): R78.81 - Bacteremia; B96.20 - Unspecified Escherichia coli [E. 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 Passing flatus but no BM for 2 days now. Urinating on bed baires. Still not ambulating. Exam GI: Inspection: non-distended, incision (Prevena wound vac in place, minimal shadowing, no drainage in tubing) and other (NGUYEN serous) GI Palp: Yes Soft to palpation, Yes Tenderness to palpation present (GI) (incisional) and No Guarding due to palpation present (GI) Auscultation: Hypoactive bowel sounds present Objective Data Vital Signs Vital Signs: Vital Signs - 24 hr 04/27/21 14:00 04/27/21 16:00 04/27/21 18:00 Temperature 36.8 C Pulse Rate 70 92 96 Respiratory Rate 22 H Blood Pressure 167/56 H Pulse Oximetry 98 04/27/21 20:00 04/27/21 22:00 04/27/21 22:25 Temperature 36.8 C Pulse Rate 88 90 Respiratory Rate 20 Blood Pressure 164/57 H Pulse Oximetry 96 97 04/27/21 23:09 04/27/21 23:26 04/28/21 00:00 Temperature 36.7 C Pulse Rate 89 89 84 Respiratory Rate 16 16 Blood Pressure 162/57 H Pulse Oximetry 98 98 04/28/21 01:18 04/28/21 03:51 04/28/21 04:00 Temperature 36.4 C Pulse Rate 88 94 98 Respiratory Rate 18 18 Blood Pressure 165/66 H Pulse Oximetry 98 98 04/28/21 05:26 04/28/21 05:37 04/28/21 07:05 Temperature 36.8 C Pulse Rate 97 86 81 Respiratory Rate 18 Blood Pressure 162/57 H Pulse Oximetry 98 04/28/21 08:00 Temperature Pulse Rate 83 Respiratory Rate Blood Pressure Pulse Oximetry Intake/Output Intake/Output: Intake & Output 04/25/21 04/26/21 04/27/21 04/28/21 23:59 23:59 23:59 23:59 Intake Total 2705 2625 1420 590 Output Total 785 4261 1477 6470 Balance 2014 985 -758 -656 Meds/Results Medications: Active Medications Generic Name Dose Route Start Last Admin Trade Name Freq PRN Reason Stop Dose Admin Acetaminophen 1,000 mg 04/26/21 13:31 Acetaminophen 500 Mg Tablet PO Q6H PRN Mild Pain (1-3) or Fever Hydrocodone Bitart/Acetaminophen 1 tab 04/28/21 12:25 Hydrocodone/Acetaminophen (*Crx) 5-325 Mg Tablet PO Q4H PRN Pain Rated 4-6 Hydrocodone Bitart/Acetaminophen 1 tab 04/28/21 12:25 Hydrocodone/Acetaminophen (*Crx) 7.5-325 Mg Tablet PO Q4H PRN Pain Rated 7-10 Albuterol 2 puff 04/18/21 09:30 Albuterol Sulfate (*Sp) Aerosol 1 Puff INHALATION TID PRN Shortness Of Breath Gabapentin 100 mg 04/18/21 09:35 04/28/21 08:36 Gabapentin 100 Mg Capsule PO 100 mg TID FERN Administration Hydralazine HCl 10 mg 04/25/21 11:11 04/26/21 14:42 Hydralazine Hcl 20 Mg/Ml Vial IV PUSH 10 mg Q8H PRN Administration Blood Pressure - High >190/110 Dextrose 1,000 mls @ 50 mls/hr 04/22/21 11:12 Dextrose 10% IV CONT .Q20H PRN if PN is interrupted Fat Emulsion Intravenous 250 mls @ 20.833 mls/hr 04/22/21 12
[2021-04-28 12:50] LABS: Glucose Point of Care 95 mg/dl (65-105)
[2021-04-28] MEDS: ONDANSETRON INJ 4 MG/2 ML VIAL IV PUSH (13:43)
[2021-04-28] MEDS: FAT EMULSIONS IV 20% 250 ML 20 ML IVPB (13:44)
[2021-04-28] MEDS: METHYLNALTREXONE 12 MG/0.6 ML VIAL SUB-Q (13:45)
--- NOTE | 2021-04-28 14:51 | PC.NURSE ---
Rec'd patient this AM. Pt is A/O x 2-3 no c/o pain at initial assessment. Patient has intermittent coughing with sputum. At approximately 1:30 pm patient began to vomit bile non stop. Zofran administered with no resolve. Patient also has urinary frequency and has urinated 8-10 times within the last hour. As of 1:30 pm patient c/o 8/10 abdominal pain. Pain med administration pending. Notified Dr. Sher of updates; Hinojosa catheter and Reglan orders placed. Will continue to monitor.
[2021-04-28] MEDS: MORPHINE SULFATE (*CRX) 4 MG/ML INJ IV PUSH ×2 (15:07→18:06)
[2021-04-28] MEDS: METOCLOPRAMIDE HCL INJ 10 MG/2 ML VIAL IV PUSH (15:32)
[2021-04-28] MEDS: ERTAPENEM 1 GM/NS 50 ML 1 GM/50 ML BAG IVPB (15:32)
[2021-04-28] MEDS: AMINO ACIDS 5%/D15W/E-LYTES/CA 2,000 ML with MULTIVITAMINS-12 INJ VIAL 1 2.5 ML, MULTIV... 50 ML IV CONT (15:33)
[2021-04-28 18:41] LABS: Glucose Point of Care 105 mg/dl (65-105)
[2021-04-28] MEDS: MICAFUNGIN SODIUM 100 MG in SODIUM CHLORIDE 0.9% IV 100 ML IVPB (20:29)
[2021-04-29] VITALS (16 sets, daily range): BP systolic 129–191; BP diastolic 33–87; PULSE 67–113; RESP 16–18; TEMP 35.8–37; O2SAT 96–99
[2021-04-29] MEDS: METOPROLOL TARTRATE INJ 5 MG/5 ML VIAL IV PUSH ×3 (00:16→12:56)
[2021-04-29] MEDS: MORPHINE SULFATE (*CRX) 4 MG/ML INJ IV PUSH ×4 (01:49→20:14)
[2021-04-29 05:33] LABS: Basophils Absolute Auto 0.1 K/mm3 (0.0-0.1); Basophils Percent Auto 0.5 % (0.2-1.2); Eosinophils Absolute Auto 0.2 K/mm3 (0-0.3); Eosinophils Percent Auto 1.9 % (0-4.4); Hematocrit 26.8 % (37.0-47.0); Hemoglobin 8.6 g/dL (12.0-15.0); Immature Granulocyte Percent A 8.2 % (0-0.5); Lymphocytes Absolute Auto 1.15 K/mm3 (0.9-3.2); Lymphocytes Percent Auto 10.4 % (18.3-44.2); Mean Corpuscular HGB Conc 32.1 g/dl (32-36); Mean Corpuscular Hemoglobin 29.3 pg (26-34); Mean Corpuscular Volume 91.2 fl (80-100); Mean Platelet Volume 10.4 fl (7.4-10.4); Monocytes Absolute Auto 1.3 K/mm3 (0.1-0.6); Neutrophils Absolute Auto 7.4 K/mm3 (1.3-6.7); Platelet Count Result 238 k/mm3 (150-375); Red Blood Count 2.94 M/mm3 (4.2-5.4)
[2021-04-29 05:40] LABS: INR 1.2; Prothrombin Time 14.5 Seconds (11.1-14.7)
[2021-04-29 05:41] LABS: Alanine Aminotransferase 11 U/L (4-35); Albumin Level 2.4 g/dL (3.5-5.1); Alkaline Phosphatase 184 U/L (38-126); Anion Gap 2 mmol/L (8-16); Aspartate Amino Transferase 29 U/L (14-36); Bilirubin,Total 0.8 mg/dL (0.2-1.3); Blood Urea Nitrogen 15 mg/dL (7-17); Calcium 9.2 mg/dL (8.4-10.2); Carbon Dioxide 29 mmol/L (22-30); Chloride 100 mmol/L (98-107); Estimated CRCL calculation 55 ml/min; Estimated Glomerular Filt Rate > 60; Glucose 110 mg/dL (65-110); Magnesium 2.2 mg/dL (1.6-2.3); Partial Thromboplastin Time 32.6 SECONDS (22.3-36.8); Phosphorus 4.6 mg/dL (2.5-4.5); Potassium 3.9 mmol/L (3.4-5.0); Sodium 131 mmol/L (137-145)
[2021-04-29 05:48] LABS: Transferrin 138 mg/dL (206-381)
[2021-04-29] MEDS: CENTRAL LINE FLUSH 10 ML IV PUSH ×3 (05:55→21:28)
[2021-04-29] MEDS: LEVOTHYROXINE SODIUM INJ 100 MCG/5 ML VIAL 37.5 MCG IV PUSH (06:19)
[2021-04-29 06:51] LABS: Hypochromasia 1+ (NORMAL); Platelet Estimate Adequate (Adequate)
[2021-04-29 06:52] LABS: Anisocytosis 1+ (NORMAL); Schistocytes 1+ (NORMAL)
[2021-04-29] MEDS: GABAPENTIN 100 MG CAPSULE PO ×3 (08:46→17:51)
[2021-04-29] MEDS: PANTOPRAZOLE SODIUM IV 40 MG VIAL IV PUSH (08:46)
[2021-04-29 10:11] LABS: Triglycerides 126 mg/dL (<150)
--- NOTE | 2021-04-29 11:40 | PM.PNGS ---
Progress Note: A&P Assessment and Plan (1) Anastomotic leak of intestine: Code(s): K91.89 - Other postprocedural complications and disorders of digestive system Status: Acute Assessment and Plan: Continue full liquids today Continue Invanz and Micafungin Increase activity Transfer to Med/Surg (2) Protein calorie malnutrition: Code(s): E46 - Unspecified protein-calorie malnutrition Status: Acute Assessment and Plan: Continue TPN, will plan to advance to solid diet tomorrow (3) Postoperative ileus: Code(s): K91.89 - Other postprocedural complications and disorders of digestive system; K56.7 - Ileus, unspecified Status: Acute Assessment and Plan: Resolving--start MiraLax daily (4) E coli bacteremia: Code(s): R78.81 - Bacteremia; B96.20 - Unspecified Escherichia coli [E. coli] as the cause of diseases classified elsewhere Status: Acute (5) Cecal volvulus: Onset Date: ~04/11/21 Code(s): K56.2 - Volvulus Status: Acute Subjective Subjective Date/Time Seen: 04/29/21 11:40 Interval history: Pain better controlled. Tolerating full liquids. Not getting out of bed yet. Hinojosa was replaced yesterday because she needed bedpan too often. Exam GI: Inspection: non-distended GI Palp: Yes Soft to palpation Auscultation: normal bowel sounds Other: Wound vac removed today. Minimal serous drainage from upper part of incision. No erythema. NGUYEN serous. Objective Data Vital Signs Vital Signs: Vital Signs - 24 hr 04/28/21 12:00 04/28/21 14:00 04/28/21 16:00 Temperature 36.7 C 37.1 C Pulse Rate 83 96 95 Respiratory Rate 18 20 Blood Pressure 153/58 H 150/61 H Pulse Oximetry 99 96 04/28/21 17:59 04/28/21 19:58 04/28/21 20:00 Temperature 36.6 C Pulse Rate 91 88 85 Respiratory Rate 20 Blood Pressure 151/60 H Pulse Oximetry 97 04/28/21 22:00 04/28/21 22:38 04/29/21 00:00 Temperature 36.7 C Pulse Rate 86 83 90 Respiratory Rate 18 Blood Pressure 160/53 H Pulse Oximetry 96 04/29/21 00:16 04/29/21 02:00 04/29/21 04:00 Temperature Pulse Rate 84 87 82 Respiratory Rate Blood Pressure Pulse Oximetry 04/29/21 05:20 04/29/21 06:00 04/29/21 06:20 Temperature 36.6 C Pulse Rate 84 75 85 Respiratory Rate 18 Blood Pressure 141/50 H Pulse Oximetry 99 04/29/21 08:56 Temperature 36.8 C Pulse Rate 80 Respiratory Rate 18 Blood Pressure 159/69 H Pulse Oximetry 97 Intake/Output Intake/Output: Intake & Output 04/26/21 04/27/21 04/28/21 04/29/21 23:59 23:59 23:59 23:59 Intake Total 2625 1420 2945 Output Total 6605 8125 2707 1200 Balance 985 -388 1249 -1200 Meds/Results Medications: Active Medications Generic Name Dose Route Start Last Admin Trade Name Freq PRN Reason Stop Dose Admin Acetaminophen 1,000 mg 04/26/21 13:31 Acetaminophen 500 Mg Tablet PO Q6H PRN Mild Pain (1-3) or Fever Hydrocodone Bitart/Acetaminophen 1 tab 04/28/21 12:25 Hydrocodone/Acetaminophen (*Crx) 5-325 Mg Tablet PO Q4H PRN Pain Rated 4-6 Hydrocodone Bitart/Acetaminophen 1 tab 04/28/21 12:25 Hydrocodone/Acetaminophen (*Crx) 7.5-325 Mg Tablet PO Q4H PRN Pain Rated 7-10 Albuterol 2 puff 04/18/21 09:30 Albuterol Sulfate (*Sp) Aerosol 1 Puff INHALATION TID PRN Shortness Of Breath Gabapentin 100 mg 04/18/21 09:35 04/29/21 08:46 Gabapentin 100 Mg Capsule PO 100 mg TID FERN Administration Hydralazine HCl 10 mg 04/25/21 11:11 04/26/21 14:42 Hydralazine Hcl 20 Mg/Ml Vial IV PUSH 10 mg Q8H PRN Administration Blood Pressure - High >190/110 Dextrose 1,000 mls @ 50 mls/hr 04/22/21 11:12 Dextrose 10% IV CONT .Q20H PRN if PN is interrupted Fat Emulsion Intravenous 250 mls @ 20.833 mls/hr 04/22/21 12:00 04/28/21 13:44 Lipids 20% IVPB 20 mls/hr Q24H FERN Administration Multivitamins 2.5
[2021-04-29] MEDS: MORPHINE SULFATE (*CRX) 2 MG/ML INJ IV PUSH (12:56)
[2021-04-29 12:58] LABS: Glucose Point of Care 126 mg/dl (65-105)
[2021-04-29] MEDS: FAT EMULSIONS IV 20% 250 ML 20 ML IVPB (12:59)
[2021-04-29] MEDS: hydrALAZINE HCL 20 MG/ML VIAL 10 MG IV PUSH (15:52)
[2021-04-29] MEDS: ONDANSETRON INJ 4 MG/2 ML VIAL IV PUSH ×2 (15:53→20:19)
--- NOTE | 2021-04-29 16:22 | PM.IMPN ---
Progress Note: A&P Assessment and Plan (1) Anastomotic leak of intestine: Code(s): K91.89 - Other postprocedural complications and disorders of digestive system Status: Acute Assessment and Plan: WBC jumped to 26K on 04/19. CT Ch/A/P 04/19 showing post-op ileus and surgical changes but no acute findings. BCx 04/19 returned Enterobacter cloacae (1of2) sensitive to Ertapenem. Leukocytosis up/down and with fevers. CT 04/23 now showing abscess formation concerning for anastomotic leaks. She was taken back to the OR 04/23 and underwent re-exploration of recent laparotomy with drainage of multiple intra-abdominal abscesses and ileocolic resection with [id number] ileocolic anastomosis. She currently has a wound VAC in place and Micafungin was added to the Ertapenem. Continue routine post-operative care. Continue current antifungal and antibiotic treatment. Continue TPN for nutrition. PT/OT. (2) Bacteremia: Code(s): R78.81 - Bacteremia Status: Acute Assessment and Plan: [place] related to the anastomotic leaks and abdominal abscesses. As above. 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 CT Abd/Pelvis showing distended bowel with air and fluid most likely cecum with ascending colonic transition point consistent with volvulus. Patient made NPO. NGT placed and General surgery consulted. Patient underwent open right hemicolectomy with ileocolic anastomosis 04/12/21. Patient did well initially but then her WBC became elevated with CT 04/23 showing abscess formation concerning for anastomotic leak. As above. (4) Postoperative ileus: Code(s): K91.89 - Other postprocedural complications and disorders of digestive system; K56.7 - Ileus, unspecified Status: Acute Assessment and Plan: CT scan 04/19 showing moderately distended jejunum consistent with ileus. NG placed but KUB showed persistently dilated small bowel likely adynamic ileus. Now s/p repeat surgery on 04/23. +BMs now. Appreciate General surgery input. Ileus has resolved. (5) HTN (hypertension), benign: Code(s): I10 - Essential (primary) hypertension Status: Acute Assessment and Plan: Patient's blood pressure was reviewed on 04/29 Blood pressure was well controlled but became higher with the change in her condition felt related to pain. Also, pressure was being measured in the thigh which is much higher than in the RUE. She was started on IV metoprolol with improved BP. Hydralazine IV available as needed. Wide pulse pressure related to underlying atherosclerotic disease, hypovolemia, vasodilation. Echo showing EF 65-70% with diastolic dysfunction Grade I and severe pulmonary HTN. Pulmonary HTN could be related to her autoimmune disease. Apnea link was normal on room air. Change to oral metoprolol. Advance medications as needed to control BP. (6) Anemia: Code(s): D64.9 - Anemia, unspecified Status: Acute Assessment and Plan: Hgb on admission was 11.9 and has dropped to 7 range. EBL was 100mL. Suspect related to acute blood loss anemia from surgery and bleeding around the incision site and possibly from IV fluids. She did received FFP x1 unit on 04/14/21. No further evidence of bleeding around the site. She received 2U PRBC in OR on 04/23/21. Hgb stable now. Continue to monitor (7) Postoperative bleeding from incision: Status: Acute Assessment and Plan: Patient received FFP x1 unit 04/14/2019 to for bleeding around the incision site. No further evidence of this. As above. (8) Lactic acidosis: Onset Date: ~04/2021 Code(s): E87.2 - Acidosis Status: Acute Assessment and Plan: Patient presents with a nongap metabolic acidosis felt related to the Lactic acid level of 3.3. Not felt to be sepsis but more likely related to bowel isc
[2021-04-29] MEDS: ERTAPENEM 1 GM/NS 50 ML 1 GM/50 ML BAG IVPB (17:03)
[2021-04-29] MEDS: AMINO ACIDS 5%/D15W/E-LYTES/CA 2,000 ML with MULTIVITAMINS-12 INJ VIAL 1 2.5 ML, MULTIV... 50 ML IV CONT (17:04)
[2021-04-29] MEDS: amLODIPine BESYLATE 2.5 MG TABLET PO (17:51)
--- NOTE | 2021-04-29 18:39 | PC.NURSE ---
This patient, Christen Black, was transferred to [ [facility] floor room 320] on 04/29/21 at 1330. Personal belongings sent with patient. Report given to [Vonda VANCE ]. Appropriate documentation sent with patient.
--- NOTE | 2021-04-29 18:41 | PC.NURSE ---
04/30/21 @ 3687 PT WAS RECEIVED VIA HOSPITAL BED FROM IMU. ALERT 0X3. MILD INCISIONAL PAIN. NGUYEN DRAIN COMPRESSED. TPN AND LIPIDS INFUSING.
[2021-04-29] MEDS: METOPROLOL TARTRATE 25 MG TABLET PO (20:22)
[2021-04-29] MEDS: MICAFUNGIN SODIUM 100 MG in SODIUM CHLORIDE 0.9% IV 100 ML IVPB (20:33)
[2021-04-30 00:56] LABS: Glucose Point of Care 128 mg/dl (65-105)
[2021-04-30] MEDS: CENTRAL LINE FLUSH 10 ML IV PUSH ×3 (05:41→21:01)
[2021-04-30] MEDS: LEVOTHYROXINE SODIUM 75 MCG TABLET PO (05:41)
[2021-04-30] MEDS: ONDANSETRON INJ 4 MG/2 ML VIAL IV PUSH (05:47)
[2021-04-30] MEDS: MORPHINE SULFATE (*CRX) 4 MG/ML INJ IV PUSH ×3 (05:47→21:47)
[2021-04-30 06:00] VITALS: BP 154/50; PULSE 88; RESP 18; TEMP 36.6; O2SAT 97
[2021-04-30 06:03] LABS: Glucose Point of Care 125 mg/dl (65-105)
[2021-04-30 07:01] LABS: Anion Gap 4 mmol/L (8-16); Blood Urea Nitrogen 20 mg/dL (7-17); Calcium 9.1 mg/dL (8.4-10.2); Carbon Dioxide 27 mmol/L (22-30); Chloride 100 mmol/L (98-107); Estimated CRCL calculation 55 ml/min; Estimated Glomerular Filt Rate > 60; Glucose 114 mg/dL (65-110); Sodium 131 mmol/L (137-145)
[2021-04-30 08:02] VITALS: PULSE 80
[2021-04-30] MEDS: amLODIPine BESYLATE 2.5 MG TABLET PO (08:02)
[2021-04-30] MEDS: polyethylene glycoL 3350 17 GM POWD.PACK PO (08:02)
[2021-04-30] MEDS: METOPROLOL TARTRATE 25 MG TABLET PO ×2 (08:02→21:00)
[2021-04-30] MEDS: GABAPENTIN 100 MG CAPSULE PO ×3 (08:03→18:12)
--- NOTE | 2021-04-30 10:14 | PM.PNGS ---
Progress Note: A&P Assessment and Plan (1) Anastomotic leak of intestine: Code(s): K91.89 - Other postprocedural complications and disorders of digestive system Status: Acute Assessment and Plan: Has not had BM in two days. Will give one dose of dulcolax, continue Miralax. Continue full liquids, may advance if bowels start moving. Continue Invanz and Micafungin Increase activity, encouraged getting out of bed and sitting in chair today. Remove Hinojosa catheter. (2) Protein calorie malnutrition: Code(s): E46 - Unspecified protein-calorie malnutrition Status: Acute Assessment and Plan: Continue TPN, will plan to D/C once advanced to solid diet. (3) Postoperative ileus: Code(s): K91.89 - Other postprocedural complications and disorders of digestive system; K56.7 - Ileus, unspecified Status: Acute Assessment and Plan: Continue Miralax. (4) E coli bacteremia: Code(s): R78.81 - Bacteremia; B96.20 - Unspecified Escherichia coli [E. 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 Martinez. Subjective Subjective Date/Time Seen: 04/30/21 10:14 Patient reports: no new complaints, still having pain (complaints of incisional pain, requiring Morphine), tolerating liquids well (full liquids), no flatus, no bowel movement (since 04/28) and afebrile Interval history: Patient seen and examined. Her main complaint today is abdominal pain and points at her incision when asked the location. She denies any nausea or vomiting. She does report some reflux after breakfast this morning that she attributed to the cranberry juice. Denies bloating. She does not feel she is passing any flatus. She did get up to the chair yesterday with PT, but has not been up yet today. Still has Hinojosa catheter in place. Review of Systems Cardiovascular: Cardiovascular: Reports no additional cardiovascular complaints and Denies chest pain Respiratory: Respiratory: Reports no additional respiratory complaints and Denies dyspnea Exam Const: General: awake; No acute distress Orientation/consciousness: patient oriented x3 GI: Inspection: non-distended and incision (clean and dry, rita intact) GI Palp: Yes Soft to palpation, Yes Tenderness to palpation present (GI) (incisional) and No Guarding due to palpation present (GI) Auscultation: normal bowel sounds Other: NGUYEN drain with serous drainage Urinary Catheter: Urinary Catheter: patent and draining and urine clear Neuro: General: moves all extremities and no focal motor deficits Extrem: General: normal to inspection and no calf tenderness Psych: Insight: Good insight present (Psych) Objective Data Vital Signs Vital Signs: Vital Signs - 24 hr 04/29/21 12:46 04/29/21 12:56 04/29/21 16:00 Temperature 96.5 F L 96.7 F L Pulse Rate 102 H 95 107 H Respiratory Rate 18 17 Blood Pressure 191/87 H 132/33 L Pulse Oximetry 96 97 04/29/21 17:56 04/29/21 20:22 04/29/21 21:51 Temperature Pulse Rate 100 Respiratory Rate Blood Pressure 136/78 Pulse Oximetry 96 04/29/21 22:07 04/30/21 06:00 04/30/21 08:02 Temperature 98.6 F 97.9 F Pulse Rate 113 H 88 80 Respiratory Rate 16 18 Blood Pressure 129/48 L 154/50 H Pulse Oximetry 97 97 Intake/Output Intake/Output: Intake & Output 04/27/21 04/28/21 04/29/21 04/30/21 23:59 23:59 23:59 23:59 Intake Total 1420 2995 3125 120 Output Total 2178 1696 1590 1215 Balance -758 1299 1535 -1095 Meds/Results Medications: Active Medications Generic Name Dose Route Start Last Admin Trade Name Freq PRN Reason Stop Dose Admin Acetaminophen 1,000 mg 04/26/21 13:31 Acetaminophen 500 Mg Tablet PO Q6H PRN Mild Pain (1-3) or Fever Hydrocodone Bitart/Acetaminophen 1 tab
[2021-04-30] MEDS: BISACODYL 10 MG SUPPOSITORY RECTAL (10:58)
[2021-04-30] MEDS: PANTOPRAZOLE 40 MG TABLET PO (10:59)
[2021-04-30] MEDS: HYDROcodone/acetaminophen (*CRX) 5-325 MG TABLET 1 TAB PO (10:59)
--- NOTE | 2021-04-30 11:35 | PCNFU ---
Nutrition Follow-Up Complete: Inadequate oral intake related cecal volvulus as evidenced by NPO goal: Pt to meet 75% of estimated nutritional needs Patient is progressing towards goal. We will continue current goal. Pt current nutrition is Full liquids/TPN at 50 ml/hr. Last recorded weight is 63 kg-stable Bowel Motility:+BM reported 04/28 Labs Reviewed:Glu 114, Cr 0.6,Na 131 Meds Noted:Miralax, Protonix, Norvasc, [place], Neurontin, Synthroid, Lopressor, Zofran, Clinimix 5/15 at 50 ml/hr with 250 ml of 20% Lipid Emulsion. Skin: wound vac-abdomen. Additional Notes: Spoke with patient today, full liquids for breakfast. Oral intake is improving. TPN is providing an additional 1352 kcals and 60 gms protein. MD orders for Ensure compact BID providing an additional 220 kcals and 9 gms protein. Agree with diet orders. Will monitor labs, medication, wt, and reported intake every Thursday and Thursday.
[2021-04-30 12:05] LABS: Glucose Point of Care 127 mg/dl (65-105)
[2021-04-30] MEDS: FAT EMULSIONS IV 20% 250 ML 20 ML IVPB (12:08)
[2021-04-30 14:00] VITALS: BP 145/53; PULSE 83; RESP 18; TEMP 36.6; O2SAT 96
--- NOTE | 2021-04-30 14:19 | PM.IMPN ---
Progress Note: A&P Assessment and Plan (1) Anastomotic leak of intestine: Code(s): K91.89 - Other postprocedural complications and disorders of digestive system Status: Acute Assessment and Plan: WBC jumped to 26K on 04/19. CT Ch/A/P 04/19 showing post-op ileus and surgical changes but no acute findings. BCx 04/19 returned Enterobacter cloacae (1of2) sensitive to Ertapenem. Leukocytosis up/down and with fevers. CT 04/23 now showing abscess formation concerning for anastomotic leaks. She was taken back to the OR 04/23 and underwent re-exploration of recent laparotomy with drainage of multiple intra-abdominal abscesses and ileocolic resection with [id number] ileocolic anastomosis. Micafungin was added to the Ertapenem. She has tolerated the procedure well. Continue routine post-operative care. Continue current antifungal and antibiotic treatment. Continue TPN for nutrition. PT/OT. (2) Bacteremia: Code(s): R78.81 - Bacteremia Status: Acute Assessment and Plan: [place] related to the anastomotic leaks and abdominal abscesses. As above. 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 CT Abd/Pelvis showing distended bowel with air and fluid most likely cecum with ascending colonic transition point consistent with volvulus. Patient was made NPO, NGT placed and General surgery consulted. Patient underwent open right hemicolectomy with ileocolic anastomosis 04/12/21. Patient did well initially but then her WBC became elevated with CT 04/23 showing abscess formation concerning for anastomotic leak. As above. (4) Postoperative ileus: Code(s): K91.89 - Other postprocedural complications and disorders of digestive system; K56.7 - Ileus, unspecified Status: Acute Assessment and Plan: CT scan 04/19 showing moderately distended jejunum consistent with ileus. NG placed but KUB showed persistently dilated small bowel likely adynamic ileus. Now s/p repeat surgery on 04/23. +BMs now but nothing listed past 2 days. Appreciate General surgery input. (5) HTN (hypertension), benign: Code(s): I10 - Essential (primary) hypertension Status: Acute Assessment and Plan: Patient's blood pressure was reviewed on 04/30 Blood pressure was well controlled but became higher with the change in her condition felt related to pain. Also, blood pressure was being measured in the thigh which was much higher than in the RUE. She was started on IV metoprolol with improved BP. Hydralazine IV available as needed. Wide pulse pressure related to underlying atherosclerotic disease, hypovolemia, vasodilation. Echo showing EF 65-70% with diastolic dysfunction Grade I and severe pulmonary HTN. Pulmonary HTN could be related to her autoimmune disease. Apnea link was normal on room air. Changed to oral metoprolol and Norvasc added. BP better controlled. Will follow. Advance medications as needed to control BP. Consider lasix. (6) Anemia: Code(s): D64.9 - Anemia, unspecified Status: Acute Assessment and Plan: Hgb on admission was 11.9 and has dropped to 7 range. EBL was 100mL. Suspect related to acute blood loss anemia from surgery and bleeding around the incision site and possibly from IV fluids. She did received FFP x1 unit on 04/14/21. No further evidence of bleeding around the site. She received 2U PRBC in OR on 04/23/21. Hgb stable now i the 8-9 range. Continue to monitor (7) Postoperative bleeding from incision: Status: Acute Assessment and Plan: Patient received FFP x1 unit 04/14/2019 to for bleeding around the incision site. No further evidence of this. As above. (8) Lactic acidosis: Onset Date: ~04/2021 Code(s): E87.2 - Acidosis Status: Acute Assessment and Plan: Patient presents with a nongap metabolic acidosis fe
[2021-04-30] MEDS: AMINO ACIDS 5%/D15W/E-LYTES/CA 2,000 ML with MULTIVITAMINS-12 INJ VIAL 1 2.5 ML, MULTIV... 50 ML IV CONT (15:00)
[2021-04-30] MEDS: ERTAPENEM 1 GM/NS 50 ML 1 GM/50 ML BAG IVPB (15:01)
[2021-04-30] MEDS: MICAFUNGIN SODIUM 100 MG in SODIUM CHLORIDE 0.9% IV 100 ML IVPB (18:11)
[2021-04-30] MEDS: METOCLOPRAMIDE HCL INJ 10 MG/2 ML VIAL IV PUSH (18:20)
[2021-04-30 18:31] LABS: Glucose Point of Care 145 mg/dl (65-105)
[2021-04-30 19:22] LABS: Glucose Point of Care 138 mg/dl (65-105)
[2021-04-30 20:20] VITALS: PULSE 92; RESP 16; O2SAT 99
[2021-04-30 21:00] VITALS: PULSE 92
[2021-04-30 22:00] VITALS: BP 148/50; PULSE 92; RESP 16; TEMP 36.6; O2SAT 99
[2021-05-01] VITALS (7 sets, daily range): BP systolic 141–166; BP diastolic 49–57; PULSE 84–89; RESP 18–22; TEMP 36.1–36.4; O2SAT 97–99
[2021-05-01] MEDS: HYDROcodone/acetaminophen (*CRX) 7.5-325 MG TABLET 1 TAB PO ×2 (01:08→06:06)
[2021-05-01 02:37] LABS: Glucose Point of Care 146 mg/dl (65-105)
[2021-05-01 05:57] LABS: Hematocrit 24.8 % (37.0-47.0); Hemoglobin 7.8 g/dL (12.0-15.0); Mean Corpuscular HGB Conc 31.5 g/dl (32-36); Mean Corpuscular Hemoglobin 28.9 pg (26-34); Mean Corpuscular Volume 91.9 fl (80-100); Mean Platelet Volume 10.5 fl (7.4-10.4); Platelet Count Result 281 k/mm3 (150-375); Red Cell Distribution Width 14.9 % (11.5-14.5); White Blood Count 10.7 K/mm3 (4.5-10.0)
[2021-05-01] MEDS: CENTRAL LINE FLUSH 10 ML IV PUSH ×3 (06:01→20:53)
[2021-05-01] MEDS: LEVOTHYROXINE SODIUM 75 MCG TABLET PO (06:08)
[2021-05-01 06:13] LABS: Anion Gap 3 mmol/L (8-16); Blood Urea Nitrogen 19 mg/dL (7-17); Calcium 8.8 mg/dL (8.4-10.2); Carbon Dioxide 29 mmol/L (22-30); Chloride 100 mmol/L (98-107); Estimated CRCL calculation 55 ml/min; Estimated Glomerular Filt Rate > 60; Glucose 123 mg/dL (65-110); Magnesium 2.2 mg/dL (1.6-2.3); Phosphorus 4.3 mg/dL (2.5-4.5); Potassium 3.9 mmol/L (3.4-5.0); Sodium 132 mmol/L (137-145); Triglycerides 92 mg/dL (<150)
--- NOTE | 2021-05-01 08:26 | PM.IMPN ---
Progress Note: A&P Assessment and Plan (1) Anastomotic leak of intestine: Code(s): K91.89 - Other postprocedural complications and disorders of digestive system Status: Acute Assessment and Plan: WBC jumped to 26K on 04/19. CT Ch/A/P 04/19 showing post-op ileus and surgical changes but no acute findings. BCx 04/19 returned Enterobacter cloacae (1of2) sensitive to Ertapenem. Leukocytosis up/down and with fevers. CT 04/23 showing abscess formation concerning for anastomotic leaks. She was taken back to the OR 04/23 and underwent re-exploration of recent laparotomy with drainage of multiple intra-abdominal abscesses and ileocolic resection with [id number] ileocolic anastomosis. Micafungin was added to the Ertapenem. She has tolerated the procedure well. Continue routine post-operative care. Continue current antifungal and antibiotic treatment. Continue TPN for nutrition. PT/OT. Increase activity as toelrated. Adjust pain medciations. (2) Bacteremia: Code(s): R78.81 - Bacteremia Status: Acute Assessment and Plan: [place] related to the anastomotic leaks and abdominal abscesses. As above. 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 CT Abd/Pelvis showing distended bowel with air and fluid most likely cecum with ascending colonic transition point consistent with volvulus. Patient was made NPO, NGT placed and General surgery consulted. Patient underwent open right hemicolectomy with ileocolic anastomosis 04/12/21. Patient did well initially but then her WBC became elevated with CT 04/23 showing abscess formation concerning for anastomotic leak. As above. (4) Postoperative ileus: Code(s): K91.89 - Other postprocedural complications and disorders of digestive system; K56.7 - Ileus, unspecified Status: Acute Assessment and Plan: CT scan 04/19 showing moderately distended jejunum consistent with ileus. NG placed but KUB showed persistently dilated small bowel likely adynamic ileus. Now s/p repeat surgery on 04/23. +BMs. Ileus is resolving. Appreciate General surgery input. (5) HTN (hypertension), benign: Code(s): I10 - Essential (primary) hypertension Status: Acute Assessment and Plan: Patient's blood pressure was reviewed on 05/01 Blood pressure was well controlled but became higher with the change in her condition felt related to pain. Also, blood pressure was being measured in the thigh which was much higher than in the RUE. She was started on IV metoprolol with improved BP. Hydralazine IV available as needed. Wide pulse pressure related to underlying atherosclerotic disease, hypovolemia, and/or vasodilation. Echo showing EF 65-70% with diastolic dysfunction Grade I and severe pulmonary HTN. Pulmonary HTN could be related to her autoimmune disease. Apnea link was normal on room air. When able to eat, she was changed to oral metoprolol and then Norvasc added. BP better controlled. Will follow. Advance medications as needed to control BP. (6) Anemia: Code(s): D64.9 - Anemia, unspecified Status: Acute Assessment and Plan: Hgb on admission was 11.9 and has dropped to 7 range. EBL was 100mL. Suspect related to acute blood loss anemia from surgery and bleeding around the incision site and possibly dilution from IV fluids. She did received FFP x1 unit on 04/14/21. No further evidence of bleeding around the site. She received 2U PRBC in OR on 04/23/21. Hgb was in the 8-9 range but now 7.8. Continue to monitor (7) Postoperative bleeding from incision: Status: Acute Assessment and Plan: Patient received FFP x1 unit 04/14/21 for bleeding around the incision site. No further evidence of this. As above. (8) Lactic acidosis: Onset Date: ~04/2021 Code(s): E87.2 - Acidosis Status: Acute Assessm
[2021-05-01] MEDS: PANTOPRAZOLE 40 MG TABLET PO (09:33)
[2021-05-01] MEDS: GABAPENTIN 100 MG CAPSULE PO ×3 (09:33→17:27)
[2021-05-01] MEDS: amLODIPine BESYLATE 2.5 MG TABLET PO (09:33)
[2021-05-01] MEDS: METOPROLOL TARTRATE 25 MG TABLET PO ×2 (09:34→20:54)
[2021-05-01] MEDS: polyethylene glycoL 3350 17 GM POWD.PACK PO (09:35)
[2021-05-01 10:22] LABS: Glucose Point of Care 138 mg/dl (65-105)
--- NOTE | 2021-05-01 10:57 | PM.PNGS ---
Progress Note: A&P Assessment and Plan (1) Anastomotic leak of intestine: Code(s): K91.89 - Other postprocedural complications and disorders of digestive system Status: Acute Assessment and Plan: Will advance to a soft diet today. More complaints of reflux, will add Mylanta, continue PPI therapy. Stop Clinimix/lipids. Continue Invanz and Micafungin Increase activity, encouraged getting out of bed and sitting in chair again today. (2) Protein calorie malnutrition: Code(s): E46 - Unspecified protein-calorie malnutrition Status: Acute Assessment and Plan: Stop Clinimix. Advance diet today. (3) Postoperative ileus: Code(s): K91.89 - Other postprocedural complications and disorders of digestive system; K56.7 - Ileus, unspecified Status: Acute Assessment and Plan: Resolving. Continue Miralax. (4) E coli bacteremia: Code(s): R78.81 - Bacteremia; B96.20 - Unspecified Escherichia coli [E. 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 Martinez. Subjective Subjective Date/Time Seen: 05/01/21 10:57 Patient reports: no new complaints, feels better, pain is less, tolerating liquids well, voiding w/o difficulty (Following [place]ino[place] removal), flatus, bowel movement and afebrile Interval history: Patient seen and examined today. She reports feeling better today than yesterday. She has not received IV morphine since around 9:00 p.m. last night and feels her pain is being controlled with the [place]. Her main complaint today is reflux symptoms and heartburn. She is able to tolerate full liquids and has not had any vomiting. She is passing gas and has had 1 bowel movement yesterday and already 1 this morning. Exam Const: General: no acute distress and awake Orientation/consciousness: patient oriented x3 Resp: Effort & Inspection: normal respiratory effort Auscultation: clear to auscultation bilaterally Cardio: Rate: regular rate Rhythm: regular rhythm GI: Inspection: non-distended GI Palp: Yes Soft to palpation, Yes Tenderness to palpation present (GI) (appropriate incisional tenderness) and No Guarding due to palpation present (GI) Auscultation: normal bowel sounds Other: NGUYEN drain with serous drainage Midline incision with improving localized ecchymosis, at the bottom of the incision there is a very small area that is pink with scant amount of serosanguineous drainage coming from the base of the incision. Neuro: General: moves all extremities and no focal motor deficits Extrem: General: normal to inspection and no calf tenderness Psych: Insight: Good insight present (Psych) Judgement: Good judgement present (Psych) Objective Data Vital Signs Vital Signs: Vital Signs - 24 hr 04/30/21 14:00 04/30/21 20:20 04/30/21 21:00 Temperature 97.8 F Pulse Rate 83 92 92 Respiratory Rate 18 16 Blood Pressure 145/53 H Pulse Oximetry 96 99 04/30/21 22:00 05/01/21 05:53 05/01/21 09:34 Temperature 97.9 F 97.4 F L Pulse Rate 92 89 86 Respiratory Rate 16 18 Blood Pressure 148/50 H 141/54 H Pulse Oximetry 99 98 Intake/Output Intake/Output: Intake & Output 04/28/21 04/29/21 04/30/21 05/01/21 23:59 23:59 23:59 23:59 Intake Total 2995 3125 2595 110 Output Total 1696 1590 1815 7 Balance 1299 1535 780 103 Meds/Results Medications: Active Medications Generic Name Dose Route Start Last Admin Trade Name Freq PRN Reason Stop Dose Admin Acetaminophen 1,000 mg 04/26/21 13:31 Acetaminophen 500 Mg Tablet PO Q6H PRN Mild Pain (1-3) or Fever Hydrocodone Bitart/Acetaminophen 1 tab 04/28/21 12:25 04/30/21 10:59 Hydrocodone/Acetaminophen (*Crx) 5-325 Mg Tablet PO 1 tab Q4H PRN Administration Pain Rated 4-6 Hydrocodone Bitart/Acetaminophen 1
[2021-05-01 11:47] LABS: Glucose Point of Care 138 mg/dl (65-105)
[2021-05-01 12:27] LABS: Glucose Point of Care 125 mg/dl (65-105)
[2021-05-01] MEDS: ERTAPENEM 1 GM/NS 50 ML 1 GM/50 ML BAG IVPB (15:41)
[2021-05-01] MEDS: HYDROcodone/acetaminophen (*CRX) 5-325 MG TABLET 1 TAB PO ×2 (17:26→21:41)
[2021-05-01 19:11] LABS: Glucose Point of Care 105 mg/dl (65-105)
[2021-05-01] MEDS: MICAFUNGIN SODIUM 100 MG in SODIUM CHLORIDE 0.9% IV 100 ML IVPB (20:52)
[2021-05-02] VITALS (8 sets, daily range): BP systolic 147–162; BP diastolic 38–70; PULSE 76–88; RESP 18–20; TEMP 36.3–36.9; O2SAT 95–99
[2021-05-02 02:35] LABS: Glucose Point of Care 100 mg/dl (65-105)
[2021-05-02] MEDS: HYDROcodone/acetaminophen (*CRX) 5-325 MG TABLET 1 TAB PO ×2 (03:35→21:47)
[2021-05-02] MEDS: CENTRAL LINE FLUSH 10 ML IV PUSH ×3 (05:10→21:42)
[2021-05-02] MEDS: LEVOTHYROXINE SODIUM 75 MCG TABLET PO (05:11)
[2021-05-02 06:43] LABS: Glucose Point of Care 97 mg/dl (65-105)
[2021-05-02 06:54] LABS: Hematocrit 23.9 % (37.0-47.0); Hemoglobin 7.6 g/dL (12.0-15.0); Mean Corpuscular HGB Conc 31.8 g/dl (32-36); Mean Corpuscular Hemoglobin 28.8 pg (26-34); Mean Corpuscular Volume 90.5 fl (80-100); Mean Platelet Volume 10.7 fl (7.4-10.4); Platelet Count Result 286 k/mm3 (150-375); Red Blood Count 2.64 M/mm3 (4.2-5.4); Red Cell Distribution Width 15.1 % (11.5-14.5); White Blood Count 9.5 K/mm3 (4.5-10.0)
[2021-05-02 07:16] LABS: Alanine Aminotransferase 23 U/L (4-35); Albumin Level 2.5 g/dL (3.5-5.1); Alkaline Phosphatase 205 U/L (38-126); Anion Gap 6 mmol/L (8-16); Aspartate Amino Transferase 53 U/L (14-36); Bilirubin,Total 0.9 mg/dL (0.2-1.3); Blood Urea Nitrogen 15 mg/dL (7-17); Carbon Dioxide 26 mmol/L (22-30); Chloride 101 mmol/L (98-107); Estimated CRCL calculation 55 ml/min; Estimated Glomerular Filt Rate > 60; Glucose 72 mg/dL (65-110); Potassium 3.7 mmol/L (3.4-5.0); Sodium 133 mmol/L (137-145)
[2021-05-02 07:37] LABS: Atypical Lymphocytes Present; Basophils Absolute Manual 0.09 K/mm3 (0.0-0.1); Basophils Percent Manual 1 % (0-1); Eosinophils Absolute Manual 0.19 K/mm3 (0.02-0.5); Eosinophils Percent Manual 2 % (0-4); Lymphocytes Absolute Manual 1.42 K/mm3 (1.1-4.5); Monocytes Absolute Manual 0.76 K/mm3 (0.1-0.90); Monocytes Percent Manual 8 % (3-9); Neutrophils Percent Manual 74 % (46-73); Platelet Estimate Adequate (Adequate); Total Cells Counted 100
[2021-05-02 07:38] LABS: Anisocytosis 2+ (NORMAL)
[2021-05-02] MEDS: amLODIPine BESYLATE 2.5 MG TABLET PO (09:46)
[2021-05-02] MEDS: PANTOPRAZOLE 40 MG TABLET PO (09:47)
[2021-05-02] MEDS: GABAPENTIN 100 MG CAPSULE PO ×2 (09:47→14:14)
[2021-05-02] MEDS: METOPROLOL TARTRATE 25 MG TABLET PO ×2 (09:47→21:41)
--- NOTE | 2021-05-02 11:31 | PM.PNGS ---
Progress Note: A&P Assessment and Plan (1) Anastomotic leak of intestine: Code(s): K91.89 - Other postprocedural complications and disorders of digestive system Status: Acute Assessment and Plan: Tolerating a solid diet and bowels are moving. Continues to slowly improve. Will remove NGUYEN drain. Continue Invanz and Micafungin Increase activity, encouraged getting out of bed and sitting in chair again today. Could consider discharge in the next 1-2 days if she continues to progress. Patient would benefit from SNF on discharge, [facility]. (2) Postoperative ileus: Code(s): K91.89 - Other postprocedural complications and disorders of digestive system; K56.7 - Ileus, unspecified Status: Acute Assessment and Plan: Resolved. Continue Miralax. (3) E coli bacteremia: Code(s): R78.81 - Bacteremia; B96.20 - Unspecified Escherichia coli [E. coli] as the cause of diseases classified elsewhere Status: Acute (4) Cecal volvulus: Onset Date: ~04/11/21 Code(s): K56.2 - Volvulus Status: Acute Additional Plan I have discussed the plan of care with Dr. Martinez. Subjective Subjective Date/Time Seen: 05/02/21 09:31 Patient reports: no new complaints, feels better, pain is less, tolerating a regular diet, flatus, diarrhea and afebrile Interval history: Patient seen and examined today. She reports feeling even better today. She is tolerating a soft diet. Not eating much of the solid food but is able to take in entire Ensures. Has had loose BM this morning already. She is only complaining of some pain at the incision at times and feels that the [place] is helping control this. She is voiding without difficulty by getting up to the commode. she denies any reflux symptoms today. Exam Const: General: awake; No acute distress Orientation/consciousness: patient oriented x3 GI: Inspection: non-distended GI Palp: Yes Soft to palpation, Yes Tenderness to palpation present (GI) ( incisional) and No Guarding due to palpation present (GI) Auscultation: normal bowel sounds Other: NGUYEN drain with scant serous drainage Midline incision with improving localized ecchymosis, at the bottom of the incision there is a very small area that is pink with scant amount of serosanguineous drainage coming from the base of the incision. Neuro: General: moves all extremities and no focal motor deficits Extrem: General: normal to inspection and no calf tenderness Psych: Insight: Good insight present (Psych) Judgement: Good judgement present (Psych) Objective Data Vital Signs Vital Signs: Vital Signs - 24 hr 05/01/21 14:00 05/01/21 20:00 05/01/21 20:20 Temperature 97.0 F L 97.5 F L Pulse Rate 84 85 86 Respiratory Rate 18 22 H 22 H Blood Pressure 147/49 H 166/57 H Pulse Oximetry 99 97 97 05/01/21 20:54 05/02/21 06:00 05/02/21 08:00 Temperature 97.4 F L Pulse Rate 86 76 Respiratory Rate 20 Blood Pressure 157/38 H Pulse Oximetry 95 97 05/02/21 08:57 05/02/21 09:47 Temperature Pulse Rate 84 Respiratory Rate Blood Pressure Pulse Oximetry 97 Intake/Output Intake/Output: Intake & Output 04/29/21 04/30/21 05/01/21 05/02/21 23:59 23:59 23:59 23:59 Intake Total 3125 2745 2570 510 Output Total 1590 1815 14 Balance 6960 927 6653 510 Meds/Results Medications: Active Medications Generic Name Dose Route Start Last Admin Trade Name Freq PRN Reason Stop Dose Admin Acetaminophen 1,000 mg 04/26/21 13:31 Acetaminophen 500 Mg Tablet PO Q6H PRN Mild Pain (1-3) or Fever Hydrocodone Bitart/Acetaminophen 1 tab 04/28/21 12:25 05/02/21 03:35 Hydrocodone/Acetaminophen (*Crx) 5-325 Mg Tablet PO 1 tab Q4H PRN Administration Pain Rated 4-6 Hydrocodone Bitart/Acetaminophen 1 tab 04/28/21 12:25 05/01/21 06:06 Hydrocodone/Acetaminophen (*Crx) 7.5-325 Mg Tablet PO 1 tab Q4H PRN Administration Pain Rated 7-10
[2021-05-02 11:35] LABS: Glucose Point of Care 112 mg/dl (65-105)
--- NOTE | 2021-05-02 13:24 | PCOTNOTE ---
Attempted patient at 13:19pm, patient had just received lunch tray. Continue per POC.
--- NOTE | 2021-05-02 13:37 | PM.IMPN ---
Progress Note: A&P Assessment and Plan (1) Chest pain: Code(s): R07.9 - Chest pain, unspecified Status: Acute Assessment and Plan: [place] with chest pain but vague symptoms. She states better with belching to suggest GI related. Will follow. Check EKG to assess for acute changes (2) Anastomotic leak of intestine: Code(s): K91.89 - Other postprocedural complications and disorders of digestive system Status: Acute Assessment and Plan: WBC jumped to 26K on 04/19. CT Ch/A/P 04/19 showing post-op ileus and surgical changes but no acute findings. BCx 04/19 returned Enterobacter cloacae (1of2) sensitive to Ertapenem. Leukocytosis was up/down and with fevers. CT 04/23 showing abscess formation concerning for anastomotic leaks. She was taken back to the OR 04/23 and underwent re-exploration of recent laparotomy with drainage of multiple intra-abdominal abscesses and ileocolic resection with [id number] ileocolic anastomosis. Micafungin was added to the Ertapenem. She has tolerated the procedure well. Continue routine post-operative care. Continue current antifungal and antibiotic treatment. TPN off and diet advanced. PT/OT. Increase activity as tolerated. Discussed with dtr with patietn permission and update provided. Placement being arranged. (3) Bacteremia: Code(s): R78.81 - Bacteremia Status: Acute Assessment and Plan: [place] related to the anastomotic leaks and abdominal abscesses. As above. (4) Cecal volvulus: Onset Date: ~04/11/21 Code(s): K56.2 - Volvulus Status: Acute Assessment and Plan: Patient presents to ED with abd pain, nausea and vomiting. CT Abd/Pelvis showing distended bowel with air and fluid most likely cecum with ascending colonic transition point consistent with volvulus. Patient was made NPO, NGT placed and General surgery consulted. Patient underwent open right hemicolectomy with ileocolic anastomosis 04/12/21. Patient did well initially but then her WBC became elevated with CT 04/23 showing abscess formation concerning for anastomotic leak. As above. (5) Postoperative ileus: Code(s): K91.89 - Other postprocedural complications and disorders of digestive system; K56.7 - Ileus, unspecified Status: Acute Assessment and Plan: CT scan 04/19 showing moderately distended jejunum consistent with ileus. NG placed but KUB showed persistently dilated small bowel likely adynamic ileus. Now s/p repeat surgery on 04/23. +BMs. Ileus is resolving. Appreciate General surgery input. (6) HTN (hypertension), benign: Code(s): I10 - Essential (primary) hypertension Status: Acute Assessment and Plan: Patient's blood pressure was reviewed on 05/02. Blood pressure was well controlled but became higher with the change in her condition felt related to pain. Also, blood pressure was being measured in the thigh which was much higher than in the RUE. She was started on IV metoprolol with improved BP. Hydralazine IV available as needed. Wide pulse pressure related to underlying atherosclerotic disease, hypovolemia, and/or vasodilation. Echo showing EF 65-70% with diastolic dysfunction Grade I and severe pulmonary HTN. Pulmonary HTN could be related to her autoimmune disease. Apnea link was normal on room air. When able to eat, she was changed to oral metoprolol and then Norvasc added. BP better controlled but still with wide pulse pressure. Will follow. Advance medications as needed to control BP. (7) Anemia: Code(s): D64.9 - Anemia, unspecified Status: Acute Assessment and Plan: Hgb on admission was 11.9. EBL was 100mL. Suspect related to acute blood loss anemia from surgery and bleeding around the incision site and possibly dilution from IV fluids. She did received FFP x1 unit on 04/14/21. No further evidence of bleeding around the site. She received 2U PRBC in OR on 04/23/21. Hgb was in the 8-9 range but now 7.6. Continue
--- NOTE | 2021-05-02 13:58 | ECG_ITS ---
Measurements Intervals [place] Rate: 83 P: 59 TX: 159 QRS: 3 QRSD: 80 T: 41 QT: 360 QTc: 423 Interpretive Statements SINUS RHYTHM INCOMPLETE RIGHT BUNDLE BRANCH BLOCK DELAYED PRECORDIAL R/S TRANSITION BORDERLINE T WAVE ABNORMALITY- ANTERIOR LEADS BORDERLINE ECG Electronically Signed On 05-02-2021 18:26:22 SENIOR ACCOUNT REPRESENTATIVE by Armond Hanson D.O.
[2021-05-02] MEDS: ERTAPENEM 1 GM/NS 50 ML 1 GM/50 ML BAG IVPB (14:19)
[2021-05-02] MEDS: MICAFUNGIN SODIUM 100 MG in SODIUM CHLORIDE 0.9% IV 100 ML IVPB (21:40)
[2021-05-03 06:00] VITALS: BP 135/68; PULSE 81; RESP 18; TEMP 36.7; O2SAT 98
[2021-05-03] MEDS: CENTRAL LINE FLUSH 10 ML IV PUSH ×3 (06:10→20:01)
[2021-05-03] MEDS: LEVOTHYROXINE SODIUM 75 MCG TABLET PO (06:11)
[2021-05-03 06:13] LABS: Hematocrit 25.2 % (37.0-47.0); Hemoglobin 7.9 g/dL (12.0-15.0); Mean Corpuscular HGB Conc 31.3 g/dl (32-36); Mean Corpuscular Hemoglobin 28.8 pg (26-34); Mean Platelet Volume 10.1 fl (7.4-10.4); Platelet Count Result 322 k/mm3 (150-375); Red Blood Count 2.74 M/mm3 (4.2-5.4); Red Cell Distribution Width 14.9 % (11.5-14.5); White Blood Count 9.9 K/mm3 (4.5-10.0)
[2021-05-03 06:26] LABS: Anion Gap 2 mmol/L (8-16); Blood Urea Nitrogen 14 mg/dL (7-17); Calcium 8.7 mg/dL (8.4-10.2); Carbon Dioxide 28 mmol/L (22-30); Chloride 103 mmol/L (98-107); Estimated CRCL calculation 55 ml/min; Estimated Glomerular Filt Rate > 60; Glucose 94 mg/dL (65-110); Potassium 3.9 mmol/L (3.4-5.0); Sodium 133 mmol/L (137-145)
--- NOTE | 2021-05-03 08:19 | PM.PNGS ---
Progress Note: A&P Assessment and Plan (1) Anastomotic leak of intestine: Code(s): K91.89 - Other postprocedural complications and disorders of digestive system Status: Acute Assessment and Plan: Doing well, OK to discharge to Acute Rehab today Patient has had 10 days of IV antibiotics, WBC normal and afebrile, OK to discontinue on discharge Continue PT/OT Will remove rita today (2) Postoperative ileus: Code(s): K91.89 - Other postprocedural complications and disorders of digestive system; K56.7 - Ileus, unspecified Status: Acute Assessment and Plan: Resolved. Continue Miralax. (3) E coli bacteremia: Code(s): R78.81 - Bacteremia; B96.20 - Unspecified Escherichia coli [E. coli] as the cause of diseases classified elsewhere Status: Acute (4) Cecal volvulus: Onset Date: ~04/11/21 Code(s): K56.2 - Volvulus Status: Acute Subjective Subjective Date/Time Seen: 05/03/21 08:19 Interval history: Tolerating diet. Pain improving. Bowels moving. Exam GI: Inspection: non-distended and incision (intact, no drainage) GI Palp: Yes Soft to palpation and Yes Tenderness to palpation present (GI) (incisional) Auscultation: normal bowel sounds Objective Data Vital Signs Vital Signs: Vital Signs - 24 hr 05/02/21 08:57 05/02/21 09:47 05/02/21 14:00 Temperature 36.9 C Pulse Rate 84 81 Respiratory Rate 18 Blood Pressure 162/53 H Pulse Oximetry 97 99 05/02/21 20:35 05/02/21 21:41 05/02/21 22:00 Temperature 36.9 C Pulse Rate 86 86 88 Respiratory Rate 18 18 Blood Pressure 147/70 H Pulse Oximetry 99 98 05/03/21 06:00 Temperature 36.7 C Pulse Rate 81 Respiratory Rate 18 Blood Pressure 135/68 Pulse Oximetry 98 Intake/Output Intake/Output: Intake & Output 04/30/21 05/01/21 05/02/21 05/03/21 23:59 23:59 23:59 23:59 Intake Total 9425 2670 1560 500 Output Total 1815 14 7 Balance 930 2656 1553 500 Meds/Results Medications: Active Medications Generic Name Dose Route Start Last Admin Trade Name Freq PRN Reason Stop Dose Admin Acetaminophen 1,000 mg 04/26/21 13:31 Acetaminophen 500 Mg Tablet PO Q6H PRN Mild Pain (1-3) or Fever Hydrocodone Bitart/Acetaminophen 1 tab 04/28/21 12:25 05/02/21 21:47 Hydrocodone/Acetaminophen (*Crx) 5-325 Mg Tablet PO 1 tab Q4H PRN Administration Pain Rated 4-6 Hydrocodone Bitart/Acetaminophen 1 tab 04/28/21 12:25 05/01/21 06:06 Hydrocodone/Acetaminophen (*Crx) 7.5-325 Mg Tablet PO 1 tab Q4H PRN Administration Pain Rated 7-10 Al Hydrox/Mg Hydrox/Simethicone 30 ml 05/01/21 11:03 Mag Hydrox/Al Hydrox/Simeth 30 Ml Udc PO Q6H PRN Indigestion Albuterol 2 puff 04/18/21 09:30 Albuterol Sulfate (*Sp) Aerosol 1 Puff INHALATION TID PRN Shortness Of Breath Amlodipine Besylate 2.5 mg 04/29/21 16:35 05/02/21 09:46 Amlodipine Besylate 2.5 Mg Tablet PO 2.5 mg QAM FERN Administration Gabapentin 100 mg 04/18/21 09:35 05/02/21 14:14 Gabapentin 100 Mg Capsule PO 100 mg TID FERN Administration Hydralazine HCl 10 mg 04/25/21 11:11 04/29/21 15:52 Hydralazine Hcl 20 Mg/Ml Vial IV PUSH 10 mg Q8H PRN Administration Blood Pressure - High >190/110 Ertapenem 1 gm in 50 mls @ 100 mls/hr 04/23/21 15:00 05/03/21 07:57 Invanz 1 Gm/Ns 50 Ml IVPB 05/07/21 14:59 Infused Q24H FERN Infusion Micafungin Sodium 100 mg/ 100 mls @ 100 mls/hr 04/23/21 19:00 05/03/21 07:57 Sodium Chloride IVPB 05/07/21 18:59 Infused Q24H FERN Infusion Levothyroxine Sodium 75 mcg 04/18/21 09:35 05/03/21 06:11 Levothyroxine Sodium 75 Mcg Tablet PO 75 mcg DAILY@0630 FERN Administration Metoclopramide HCl 10 mg 04/28/21 14:50 04/30/21 18:20 Metoclopramide Hcl Inj 10 Mg/2 Ml Vial IV PUSH 10 mg Q6HR PRN Administration Nausea Metoprolol Tartrate 25 mg 04/18/21 21:00 05/02/21 21:41 Met
[2021-05-03] MEDS: PANTOPRAZOLE 40 MG TABLET PO (08:56)
[2021-05-03] MEDS: METOPROLOL TARTRATE 25 MG TABLET PO ×2 (08:56→19:59)
[2021-05-03] MEDS: GABAPENTIN 100 MG CAPSULE PO ×3 (08:56→17:17)
[2021-05-03] MEDS: amLODIPine BESYLATE 2.5 MG TABLET PO (08:56)
[2021-05-03] MEDS: polyethylene glycoL 3350 17 GM POWD.PACK PO (08:56)
[2021-05-03] MEDS: HYDROcodone/acetaminophen (*CRX) 7.5-325 MG TABLET 1 TAB PO (12:25)
--- NOTE | 2021-05-03 12:26 | PM.IMPN ---
Progress Note: A&P Assessment and Plan (1) Chest pain: Code(s): R07.9 - Chest pain, unspecified Status: Acute Assessment and Plan: Patient with chest pain 05/02 but vague symptoms. She states better with belching to suggest GI related. EKG showing no acute findings. Will follow. (2) Anastomotic leak of intestine: Code(s): K91.89 - Other postprocedural complications and disorders of digestive system Status: Acute Assessment and Plan: WBC jumped to 26K on 04/19. CT Ch/A/P 04/19 showing post-op ileus and surgical changes but no acute findings. BCx 04/19 returned Enterobacter cloacae (1of2) sensitive to Ertapenem. Leukocytosis was up/down and with fevers. CT 04/23 showing abscess formation concerning for anastomotic leaks. She was taken back to the OR 04/23 and underwent re-exploration of recent laparotomy with drainage of multiple intra-abdominal abscesses and ileocolic resection with [id number] ileocolic anastomosis. Micafungin was added to the Ertapenem. She has tolerated the procedure well. She is recovering well. WBC normal and fevers have resolved. Continue routine post-operative care. Continue current antifungal and antibiotic treatment. Continue PT/OT. Patient has been accepted at [facility] for tomorrow and can be discharged 05/04/21 if she remains stable. (3) Bacteremia: Code(s): R78.81 - Bacteremia Status: Acute Assessment and Plan: [place] related to the anastomotic leaks and abdominal abscesses. As above. (4) Cecal volvulus: Onset Date: ~04/11/21 Code(s): K56.2 - Volvulus Status: Acute Assessment and Plan: Patient presents to ED with abd pain, nausea and vomiting. CT Abd/Pelvis showing distended bowel with air and fluid most likely cecum with ascending colonic transition point consistent with volvulus. Patient was made NPO, NGT placed and General surgery consulted. Patient underwent open right hemicolectomy with ileocolic anastomosis 04/12/21. Patient did well initially but then her WBC became elevated with CT 04/23 showing abscess formation concerning for anastomotic leak. As above. (5) Postoperative ileus: Code(s): K91.89 - Other postprocedural complications and disorders of digestive system; K56.7 - Ileus, unspecified Status: Acute Assessment and Plan: CT scan 04/19 showing moderately distended jejunum consistent with ileus. NG was placed but KUB showed persistently dilated small bowel likely adynamic ileus. Now s/p repeat surgery on 04/23. Ileus has resolved with +BMs. Appreciate General surgery input. (6) HTN (hypertension), benign: Code(s): I10 - Essential (primary) hypertension Status: Acute Assessment and Plan: Patient's blood pressure was reviewed on 05/03 Blood pressure was well controlled but became higher with the change in her condition felt related to pain. Also, blood pressure was being measured in the thigh which was much higher than in the RUE. She was started on IV metoprolol with improved BP. Hydralazine IV available as needed. Wide pulse pressure related to underlying atherosclerotic disease, hypovolemia, and/or vasodilation. Echo showing EF 65-70% with diastolic dysfunction Grade I and severe pulmonary HTN. Pulmonary HTN could be related to her autoimmune disease. Apnea link was normal on room air. Diet was advanced so she was changed to oral metoprolol and then Norvasc added. BP better controlled but still with wide pulse pressure. Will follow for now. Advance medications as needed to control BP. (7) Anemia: Code(s): D64.9 - Anemia, unspecified Status: Acute Assessment and Plan: Hgb 11.9 on admission. EBL was 100mL. Suspect related to acute blood loss anemia from surgery and bleeding around the incision site and possibly dilution from IV fluids. She did received FFP x1 unit on 04/14/21. No further evidence of bleeding around the site. She received 2U PRBC in OR
[2021-05-03 14:00] VITALS: BP 121/53; PULSE 86; RESP 18; TEMP 36.6; O2SAT 97
--- NOTE | 2021-05-03 14:07 | PCNFU ---
Nutrition Follow-Up Complete: Inadequate oral intake related cecal volvulus as evidenced by NPO Goal: Pt to meet 75% of estimated nutritional needs Pt is slowly progressing towards goal Pt current nutrition is low fiber (low residue) diet and dietary supplements Last recorded weight is 57.3 kg, up 0.2kg from last reported weight on 05/02/21. Bowel Motility: +BM 05/03 reported Labs Reviewed: hgb 7.9, hct 25.2, alb 2.5, Na 133, ALP 205, Cr 0.6 Meds Noted: norco, norvasc, invanx, gabapentin, synthroid, lopressor, micafungin, protonix, miralax Skin: medial abdomen incision Additional Notes: Current nutrition is a low fiber (low residue) diet and dietary supplement of Ensure Compact BID providing an additional 220kcal and 9g of protein to increase caloric intake. TPN has been D/C. Reported intake is 20%, 10%, 50%, 60%, and 40%. Per MD notes, pt has been accepted at [facility] for tomorrow and will be D/C 05/04/21 if she remains stable. Recommend increasing dietary supplement from BID to TID if pt is not D/C. Agree with diet orders at this time. Will continue to follow if pt is not D/C. Will monitor labs, medication, wt, and reported intake every 3 days.
--- NOTE | 2021-05-03 14:41 | PC.NURSE ---
I went to pt's room to check on her because she had requested an emesis bag. Pt was trying to force herself to vomit. Pt then began ranting about being discharged, needing pajamas for the rehab facility, her family being too busy to take care of her or assist her in any way, and a myriad of other topics that she has fixated on causing her extreme amounts of anxiety. I attempted to calm her down and assuage her fears about being discharged. She agreed to attempt to relax.
[2021-05-03] MEDS: ERTAPENEM 1 GM/NS 50 ML 1 GM/50 ML BAG IVPB (15:04)
[2021-05-03] MEDS: MICAFUNGIN SODIUM 100 MG in SODIUM CHLORIDE 0.9% IV 100 ML IVPB (19:57)
[2021-05-03 19:59] VITALS: PULSE 84
[2021-05-03 20:00] VITALS: PULSE 80; RESP 18; O2SAT 98
[2021-05-03] MEDS: HYDROcodone/acetaminophen (*CRX) 5-325 MG TABLET 1 TAB PO (20:01)
[2021-05-03] MEDS: ONDANSETRON INJ 4 MG/2 ML VIAL IV PUSH (21:21)
[2021-05-03 22:00] VITALS: BP 142/48; PULSE 80; RESP 18; TEMP 36.7; O2SAT 98
[2021-05-04] VITALS (7 sets, daily range): BP systolic 113–142; BP diastolic 37–52; PULSE 80–91; RESP 14–18; TEMP 36.5–36.8; O2SAT 96–98
[2021-05-04] MEDS: HYDROcodone/acetaminophen (*CRX) 5-325 MG TABLET 1 TAB PO ×2 (01:24→18:38)
[2021-05-04] MEDS: LEVOTHYROXINE SODIUM 75 MCG TABLET PO (06:46)
[2021-05-04] MEDS: CENTRAL LINE FLUSH 10 ML IV PUSH ×3 (07:11→21:53)
[2021-05-04] MEDS: PANTOPRAZOLE 40 MG TABLET PO (08:56)
[2021-05-04] MEDS: polyethylene glycoL 3350 17 GM POWD.PACK PO (08:57)
[2021-05-04] MEDS: GABAPENTIN 100 MG CAPSULE PO ×3 (08:57→18:38)
[2021-05-04] MEDS: amLODIPine BESYLATE 2.5 MG TABLET PO (08:57)
[2021-05-04] MEDS: METOPROLOL TARTRATE 25 MG TABLET PO ×2 (08:57→20:35)
[2021-05-04] MEDS: ONDANSETRON INJ 4 MG/2 ML VIAL IV PUSH ×2 (10:29→17:50)
[2021-05-04] MEDS: ERTAPENEM 1 GM/NS 50 ML 1 GM/50 ML BAG IVPB (14:18)
[2021-05-04 14:32] LABS: EDCOVIDSCREEN Negative (Negative)
--- NOTE | 2021-05-04 15:30 | PM.IMPN ---
Progress Note: A&P Assessment and Plan (1) Chest pain: Code(s): R07.9 - Chest pain, unspecified Status: Resolved Assessment and Plan: Atypical chest pain likely GI related (2) Anastomotic leak of intestine: Code(s): K91.89 - Other postprocedural complications and disorders of digestive system Status: Acute Assessment and Plan: WBC jumped to 26K on 04/19. CT Ch/A/P 04/19 showing post-op ileus and surgical changes but no acute findings. BCx 04/19 returned Enterobacter cloacae (1of2) sensitive to Ertapenem. Leukocytosis was up/down and with fevers. CT 04/23 showing abscess formation concerning for anastomotic leaks. She was taken back to the OR 04/23 and underwent re-exploration of recent laparotomy with drainage of multiple intra-abdominal abscesses and ileocolic resection with [id number] ileocolic anastomosis. Micafungin was added to the Ertapenem. She has tolerated the procedure well. She is recovering well. WBC normal and fevers have resolved. Continue routine post-operative care. Continue current antifungal and antibiotic treatment. Continue PT/OT. 05/04/2021 Patient has been accepted at [facility] pt will need doctor to doctor call in AM prior to DC. (3) Bacteremia: Code(s): R78.81 - Bacteremia Status: Acute Assessment and Plan: [place] related to the anastomotic leaks and abdominal abscesses. 2021 Pt completed 10 days of IV abx in the hospital can be discharged on oral abx to rehab. Pt will need picc line removed prior to DC (4) Cecal volvulus: Onset Date: ~04/11/21 Code(s): K56.2 - Volvulus Status: Acute Assessment and Plan: Patient presents to ED with abd pain, nausea and vomiting. CT Abd/Pelvis showing distended bowel with air and fluid most likely cecum with ascending colonic transition point consistent with volvulus. Patient was made NPO, NGT placed and General surgery consulted. Patient underwent open right hemicolectomy with ileocolic anastomosis 04/12/21. Patient did well initially but then her WBC became elevated with CT 04/23 showing abscess formation concerning for anastomotic leak. 05/04/2021 Pt to complete 10 days of IV abx in the hospital can be discharged on oral abx. Deepak removed yesterday. (5) Postoperative ileus: Code(s): K91.89 - Other postprocedural complications and disorders of digestive system; K56.7 - Ileus, unspecified Status: Acute Assessment and Plan: CT scan 04/19 showing moderately distended jejunum consistent with ileus. NG was placed but KUB showed persistently dilated small bowel likely adynamic ileus. Now s/p repeat surgery on 04/23. Ileus has resolved with +BMs. Appreciate General surgery input. 05/04/2021 Discussed with surgery team pt is stable for discharge from their perspective (6) HTN (hypertension), benign: Code(s): I10 - Essential (primary) hypertension Status: Acute Assessment and Plan: Blood pressure was well controlled but became higher with the change in her condition felt related to pain. Also, blood pressure was being measured in the thigh which was much higher than in the RUE. She was started on IV metoprolol with improved BP. Hydralazine IV available as needed. Wide pulse pressure related to underlying atherosclerotic disease, hypovolemia, and/or vasodilation. Echo showing EF 65-70% with diastolic dysfunction Grade I and severe pulmonary HTN. Pulmonary HTN could be related to her autoimmune disease. Apnea link was normal on room air. Diet was advanced so she was changed to oral metoprolol and then Norvasc added. BP better controlled but still with wide pulse pressure. Will follow for now. Advance medications as needed to control BP. 05/04/2021 BP is 142/52 stable (7) Anemia: Code(s): D64.9 - Anemia, unspecified Status: Acute Assessment and Plan: Hgb 11.9 on admission. EBL was 100mL. Suspect related to acute blood loss a
--- NOTE | 2021-05-04 17:35 | PM.PNGS ---
Progress Note: A&P Assessment and Plan (1) Anastomotic leak of intestine: Code(s): K91.89 - Other postprocedural complications and disorders of digestive system Status: Acute Assessment and Plan: Doing well, OK to discharge to Acute Rehab today Patient has had 10 days of IV antibiotics, WBC normal and afebrile, OK to discontinue today and does not need any further discharge ( may consider continuing vancomycin p.o. to contract possible C diff in view of her past history Medicine sees fit). Continue PT/OT rita out yesterday wound clean and dry with no problems drain out yesterday with dry gauze over it now. (2) Postoperative ileus: Code(s): K91.89 - Other postprocedural complications and disorders of digestive system; K56.7 - Ileus, unspecified Status: Acute Assessment and Plan: Resolved. Continue Miralax. (Consider cutting back on this if she begins having too many stools a day. ) (3) E coli bacteremia: Code(s): R78.81 - Bacteremia; B96.20 - Unspecified Escherichia coli [E. coli] as the cause of diseases classified elsewhere Status: Acute Assessment and Plan: Completed IV antibiotics now. (4) Cecal volvulus: Onset Date: ~04/11/21 Code(s): K56.2 - Volvulus Status: Acute Assessment and Plan: Resolved with resection. Additional Plan I have discussed the plan of care with Dr. Doshi. Patient missed the time for transfer to acute rehab today but hopefully will go tomorrow on 09/25/2021. Subjective Subjective Date/Time Seen: 05/04/21 10:35 patient is sitting up in the chair. States she is feeling well today. No real abdominal pain. Had a big bowel movement and is tolerating diet okay. Review of Systems Review of Systems: All systems reviewed & are unremarkable except as noted in HPI and below ( generally improved.) Exam HENMT: Head: normal to inspection, normocephalic and atraumatic Ears: hearing grossly normal bilaterally General nose exam: Normal external nose present and Normal nares present Mouth: Yes Normal oral and palatal mucosa present and Yes moist mucous membranes Eyes: General: appearance normal, both eyes and all related structures Conjunctivae: conjunctivae normal Sclera: sclerae normal Pupils: Equal, round and reactive pupils present EOM: EOMs intact bilaterally Neck: Neck: normal visual inspection, full ROM, no lymphadenopathy, supple and no JVD Lymphatic: no lymphadenopathy noted Chest: Chest palpation & inspection: normal inspection of the chest Resp: Effort & Inspection: normal respiratory effort and able to speak in complete sentences Auscultation: clear to auscultation bilaterally and diminished lung sounds Percussion: percussion normal GI: Inspection: normal to inspection, no abdominal wall ecchymosis, non-distended and incision (intact, no drainage) Auscultation: normal bowel sounds Rectal Exam: deferred Other: NGUYEN drain Site left upper quadrant cover with 4 x 4 which is dry. Midline incision clean and dry with Steri-Strips in place. : General: Yes no CVA tenderness Urinary Catheter: Urinary Catheter: patent and draining and urine clear Back/Spine/Pelvis: Back: no CVA tenderness Skin: General skin exam: normal color and dry skin Neuro: General: patient oriented x3, gait normal, moves all extremities, no focal motor deficits and CN's II-XI intact bilaterally Cranial nerves: Yes Equal, round and reactive pupils present Speech: normal speech and No Abnormal speech present Extrem: General: normal to inspection, capillary refill normal, no pedal edema, no calf tenderness and edema (trace bilateral lower leg edema) Psych: Mental Status: mental status grossly normal Insight: Good insight present (Psych) and Fair insight present (Psych) Judgement: Good judgement present (Psych) and Fair judgement present (Psych) Objective Data Vital Signs Vital Signs: Vital Signs - 24 hr 05/03/21
[2021-05-04] MEDS: MICAFUNGIN SODIUM 100 MG in SODIUM CHLORIDE 0.9% IV 100 ML IVPB (21:00)
[2021-05-04] MEDS: HYDROcodone/acetaminophen (*CRX) 7.5-325 MG TABLET 1 TAB PO (22:01)
--- NOTE | 2021-05-04 22:52 | PC.NURSE ---
PT AAOX3, ABLE TO EXPRESS NEEDS. C/O PAIN RATED 8 ON HER ABD SURGICAL WOUND. GIVEN PAIN MED RESPONDED WELL. SITE OOZING WITH PUSS AND A LITTLE REDNESS ON SITE NOTED. STERI STRIPS INTACT. CHARGE NURSE NOTIFIED. CONTINUE TO MONITOR SURGICAL WOUND SITE.
[2021-05-05 05:53] VITALS: BP 147/54; PULSE 87; RESP 18; TEMP 36.6; O2SAT 96
[2021-05-05] MEDS: ONDANSETRON INJ 4 MG/2 ML VIAL IV PUSH (06:20)
[2021-05-05] MEDS: LEVOTHYROXINE SODIUM 75 MCG TABLET PO (06:20)
[2021-05-05] MEDS: CENTRAL LINE FLUSH 10 ML IV PUSH ×3 (06:20→21:27)
[2021-05-05] MEDS: HYDROcodone/acetaminophen (*CRX) 5-325 MG TABLET 1 TAB PO (06:20)
[2021-05-05 08:00] VITALS: PULSE 87; RESP 18; O2SAT 96
[2021-05-05] MEDS: METOCLOPRAMIDE HCL INJ 10 MG/2 ML VIAL IV PUSH ×2 (08:40→18:27)
[2021-05-05] MEDS: MORPHINE SULFATE (*CRX) 2 MG/ML INJ IV PUSH ×4 (09:49→21:22)
--- NOTE | 2021-05-05 11:18 | PM.PNGS ---
Progress Note: A&P Assessment and Plan (1) E coli bacteremia: Code(s): R78.81 - Bacteremia; B96.20 - Unspecified Escherichia coli [E. coli] as the cause of diseases classified elsewhere Status: Acute Assessment and Plan: Completed IV antibiotics now. (2) Cecal volvulus: Onset Date: ~04/11/21 Code(s): K56.2 - Volvulus Status: Acute Assessment and Plan: Resolved with resection. Now postop day # 12 status post re-exploration for intra-abdominal abscess and anastomotic leak. Seemed to have been doing well but now has a setback with some vomiting and a new wound infection. (3) Nausea and vomiting: Qualifiers: Vomiting type: unspecified Qualified Code(s): R11.2 - Nausea with vomiting, unspecified Code(s): R11.2 - Nausea with vomiting, unspecified Status: Acute Assessment and Plan: Unknown etiology ---- workup with CBC, BMP, and abdominal films fairly unremarkable. Specifically the abdominal films show no ileus or bowel obstructive pattern. (4) Superficial postoperative wound infection: Code(s): T81.49XA - Infection following a procedure, other surgical site, initial encounter Status: Acute Assessment and Plan: lower end of midline abdominal wound. See description above under exam -- abdominal. C&S sent. ( Patient is still on ertapenem and micafungin until 05/07/2021. Will leave her on this until then but okay for antibiotics to stop these on 05/07 2021 since the wound infection should heal just with local wound care and packing. ( C&S should be back by then) Subjective Subjective Date/Time Seen: 05/05/21 10:18 I was called today because patient had some vomiting after supper last night and also after breakfast this morning. Also she began having some purulent appearing drainage from the lower end of her midline incision site. Review of Systems Review of Systems: All systems reviewed & are unremarkable except as noted in HPI and below ( generally improved.) Constitutional: Constitutional: Reports as per HPI, Reports no additional constitutional complaints, Denies chills, Denies fever(s) and Reports poor appetite Comments: Early satiety and some vomiting after trying to eat. Eyes: Eyes: Denies change in vision ENT: Denies hearing loss, Denies neck pain and Denies sore throat Cardiovascular: Cardiovascular: Reports no additional cardiovascular complaints, Denies chest pain, Denies leg edema, Denies dyspnea and Denies dyspnea on exertion Respiratory: Respiratory: Reports no additional respiratory complaints, Reports no additional respiratory complaints, Denies cough, Denies dyspnea, Denies dyspnea on exertion and Denies wheezing Gastrointestinal: Gastrointestinal: Reports as per HPI, Reports bloating, Reports loose stools, Reports nausea (Usually after eating) and Reports vomiting (Times to once after supper last night and again this morning.) Genitourinary: Genitourinary: Denies hematuria and Denies dysuria Musculoskeletal: Musculoskeletal: Reports no additional musculoskeletal complaints, Denies arthralgias, Denies joint swelling and Denies neck pain Neurologic: Reports system reviewed and no additional complaints, except as documented, Denies Abnormal speech present, Denies focal weakness and Denies memory loss Psychiatric: Psychiatric: Denies anxiety and Denies memory loss Allergic/Immunologic: Allergic/Immunologic: Denies wheezing Exam Const: General: cooperative, no acute distress, awake, ill appearing and uncomfortable; No acute distress Orientation/consciousness: patient oriented x3 Limitations: no limitations HENMT: Head: normal to inspection, normocephalic and atraumatic Ears: hearing grossly normal bilaterally General nose exam: Normal external nose present and Normal nares present Mouth: Yes Normal oral and palatal mucosa present and Yes moist mucous membranes Eyes: General: appearance normal, both eyes and
[2021-05-05 12:22] LABS: Basophils Absolute Auto 0.1 K/mm3 (0.0-0.1); Basophils Percent Auto 1.1 % (0.2-1.2); Eosinophils Percent Auto 0.5 % (0-4.4); Hematocrit 31.6 % (37.0-47.0); Hemoglobin 8.7 g/dL (12.0-15.0); Immature Granulocyte Absolute 0.15 K/mm3 (0.00-0.031); Immature Granulocyte Percent A 1.8 % (0-0.5); Lymphocytes Absolute Auto 0.98 K/mm3 (0.9-3.2); Mean Corpuscular HGB Conc 27.5 g/dl (32-36); Mean Corpuscular Hemoglobin 28.6 pg (26-34); Mean Corpuscular Volume 103.9 fl (80-100); Mean Platelet Volume 9.3 fl (7.4-10.4); Monocytes Percent Auto 11.9 % (2.6-8.5); Neutrophils Absolute Auto 5.9 K/mm3 (1.3-6.7); Neutrophils Percent Auto 72.7 % (45.5-73.1); Platelet Count Result 331 k/mm3 (150-375); Red Blood Count 3.04 M/mm3 (4.2-5.4); Red Cell Distribution Width 15.2 % (11.5-14.5); White Blood Count 8.1 K/mm3 (4.5-10.0)
[2021-05-05 12:35] LABS: Alanine Aminotransferase 21 U/L (4-35); Albumin Level 3.1 g/dL (3.5-5.1); Alkaline Phosphatase 236 U/L (38-126); Anion Gap 6 mmol/L (8-16); Aspartate Amino Transferase 37 U/L (14-36); Bilirubin,Total 0.6 mg/dL (0.2-1.3); Blood Urea Nitrogen 15 mg/dL (7-17); Calcium 9.4 mg/dL (8.4-10.2); Carbon Dioxide 23 mmol/L (22-30); Chloride 102 mmol/L (98-107); Estimated CRCL calculation 48 ml/min; Estimated Glomerular Filt Rate > 60; Glucose 98 mg/dL (65-110); Potassium 4.1 mmol/L (3.4-5.0); Sodium 131 mmol/L (137-145)
[2021-05-05 14:00] VITALS: BP 152/51; PULSE 96; RESP 16; TEMP 36.6; O2SAT 96
--- NOTE | 2021-05-05 14:16 | PM.IMPN ---
Progress Note: A&P Assessment and Plan (1) Chest pain: Code(s): R07.9 - Chest pain, unspecified Status: Resolved Assessment and Plan: Atypical chest pain likely GI related (2) Anastomotic leak of intestine: Code(s): K91.89 - Other postprocedural complications and disorders of digestive system Status: Acute Assessment and Plan: sp surgery surgery is following sp ertapenem - per surgery this can be stopped still having osme nausea and abdominal x ray has been ordered (3) Bacteremia: Code(s): R78.81 - Bacteremia Status: Acute Assessment and Plan: sp ertapenem per surgery this can be stopped (4) Cecal volvulus: Onset Date: ~04/11/21 Code(s): K56.2 - Volvulus Status: Acute Assessment and Plan: surgery managing (5) Postoperative ileus: Code(s): K91.89 - Other postprocedural complications and disorders of digestive system; K56.7 - Ileus, unspecified Status: Acute Assessment and Plan: still having some n/v ok to dc abx per surgery (6) HTN (hypertension), benign: Code(s): I10 - Essential (primary) hypertension Status: Acute Assessment and Plan: monitor (7) Anemia: Code(s): D64.9 - Anemia, unspecified Status: Acute Assessment and Plan: monitor (8) Postoperative bleeding from incision: Status: Acute Assessment and Plan: per surgery (9) Lactic acidosis: Onset Date: ~04/2021 Code(s): E87.2 - Acidosis Status: Resolved Assessment and Plan: monitor (10) Abnormal urinalysis: Code(s): R82.90 - Unspecified abnormal findings in urine Status: Resolved Assessment and Plan: no urinary symptoms monitor (11) Chronic kidney disease, stage 3 (moderate): Qualifiers: Chronic kidney disease stage 3 subtype: stage 3a (GFR 45-59) Qualified Code(s): N18.31 - Chronic kidney disease, stage 3a Code(s): N18.3 - Chronic kidney disease, stage 3 (moderate) Status: Chronic Assessment and Plan: monitor cr and electrolytes (12) Polymyositis, organ involvement unspecified: Code(s): M33.20 - Polymyositis, organ involvement unspecified Status: Chronic Assessment and Plan: Follow-up in outpatient setting. (13) Clostridium difficile colitis: Onset Date: Unknown Code(s): A04.72 - Enterocolitis due to Clostridium difficile, not specified as recurrent Status: Resolved Assessment and Plan: no symptoms, hx of (14) DVT prophylaxis: Code(s): Z29.9 - Encounter for prophylactic measures, unspecified Status: Acute Assessment and Plan: SCDs. Subjective Date/time seen: 05/05/21 14:16 still having some nausea and emesis no blood in emesis abdominal x ray ordered Exam Narrative: Gen - elderly pleasant lady chronically unwell thin appearing Chest -clear lungs CV - RRR S1/S2 Abd - soft, +BS. clean incision Ext - No pedal edema Psych - awake and appropriate. Skin - Warm and dry Const: General: cooperative, comfortable, no acute distress, well developed, alert, awake and ill appearing chronically Nutritional Appearance: average body habitus Orientation/consciousness: patient oriented x3 HENMT: Head: normal to inspection, normocephalic and atraumatic Ears: hearing grossly normal bilaterally General nose exam: Normal external nose present Face and sinus: normal facial exam Mouth: Yes dry mucous membranes Eyes: General: appearance normal, both eyes and all related structures Alignment and Position: alignment normal Sclera: sclerae normal Pupils: Equal, round and reactive pupils present EOM: EOMs intact bilaterally Neck: Neck: normal visual inspection, full ROM, no lymphadenopathy, supple and no JVD Thyroid: thyroid normal Lymphatic: no lymphadenopathy noted Resp: Effort & Inspection: normal
[2021-05-05 14:23] VITALS: O2SAT 97
[2021-05-05] MEDS: SODIUM CHLORIDE 0.9% IV 1,000 ML 75 ML IV CONT (14:46)
[2021-05-05] MEDS: ERTAPENEM 1 GM/NS 50 ML 1 GM/50 ML BAG IVPB (14:47)
[2021-05-05 17:01] LABS: Add Urine Microscopic? YES; Appearance Urine Clear (Clear); Bilirubin Urine Negative (Negative); Blood Urine Negative (Negative); Calcium Oxalate Crystals Urine Present /hpf; Color Urine Amber (Yellow); Glucose Urine UA Negative (Negative); Ketones Urine 1+ mg/dL (Negative); Leukocyte Esterase Ur Negative LEU/UL (Negative); Mucus Urine Few /lpf; Nitrate Urine Negative (Negative); Protein Urine 1+ mg/dL (Negative); Specific Grav Ur 1.025 (1.001-1.035); Squamous Epithelial Cell Urine Many /hpf (Few); Urobilinogen Urine Negative mg/dL (<2.0)
[2021-05-05] MEDS: MICAFUNGIN SODIUM 100 MG in SODIUM CHLORIDE 0.9% IV 100 ML IVPB (18:27)
[2021-05-05 20:55] VITALS: BP 148/54; PULSE 100; RESP 18; TEMP 36.8; O2SAT 95
[2021-05-05 21:22] VITALS: PULSE 72
[2021-05-05] MEDS: METOPROLOL TARTRATE 25 MG TABLET PO (21:22)
[2021-05-06] VITALS (7 sets, daily range): BP systolic 111–152; BP diastolic 56–64; PULSE 85–105; RESP 16–22; TEMP 36.6–37.1; O2SAT 95–99
[2021-05-06] MEDS: METOCLOPRAMIDE HCL INJ 10 MG/2 ML VIAL IV PUSH ×2 (00:29→06:09)
[2021-05-06] MEDS: CENTRAL LINE FLUSH 10 ML IV PUSH ×2 (00:29→14:53)
[2021-05-06] MEDS: MORPHINE SULFATE (*CRX) 2 MG/ML INJ IV PUSH ×2 (03:12→14:50)
[2021-05-06] MEDS: ONDANSETRON INJ 4 MG/2 ML VIAL IV PUSH (03:12)
[2021-05-06 04:54] LABS: Anion Gap 9 mmol/L (8-16); Blood Urea Nitrogen 14 mg/dL (7-17); Calcium 8.3 mg/dL (8.4-10.2); Carbon Dioxide 21 mmol/L (22-30); Chloride 106 mmol/L (98-107); Estimated CRCL calculation 48 ml/min; Estimated Glomerular Filt Rate > 60; Glucose 59 mg/dL (65-110); Potassium 3.6 mmol/L (3.4-5.0); Sodium 136 mmol/L (137-145)
[2021-05-06] MEDS: DEXTROSE 50% 25 GM/50 ML SYRINGE IV PUSH (05:21)
[2021-05-06 05:32] LABS: Glucose Point of Care 66 mg/dl (65-105)
[2021-05-06] MEDS: LEVOTHYROXINE SODIUM 75 MCG TABLET PO (06:09)
[2021-05-06] MEDS: SODIUM CHLORIDE 0.9% IV 1,000 ML 75 ML IV CONT (06:11)
[2021-05-06 07:47] LABS: Glucose Point of Care 102 mg/dl (65-105)
[2021-05-06] MEDS: amLODIPine BESYLATE 2.5 MG TABLET PO (09:20)
[2021-05-06] MEDS: PANTOPRAZOLE 40 MG TABLET PO (09:20)
[2021-05-06] MEDS: GABAPENTIN 100 MG CAPSULE PO ×3 (09:20→17:51)
[2021-05-06] MEDS: METOPROLOL TARTRATE 25 MG TABLET PO ×2 (09:20→20:07)
[2021-05-06 11:44] LABS: Glucose Point of Care 94 mg/dl (65-105)
--- NOTE | 2021-05-06 12:37 | PM.IMPN ---
Progress Note: A&P Assessment and Plan (1) Nausea and vomiting: Qualifiers: Vomiting type: unspecified Qualified Code(s): R11.2 - Nausea with vomiting, unspecified Code(s): R11.2 - Nausea with vomiting, unspecified Status: Acute Assessment and Plan: Patient developed nausea and vomiting over the weekend. X-ray does not show ileus or obstructive pattern. Currently on ice chips but plan to advance diet. Continue Reglan. (2) Anastomotic leak of intestine: Code(s): K91.89 - Other postprocedural complications and disorders of digestive system Status: Acute Assessment and Plan: WBC jumped to 26K on 04/19. CT Ch/A/P 04/19 showing post-op ileus and surgical changes but no acute findings. BCx 04/19 returned Enterobacter cloacae (1of2) sensitive to Ertapenem. Leukocytosis was up/down and with fevers. CT 04/23 showing abscess formation concerning for anastomotic leaks. She was taken back to the OR 04/23 and underwent re-exploration of recent laparotomy with drainage of multiple intra-abdominal abscesses and ileocolic resection with [id number] ileocolic anastomosis. Micafungin was added to the Ertapenem. She has tolerated the procedure well. She is recovering well. WBC normal and fevers have resolved. Now having n/v as mentioned above. Continue routine post-operative care. Continue current antifungal and antibiotic treatment. Continue PT/OT. Patient has been accepted at [facility] with plans to transfer there when able. (3) Superficial postoperative wound infection: Code(s): T81.49XA - Infection following a procedure, other surgical site, initial encounter Status: Acute Assessment and Plan: Noted. Continue routie cressing changes. (4) Chest pain: Code(s): R07.9 - Chest pain, unspecified Status: Resolved Assessment and Plan: Patient with chest pain 05/02 but vague symptoms. She states better with belching to suggest GI related. EKG showing no acute findings. No recurrence. Will follow. (5) Bacteremia: Code(s): R78.81 - Bacteremia Status: Acute Assessment and Plan: [place] related to the anastomotic leaks and abdominal abscesses. As above. (6) Cecal volvulus: Onset Date: ~04/11/21 Code(s): K56.2 - Volvulus Status: Acute Assessment and Plan: Patient presents to ED with abd pain, nausea and vomiting. CT Abd/Pelvis showing distended bowel with air and fluid most likely cecum with ascending colonic transition point consistent with volvulus. Patient was made NPO, NGT placed and General surgery consulted. Patient underwent open right hemicolectomy with ileocolic anastomosis 04/12/21. Patient did well initially but then her WBC became elevated with CT 04/23 showing abscess formation concerning for anastomotic leak. As above. (7) Postoperative ileus: Code(s): K91.89 - Other postprocedural complications and disorders of digestive system; K56.7 - Ileus, unspecified Status: Acute Assessment and Plan: CT scan 04/19 showing moderately distended jejunum consistent with ileus. NG was placed but KUB showed persistently dilated small bowel likely adynamic ileus. Now s/p repeat surgery on 04/23. Ileus has resolved with +BMs. Appreciate General surgery input. Hopefully the n/v will resolve. (8) HTN (hypertension), benign: Code(s): I10 - Essential (primary) hypertension Status: Acute Assessment and Plan: Patient's blood pressure was reviewed on 05/06 Blood pressure was well controlled but became higher with the change in her condition felt related to pain. Also, blood pressure was being measured in the thigh which was much higher than in the RUE. She was started on IV metoprolol with improved BP. Hydralazine IV available as needed. Wide pulse pressure related to underlying atherosclerotic disease, hypovolemia, and/or vasodilation. Echo showing EF 65-70% with diastolic dysfunction Gr
--- NOTE | 2021-05-06 12:56 | PCNFU ---
Nutrition Follow-Up Complete: Inadequate oral intake related cecal volvulus as evidenced by NPO Goal: Pt to meet 75% of estimated nutritional needs Pt is slowly progressing towards goal. No new goal at this time. Pt current nutrition is Clear liquid diet Last recorded weight is 54.4 kg, down 0.7kg since last reported weight on 05/05/21. Recommend re-weighing prior to D/C. Bowel Motility: +BM reported 05/06/21 Labs Reviewed: Hgb 8.7, Hct 31.6, Alb 3.1, Na 136, Ca 8.3, AST 37, Glu 59, ALP 236 Meds Noted: Norvasc, Gabapentin, Synthroid, Lopressor, Morphine Sulfate, Zofran, Protonix Skin: Medial abdomen incision Additional Notes: Pt was previously on a low fiber (low residue) diet with reported intake of 75%, 50%, and 0%. Pt was made NPO last night (05/05/21) and this am (05/06/21) due to KUB. Pt is currently on a clear liquid diet with no reported intake. Pt has been having nausea and episodes of emesis. Recommending advancing diet as tolerated by pt. Once diet is advanced, recommend adding dietary supplement of Ensure Compact BID to provide an additional 220kcal and 9g of protein to increase caloric intake. Agree with diet orders. Will continue to follow. Will monitor labs, medication, wt, and reported intake every 3 days.
--- NOTE | 2021-05-06 13:29 | PM.PNGS ---
Progress Note: A&P Assessment and Plan (1) Nausea and vomiting: Qualifiers: Vomiting type: unspecified Qualified Code(s): R11.2 - Nausea with vomiting, unspecified Code(s): R11.2 - Nausea with vomiting, unspecified Status: Acute Assessment and Plan: Unclear etiology. Appears to be resolving. Plain films did not suggest ileus or obstruction. Will try advancing her diet again today and see how she tolerates this. Continue Miralax, this was held while NPO but I have asked the nurse to give this again today. Continue Reglan. 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 Had vomiting over the weekend. No evidence of ileus or obstruction on plain films. Advancing diet today. Still on IV Micafungin and IV Ertapenem (day 14), scheduled to stop tomorrow. Continue PT/OT. Plan for patient to discharge to [facility] when stable. (3) Superficial postoperative wound infection: Code(s): T81.49XA - Infection following a procedure, other surgical site, initial encounter Status: Acute Assessment and Plan: Drainage from the incision noted over the weekend with rita now removed and an open wound at the bottom of the incision. Continue packing dressing changes, appears to be draining well. No erythema. (4) E coli bacteremia: Code(s): R78.81 - Bacteremia; B96.20 - Unspecified Escherichia coli [E. coli] as the cause of diseases classified elsewhere Status: Acute Additional Plan I have discussed the plan of care with Dr. Martinez. Subjective Subjective Date/Time Seen: 05/06/21 11:29 Patient reports: no new complaints, feels better, flatus, no bowel movement and afebrile Interval history: Patient seen and examined today. She reports feeling much better than yesterday. Denies nausea or vomiting since yesterday. She is passing gas, but has not had a BM x 2 days. No other complaints. She is requesting to try a diet. Review of Systems Review of Systems: All systems reviewed & are unremarkable except as noted in HPI and below Exam Const: General: awake; No acute distress Orientation/consciousness: patient oriented x3 GI: Inspection: non-distended GI Palp: Yes Soft to palpation, No Tenderness to palpation present (GI) and No Guarding due to palpation present (GI) Auscultation: normal bowel sounds Other: Midline incision with steri strips in place and small open wound at the base of the incision with scan amount of purulent drainage, packing removed, there is tunneling about 3-4 cm cephalad along the incision but the visible wound bed appears pink and healthy. Neuro: General: moves all extremities and no focal motor deficits Extrem: General: normal to inspection and no calf tenderness Psych: Insight: Good insight present (Psych) Judgement: Good judgement present (Psych) Objective Data Vital Signs Vital Signs: Vital Signs - 24 hr 05/05/21 14:00 05/05/21 14:23 05/05/21 20:55 Temperature 97.8 F 98.2 F Pulse Rate 96 100 Respiratory Rate 16 18 Blood Pressure 152/51 H 148/54 H Pulse Oximetry 96 97 95 05/05/21 21:22 05/06/21 00:09 05/06/21 05:16 Temperature 97.8 F Pulse Rate 72 103 H Respiratory Rate 16 Blood Pressure 146/57 H Pulse Oximetry 98 97 05/06/21 08:00 05/06/21 09:20 Temperature Pulse Rate 105 H 105 H Respiratory Rate 16 Blood Pressure Pulse Oximetry 97 Intake/Output Intake/Output: Intake & Output 05/03/21 05/04/21 05/05/21 05/06/21 23:59 23:59 23:59 23:59 Intake Total 1150 2570 500 1050 Output Total 1150 500 250 Balance 1150 1420 0 800 Meds/Results Medications: Active Medications Generic Name Dose Route Start Last Admin Trade Name Freq PRN Reason Stop Dose Admin Acetaminophen 1,000 mg 04/26/21 13:31 Acetaminophen 500 Mg Tablet PO Q6H PRN Mild Pain (1-3) or Fever Hy
[2021-05-06] MEDS: ERTAPENEM 1 GM/NS 50 ML 1 GM/50 ML BAG IVPB (14:51)
[2021-05-06] MEDS: DEXTROSE 5%/0.9% SOD CHL 1,000 ML 50 ML IV CONT (14:52)
[2021-05-06] MEDS: polyethylene glycoL 3350 17 GM POWD.PACK PO (14:52)
[2021-05-06] MEDS: LORATADINE 10 MG TABLET PO (17:48)
[2021-05-06] MEDS: HYDROcodone/acetaminophen (*CRX) 5-325 MG TABLET 1 TAB PO (17:53)
[2021-05-06] MEDS: MICAFUNGIN SODIUM 100 MG in SODIUM CHLORIDE 0.9% IV 100 ML IVPB (20:06)
[2021-05-06 20:22] LABS: Glucose Point of Care 121 mg/dl (65-105)
[2021-05-06] MEDS: HYDROcodone/acetaminophen (*CRX) 7.5-325 MG TABLET 1 TAB PO (21:57)
--- NOTE | 2021-05-07 02:50 | PC.NURSE ---
4 LARGE BILE COLORED EMESIS SHAHAB ZARATE DO NOTIFIED AND NEW ORDERS RECEIVED FOR NG TUBE INSERTION, WILL NOTIFY SURGEON IN THE AM WITH UPDATES.
[2021-05-07] MEDS: HYDROcodone/acetaminophen (*CRX) 7.5-325 MG TABLET 1 TAB PO (03:07)
--- NOTE | 2021-05-07 03:20 | PM.EVENT ---
Event Note Event Note Event Note: Nursing staff called patient was having multiple episodes of bilious emesis. Patient was not complaining of abdominal pain. She was not complaining of any nausea. NG was placed to low intermittent suction. KUB was reviewed demonstrated multiple dilated loops of bowel NG appear to be in appropriate position. I have requested nursing staff update the general surgery service in a.m.. Patient has been made NPO.
[2021-05-07 04:44] VITALS: O2SAT 99
[2021-05-07] MEDS: CENTRAL LINE FLUSH 10 ML IV PUSH ×3 (06:02→22:00)
[2021-05-07] MEDS: LEVOTHYROXINE SODIUM 75 MCG TABLET PO (06:02)
[2021-05-07 06:08] LABS: Basophils Absolute Auto 0.1 K/mm3 (0.0-0.1); Basophils Percent Auto 1.1 % (0.2-1.2); Eosinophils Percent Auto 0.6 % (0-4.4); Hemoglobin 7.5 g/dL (12.0-15.0); Immature Granulocyte Absolute 0.08 K/mm3 (0.00-0.031); Immature Granulocyte Percent A 1.7 % (0-0.5); Lymphocytes Absolute Auto 0.96 K/mm3 (0.9-3.2); Lymphocytes Percent Auto 20.2 % (18.3-44.2); Mean Corpuscular HGB Conc 31.3 g/dl (32-36); Mean Corpuscular Hemoglobin 28.2 pg (26-34); Mean Corpuscular Volume 90.2 fl (80-100); Mean Platelet Volume 9.3 fl (7.4-10.4); Monocytes Absolute Auto 0.7 K/mm3 (0.1-0.6); Monocytes Percent Auto 14.9 % (2.6-8.5); Neutrophils Absolute Auto 2.9 K/mm3 (1.3-6.7); Neutrophils Percent Auto 61.5 % (45.5-73.1); Platelet Count Result 326 k/mm3 (150-375); Red Blood Count 2.66 M/mm3 (4.2-5.4); Red Cell Distribution Width 14.8 % (11.5-14.5); White Blood Count 4.8 K/mm3 (4.5-10.0)
[2021-05-07 06:17] LABS: Alanine Aminotransferase 15 U/L (4-35); Albumin Level 2.8 g/dL (3.5-5.1); Alkaline Phosphatase 169 U/L (38-126); Anion Gap 6 mmol/L (8-16); Aspartate Amino Transferase 30 U/L (14-36); Bilirubin,Total 0.3 mg/dL (0.2-1.3); Blood Urea Nitrogen 12 mg/dL (7-17); CRP 2.3 mg/dL (<1.0); Carbon Dioxide 28 mmol/L (22-30); Chloride 104 mmol/L (98-107); Estimated CRCL calculation 48 ml/min; Estimated Glomerular Filt Rate > 60; Glucose 132 mg/dL (65-110); Magnesium 2.1 mg/dL (1.6-2.3); Phosphorus 3.5 mg/dL (2.5-4.5); Potassium 3.4 mmol/L (3.4-5.0); Sodium 138 mmol/L (137-145)
[2021-05-07 07:07] VITALS: BP 134/80; PULSE 88; RESP 17; TEMP 36.8; O2SAT 96
[2021-05-07] MEDS: DEXTROSE 5%/0.9% SOD CHL 1,000 ML 50 ML IV CONT ×2 (10:08→23:58)
[2021-05-07 10:09] VITALS: PULSE 88
[2021-05-07] MEDS: polyethylene glycoL 3350 17 GM POWD.PACK PO (10:09)
[2021-05-07] MEDS: amLODIPine BESYLATE 2.5 MG TABLET PO (10:09)
[2021-05-07] MEDS: GABAPENTIN 100 MG CAPSULE PO ×3 (10:09→16:44)
[2021-05-07] MEDS: METOPROLOL TARTRATE 25 MG TABLET PO (10:09)
--- NOTE | 2021-05-07 10:38 | PM.IMPN ---
Progress Note: A&P Assessment and Plan (1) Nausea and vomiting: Qualifiers: Vomiting type: unspecified Qualified Code(s): R11.2 - Nausea with vomiting, unspecified Code(s): R11.2 - Nausea with vomiting, unspecified Status: Acute Assessment and Plan: Patient developed nausea vomiting that has persisted now requiring NG tube. X-ray after NG tube placed did not show evidence of bowel obstruction. Etiology unclear. Labs are unrevealing. Left lower lobe airspace disease but no clinical symptoms of pneumonia. She is on ertapenem which should cover for most bacterial infections. We will check an MRSA nasal swab. COVID also can cause GI symptoms and as such will check COVID swab. consider repeat CT scan. She continues to have bowel movements. Will check lipase and lactic acid level. Consider adding Carafate. (2) Anastomotic leak of intestine: Code(s): K91.89 - Other postprocedural complications and disorders of digestive system Status: Acute Assessment and Plan: WBC jumped to 26K on 04/19. CT Ch/A/P 04/19 showing post-op ileus and surgical changes but no acute findings. BCx 04/19 returned Enterobacter cloacae (1of2) sensitive to Ertapenem. Leukocytosis was up/down and with fevers. CT 04/23 showing abscess formation concerning for anastomotic leaks. She was taken back to the OR 04/23 and underwent re-exploration of recent laparotomy with drainage of multiple intra-abdominal abscesses and ileocolic resection with [id number] ileocolic anastomosis. Micafungin was added to the Ertapenem. She has tolerated the procedure well. She is recovering well. WBC normal and fevers have resolved. Now having n/v as mentioned above. Continue routine post-operative care. Continue PT/OT. Patient has been accepted at [facility] with plans to transfer there when able. Stop antibiotics and antifungals after today. (3) Superficial postoperative wound infection: Code(s): T81.49XA - Infection following a procedure, other surgical site, initial encounter Status: Acute Assessment and Plan: Noted. Wound culture growing scant growth of Enterobacter cloacae complex. Sensitivities pending. Continue dressing changes. (4) Chest pain: Code(s): R07.9 - Chest pain, unspecified Status: Resolved Assessment and Plan: Patient with chest pain 05/02 but vague symptoms. She states better with belching to suggest GI related. EKG showing no acute findings. No recurrence. Will follow. (5) Bacteremia: Code(s): R78.81 - Bacteremia Status: Acute Assessment and Plan: [place] related to the anastomotic leaks and abdominal abscesses. As above. (6) Cecal volvulus: Onset Date: ~04/11/21 Code(s): K56.2 - Volvulus Status: Acute Assessment and Plan: Patient presents to ED with abd pain, nausea and vomiting. CT Abd/Pelvis showing distended bowel with air and fluid most likely cecum with ascending colonic transition point consistent with volvulus. Patient was made NPO, NGT placed and General surgery consulted. Patient underwent open right hemicolectomy with ileocolic anastomosis 04/12/21. Patient did well initially but then her WBC became elevated with CT 04/23 showing abscess formation concerning for anastomotic leak. As above. (7) Postoperative ileus: Code(s): K91.89 - Other postprocedural complications and disorders of digestive system; K56.7 - Ileus, unspecified Status: Acute Assessment and Plan: CT scan 04/19 showing moderately distended jejunum consistent with ileus. NG was placed but KUB showed persistently dilated small bowel likely adynamic ileus. Now s/p repeat surgery on 04/23. Ileus has resolved with +BMs but now with new onset nausea vomiting without clear etiology.. Appreciate General surgery input. (8) HTN (hypertension), benign: Code(s): I10 - Essential (primary) hypertension Status: Acute A
[2021-05-07 12:09] LABS: Lactic Acid Reflex 0.8 mmol/L (0.7-2.1); Lipase 88 U/L (23-300)
[2021-05-07 12:21] LABS: Glucose Point of Care 106 mg/dl (65-105)
[2021-05-07 13:02] LABS: SARS-CoV-2 RNA PCR Negative
--- NOTE | 2021-05-07 14:03 | PM.PNGS ---
Progress Note: A&P Assessment and Plan (1) Nausea and vomiting: Qualifiers: Vomiting type: unspecified Qualified Code(s): R11.2 - Nausea with vomiting, unspecified Code(s): R11.2 - Nausea with vomiting, unspecified Status: Acute Assessment and Plan: Unclear etiology. More vomiting early this morning with NG tube now in place. COVID tested today and negative. She is not complaining of any other additional symptoms. Continue NG tube decompression, NPO status, and IV fluids. 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 No signs of infection, WBC normal, afebrile, and not complaining of abdominal pain. She is not really tender on exam either. Will start with getting a SBFT. May need to consider repeating a CT scan if she develops more abd pain or signs of infection, or is not progressing. IV Micafungin and IV Ertapenem stopped today. Continue PT/OT. (3) Superficial postoperative wound infection: Code(s): T81.49XA - Infection following a procedure, other surgical site, initial encounter Status: Acute Assessment and Plan: Continue packing dressing changes, appears to be draining well. No erythema. (4) E coli bacteremia: Code(s): R78.81 - Bacteremia; B96.20 - Unspecified Escherichia coli [E. coli] as the cause of diseases classified elsewhere Status: Acute Additional Plan I have discussed the plan of care with Dr. Martinez. Subjective Subjective Date/Time Seen: 05/07/21 14:03 Patient reports: no flatus, no bowel movement and vomiting Interval history: Patient seen and examined. She reports feeling well yesterday and felt like she was tolerating her liquid diet, until in the evening she sat up in bed and began having back pain. She then reports noticing some generalized abdominal pain. Denies bloating or nausea. She had a pain pill around 3am. She reports feeling like she needed to cough and then began vomiting. She denies any difficulties with swallowing, coughing, shortness of breath, congestion, sore throat, or other symptoms. She denies even having nausea prior to the vomiting. She had an NG tube placed and nearly 1500 cc out the NG after placing. Patient had a BM yesterday, but denies flatus or BM today. She denies any abdominal pain today and has not required any pain medication since her pain pill overnight. Exam Const: General: no acute distress and awake Orientation/consciousness: patient oriented x3 GI: Inspection: non-distended GI Palp: Yes Soft to palpation, Yes Tenderness to palpation present (GI) (very mild TTP in LUQ, otherwise nontender with even deep palpation), No Guarding due to palpation present (GI) and No Rebound tenderness present Auscultation: absent bowel sounds Other: Midline incision with steri strips in place and small open wound at the base of the incision with packing, dressing dry. No erythema Skin: General skin exam: normal color Neuro: General: moves all extremities and no focal motor deficits Extrem: General: normal to inspection, no pedal edema and no calf tenderness Psych: Insight: Good insight present (Psych) Judgement: Good judgement present (Psych) Objective Data Vital Signs Vital Signs: Vital Signs - 24 hr 05/06/21 20:07 05/06/21 23:24 05/07/21 04:44 Temperature 98.2 F Pulse Rate 90 90 Respiratory Rate 18 Blood Pressure 111/64 Pulse Oximetry 99 99 05/07/21 07:07 05/07/21 10:09 Temperature 98.2 F Pulse Rate 88 88 Respiratory Rate 17 Blood Pressure 134/80 Pulse Oximetry 96 Intake/Output Intake/Output: Intake & Output 05/04/21 05/05/21 05/06/21 05/07/21 23:59 23:59 23:59 23:59 Intake Total 2570 650 1630 1000 Output Total 1150 107 300 0576 Balance 6539 100 6666 -490 Meds/Results Medications: Active Medications
[2021-05-07 15:00] VITALS: BP 151/64; PULSE 85; RESP 19; TEMP 36.8; O2SAT 97
--- NOTE | 2021-05-07 15:17 | PCPTNOTE ---
Attempted to see patient for PT at this time, unable due to patient out of room for testing.
[2021-05-07] MEDS: LORATADINE 10 MG TABLET PO (16:43)
[2021-05-07] MEDS: MORPHINE SULFATE (*CRX) 2 MG/ML INJ IV PUSH ×2 (18:08→21:26)
[2021-05-07 19:19] VITALS: PULSE 95; O2SAT 92
[2021-05-07] MEDS: ONDANSETRON INJ 4 MG/2 ML VIAL IV PUSH (21:26)
[2021-05-07 22:02] VITALS: BP 161/77; PULSE 95; RESP 18; TEMP 36.4; O2SAT 94
[2021-05-08] VITALS (10 sets, daily range): BP systolic 104–165; BP diastolic 60–70; PULSE 77–91; RESP 18–20; TEMP 36.3–36.9; O2SAT 94–97
[2021-05-08 05:50] LABS: Anion Gap 7 mmol/L (8-16); Blood Urea Nitrogen 12 mg/dL (7-17); Calcium 9.8 mg/dL (8.4-10.2); Carbon Dioxide 28 mmol/L (22-30); Chloride 108 mmol/L (98-107); Estimated CRCL calculation 48 ml/min; Estimated Glomerular Filt Rate > 60; Glucose 123 mg/dL (65-110); Hematocrit 28.5 % (37.0-47.0); Hemoglobin 8.7 g/dL (12.0-15.0); Mean Corpuscular HGB Conc 30.5 g/dl (32-36); Mean Corpuscular Volume 91.6 fl (80-100); Mean Platelet Volume 9.2 fl (7.4-10.4); Platelet Count Result 404 k/mm3 (150-375); Potassium 3.3 mmol/L (3.4-5.0); Red Blood Count 3.11 M/mm3 (4.2-5.4); Red Cell Distribution Width 14.8 % (11.5-14.5); Sodium 143 mmol/L (137-145); White Blood Count 4.5 K/mm3 (4.5-10.0)
[2021-05-08] MEDS: CENTRAL LINE FLUSH 10 ML IV PUSH ×3 (06:13→20:19)
[2021-05-08] MEDS: PANTOPRAZOLE SODIUM IV 40 MG VIAL IV PUSH (08:49)
[2021-05-08] MEDS: METOPROLOL TARTRATE INJ 5 MG/5 ML VIAL IV PUSH ×3 (08:54→17:15)
--- NOTE | 2021-05-08 10:12 | PM.PNGS ---
Progress Note: A&P Assessment and Plan (1) Nausea and vomiting: Qualifiers: Vomiting type: unspecified Qualified Code(s): R11.2 - Nausea with vomiting, unspecified Code(s): R11.2 - Nausea with vomiting, unspecified Status: Acute Assessment and Plan: SBFT suggested proximal small bowel obstruction with no contrast moving through the jejunum in the left mid abdomen. Will continue to treat this with NG tube decompression and bowel rest. 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 No erythema. (4) E coli bacteremia: Code(s): R78.81 - Bacteremia; B96.20 - Unspecified Escherichia coli [E. coli] as the cause of diseases classified elsewhere Status: Acute Additional Plan I have discussed the plan of care with Dr. Martinez. Subjective Subjective Date/Time Seen: 05/08/21 09:12 Patient reports: voiding w/o difficulty, no flatus, no bowel movement and afebrile Interval history: Patient seen and examined. She is reporting some abdominal pain that comes in waves through the night and this morning. She reports vomiting yesterday evening while her NG tube was clamped but no more throughout the night. There was a BM documented through the night, but both the patient and the nurse deny the patient moving her bowels that they know of. She denies flatus. No other complaints at this time. Review of Systems Review of Systems: All systems reviewed & are unremarkable except as noted in HPI and below Exam Const: General: comfortable, no acute distress and alert Orientation/consciousness: patient oriented x3 GI: Inspection: other (mildly distended) GI Palp: Yes Soft to palpation, No Tenderness to palpation present (GI) and No Guarding due to palpation present (GI) Auscultation: absent bowel sounds Other: Midline incision with steri strips in place and small open wound at the base of the incision with packing, dressing dry. No erythema Neuro: General: moves all extremities and no focal motor deficits Extrem: General: normal to inspection and no calf tenderness Psych: Insight: Good insight present (Psych) Judgement: Good judgement present (Psych) Objective Data Vital Signs Vital Signs: Vital Signs - 24 hr 05/07/21 15:00 05/07/21 19:19 05/07/21 22:02 Temperature 98.2 F 97.6 F Pulse Rate 85 95 95 Respiratory Rate 19 18 Blood Pressure 151/64 H 161/77 H Pulse Oximetry 97 92 94 05/08/21 05:41 05/08/21 07:42 05/08/21 08:54 Temperature 97.9 F 97.4 F L Pulse Rate 87 84 91 Respiratory Rate 18 18 Blood Pressure 147/70 H 165/60 H Pulse Oximetry 96 96 Intake/Output Intake/Output: Intake & Output 05/05/21 05/06/21 05/07/21 05/08/21 23:59 23:59 23:59 23:59 Intake Total 650 1630 2000 120 Output Total 687 508 0582 1151 Balance 150 1180 -190 -1031 Meds/Results Medications: Active Medications Generic Name Dose Route Start Last Admin Trade Name Freq PRN Reason Stop Dose Admin Acetaminophen 325 mg 05/08/21 07:24 Acetaminophen 325 Mg Suppository RECTAL Q4H PRN Mild Pain (1-3) or Fever Albuterol 2 puff 04/18/21 09:30 Albuterol Sulfate (*Sp) Aerosol 1 Puff INHALATION TID PRN Shortness Of Breath Dextrose 12.5 gm 05/06/21 05:15 Dextrose 50% 25 Gm/50 Ml Syringe IV PUSH PRN PRN Hypoglycemia Protocol Glucagon 1 mg 05/06/21 05:15 Glucagon For Inj 1 Mg Vial IM PRN PRN Hypoglycemia Protocol Glucose 15 gm 05/06/21 05:15 Glucose Oral Gel 15 Gm Of Glucse In 37.5 Gm Tube PO PRN PRN
[2021-05-08 11:01] LABS: Basophils Absolute Auto 0.1 K/mm3 (0.0-0.1); Basophils Percent Auto 1.2 % (0.2-1.2); Eosinophils Percent Auto 0.7 % (0-4.4); Hemoglobin 8.7 g/dL (12.0-15.0); Immature Granulocyte Absolute 0.08 K/mm3 (0.00-0.031); Immature Granulocyte Percent A 1.9 % (0-0.5); Lymphocytes Absolute Auto 0.95 K/mm3 (0.9-3.2); Lymphocytes Percent Auto 22.5 % (18.3-44.2); Mean Corpuscular HGB Conc 31.1 g/dl (32-36); Mean Corpuscular Hemoglobin 28.2 pg (26-34); Mean Corpuscular Volume 90.6 fl (80-100); Mean Platelet Volume 9.3 fl (7.4-10.4); Monocytes Absolute Auto 0.6 K/mm3 (0.1-0.6); Monocytes Percent Auto 14.9 % (2.6-8.5); Neutrophils Absolute Auto 2.5 K/mm3 (1.3-6.7); Neutrophils Percent Auto 58.8 % (45.5-73.1); Platelet Count Result 355 k/mm3 (150-375); Red Blood Count 3.09 M/mm3 (4.2-5.4); Red Cell Distribution Width 14.6 % (11.5-14.5); White Blood Count 4.2 K/mm3 (4.5-10.0)
[2021-05-08 11:10] LABS: Alanine Aminotransferase 15 U/L (4-35); Albumin Level 3.2 g/dL (3.5-5.1); Alkaline Phosphatase 168 U/L (38-126); Anion Gap 5 mmol/L (8-16); Aspartate Amino Transferase 59 U/L (14-36); Bilirubin,Total 0.5 mg/dL (0.2-1.3); Blood Urea Nitrogen 13 mg/dL (7-17); Calcium 9.5 mg/dL (8.4-10.2); Carbon Dioxide 30 mmol/L (22-30); Chloride 106 mmol/L (98-107); Estimated CRCL calculation 48 ml/min; Estimated Glomerular Filt Rate > 60; Glucose 121 mg/dL (65-110); Magnesium 2.2 mg/dL (1.6-2.3); Partial Thromboplastin Time 28.1 SECONDS (22.3-36.8); Potassium 3.1 mmol/L (3.4-5.0); Sodium 141 mmol/L (137-145)
[2021-05-08 11:18] LABS: Transferrin 205 mg/dL (206-381)
--- NOTE | 2021-05-08 11:36 | PCNFU ---
Addendum entered by Annetta Larson RD, LDN 05/08/21 12:44: Med changed to Clinimix E 4.25/5 at 80 ml/hr with 250 ml of 20% Lipid Emulsion. PPN providing 1153 kcals and 82 gms protein. Meeting 70% of caloric needs and 100% protein needs. Original Note: Nutrition Follow-Up Complete: Inadequate oral intake related cecal volvulus as evidenced by NPO Goal: Pt to meet 75% of estimated nutritional needs Patient has limited progress towards goal. We will continue current goal. Pt current nutrition is TPN. Last recorded weight is 53 kg,down from 60 kg on admit. Bowel Motility:+BM reported 3/ Labs Reviewed:Glu 123, K 3.3,Hct 28.5,Hgb 8.7 Meds Noted:Clinimix E 5/15 at 50 ml/hr with 250 ml of 20% Lipid Emulsion,Lopressor,Protonix. Skin: wound abdomen incision. Additional Notes: Patient had NGT placed. SBFT indicating obstruction. TPN started today. Current TPN is providing 1352 kcals and 60 gms protein. Meeting 82% of caloric needs and 100% of protein needs. Agree with TPN orders at this time. Will monitor labs, medication, wt, and reported intake every Thursday and Thursday.
[2021-05-08 11:56] LABS: Glucose Point of Care 122 mg/dl (65-105)
[2021-05-08] MEDS: MORPHINE SULFATE (*CRX) 2 MG/ML INJ IV PUSH (12:47)
[2021-05-08] MEDS: FAT EMULSIONS IV 20% 250 ML 20.83 ML IVPB (13:20)
--- NOTE | 2021-05-08 13:20 | PM.IMPN ---
Progress Note: A&P Assessment and Plan (1) Nausea and vomiting: Qualifiers: Vomiting type: unspecified Qualified Code(s): R11.2 - Nausea with vomiting, unspecified Code(s): R11.2 - Nausea with vomiting, unspecified Status: Acute Assessment and Plan: Patient developed nausea and vomiting over the weekend. Reuired NGT to be replaced. X-ray does not show ileus or obstructive pattern but SBFT today showing SBO. Lactic and WBC normal. Change to IV medications. Continue NGT to suction. Resume TPN. Appreciate General surgery input. Discuss with surgery about repeat CT Abd/pelvis. (2) Anastomotic leak of intestine: Code(s): K91.89 - Other postprocedural complications and disorders of digestive system Status: Acute Assessment and Plan: WBC jumped to 26K on 04/19. CT Ch/A/P 04/19 showing post-op ileus and surgical changes but no acute findings. BCx 04/19 returned Enterobacter cloacae (1of2) sensitive to Ertapenem. Leukocytosis was up/down and with fevers. CT 04/23 showing abscess formation concerning for anastomotic leaks. She was taken back to the OR 04/23 and underwent re-exploration of recent laparotomy with drainage of multiple intra-abdominal abscesses and ileocolic resection with [id number] ileocolic anastomosis. Micafungin was added to the Ertapenem. She has tolerated the repeat procedure well. WBC remains normal and no fevers. Now having n/v as mentioned above related to SBO. She has completed antifungal and antibiotic treatment. Continue PT/OT. (3) Superficial postoperative wound infection: Code(s): T81.49XA - Infection following a procedure, other surgical site, initial encounter Status: Acute Assessment and Plan: Noted. WCx growing scant growth of Enterobacter cloacae complex. Enterocutaneous fistula? Continue routine dressing changes. (4) Chest pain: Code(s): R07.9 - Chest pain, unspecified Status: Resolved Assessment and Plan: Patient with chest pain 05/02 but vague symptoms. She states better with belching to suggest GI related. EKG showing no acute findings. No recurrence. Will continue to follow. (5) Bacteremia: Code(s): R78.81 - Bacteremia Status: Acute Assessment and Plan: [place] related to the anastomotic leaks and abdominal abscesses. Currently off antifungal and anti bacterial medication. Follow closely. Re-culture if she develops fever or other concerning symptoms. As above. (6) Cecal volvulus: Onset Date: ~04/11/21 Code(s): K56.2 - Volvulus Status: Acute Assessment and Plan: Patient presents to ED with abd pain, nausea and vomiting. CT Abd/Pelvis showing distended bowel with air and fluid most likely cecum with ascending colonic transition point consistent with volvulus. Patient was made NPO, NGT placed and General surgery consulted. Patient underwent open right hemicolectomy with ileocolic anastomosis 04/12/21. Patient did well initially but then her WBC became elevated with CT 04/23 showing abscess formation concerning for anastomotic leak. As above. (7) Postoperative ileus: Code(s): K91.89 - Other postprocedural complications and disorders of digestive system; K56.7 - Ileus, unspecified Status: Acute Assessment and Plan: CT scan 04/19 showing moderately distended jejunum consistent with ileus. NG was placed but KUB showed persistently dilated small bowel likely adynamic ileus. Now s/p repeat surgery on 04/23. As above with SBO now. (8) HTN (hypertension), benign: Code(s): I10 - Essential (primary) hypertension Status: Acute Assessment and Plan: Patient's blood pressure was reviewed on 05/08 BP more elevated. Change to metoprolol IV. Follow (9) Anemia: Code(s): D64.9 - Anemia, unspecified Status: Acute Assessment and Plan: Hgb 11.9 on admission. EBL was 100mL. Suspect related to acute blood loss anemia from surgery and ble
[2021-05-08] MEDS: KCL 40 MEQ/WATER 100 ML 100 ML 25 ML IVPB (13:28)
--- NOTE | 2021-05-08 13:46 | PC.NURSE ---
On 05/08/21, the student, Muna Hung, provided care and completed [facility] documentation on this patient. I have reviewed the student's documentation and agree with the findings.
[2021-05-08 18:40] LABS: Glucose Point of Care 104 mg/dl (65-105)
[2021-05-09] VITALS (8 sets, daily range): BP systolic 126–176; BP diastolic 43–70; PULSE 72–77; RESP 16–20; TEMP 36.8–37.4; O2SAT 97–99
[2021-05-09] MEDS: METOPROLOL TARTRATE INJ 5 MG/5 ML VIAL IV PUSH ×4 (00:43→18:25)
[2021-05-09] MEDS: MORPHINE SULFATE (*CRX) 2 MG/ML INJ IV PUSH (00:44)
[2021-05-09 01:02] LABS: Glucose Point of Care 117 mg/dl (65-105)
[2021-05-09 05:24] LABS: Basophils Absolute Auto 0.1 K/mm3 (0.0-0.1); Eosinophils Absolute Auto 0.2 K/mm3 (0-0.3); Eosinophils Percent Auto 3.2 % (0-4.4); Hematocrit 27.3 % (37.0-47.0); Hemoglobin 8.3 g/dL (12.0-15.0); Immature Granulocyte Absolute 0.07 K/mm3 (0.00-0.031); Immature Granulocyte Percent A 1.4 % (0-0.5); Lymphocytes Percent Auto 22.2 % (18.3-44.2); Mean Corpuscular HGB Conc 30.4 g/dl (32-36); Mean Corpuscular Hemoglobin 28.1 pg (26-34); Mean Corpuscular Volume 92.5 fl (80-100); Mean Platelet Volume 9.5 fl (7.4-10.4); Monocytes Absolute Auto 0.7 K/mm3 (0.1-0.6); Monocytes Percent Auto 13.5 % (2.6-8.5); Neutrophils Absolute Auto 2.9 K/mm3 (1.3-6.7); Neutrophils Percent Auto 58.7 % (45.5-73.1); Platelet Count Result 293 k/mm3 (150-375); Red Blood Count 2.95 M/mm3 (4.2-5.4); Red Cell Distribution Width 14.6 % (11.5-14.5)
[2021-05-09 05:33] LABS: Triglycerides 140 mg/dL (<150)
[2021-05-09 05:51] LABS: Alanine Aminotransferase 13 U/L (4-35); Alkaline Phosphatase 151 U/L (38-126); Anion Gap 4 mmol/L (8-16); Aspartate Amino Transferase 31 U/L (14-36); Bilirubin,Total 0.5 mg/dL (0.2-1.3); Blood Urea Nitrogen 19 mg/dL (7-17); Calcium 9.4 mg/dL (8.4-10.2); Carbon Dioxide 28 mmol/L (22-30); Chloride 105 mmol/L (98-107); Estimated CRCL calculation 54 ml/min; Estimated Glomerular Filt Rate > 60; Glucose 104 mg/dL (65-110); Magnesium 2.1 mg/dL (1.6-2.3); Phosphorus 4.3 mg/dL (2.5-4.5); Potassium 3.5 mmol/L (3.4-5.0); Sodium 137 mmol/L (137-145)
[2021-05-09] MEDS: CENTRAL LINE FLUSH 10 ML IV PUSH ×2 (05:55→14:54)
[2021-05-09] MEDS: LEVOTHYROXINE SODIUM INJ 100 MCG/5 ML VIAL 37.5 MCG IV PUSH (05:57)
[2021-05-09] MEDS: PANTOPRAZOLE SODIUM IV 40 MG VIAL IV PUSH (09:15)
--- NOTE | 2021-05-09 10:00 | PM.PNGS ---
Progress Note: A&P Assessment and Plan (1) Nausea and vomiting: Qualifiers: Vomiting type: unspecified Qualified Code(s): R11.2 - Nausea with vomiting, unspecified Code(s): R11.2 - Nausea with vomiting, unspecified Status: Acute Assessment and Plan: KUB this am showed small amount of contrast in the small bowel, still suggesting small bowel obstruction. CT scan of the abdomen and pelvis ordered and showed residual oral contrast in the small bowel and some noted in the rectum, probable slow ileus. Also noted was a small fluid collection in the left anterior abdomen. Continue NG tube decompression, bowel rest, and PPN today. Will give a Dulcolax suppository. Continue PT/OT. 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 No erythema. (4) E coli bacteremia: Code(s): R78.81 - Bacteremia; B96.20 - Unspecified Escherichia coli [E. coli] as the cause of diseases classified elsewhere Status: Acute Additional Plan I have discussed the plan of care with Dr. Martinez. Subjective Subjective Date/Time Seen: 05/09/21 10:00 Patient reports: no new complaints, pain is less, voiding w/o difficulty, no flatus, no bowel movement and afebrile Interval history: Patient was transferring to the chair with PT when I entered the room. She is denying any abdominal pain or nausea this morning. Denies flatus or BM still since the Gastrografin study. Exam Const: General: comfortable; No acute distress Orientation/consciousness: patient oriented x3 GI: Inspection: non-distended GI Palp: Yes Soft to palpation, No Tenderness to palpation present (GI), No Guarding due to palpation present (GI) and No Rebound tenderness present Auscultation: Hypoactive bowel sounds present Other: Midline incision with steri strips in place and small open wound at the base of the incision with packing and small amount of valdez drainage. No erythema. Dry gauze dressing in place on left abdomen from previous NGUYEN drain Neuro: General: no focal motor deficits Extrem: General: normal to inspection and no calf tenderness Psych: Insight: Good insight present (Psych) Judgement: Good judgement present (Psych) Objective Data Vital Signs Vital Signs: Vital Signs - 24 hr 05/08/21 11:56 05/08/21 12:47 05/08/21 13:36 Temperature 98.4 F Pulse Rate 80 77 Respiratory Rate 18 Blood Pressure 162/69 H Pulse Oximetry 94 97 05/08/21 17:15 05/08/21 20:00 05/08/21 20:18 Temperature Pulse Rate 80 78 Respiratory Rate 20 Blood Pressure Pulse Oximetry 97 97 05/08/21 20:54 05/09/21 00:43 05/09/21 01:45 Temperature 97.9 F 98.5 F Pulse Rate 78 76 73 Respiratory Rate 20 18 Blood Pressure 104/67 176/68 H Pulse Oximetry 97 97 05/09/21 05:43 Temperature 98.2 F Pulse Rate 76 Respiratory Rate 20 Blood Pressure 152/64 H Pulse Oximetry 98 Intake/Output Intake/Output: Intake & Output 05/06/21 05/07/21 05/08/21 05/09/21 23:59 23:59 23:59 23:59 Intake Total 1630 2000 120 Output Total 450 2191 1853 1400 Balance 4016 -882 -0754 -6971 Meds/Results Medications: Active Medications Generic Name Dose Route Start Last Admin Trade Name Freq PRN Reason Stop Dose Admin Acetaminophen 325 mg 05/08/21 07:24 Acetaminophen 325 Mg Suppository RECTAL Q4H PRN Mild Pain (1-3) or Fever Albuterol 2 puff 04/18/21 09:30 Albuterol Sulfate (*Sp) Aerosol 1 Puff INHALATION TID PRN Shortness Of Breath Dextrose 12.5 gm 05/06/21 05:15 Dextrose 50% 25 Gm/50 Ml Syringe IV PUSH PRN PRN Hypoglycemia Protocol Glucagon 1
[2021-05-09] MEDS: BISACODYL 10 MG SUPPOSITORY RECTAL (10:56)
[2021-05-09 12:15] LABS: Glucose Point of Care 113 mg/dl (65-105)
[2021-05-09] MEDS: FAT EMULSIONS IV 20% 250 ML 20.83 ML IVPB (12:39)
--- NOTE | 2021-05-09 15:18 | PM.IMPN ---
Progress Note: A&P Assessment and Plan (1) Small bowel obstruction: Code(s): K56.609 - Unspecified intestinal obstruction, unspecified as to partial versus complete obstruction Status: Acute Assessment and Plan: Patient developed nausea and vomiting over the weekend. Required NGT to be replaced. SBFT showing SBO. Lactic and WBC normal. Changed to IV medications. X-ray this morning again shows no contrast material beyond the obstruction. CT of the abdomen and pelvis shows small amount of residual small bowel and recto sigmoid contrast, diffuse mesenteric inflammation and significant interval decrease in size of peritoneal abscess. Continue NGT to suction. Continue TPN. Appreciate General surgery input. (2) Nausea and vomiting: Qualifiers: Vomiting type: unspecified Qualified Code(s): R11.2 - Nausea with vomiting, unspecified Code(s): R11.2 - Nausea with vomiting, unspecified Status: Acute Assessment and Plan: As above (3) Anastomotic leak of intestine: Code(s): K91.89 - Other postprocedural complications and disorders of digestive system Status: Acute Assessment and Plan: WBC jumped to 26K on 04/19. CT Ch/A/P 04/19 showing post-op ileus and surgical changes but no acute findings. BCx 04/19 returned Enterobacter cloacae (1of2) sensitive to Ertapenem. Leukocytosis was up/down and with fevers. CT 04/23 showing abscess formation concerning for anastomotic leaks. She was taken back to the OR 04/23 and underwent re-exploration of recent laparotomy with drainage of multiple intra-abdominal abscesses and ileocolic resection with [id number] ileocolic anastomosis. Micafungin was added to the Ertapenem. She has tolerated the repeat procedure well. WBC remains normal and no fevers. Now having n/v as mentioned above related to SBO. She has completed antifungal and antibiotic treatment. Continue PT/OT. (4) Superficial postoperative wound infection: Code(s): T81.49XA - Infection following a procedure, other surgical site, initial encounter Status: Acute Assessment and Plan: Noted. WCx growing scant growth of Enterobacter cloacae complex. Enterocutaneous fistula? Continue routine dressing changes. Currently off all antibiotics. (5) Chest pain: Code(s): R07.9 - Chest pain, unspecified Status: Resolved Assessment and Plan: Patient with chest pain 05/02 but vague symptoms. She states better with belching to suggest GI related. EKG showing no acute findings. No recurrence. Will continue to follow. (6) Bacteremia: Code(s): R78.81 - Bacteremia Status: Acute Assessment and Plan: [place] related to the anastomotic leaks and abdominal abscesses. She completed course of IV antibiotics. Currently off antifungal and anti bacterial medication. Follow closely. Re-culture if she develops fever or other concerning symptoms. As above. 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 CT Abd/Pelvis showing distended bowel with air and fluid most likely cecum with ascending colonic transition point consistent with volvulus. Patient was made NPO, NGT placed and General surgery consulted. Patient underwent open right hemicolectomy with ileocolic anastomosis 04/12/21. Patient did well initially but then her WBC became elevated with CT 04/23 showing abscess formation concerning for anastomotic leak. As above. (8) Postoperative ileus: Code(s): K91.89 - Other postprocedural complications and disorders of digestive system; K56.7 - Ileus, unspecified Status: Acute Assessment and Plan: CT scan 04/19 showing moderately distended jejunum consistent with ileus. NG was placed but KUB showed persistently dilated small bowel likely adynamic ileus. Now s/p repeat surgery on 04/23. As above with SBO
[2021-05-09 18:25] LABS: Glucose Point of Care 105 mg/dl (65-105)
[2021-05-10] VITALS (9 sets, daily range): BP systolic 141–166; BP diastolic 54–77; PULSE 78–94; RESP 16–18; TEMP 36.1–37; O2SAT 96–99
[2021-05-10] MEDS: CENTRAL LINE FLUSH 10 ML IV PUSH ×4 (00:06→23:16)
[2021-05-10] MEDS: METOPROLOL TARTRATE INJ 5 MG/5 ML VIAL IV PUSH ×5 (00:06→23:16)
[2021-05-10 00:20] LABS: Glucose Point of Care 108 mg/dl (65-105)
[2021-05-10] MEDS: LEVOTHYROXINE SODIUM INJ 100 MCG/5 ML VIAL 37.5 MCG IV PUSH (05:46)
[2021-05-10 05:58] LABS: Glucose Point of Care 98 mg/dl (65-105)
[2021-05-10 06:01] LABS: Hematocrit 28.3 % (37.0-47.0); Hemoglobin 9.1 g/dL (12.0-15.0); Mean Corpuscular HGB Conc 32.2 g/dl (32-36); Mean Corpuscular Hemoglobin 28.4 pg (26-34); Mean Corpuscular Volume 88.4 fl (80-100); Mean Platelet Volume 9.4 fl (7.4-10.4); Platelet Count Result 299 k/mm3 (150-375); Red Cell Distribution Width 14.7 % (11.5-14.5); White Blood Count 8.2 K/mm3 (4.5-10.0)
[2021-05-10 06:12] LABS: Anion Gap 7 mmol/L (8-16); Blood Urea Nitrogen 26 mg/dL (7-17); Calcium 9.4 mg/dL (8.4-10.2); Carbon Dioxide 26 mmol/L (22-30); Chloride 102 mmol/L (98-107); Estimated CRCL calculation 54 ml/min; Estimated Glomerular Filt Rate > 60; Glucose 99 mg/dL (65-110); Phosphorus 4.5 mg/dL (2.5-4.5); Potassium 3.5 mmol/L (3.4-5.0); Sodium 135 mmol/L (137-145)
--- NOTE | 2021-05-10 08:04 | PM.PNGS ---
Progress Note: A&P Assessment and Plan (1) Small bowel obstruction: Code(s): K56.609 - Unspecified intestinal obstruction, unspecified as to partial versus complete obstruction Status: Acute Assessment and Plan: Bowel function returning. Will clamp NG and try clear liquids today. Replace to suction if nausea returns. Continue PT/OT Continue TPN until patient is clearly eating well enough (2) Protein calorie malnutrition: Code(s): E46 - Unspecified protein-calorie malnutrition Status: Acute (3) Superficial postoperative wound infection: Code(s): T81.49XA - Infection following a procedure, other surgical site, initial encounter Status: Acute (4) Anastomotic leak of intestine: Code(s): K91.89 - Other postprocedural complications and disorders of digestive system Status: Acute (5) Cecal volvulus: Onset Date: ~04/11/21 Code(s): K56.2 - Volvulus Status: Acute Subjective Subjective Date/Time Seen: 05/10/21 08:04 Interval history: Bowels moving. No nausea or vomiting. Pain minimal. Mainly feels weak. Exam GI: Inspection: non-distended, incision and other (small open wound at inferior end of incision, no redness) GI Palp: Yes Soft to palpation and No Tenderness to palpation present (GI) Auscultation: normal bowel sounds Objective Data Vital Signs Vital Signs: Vital Signs - 24 hr 05/09/21 12:00 05/09/21 13:04 05/09/21 18:25 Temperature Pulse Rate 72 76 76 Respiratory Rate 20 Blood Pressure 126/70 Pulse Oximetry 98 05/09/21 20:00 05/09/21 20:53 05/10/21 00:06 Temperature 37.4 C Pulse Rate 77 73 80 Respiratory Rate 16 Blood Pressure 151/43 H Pulse Oximetry 99 97 05/10/21 00:07 05/10/21 05:40 Temperature Pulse Rate 80 80 Respiratory Rate Blood Pressure 166/63 H Pulse Oximetry Intake/Output Intake/Output: Intake & Output 05/07/21 05/08/21 05/09/21 05/10/21 23:59 23:59 23:59 23:59 Intake Total 1999 120 1025 500 Output Total 3833 1933 8920 650 Balance -190 -1731 -125 -150 Meds/Results Medications: Active Medications Generic Name Dose Route Start Last Admin Trade Name Freq PRN Reason Stop Dose Admin Acetaminophen 325 mg 05/08/21 07:24 Acetaminophen 325 Mg Suppository RECTAL Q4H PRN Mild Pain (1-3) or Fever Albuterol 2 puff 04/18/21 09:30 Albuterol Sulfate (*Sp) Aerosol 1 Puff INHALATION TID PRN Shortness Of Breath Dextrose 12.5 gm 05/06/21 05:15 Dextrose 50% 25 Gm/50 Ml Syringe IV PUSH PRN PRN Hypoglycemia Protocol Glucagon 1 mg 05/06/21 05:15 Glucagon For Inj 1 Mg Vial IM PRN PRN Hypoglycemia Protocol Glucose 15 gm 05/06/21 05:15 Glucose Oral Gel 15 Gm Of Glucse In 37.5 Gm Tube PO PRN PRN Hypoglycemia Protocol Hydralazine HCl 10 mg 04/25/21 11:11 04/29/21 15:52 Hydralazine Hcl 20 Mg/Ml Vial IV PUSH 10 mg Q8H PRN Administration Blood Pressure - High >190/110 Dextrose 1,000 mls @ 100 mls/hr 05/06/21 05:15 Dextrose 5% 1,000 Ml IVPB PRN PRN Hypoglycemia Protocol Dextrose 1,000 mls @ 50 mls/hr 05/08/21 12:00 Dextrose 10% IV CONT .Q20H PRN if PN is interrupted Fat Emulsion Intravenous 250 mls @ 20.833 mls/hr 05/08/21 12:00 05/09/21 12:39 Lipids 20% IVPB 20.83 mls/hr Q24H FERN Administration Multivitamins 2.5 ml/ 2,005 mls @ 80 mls/hr 05/08/21 12:30 05/09/21 12:28 Multivitamins 2.5 ml/ Amino IV CONT 80 mls/hr Acids/Electrolytes/Dextrose .Q24H FERN Administration Protocol Levothyroxine Sodium 37.5 mcg 05/09/21 06:30 05/10/21 05:46 Levothyroxine Sodium Inj 100 Mcg/5 Ml Vial IV PUSH 37.5 mcg DAILY@0630 FERN Administration Metoprolol Tartrate 5 mg 05/08/21 07:35 05/10/21 05:40 Metoprolol Tartrate Inj 5 Mg/5 Ml Vial IV PUSH 5 mg Q6HR FERN Administration Morphine Sulfate 2 mg 05/01/21 10:00
[2021-05-10] MEDS: PANTOPRAZOLE SODIUM IV 40 MG VIAL IV PUSH (08:55)
[2021-05-10] MEDS: BISACODYL 10 MG SUPPOSITORY RECTAL (08:56)
--- NOTE | 2021-05-10 11:10 | PCNFU ---
Nutrition Follow-Up Complete: Inadequate oral intake related cecal volvulus as evidenced by NPO Goal: Pt to meet 75% of estimated nutritional needs Pt is making progress towards goal. Continue with current goal at this time. Pt current nutrition is Clear liquid diet and PPN Last recorded weight is 51.2 kg, up 0.1kg since last reported weight 05/09/21. Bowel Motility: LBM reported 05/08/21 Labs Reviewed: Hgb 9.1, Hct 28.3, Alb 3.0, Na 135, ALP 151, BUN 26, Cr 0.6 Meds Noted: Clinimix E 4.25/5, Lipids 20%, synthroid, lopressor, protonix Skin: medial abdomen incision Additional Notes: Current nutrition is PPN running at a rate of 80mL/hr with 250mL of 20% lipids over 24 hours to provide 1153kcal and 82g of protein, meeting 70% of estimated kcal needs and 100% of estimated protein needs. NG tube is being clamped and clear liquid diet started today 05/10/21. Reported intake of clear liquid diet is 25%. PPN will continue until PO intake increases. Recommend advancing diet as tolerated by pt. Per physician notes, bowel function is returning. Agree with diet orders at this time. Will continue to follow. Will monitor labs, medication, wt, and reported intake every 3 days.
[2021-05-10 11:32] LABS: Glucose Point of Care 116 mg/dl (65-105)
--- NOTE | 2021-05-10 11:33 | PM.IMPN ---
Progress Note: A&P Assessment and Plan (1) Small bowel obstruction: Code(s): K56.609 - Unspecified intestinal obstruction, unspecified as to partial versus complete obstruction Status: Acute Assessment and Plan: Patient developed nausea and vomiting over the weekend. Required NGT to be replaced. SBFT showing SBO. Lactic and WBC normal. Changed to IV medications. CT of the abdomen and pelvis shows small amount of residual small bowel and recto sigmoid contrast, diffuse mesenteric inflammation and significant interval decrease in size of peritoneal abscess. Now having BMs again. NGT clamped. Continue TPN. Appreciate General surgery input. Add scheduled miralax if continues to improve. Contineu IV medications for now. (2) Nausea and vomiting: Qualifiers: Vomiting type: unspecified Qualified Code(s): R11.2 - Nausea with vomiting, unspecified Code(s): R11.2 - Nausea with vomiting, unspecified Status: Acute Assessment and Plan: As above (3) Anastomotic leak of intestine: Code(s): K91.89 - Other postprocedural complications and disorders of digestive system Status: Acute Assessment and Plan: WBC jumped to 26K on 04/19. CT Ch/A/P 04/19 showing post-op ileus and surgical changes but no acute findings. BCx 04/19 returned Enterobacter cloacae (1of2) sensitive to Ertapenem. Leukocytosis was up/down and with fevers. CT 04/23 showing abscess formation concerning for anastomotic leaks. She was taken back to the OR 04/23 and underwent re-exploration of recent laparotomy with drainage of multiple intra-abdominal abscesses and ileocolic resection with [id number] ileocolic anastomosis. Micafungin was added to the Ertapenem. She has tolerated the repeat procedure well. She has completed antifungal and antibiotic treatment. WBC remains normal and no fevers. She developed n/v as mentioned above related to ileus. Continue PT/OT. (4) Superficial postoperative wound infection: Code(s): T81.49XA - Infection following a procedure, other surgical site, initial encounter Status: Acute Assessment and Plan: Noted. WCx growing scant growth of Enterobacter cloacae complex. Enterocutaneous fistula? Wound looks good. Continue routine dressing changes. Currently off all antibiotics. (5) Chest pain: Code(s): R07.9 - Chest pain, unspecified Status: Resolved Assessment and Plan: Patient with chest pain 05/02 but vague symptoms. She states better with belching to suggest GI related. EKG showing no acute findings. No recurrence. Will continue to follow. (6) Bacteremia: Code(s): R78.81 - Bacteremia Status: Acute Assessment and Plan: [place] related to the anastomotic leaks and abdominal abscesses. She completed course of IV antibiotics. Currently off antifungal and anti bacterial medication. Follow closely. Re-culture if she develops fever or other concerning symptoms. As above. 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 CT Abd/Pelvis showing distended bowel with air and fluid most likely cecum with ascending colonic transition point consistent with volvulus. Patient was made NPO, NGT placed and General surgery consulted. Patient underwent open right hemicolectomy with ileocolic anastomosis 04/12/21. Patient did well initially but then her WBC became elevated with CT 04/23 showing abscess formation concerning for anastomotic leak. As above. (8) Postoperative ileus: Code(s): K91.89 - Other postprocedural complications and disorders of digestive system; K56.7 - Ileus, unspecified Status: Acute Assessment and Plan: CT scan 04/19 showing moderately distended jejunum consistent with ileus. NG was placed but KUB showed persistently dilated small bowel likely adynamic ileus. Now s/p repeat
[2021-05-10] MEDS: FAT EMULSIONS IV 20% 250 ML 20.83 ML IVPB (12:05)
[2021-05-10] MEDS: ENOXAPARIN 40 MG/0.4 ML SYRINGE SUB-Q (12:22)
[2021-05-10 18:26] LABS: Glucose Point of Care 102 mg/dl (65-105)
[2021-05-10 23:23] LABS: Glucose Point of Care 103 mg/dl (65-105)
[2021-05-11] VITALS (8 sets, daily range): BP systolic 148–170; BP diastolic 40–75; PULSE 75–101; RESP 16–18; TEMP 36–37; O2SAT 94–99
[2021-05-11] MEDS: LEVOTHYROXINE SODIUM INJ 100 MCG/5 ML VIAL 37.5 MCG IV PUSH (05:50)
[2021-05-11] MEDS: METOPROLOL TARTRATE INJ 5 MG/5 ML VIAL IV PUSH ×4 (05:51→23:47)
[2021-05-11] MEDS: CENTRAL LINE FLUSH 10 ML IV PUSH ×3 (05:52→23:47)
[2021-05-11 05:58] LABS: Glucose Point of Care 110 mg/dl (65-105)
[2021-05-11 06:18] LABS: Anion Gap 7 mmol/L (8-16); Blood Urea Nitrogen 21 mg/dL (7-17); Calcium 9.1 mg/dL (8.4-10.2); Carbon Dioxide 26 mmol/L (22-30); Chloride 101 mmol/L (98-107); Estimated CRCL calculation 51 ml/min; Estimated Glomerular Filt Rate > 60; Glucose 107 mg/dL (65-110); Potassium 3.1 mmol/L (3.4-5.0); Sodium 134 mmol/L (137-145); Triglycerides 147 mg/dL (<150)
[2021-05-11] MEDS: BISACODYL 10 MG SUPPOSITORY RECTAL (08:49)
[2021-05-11] MEDS: POTASSIUM CHLORIDE 20 MEQ PACKET (FOR LIQUID) 40 MEQ PO (08:49)
[2021-05-11] MEDS: PANTOPRAZOLE SODIUM IV 40 MG VIAL IV PUSH (08:50)
[2021-05-11] MEDS: ENOXAPARIN 40 MG/0.4 ML SYRINGE SUB-Q (08:50)
--- NOTE | 2021-05-11 10:18 | PM.IMPN ---
Progress Note: A&P Assessment and Plan (1) Small bowel obstruction: Code(s): K56.609 - Unspecified intestinal obstruction, unspecified as to partial versus complete obstruction Status: Acute Assessment and Plan: Patient developed nausea and vomiting requiring NGT to be replaced. SBFT showing SBO. Lactic and WBC normal. Changed to IV medications. CT of the abdomen and pelvis (05/09) shows small amount of residual small bowel and recto sigmoid contrast, diffuse mesenteric inflammation and significant interval decrease in size of peritoneal abscess. Now having BMs. NGT to suction last night. Continue TPN. Appreciate General surgery input. Clamp again to see how she does but back on suction if she develops nausea. Continue IV medications for now. Check KUB (2) Nausea and vomiting: Qualifiers: Vomiting type: unspecified Qualified Code(s): R11.2 - Nausea with vomiting, unspecified Code(s): R11.2 - Nausea with vomiting, unspecified Status: Acute Assessment and Plan: As above (3) Anastomotic leak of intestine: Code(s): K91.89 - Other postprocedural complications and disorders of digestive system Status: Acute Assessment and Plan: WBC jumped to 26K on 04/19. CT Ch/A/P 04/19 showing post-op ileus and surgical changes but no acute findings. BCx 04/19 returned Enterobacter cloacae (1of2) sensitive to Ertapenem. Leukocytosis was up/down and with fevers. CT 04/23 showing abscess formation concerning for anastomotic leaks. She was taken back to the OR 04/23 and underwent re-exploration of recent laparotomy with drainage of multiple intra-abdominal abscesses and ileocolic resection with [id number] ileocolic anastomosis. Micafungin was added to the Ertapenem. She tolerated the repeat procedure well. She has completed antifungal and antibiotic treatment. WBC remains normal and no fevers. Repeat CT 05/09 as mentioned above. She developed n/v as mentioned above. Continue PT/OT. (4) Superficial postoperative wound infection: Code(s): T81.49XA - Infection following a procedure, other surgical site, initial encounter Status: Acute Assessment and Plan: Noted. WCx growing scant growth of Enterobacter cloacae complex. Enterocutaneous fistula? Wound looks good. Continue routine dressing changes. Currently off all antibiotics. (5) Chest pain: Code(s): R07.9 - Chest pain, unspecified Status: Resolved Assessment and Plan: Patient with chest pain 05/02 but vague symptoms. She states better with belching to suggest GI related. EKG showing no acute findings. No recurrence. Will continue to follow. (6) Bacteremia: Code(s): R78.81 - Bacteremia Status: Acute Assessment and Plan: [place] related to the anastomotic leaks and abdominal abscesses. She completed course of IV antibiotics. Currently off antifungal and anti bacterial medication. Follow closely. Re-culture if she develops fever or other concerning symptoms. As above. 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 CT Abd/Pelvis showing distended bowel with air and fluid most likely cecum with ascending colonic transition point consistent with volvulus. Patient was made NPO, NGT placed and General surgery consulted. Patient underwent open right hemicolectomy with ileocolic anastomosis 04/12/21. Patient did well initially but then her WBC became elevated with CT 04/23 showing abscess formation concerning for anastomotic leak. As above. (8) Postoperative ileus: Code(s): K91.89 - Other postprocedural complications and disorders of digestive system; K56.7 - Ileus, unspecified Status: Acute Assessment and Plan: CT scan 04/19 showing moderately distended jejunum consistent with ileus. NG was placed but KUB showed persistently dilated s
--- NOTE | 2021-05-11 10:19 | PM.PNGS ---
Progress Note: A&P Assessment and Plan (1) Small bowel obstruction: Code(s): K56.609 - Unspecified intestinal obstruction, unspecified as to partial versus complete obstruction Status: Acute Assessment and Plan: more likely ileus, pt c multiple BMs (loose, small), will cont to clamp NG and clears for now, encourage OOB/IS, cont TPN Subjective Subjective Date/Time Seen: 05/11/21 10:19 had episode of emesis overnight, some nausea this am after trying K drink Review of Systems Review of Systems: All systems reviewed & are unremarkable except as noted in HPI and below Exam Const: General: cooperative and no acute distress Orientation/consciousness: patient oriented x3 Resp: Auscultation: clear to auscultation bilaterally Cardio: Rate: regular rate Rhythm: regular rhythm GI: Inspection: normal to inspection and distended GI Palp: Yes Soft to palpation, No Tenderness to palpation present (GI), No Guarding due to palpation present (GI) and No Rigid due to palpation Objective Data Vital Signs Vital Signs: Vital Signs - 24 hr 05/10/21 12:05 05/10/21 15:40 05/10/21 18:01 Temperature 37.0 C Pulse Rate 80 87 78 Respiratory Rate 18 Blood Pressure 147/54 H Pulse Oximetry 99 05/10/21 21:49 05/10/21 23:16 05/11/21 05:51 Temperature 36.7 C Pulse Rate 79 86 86 Respiratory Rate 16 Blood Pressure 162/64 H Pulse Oximetry 96 05/11/21 06:00 Temperature 36.8 C Pulse Rate 75 Respiratory Rate 18 Blood Pressure 148/68 H Pulse Oximetry 94 Intake/Output Intake/Output: Intake & Output 05/08/21 05/09/21 05/10/21 05/11/21 23:59 23:59 23:59 23:59 Intake Total 120 2375 2835 200 Output Total 1851 2500 1250 300 Balance -1731 -125 1585 -100 Meds/Results Medications: Active Medications Generic Name Dose Route Start Last Admin Trade Name Freq PRN Reason Stop Dose Admin Acetaminophen 325 mg 05/08/21 07:24 Acetaminophen 325 Mg Suppository RECTAL Q4H PRN Mild Pain (1-3) or Fever Albuterol 2 puff 04/18/21 09:30 Albuterol Sulfate (*Sp) Aerosol 1 Puff INHALATION TID PRN Shortness Of Breath Bisacodyl 10 mg 05/10/21 09:00 05/11/21 08:49 Bisacodyl 10 Mg Suppository RECTAL 05/13/21 10:00 10 mg QAM FERN Administration Dextrose 12.5 gm 05/06/21 05:15 Dextrose 50% 25 Gm/50 Ml Syringe IV PUSH PRN PRN Hypoglycemia Protocol Enoxaparin Sodium 40 mg 05/11/21 09:00 05/11/21 08:50 Enoxaparin 40 Mg/0.4 Ml Syringe SUB-Q 40 mg DAILY FERN Administration Glucagon 1 mg 05/06/21 05:15 Glucagon For Inj 1 Mg Vial IM PRN PRN Hypoglycemia Protocol Glucose 15 gm 05/06/21 05:15 Glucose Oral Gel 15 Gm Of Glucse In 37.5 Gm Tube PO PRN PRN Hypoglycemia Protocol Hydralazine HCl 10 mg 04/25/21 11:11 04/29/21 15:52 Hydralazine Hcl 20 Mg/Ml Vial IV PUSH 10 mg Q8H PRN Administration Blood Pressure - High >190/110 Dextrose 1,000 mls @ 100 mls/hr 05/06/21 05:15 Dextrose 5% 1,000 Ml IVPB PRN PRN Hypoglycemia Protocol Dextrose 1,000 mls @ 50 mls/hr 05/08/21 12:00 Dextrose 10% IV CONT .Q20H PRN if PN is interrupted Fat Emulsion Intravenous 250 mls @ 20.833 mls/hr 05/08/21 12:00 05/10/21 12:05 Lipids 20% IVPB 20.83 mls/hr Q24H FERN Administration Multivitamins 2.5 ml/ 2,005 mls @ 80 mls/hr 05/08/21 12:30 05/10/21 12:05 Multivitamins 2.5 ml/ Amino IV CONT 80 mls/hr Acids/Electrolytes/Dextrose .Q24H FERN Administration Protocol Levothyroxine Sodium 37.5 mcg 05/09/21 06:30 05/11/21 05:50 Levothyroxine Sodium Inj 100 Mcg/5 Ml Vial IV PUSH 37.5 mcg DAILY@0630 FERN Administration Metoprolol Tartrate 5 mg 05/08/21 07:35 05/11/21 05:51 Metoprolol Tartrate Inj 5 Mg/5 Ml Vial IV PUSH 5 mg Q6HR FERN Administration Miscellaneous Information 1 each 05/11/21 10:05 Morphine Needs To Be Renewed Or It Will Automatical
[2021-05-11 11:28] LABS: Glucose Point of Care 122 mg/dl (65-105)
[2021-05-11] MEDS: FAT EMULSIONS IV 20% 250 ML 20.83 ML IVPB (12:43)
[2021-05-11] MEDS: KETOROLAC 15 MG/ML VIAL (*BKC) IV PUSH (17:24)
[2021-05-11 18:01] LABS: Glucose Point of Care 124 mg/dl (65-105)
[2021-05-11 23:58] LABS: Glucose Point of Care 115 mg/dl (65-105)
[2021-05-12] VITALS (7 sets, daily range): BP systolic 145–164; BP diastolic 50–64; PULSE 75–90; RESP 14–18; TEMP 36.8–36.9; O2SAT 100
[2021-05-12] MEDS: CENTRAL LINE FLUSH 10 ML IV PUSH ×3 (05:57→23:35)
[2021-05-12] MEDS: LEVOTHYROXINE SODIUM INJ 100 MCG/5 ML VIAL 37.5 MCG IV PUSH (05:57)
[2021-05-12] MEDS: METOPROLOL TARTRATE INJ 5 MG/5 ML VIAL IV PUSH ×4 (05:57→23:35)
[2021-05-12 06:09] LABS: Glucose Point of Care 84 mg/dl (65-105)
[2021-05-12 06:19] LABS: Anion Gap 8 mmol/L (8-16); Blood Urea Nitrogen 26 mg/dL (7-17); Calcium 8.9 mg/dL (8.4-10.2); Carbon Dioxide 23 mmol/L (22-30); Chloride 101 mmol/L (98-107); Estimated CRCL calculation 47 ml/min; Estimated Glomerular Filt Rate > 60; Glucose 105 mg/dL (65-110); Phosphorus 3.6 mg/dL (2.5-4.5); Potassium 3.7 mmol/L (3.4-5.0); Sodium 132 mmol/L (137-145)
[2021-05-12] MEDS: amLODIPine BESYLATE 5 MG TABLET PO (08:32)
[2021-05-12] MEDS: ENOXAPARIN 40 MG/0.4 ML SYRINGE SUB-Q (08:33)
[2021-05-12] MEDS: PANTOPRAZOLE SODIUM IV 40 MG VIAL IV PUSH (08:33)
[2021-05-12] MEDS: BISACODYL 10 MG SUPPOSITORY RECTAL (08:37)
--- NOTE | 2021-05-12 09:56 | PM.IMPN ---
Progress Note: A&P Assessment and Plan (1) Small bowel obstruction: Code(s): K56.609 - Unspecified intestinal obstruction, unspecified as to partial versus complete obstruction Status: Acute Assessment and Plan: Patient developed nausea and vomiting requiring NGT to be replaced. SBFT on 05/08 showing SBO. Lactic and WBC normal. Changed to IV medications. CT of the abdomen and pelvis (05/09) shows small amount of residual small bowel and recto sigmoid contrast, diffuse mesenteric inflammation and significant interval decrease in size of peritoneal abscess. Now having BMs. NGT currently clamped. She remains on clear liquid diet. Continue TPN. Appreciate General surgery input. Continue IV medications for now. Continue to monitor. (2) Nausea and vomiting: Qualifiers: Vomiting type: unspecified Qualified Code(s): R11.2 - Nausea with vomiting, unspecified Code(s): R11.2 - Nausea with vomiting, unspecified Status: Acute Assessment and Plan: As above (3) Anastomotic leak of intestine: Code(s): K91.89 - Other postprocedural complications and disorders of digestive system Status: Acute Assessment and Plan: WBC jumped to 26K on 04/19. CT Ch/A/P 04/19 showing post-op ileus and surgical changes but no acute findings. BCx 04/19 returned Enterobacter cloacae (1of2) sensitive to Ertapenem. Leukocytosis was up/down and with fevers. CT 04/23 showing abscess formation concerning for anastomotic leaks. She was taken back to the OR 04/23 and underwent re-exploration of recent laparotomy with drainage of multiple intra-abdominal abscesses and ileocolic resection with [id number] ileocolic anastomosis. Micafungin was added to the Ertapenem. She tolerated the repeat procedure well. She completed antifungal and antibiotic treatment. No fevers. Repeat CT 05/09 as mentioned above. Continue PT/OT. (4) Superficial postoperative wound infection: Code(s): T81.49XA - Infection following a procedure, other surgical site, initial encounter Status: Acute Assessment and Plan: Noted. WCx growing scant growth of Enterobacter cloacae complex. Enterocutaneous fistula? Wound looks good. Continue routine dressing changes. Currently off all antibiotics. (5) Chest pain: Code(s): R07.9 - Chest pain, unspecified Status: Resolved Assessment and Plan: Patient with chest pain 05/02 but vague symptoms. She states better with belching to suggest GI related. EKG showing no acute findings. No recurrence. Will continue to follow. (6) Bacteremia: Code(s): R78.81 - Bacteremia Status: Acute Assessment and Plan: [place] related to the anastomotic leaks and abdominal abscesses. She completed course of IV antibiotics. Currently off antifungal and anti bacterial medication. Follow closely. Re-culture if she develops fever or other concerning symptoms. As above. 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 CT Abd/Pelvis showing distended bowel with air and fluid most likely cecum with ascending colonic transition point consistent with volvulus. Patient was made NPO, NGT placed and General surgery consulted. Patient underwent open right hemicolectomy with ileocolic anastomosis 04/12/21. Patient did well initially but then her WBC became elevated with CT 04/23 showing abscess formation concerning for anastomotic leak. As above. (8) Postoperative ileus: Code(s): K91.89 - Other postprocedural complications and disorders of digestive system; K56.7 - Ileus, unspecified Status: Acute Assessment and Plan: CT scan 04/19 showing moderately distended jejunum consistent with ileus. NG was placed but KUB showed persistently dilated small bowel likely adynamic ileus. Now s/p repeat surgery on 04/23. Did well initially but having
--- NOTE | 2021-05-12 10:15 | PM.PNGS ---
Progress Note: A&P Assessment and Plan (1) Small bowel obstruction: Code(s): K56.609 - Unspecified intestinal obstruction, unspecified as to partial versus complete obstruction Status: Acute Assessment and Plan: exam improved, +bowel fxn, will try full liquids today, cont OOB/IS Subjective Subjective Date/Time Seen: 05/12/21 10:15 feels better this am, still c some nausea but no further emesis, would like to try full liquids Review of Systems Review of Systems: All systems reviewed & are unremarkable except as noted in HPI and below Exam Const: General: cooperative, comfortable and no acute distress Orientation/consciousness: patient oriented x3 Resp: Auscultation: clear to auscultation bilaterally Cardio: Rate: regular rate Rhythm: regular rhythm GI: Inspection: normal to inspection, distended and incision GI Palp: Yes Soft to palpation, Yes Tenderness to palpation present (GI), No Guarding due to palpation present (GI) and No Rigid due to palpation Objective Data Vital Signs Vital Signs: Vital Signs - 24 hr 05/11/21 12:43 05/11/21 16:00 05/11/21 17:28 Temperature 36.4 C Pulse Rate 96 82 87 Respiratory Rate 16 Blood Pressure 160/40 H Pulse Oximetry 99 05/11/21 22:00 05/11/21 23:47 05/12/21 05:57 Temperature 37.0 C 36.9 C Pulse Rate 75 78 75 Respiratory Rate 18 16 Blood Pressure 159/60 H 170/62 H Pulse Oximetry 98 98 05/12/21 06:00 Temperature 36.9 C Pulse Rate 75 Respiratory Rate 18 Blood Pressure 164/64 H Pulse Oximetry 100 Intake/Output Intake/Output: Intake & Output 05/09/21 05/10/21 05/11/21 05/12/21 23:59 23:59 23:59 23:59 Intake Total 2375 2835 2455 450 Output Total 2500 1250 1100 1325 Balance -125 1585 1355 -875 Meds/Results Medications: Active Medications Generic Name Dose Route Start Last Admin Trade Name Freq PRN Reason Stop Dose Admin Acetaminophen 325 mg 05/08/21 07:24 Acetaminophen 325 Mg Suppository RECTAL Q4H PRN Mild Pain (1-3) or Fever Albuterol 2 puff 04/18/21 09:30 Albuterol Sulfate (*Sp) Aerosol 1 Puff INHALATION TID PRN Shortness Of Breath Amlodipine Besylate 5 mg 05/12/21 09:00 05/12/21 08:32 Amlodipine Besylate 5 Mg Tablet PO 5 mg QAM FERN Administration Bisacodyl 10 mg 05/10/21 09:00 05/12/21 08:37 Bisacodyl 10 Mg Suppository RECTAL 05/13/21 10:00 10 mg QAM FERN Administration Dextrose 12.5 gm 05/06/21 05:15 Dextrose 50% 25 Gm/50 Ml Syringe IV PUSH PRN PRN Hypoglycemia Protocol Enoxaparin Sodium 40 mg 05/11/21 09:00 05/12/21 08:33 Enoxaparin 40 Mg/0.4 Ml Syringe SUB-Q 40 mg DAILY FERN Administration Glucagon 1 mg 05/06/21 05:15 Glucagon For Inj 1 Mg Vial IM PRN PRN Hypoglycemia Protocol Glucose 15 gm 05/06/21 05:15 Glucose Oral Gel 15 Gm Of Glucse In 37.5 Gm Tube PO PRN PRN Hypoglycemia Protocol Hydralazine HCl 10 mg 04/25/21 11:11 04/29/21 15:52 Hydralazine Hcl 20 Mg/Ml Vial IV PUSH 10 mg Q8H PRN Administration Blood Pressure - High >190/110 Dextrose 1,000 mls @ 100 mls/hr 05/06/21 05:15 Dextrose 5% 1,000 Ml IVPB PRN PRN Hypoglycemia Protocol Dextrose 1,000 mls @ 50 mls/hr 05/08/21 12:00 Dextrose 10% IV CONT .Q20H PRN if PN is interrupted Fat Emulsion Intravenous 250 mls @ 20.833 mls/hr 05/08/21 12:00 05/11/21 12:43 Lipids 20% IVPB 20.83 mls/hr Q24H FERN Administration Multivitamins 2.5 ml/ 2,005 mls @ 80 mls/hr 05/08/21 12:30 05/11/21 12:44 Multivitamins 2.5 ml/ Amino IV CONT 80 mls/hr Acids/Electrolytes/Dextrose .Q24H FERN Administration Protocol Ketorolac Tromethamine 15 mg 05/11/21 14:19 05/11/21 17:24 Ketorolac 15 Mg/Ml Vial (*Bkc) IV PUSH 15 mg Q6H PRN Administration Pain Rated 4-6 Levothyroxine Sodium 37.5 mcg 05/09/21 06:30 05/12/21 05:57 Levothyroxine Sodium Inj 100 Mcg/5 Ml Vial
[2021-05-12] MEDS: FAT EMULSIONS IV 20% 250 ML 20.83 ML IVPB (12:40)
[2021-05-12 13:02] LABS: Glucose Point of Care 114 mg/dl (65-105)
[2021-05-12] MEDS: KETOROLAC 15 MG/ML VIAL (*BKC) IV PUSH (23:39)
[2021-05-12 23:53] LABS: Glucose Point of Care 145 mg/dl (65-105)
[2021-05-13 06:00] VITALS: BP 153/63; PULSE 79; RESP 18; TEMP 36.9; O2SAT 99
[2021-05-13 06:03] VITALS: PULSE 74
[2021-05-13] MEDS: CENTRAL LINE FLUSH 10 ML IV PUSH ×3 (06:03→20:32)
[2021-05-13] MEDS: METOPROLOL TARTRATE INJ 5 MG/5 ML VIAL IV PUSH (06:03)
[2021-05-13] MEDS: LEVOTHYROXINE SODIUM INJ 100 MCG/5 ML VIAL 37.5 MCG IV PUSH (06:03)
[2021-05-13 06:10] LABS: Glucose Point of Care 87 mg/dl (65-105)
[2021-05-13 06:14] LABS: Basophils Percent Auto 0.6 % (0.2-1.2); Eosinophils Absolute Auto 0.3 K/mm3 (0-0.3); Eosinophils Percent Auto 4.7 % (0-4.4); Hematocrit 25.5 % (37.0-47.0); Immature Granulocyte Absolute 0.11 K/mm3 (0.00-0.031); Immature Granulocyte Percent A 1.7 % (0-0.5); Lymphocytes Absolute Auto 0.92 K/mm3 (0.9-3.2); Lymphocytes Percent Auto 14.3 % (18.3-44.2); Mean Corpuscular HGB Conc 31.4 g/dl (32-36); Mean Corpuscular Hemoglobin 28.5 pg (26-34); Mean Corpuscular Volume 90.7 fl (80-100); Mean Platelet Volume 10.7 fl (7.4-10.4); Monocytes Absolute Auto 0.8 K/mm3 (0.1-0.6); Neutrophils Absolute Auto 4.2 K/mm3 (1.3-6.7); Neutrophils Percent Auto 65.7 % (45.5-73.1); Platelet Count Result 192 k/mm3 (150-375); Red Blood Count 2.81 M/mm3 (4.2-5.4); Red Cell Distribution Width 14.9 % (11.5-14.5); White Blood Count 6.4 K/mm3 (4.5-10.0)
[2021-05-13 06:43] LABS: INR 1.1; Partial Thromboplastin Time 25.7 SECONDS (22.3-36.8); Prothrombin Time 13.6 Seconds (11.1-14.7)
[2021-05-13 06:54] LABS: Alanine Aminotransferase 31 U/L (4-35); Albumin Level 2.9 g/dL (3.5-5.1); Alkaline Phosphatase 149 U/L (38-126); Anion Gap 4 mmol/L (8-16); Aspartate Amino Transferase 45 U/L (14-36); Bilirubin,Total 0.5 mg/dL (0.2-1.3); Blood Urea Nitrogen 23 mg/dL (7-17); Calcium 8.9 mg/dL (8.4-10.2); Carbon Dioxide 24 mmol/L (22-30); Chloride 102 mmol/L (98-107); Estimated CRCL calculation 47 ml/min; Estimated Glomerular Filt Rate > 60; Glucose 107 mg/dL (65-110); Magnesium 2.2 mg/dL (1.6-2.3); Phosphorus 3.5 mg/dL (2.5-4.5); Potassium 3.7 mmol/L (3.4-5.0); Sodium 130 mmol/L (137-145); Triglycerides 126 mg/dL (<150)
[2021-05-13 07:05] LABS: Transferrin 201 mg/dL (206-381)
[2021-05-13 08:41] VITALS: O2SAT 97
[2021-05-13] MEDS: ENOXAPARIN 40 MG/0.4 ML SYRINGE SUB-Q (08:46)
[2021-05-13] MEDS: PANTOPRAZOLE SODIUM IV 40 MG VIAL IV PUSH (08:46)
[2021-05-13] MEDS: amLODIPine BESYLATE 5 MG TABLET PO (08:46)
--- NOTE | 2021-05-13 09:56 | PM.PNGS ---
Progress Note: A&P Assessment and Plan (1) Postoperative ileus: Code(s): K91.89 - Other postprocedural complications and disorders of digestive system; K56.7 - Ileus, unspecified Status: Acute Assessment and Plan: I placed NG back to suction for several minutes will talking with patient in room. No significant gastric residuals noted. Will remove NG and continue full liquids today. Stop TPN after current bag Continue to stimulate bowels as needed Will advance slowly and possibly plan to discharge in next 1-2 days if continuing to improve (2) Anastomotic leak of intestine: Code(s): K91.89 - Other postprocedural complications and disorders of digestive system Status: Acute Assessment and Plan: No signs of ongoing infection and antimicrobials have been stopped since 05/06/21 (3) Superficial postoperative wound infection: Code(s): T81.49XA - Infection following a procedure, other surgical site, initial encounter Status: Acute Assessment and Plan: Continue daily packing changes (4) Protein calorie malnutrition: Code(s): E46 - Unspecified protein-calorie malnutrition Status: Acute Assessment and Plan: Stop TPN after current bag (5) Cecal volvulus: Onset Date: ~04/11/21 Code(s): K56.2 - Volvulus Status: Acute Subjective Subjective Date/Time Seen: 05/13/21 09:56 Interval history: Tolerating full liquids. Bowels moving. No bloating or nausea. NG has been clamped since Thursday, except for being placed back to suction once on Thursday. Exam GI: Inspection: non-distended GI Palp: Yes Soft to palpation and No Tenderness to palpation present (GI) Auscultation: normal bowel sounds Objective Data Vital Signs Vital Signs: Vital Signs - 24 hr 05/12/21 12:41 05/12/21 14:59 05/12/21 18:18 Temperature 36.8 C Pulse Rate 80 88 88 Respiratory Rate 14 Blood Pressure 151/50 H Pulse Oximetry 100 05/12/21 22:00 05/12/21 23:35 05/13/21 06:00 Temperature 36.8 C 36.9 C Pulse Rate 90 82 79 Respiratory Rate 18 18 Blood Pressure 145/56 H 153/63 H Pulse Oximetry 100 99 05/13/21 06:03 05/13/21 08:41 Temperature Pulse Rate 74 Respiratory Rate Blood Pressure Pulse Oximetry 97 Intake/Output Intake/Output: Intake & Output 05/10/21 05/11/21 05/12/21 05/13/21 23:59 23:59 23:59 23:59 Intake Total 2835 2455 3441 560 Output Total 1250 1100 1325 Balance 1585 1355 2116 560 Meds/Results Medications: Active Medications Generic Name Dose Route Start Last Admin Trade Name Freq PRN Reason Stop Dose Admin Albuterol 2 puff 04/18/21 09:30 Albuterol Sulfate (*Sp) Aerosol 1 Puff INHALATION TID PRN Shortness Of Breath Amlodipine Besylate 5 mg 05/12/21 09:00 05/13/21 08:46 Amlodipine Besylate 5 Mg Tablet PO 5 mg QAM FERN Administration Bisacodyl 10 mg 05/10/21 09:00 05/12/21 08:37 Bisacodyl 10 Mg Suppository RECTAL 05/13/21 10:00 10 mg QAM FERN Administration Dextrose 12.5 gm 05/06/21 05:15 Dextrose 50% 25 Gm/50 Ml Syringe IV PUSH PRN PRN Hypoglycemia Protocol Enoxaparin Sodium 40 mg 05/11/21 09:00 05/13/21 08:46 Enoxaparin 40 Mg/0.4 Ml Syringe SUB-Q 40 mg DAILY FERN Administration Glucagon 1 mg 05/06/21 05:15 Glucagon For Inj 1 Mg Vial IM PRN PRN Hypoglycemia Protocol Glucose 15 gm 05/06/21 05:15 Glucose Oral Gel 15 Gm Of Glucse In 37.5 Gm Tube PO PRN PRN Hypoglycemia Protocol Hydralazine HCl 10 mg 04/25/21 11:11 04/29/21 15:52 Hydralazine Hcl 20 Mg/Ml Vial IV PUSH 10 mg Q8H PRN Administration Blood Pressure - High >190/110 Dextrose 1,000 mls @ 100 mls/hr 05/06/21 05:15 Dextrose 5% 1,000 Ml IVPB PRN PRN Hypoglycemia Protocol Dextrose 1,000 mls @ 50 mls/hr 05/08/21 12:00 Dextrose 10% IV CONT .Q20H PRN if PN is interrupted Ketorolac Tromet
[2021-05-13 12:11] LABS: Glucose Point of Care 124 mg/dl (65-105)
--- NOTE | 2021-05-13 12:21 | PM.IMPN ---
Progress Note: A&P Assessment and Plan (1) Small bowel obstruction: Code(s): K56.609 - Unspecified intestinal obstruction, unspecified as to partial versus complete obstruction Status: Acute Assessment and Plan: Patient developed nausea and vomiting requiring NGT to be replaced. SBFT on 05/08 showing SBO. Lactic and WBC normal. Changed to IV medications. CT of the abdomen and pelvis (05/09) shows small amount of residual small bowel and recto sigmoid contrast, diffuse mesenteric inflammation and significant interval decrease in size of peritoneal abscess. Now having BMs. NGT was clamped and now removed. She is toelrating liquid diet. TPN stopped. Appreciate General surgery input. Change to oral medications. (2) Nausea and vomiting: Qualifiers: Vomiting type: unspecified Qualified Code(s): R11.2 - Nausea with vomiting, unspecified Code(s): R11.2 - Nausea with vomiting, unspecified Status: Acute Assessment and Plan: As above (3) Anastomotic leak of intestine: Code(s): K91.89 - Other postprocedural complications and disorders of digestive system Status: Acute Assessment and Plan: WBC jumped to 26K on 04/19. CT Ch/A/P 04/19 showing post-op ileus and surgical changes but no acute findings. BCx 04/19 returned Enterobacter cloacae (1of2) sensitive to Ertapenem. Leukocytosis was up/down and with fevers. CT 04/23 showing abscess formation concerning for anastomotic leaks. She was taken back to the OR 04/23 and underwent re-exploration of recent laparotomy with drainage of multiple intra-abdominal abscesses and ileocolic resection with [id number] ileocolic anastomosis. Micafungin was added to the Ertapenem. She tolerated the repeat procedure well. She completed antifungal and antibiotic treatment. No fevers. Repeat CT 05/09 as mentioned above. Continue PT/OT. (4) Superficial postoperative wound infection: Code(s): T81.49XA - Infection following a procedure, other surgical site, initial encounter Status: Acute Assessment and Plan: Noted. WCx growing scant growth of Enterobacter cloacae complex. Enterocutaneous fistula? Wound looks good. Continue routine dressing changes. Currently off all antibiotics. (5) Chest pain: Code(s): R07.9 - Chest pain, unspecified Status: Resolved Assessment and Plan: Patient with chest pain 2/24 but vague symptoms. She states better with belching to suggest GI related. EKG showing no acute findings. No recurrence. Will continue to follow. (6) Bacteremia: Code(s): R78.81 - Bacteremia Status: Acute Assessment and Plan: [place] related to the anastomotic leaks and abdominal abscesses. She completed course of IV antibiotics. Currently off antifungal and anti bacterial medication. Follow closely. Re-culture if she develops fever or other concerning symptoms. As above. 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 CT Abd/Pelvis showing distended bowel with air and fluid most likely cecum with ascending colonic transition point consistent with volvulus. Patient was made NPO, NGT placed and General surgery consulted. Patient underwent open right hemicolectomy with ileocolic anastomosis 04/12/21. Patient did well initially but then her WBC became elevated with CT 04/23 showing abscess formation concerning for anastomotic leak. As above. (8) Postoperative ileus: Code(s): K91.89 - Other postprocedural complications and disorders of digestive system; K56.7 - Ileus, unspecified Status: Acute Assessment and Plan: CT scan 04/19 showing moderately distended jejunum consistent with ileus. NG was placed but KUB showed persistently dilated small bowel likely adynamic ileus. Now s/p repeat surgery on 04/23. Did well initially but having ileus/partial SBO.
[2021-05-13 14:00] VITALS: BP 141/50; PULSE 86; RESP 19; TEMP 36.7; O2SAT 99
[2021-05-13] MEDS: GABAPENTIN 100 MG CAPSULE PO ×2 (14:25→17:40)
[2021-05-13 18:16] LABS: Glucose Point of Care 122 mg/dl (65-105)
[2021-05-13 20:29] VITALS: PULSE 93
[2021-05-13] MEDS: METOPROLOL TARTRATE 25 MG TABLET PO (20:29)
[2021-05-13 22:00] VITALS: BP 150/65; PULSE 93; RESP 16; TEMP 36.7; O2SAT 98
[2021-05-14 06:00] VITALS: BP 131/55; PULSE 87; RESP 16; TEMP 36.8; O2SAT 97
[2021-05-14] MEDS: LEVOTHYROXINE SODIUM 75 MCG TABLET PO (06:09)
[2021-05-14] MEDS: CENTRAL LINE FLUSH 10 ML IV PUSH ×2 (06:10→13:17)
[2021-05-14 06:30] LABS: Anion Gap 2 mmol/L (8-16); Blood Urea Nitrogen 16 mg/dL (7-17); Calcium 8.9 mg/dL (8.4-10.2); Carbon Dioxide 26 mmol/L (22-30); Chloride 105 mmol/L (98-107); Estimated CRCL calculation 54 ml/min; Estimated Glomerular Filt Rate > 60; Glucose 93 mg/dL (65-110); Potassium 3.8 mmol/L (3.4-5.0); Sodium 133 mmol/L (137-145)
[2021-05-14 06:44] LABS: Hematocrit 26.7 % (37.0-47.0); Hemoglobin 8.2 g/dL (12.0-15.0); Mean Corpuscular HGB Conc 30.7 g/dl (32-36); Mean Corpuscular Hemoglobin 28.2 pg (26-34); Mean Corpuscular Volume 91.8 fl (80-100); Mean Platelet Volume 10.4 fl (7.4-10.4); Platelet Count Result 213 k/mm3 (150-375); Red Blood Count 2.91 M/mm3 (4.2-5.4); Red Cell Distribution Width 15.3 % (11.5-14.5); White Blood Count 6.1 K/mm3 (4.5-10.0)
[2021-05-14 09:03] VITALS: PULSE 87
[2021-05-14] MEDS: ENOXAPARIN 40 MG/0.4 ML SYRINGE SUB-Q (09:03)
[2021-05-14] MEDS: amLODIPine BESYLATE 5 MG TABLET PO (09:03)
[2021-05-14] MEDS: GABAPENTIN 100 MG CAPSULE PO ×3 (09:03→16:47)
[2021-05-14] MEDS: METOPROLOL TARTRATE 25 MG TABLET PO ×2 (09:03→20:50)
[2021-05-14] MEDS: PANTOPRAZOLE SODIUM IV 40 MG VIAL IV PUSH (09:04)
[2021-05-14] MEDS: polyethylene glycoL 3350 17 GM POWD.PACK PO (09:04)
--- NOTE | 2021-05-14 11:01 | PM.PNGS ---
Progress Note: A&P Assessment and Plan (1) Postoperative ileus: Code(s): K91.89 - Other postprocedural complications and disorders of digestive system; K56.7 - Ileus, unspecified Status: Acute Assessment and Plan: Continue full liquids with supplements TID. Continue Miralax. If she continues to do well, then we will plan for her to be discharged tomorrow. I have talked to the interior plant caretaker, the patient, and her daughter regarding discharge plans. She has been accepted at [facility] and both the patient and her daughter are agreeable to SNF. (2) Superficial postoperative wound infection: Code(s): T81.49XA - Infection following a procedure, other surgical site, initial encounter Status: Acute Assessment and Plan: Will switch to silver gel dressing changes for her abdominal wound. Healing and granulating well. (3) Anastomotic leak of intestine: Code(s): K91.89 - Other postprocedural complications and disorders of digestive system Status: Acute Assessment and Plan: No longer on abx and doing well. (4) Protein calorie malnutrition: Code(s): E46 - Unspecified protein-calorie malnutrition Status: Acute Assessment and Plan: Will need to continue drinking supplements 2-3 times daily on discharge while slowly advancing her diet. (5) Cecal volvulus: Onset Date: ~04/11/21 Code(s): K56.2 - Volvulus Status: Acute Additional Plan I have discussed the patient's case and plan of care with Dr. aMrtinez. Subjective Subjective Date/Time Seen: 05/14/21 09:01 Patient reports: no new complaints, tolerating liquids well (full liquids), flatus and bowel movement (yesterday and already one this morning) Interval history: Patient seen and examined. She reports feeling well today. She feels that she is continuing to improve. She is tolerating activity. Denies any abdominal pain and is not requiring any narcotics for pain control. No other specific complaints today. Review of Systems Review of Systems: All systems reviewed & are unremarkable except as noted in HPI and below Exam Const: General: alert; No acute distress Orientation/consciousness: patient oriented x3 GI: Inspection: non-distended GI Palp: Yes Soft to palpation, No Tenderness to palpation present (GI) and No Guarding due to palpation present (GI) Auscultation: normal bowel sounds Other: small open wound at inferior end of incision granulating well, no redness, no tunneling, will stop packing. steri strips on remaining incision superiorly to wound that are intact, no redness or drainage. Neuro: General: moves all extremities and no focal motor deficits Extrem: General: normal to inspection and no calf tenderness Psych: Insight: Good insight present (Psych) Judgement: Good judgement present (Psych) Objective Data Vital Signs Vital Signs: Vital Signs - 24 hr 05/13/21 14:00 05/13/21 20:29 05/13/21 22:00 Temperature 98.1 F 98.0 F Pulse Rate 86 93 93 Respiratory Rate 19 16 Blood Pressure 141/50 H 150/65 H Pulse Oximetry 99 98 05/14/21 06:00 05/14/21 09:03 Temperature 98.2 F Pulse Rate 87 87 Respiratory Rate 16 Blood Pressure 131/55 L Pulse Oximetry 97 Intake/Output Intake/Output: Intake & Output 05/11/21 05/12/21 05/13/21 05/14/21 23:59 23:59 23:59 23:59 Intake Total 2455 3441 3020 870 Output Total 1100 1325 320 900 Balance 1355 2116 2700 -30 Meds/Results Medications: Active Medications Generic Name Dose Route Start Last Admin Trade Name Freq PRN Reason Stop Dose Admin Acetaminophen 650 mg 05/13/21 09:56 Acetaminophen 325 Mg Tablet PO Q4H PRN Mild Pain (1-3) or Fever Albuterol 2 puff 04/18/21 09:30 Albuterol Sulfate (*Sp) Aerosol 1 Puff INHALATION TID PRN Shortness Of Breath Amlodipine Besylate 5 mg 05/12/21 09:00 05/14/21 09:03 Amlodipine Besylate 5 Mg Tablet PO 5 mg QAM FERN Administr
--- NOTE | 2021-05-14 11:46 | PM.IMPN ---
Progress Note: A&P Assessment and Plan (1) Small bowel obstruction: Code(s): K56.609 - Unspecified intestinal obstruction, unspecified as to partial versus complete obstruction Status: Acute Assessment and Plan: Patient developed nausea and vomiting requiring NGT to be replaced. SBFT on 05/08 showing SBO. Lactic and WBC normal. CT of the abdomen and pelvis (05/09) shows small amount of residual small bowel and recto sigmoid contrast, diffuse mesenteric inflammation and significant interval decrease in size of peritoneal abscess. Now having BMs. NGT was clamped and then able to be removed. She is tolerating liquid diet. TPN stopped. Appreciate General surgery input. (2) Nausea and vomiting: Qualifiers: Vomiting type: unspecified Qualified Code(s): R11.2 - Nausea with vomiting, unspecified Code(s): R11.2 - Nausea with vomiting, unspecified Status: Acute Assessment and Plan: As above (3) Anastomotic leak of intestine: Code(s): K91.89 - Other postprocedural complications and disorders of digestive system Status: Acute Assessment and Plan: WBC jumped to 26K on 04/19. CT Ch/A/P 04/19 showing post-op ileus and surgical changes but no acute findings. BCx 04/19 returned Enterobacter cloacae (1of2) sensitive to Ertapenem. CT 04/23 showing abscess formation concerning for anastomotic leaks. She was taken back to the OR 04/23 and underwent re-exploration of recent laparotomy with drainage of multiple intra-abdominal abscesses and ileocolic resection with [id number] ileocolic anastomosis. Micafungin was added to the Ertapenem. She tolerated the repeat procedure well. She completed antifungal and antibiotic treatment. No further fevers and WBC normal. Repeat CT 05/09 as mentioned above. Continue PT/OT. (4) Superficial postoperative wound infection: Code(s): T81.49XA - Infection following a procedure, other surgical site, initial encounter Status: Acute Assessment and Plan: Noted. WCx growing scant growth of Enterobacter cloacae complex. Wound looks good. Continue routine dressing changes. Currently off all antibiotics. (5) Chest pain: Code(s): R07.9 - Chest pain, unspecified Status: Resolved Assessment and Plan: Patient with chest pain 05/02 but vague symptoms. She states better with belching to suggest GI related. EKG showing no acute findings. No recurrence. Will continue to follow. (6) Bacteremia: Code(s): R78.81 - Bacteremia Status: Acute Assessment and Plan: [place] related to the anastomotic leaks and abdominal abscesses. She completed course of IV antibiotics and antifungals. Follow closely. Re-culture if she develops fever or other concerning symptoms. As above. 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 CT Abd/Pelvis showing distended bowel with air and fluid most likely cecum with ascending colonic transition point consistent with volvulus. Patient was made NPO, NGT placed and General surgery consulted. Patient underwent open right hemicolectomy with ileocolic anastomosis 04/12/21. Patient did well initially but then her WBC became elevated with CT 04/23 showing abscess formation concerning for anastomotic leak. As above. (8) Postoperative ileus: Code(s): K91.89 - Other postprocedural complications and disorders of digestive system; K56.7 - Ileus, unspecified Status: Acute Assessment and Plan: CT scan 04/19 showing moderately distended jejunum consistent with ileus. NG was placed but KUB showed persistently dilated small bowel likely adynamic ileus. Now s/p repeat surgery on 04/23. Did well initially but then developed ileus/partial SBO. This improved with conservative management. KUB / showing normal bowel gas pattern. Resolved. (9) HTN (hypertension
[2021-05-14 11:49] LABS: Glucose Point of Care 117 mg/dl (65-105)
--- NOTE | 2021-05-14 12:11 | PCNFU ---
Nutrition Follow-Up Complete: Inadequate oral intake related cecal volvulus as evidenced by NPO goal: Pt to meet 75% of estimated nutritional needs Patient is progressing towards goal. We will continue current goal. Pt current nutrition is Full liquids with Ensure compact BID. Last recorded weight is 51.1 kg, down from 60 kg on admit. Bowel Motility:+BM reported 05/14 Labs Reviewed:Cr 0.6,Hgb 8.2,Hct 26.7,Na 133 Meds Noted:Protonix, Norvasc,[place], Miralax, Zofran,Synthroid, Dificid, Neurontin, Lopressor Skin: abdominal incision Additional Notes: Nutrition follow up. Patent has NGT removed. PPN has been discontinued. Spoke with patient today, she is tolerating full liquids. Diet supplements of Ensure compact BID providing an additional 220 kcals and 9 gms protein. She did drink her ensure for breakfast today. Agree with diet orders at this time. Recommend: advancing as tolerated per MD orders. Will monitor labs, medication, wt, and reported intake every 3 days.
[2021-05-14] MEDS: SILVERGEL (ELTA) 45 ML 1 APPLIC TOPICAL (13:16)
[2021-05-14 14:00] VITALS: BP 134/50; PULSE 74; RESP 16; TEMP 36.6; O2SAT 99
--- NOTE | 2021-05-14 15:20 | PC.NURSE ---
On 05/14/21, the student, [Silvia Cruz ], provided care and completed [facility] documentation on this patient. I have reviewed the student's documentation and agree with the findings.
[2021-05-14 18:38] LABS: Glucose Point of Care 127 mg/dl (65-105)
[2021-05-14 20:18] VITALS: O2SAT 99
[2021-05-14 20:50] VITALS: PULSE 84
[2021-05-14 21:57] VITALS: BP 119/44; PULSE 78; RESP 18; TEMP 36.3; O2SAT 98
[2021-05-15] MEDS: ACETAMINOPHEN 325 MG TABLET 650 MG PO (01:22)
[2021-05-15 05:31] VITALS: BP 144/54; PULSE 78; RESP 18; TEMP 36.3; O2SAT 97
[2021-05-15] MEDS: LEVOTHYROXINE SODIUM 75 MCG TABLET PO (05:58)
[2021-05-15] MEDS: PANTOPRAZOLE 40 MG TABLET PO (08:22)
[2021-05-15] MEDS: GABAPENTIN 100 MG CAPSULE PO (08:23)
[2021-05-15] MEDS: amLODIPine BESYLATE 5 MG TABLET PO (08:23)
[2021-05-15] MEDS: ENOXAPARIN 40 MG/0.4 ML SYRINGE SUB-Q (08:23)
[2021-05-15 08:24] VITALS: PULSE 78
[2021-05-15] MEDS: METOPROLOL TARTRATE 25 MG TABLET PO (08:24)
[2021-05-15] MEDS: polyethylene glycoL 3350 17 GM POWD.PACK PO (08:24)
[2021-05-15] MEDS: SILVERGEL (ELTA) 45 ML 1 APPLIC TOPICAL (08:25)
--- NOTE | 2021-05-15 11:46 | PM.PNGS ---
Progress Note: A&P Assessment and Plan (1) Postoperative ileus: Code(s): K91.89 - Other postprocedural complications and disorders of digestive system; K56.7 - Ileus, unspecified Status: Resolved Assessment and Plan: Ok to discharge today Follow up in office in 2-3 weeks Maintain full liquid diet or soft diet as tolerated (2) Anastomotic leak of intestine: Code(s): K91.89 - Other postprocedural complications and disorders of digestive system Status: Acute (3) Superficial postoperative wound infection: Code(s): T81.49XA - Infection following a procedure, other surgical site, initial encounter Status: Acute (4) Cecal volvulus: Onset Date: ~04/11/21 Code(s): K56.2 - Volvulus Status: Acute Subjective Subjective Date/Time Seen: 05/15/21 11:46 Interval history: Tolerating full liquids. Pain controlled. No nausea or vomiting. No bloating. Exam Const: General: alert; No acute distress Orientation/consciousness: patient oriented x3 GI: Inspection: non-distended GI Palp: Yes Soft to palpation, No Tenderness to palpation present (GI) and No Guarding due to palpation present (GI) Auscultation: normal bowel sounds Other: small open wound at inferior end of incision granulating well, no redness, no tunneling, will stop packing. steri strips on remaining incision superiorly to wound that are intact, no redness or drainage. Neuro: General: moves all extremities and no focal motor deficits Extrem: General: normal to inspection and no calf tenderness Psych: Insight: Good insight present (Psych) Judgement: Good judgement present (Psych) Objective Data Vital Signs Vital Signs: Vital Signs - 24 hr 05/14/21 14:00 05/14/21 20:18 05/14/21 20:50 Temperature 36.6 C Pulse Rate 74 84 Respiratory Rate 16 Blood Pressure 134/50 L Pulse Oximetry 99 99 05/14/21 21:57 05/15/21 05:31 05/15/21 08:24 Temperature 36.3 C L 36.3 C L Pulse Rate 78 78 78 Respiratory Rate 18 18 Blood Pressure 119/44 L 144/54 H Pulse Oximetry 98 97 Intake/Output Intake/Output: Intake & Output 05/12/21 05/13/21 05/14/21 05/15/21 23:59 23:59 23:59 23:59 Intake Total 3441 3020 1190 280 Output Total 5848 852 9958 101 Balance 2116 2700 -211 179 Meds/Results Medications: Active Medications Generic Name Dose Route Start Last Admin Trade Name Freq PRN Reason Stop Dose Admin Acetaminophen 650 mg 05/13/21 09:56 05/15/21 01:22 Acetaminophen 325 Mg Tablet PO 650 mg Q4H PRN Administration Mild Pain (1-3) or Fever Albuterol 2 puff 04/18/21 09:30 Albuterol Sulfate (*Sp) Aerosol 1 Puff INHALATION TID PRN Shortness Of Breath Amlodipine Besylate 5 mg 05/12/21 09:00 05/15/21 08:23 Amlodipine Besylate 5 Mg Tablet PO 5 mg QAM FERN Administration Dextrose 12.5 gm 05/06/21 05:15 Dextrose 50% 25 Gm/50 Ml Syringe IV PUSH PRN PRN Hypoglycemia Protocol Enoxaparin Sodium 40 mg 05/11/21 09:00 05/15/21 08:23 Enoxaparin 40 Mg/0.4 Ml Syringe SUB-Q 40 mg DAILY FERN Administration Gabapentin 100 mg 05/13/21 13:00 05/15/21 08:23 Gabapentin 100 Mg Capsule PO 100 mg TID FERN Administration Glucagon 1 mg 05/06/21 05:15 Glucagon For Inj 1 Mg Vial IM PRN PRN Hypoglycemia Protocol Glucose 15 gm 05/06/21 05:15 Glucose Oral Gel 15 Gm Of Glucse In 37.5 Gm Tube PO PRN PRN Hypoglycemia Protocol Hydralazine HCl 10 mg 04/25/21 11:11 04/29/21 15:52 Hydralazine Hcl 20 Mg/Ml Vial IV PUSH 10 mg Q8H PRN Administration Blood Pressure - High >190/110 Dextrose 1,000 mls @ 100 mls/hr 05/06/21 05:15 Dextrose 5% 1,000 Ml IVPB PRN PRN Hypoglycemia Protocol Dextrose 1,000 mls @ 50 mls/hr 05/08/21 12:00 Dextrose 10% IV CONT .Q20H PRN if PN is interrupted Levothyroxine Sodium 75 mcg 05/14/21 06:30 05/15/21 05:58 Levothyroxine
[2021-05-15 11:50] LABS: Glucose Point of Care 118 mg/dl (65-105)
--- NOTE | 2021-05-15 12:07 | PM.DS ---
DS: Admitting Diagnosis Discharge Date 05/15/21 Admitting Diagnosis Abdominal pain DS: Discharge Diagnosis Discharge Diagnosis (1) Small bowel obstruction: Code(s): K56.609 - Unspecified intestinal obstruction, unspecified as to partial versus complete obstruction Status: Acute (2) Nausea and vomiting: Qualifiers: Vomiting type: unspecified Qualified Code(s): R11.2 - Nausea with vomiting, unspecified Code(s): R11.2 - Nausea with vomiting, unspecified Status: Acute (3) Anastomotic leak of intestine: Code(s): K91.89 - Other postprocedural complications and disorders of digestive system Status: Acute (4) Superficial postoperative wound infection: Code(s): T81.49XA - Infection following a procedure, other surgical site, initial encounter Status: Acute (5) Chest pain: Code(s): R07.9 - Chest pain, unspecified Status: Resolved (6) Bacteremia: Code(s): R78.81 - Bacteremia Status: Acute (7) Cecal volvulus: Onset Date: ~04/11/21 Code(s): K56.2 - Volvulus Status: Acute (8) Postoperative ileus: Code(s): K91.89 - Other postprocedural complications and disorders of digestive system; K56.7 - Ileus, unspecified Status: Resolved (9) HTN (hypertension), benign: Code(s): I10 - Essential (primary) hypertension Status: Acute (10) Anemia: Code(s): D64.9 - Anemia, unspecified Status: Acute (11) Postoperative bleeding from incision: Status: Acute (12) Lactic acidosis: Onset Date: ~04/2021 Code(s): E87.2 - Acidosis Status: Resolved (13) Abnormal urinalysis: Code(s): R82.90 - Unspecified abnormal findings in urine Status: Resolved (14) Chronic kidney disease, stage 3 (moderate): Qualifiers: Chronic kidney disease stage 3 subtype: stage 3a (GFR 45-59) Qualified Code(s): N18.31 - Chronic kidney disease, stage 3a Code(s): N18.3 - Chronic kidney disease, stage 3 (moderate) Status: Chronic (15) Polymyositis, organ involvement unspecified: Code(s): M33.20 - Polymyositis, organ involvement unspecified Status: Chronic (16) Clostridium difficile colitis: Onset Date: Unknown Code(s): A04.72 - Enterocolitis due to Clostridium difficile, not specified as recurrent Status: Resolved DS: Summary Hospital Course Reason for hospitalization: 75yo female with CKD, HTN and recent CDiff who recently finished a tapering dose of oral vancomycin here for n/v and found to have cecal volvulus. Please see H&P for details Hospital Course: Patient presents to ED with abd pain, nausea and vomiting. CT Abd/Pelvis showing distended bowel with air and fluid most likely cecum with ascending colonic transition point consistent with volvulus. Patient was made NPO, NGT placed and General surgery consulted. Patient underwent open right hemicolectomy with ileocolic anastomosis 04/12/21. Patient did well initially but then her WBC became elevated with CT 04/23 showing abscess formation concerning for anastomotic leak. BCx 04/19 returned Enterobacter cloacae (1of2) sensitive to Ertapenem. She was taken back to the OR 04/23 and underwent re-exploration of recent laparotomy with drainage of multiple intra-abdominal abscesses and ileocolic resection with [id number] ileocolic anastomosis. Micafungin was added to the Ertapenem. She tolerated the repeat procedure well. She completed antifungal and antibiotic treatment. No further fevers and WBC normal. WCx growing scant growth of Enterobacter cloacae complex. Patient developed anemia suspected to be acute blood loss from surgery and from bleeding around the original incision site. She did receive FFP x1 unit on 04/14/2021 and later received 2 units PRBCs in the OR on 04/23/2021. Hemoglobin climbed 8-9 range and remained stable. Urine culture growing Providencia of 10-49K CFU felt to ba a contaminated
--- NOTE | 2021-05-15 13:22 | PCOTNOTE ---
Attempted to see patient this pm, however RN advised not to see due to removal of PICC line and recommended patient to lay still at this time.
[2021-05-15 14:00] VITALS: BP 139/55; PULSE 72; RESP 16; TEMP 35.6; O2SAT 98
[2021-05-15 14:53] LABS: EDCOVIDSCREEN Negative (Negative)
[2021-05-15 16:04] VITALS: O2SAT 99
== END 2021-05-15 15:30 | DRG 329 ==
LOC: ANHED 17:56 → ANH3MEDSUR 23:10 → ANHIMU 04-24 09:05 → ANH3MEDSUR 05-03 11:16 → ANHIMU 05-16 09:36
PROVIDERS: Emergency Medicine; Family Medicine; Internal Medicine; Nurse Practitioner Family; Surgery; Admitting Provider Internal Medicine; Emergency Provider Emergency Medicine; PCP Surgery; Visit Provider Internal Medicine
PROC: 0DTF0ZZ Resection of Right Large Intestine, Open Approach (ICD-10-PCS; CPT 44160; principal; 2021-04-12 14:30)
PROC: 0DQ80ZZ Repair Small Intestine, Open Approach (ICD-10-PCS; CPT 49000; principal; 2021-04-23 14:30)
DX: K56.2 Volvulus (principal); K65.1 Peritoneal abscess; K91.89 Other postprocedural complications and disorders of digestive system; L76.22 Postprocedural hemorrhage of skin and subcutaneous tissue following other procedure; T81.41XA Infection following a procedure, superficial incisional surgical site, initial encounter; E87.2 Acidosis; M33.99 Dermatopolymyositis, unspecified with other organ involvement; D62 Acute posthemorrhagic anemia; R78.81 Bacteremia; E46 Unspecified protein-calorie malnutrition; Z66 Do not resuscitate; F41.9 Anxiety disorder, unspecified; F32.A Depression, unspecified; Z85.3 Personal history of malignant neoplasm of breast; K21.9 Gastro-esophageal reflux disease without esophagitis; E03.9 Hypothyroidism, unspecified; Z79.899 Other long term (current) drug therapy; E78.2 Mixed hyperlipidemia; Z87.891 Personal history of nicotine dependence; Z90.11 Acquired absence of right breast and nipple; I12.9 Hypertensive chronic kidney disease with stage 1 through stage 4 chronic kidney disease, or unspecified chronic kidney disease; N18.30 Chronic kidney disease, stage 3 unspecified; R82.90 Unspecified abnormal findings in urine; Z20.822 Contact with and (suspected) exposure to COVID-19; D72.829 Elevated white blood cell count, unspecified; K56.7 Ileus, unspecified; Y83.8 Other surgical procedures as the cause of abnormal reaction of the patient, or of later complication, without mention of misadventure at the time of the procedure; Y92.230 Patient room in hospital as the place of occurrence of the external cause; I27.20 Pulmonary hypertension, unspecified; R13.10 Dysphagia, unspecified; R07.89 Other chest pain; K56.609 Unspecified intestinal obstruction, unspecified as to partial versus complete obstruction; Q43.0 Meckel's diverticulum (displaced) (hypertrophic); Z68.20 Body mass index [BMI] 20.0-20.9, adult; E87.6 Hypokalemia; B96.20 Unspecified Escherichia coli [E. coli] as the cause of diseases classified elsewhere
CPT/HCPCS: 36415; 36430; 36569; 51701; 71250; 74018; 74019; 74176; 74177; 74250; 80048; 80053; 80069; 81001; 82533; 82948; 83605; 83690; 83735; 84100; 84132; 84145; 84466; 84478; 85014; 85018; 85025; 85027; 85055; 85610; 85730; 86140; 86850; 86900; 86901; 86920; 87040; 87070; 87077; 87081; 87086; 87088; 87186; 87205; 87426; 88307; 93005; 93306; 94762; 96361; 96374; 96375; 97110; 97116; 97161; 97164; 97165; 97168; 97530; 97535; 99285; A9270; C1751; C9113; C9803; J0131; J0330; J0360; J0690; J0696; J1100; J1170; J1335; J1650; J1885; J2212; J2248; J2270; J2405; J2543; J2704; J2710; J2765; J3010; J3475; J3480; J7030; J7040; J7042; J7120; P9016; P9017; Q9967; U0003; U0005

== ENCOUNTER 2021-07-30 00:43 | Day surgery (SDC) | payer MEDICARE, SELFPAY ==
[2021-07-24 11:04] VITALS: BMI 16.5
[2021-07-30 08:14] VITALS: BP 108/60; PULSE 88; RESP 16; TEMP 36.4; O2SAT 100; BMI 16.2
[2021-07-30] MEDS: LACTATED RINGERS 1,000 ML 150 ML IV CONT (08:25)
--- NOTE | 2021-07-30 08:53 | WPDANESEPPF ---
Anes - Initial Pre Proc Eval Procedure: Operation Date: 07/30/21 09:30 Proposed Procedures p Esophagogastroduodenoscopy - Raman Billy MD Date/Time: 07/30/21 08:53 Surgeon: Raman Billy MD Pre Op Diagnosis: weight loss Patient Data Age: 75 Gender: F Height: 1.6 m Weight: 41.5 kg Last Vital Signs Temp 36.4 C L 07/30/21 08:14 Pulse 88 07/30/21 08:14 Resp 16 07/30/21 08:14 BP 108/60 07/30/21 08:14 Pulse Ox 100 07/30/21 08:14 O2 Del Method Room Air 07/30/21 08:14 Allergies Allergy/AdvReac Type Severity Reaction Status Date / Time Sulfa (Sulfonamide Allergy Mild Rash Verified 07/30/21 08:12 Antibiotics) sulfacetamide Allergy Mild Rash Verified 07/30/21 08:12 sulfamethizole Allergy Mild Rash Verified 07/30/21 08:12 gemfibrozil AdvReac Intermediate elevated Verified 07/30/21 08:12 liver enzymes Home Medications Medication Instructions Recorded Confirmed Type multivitamin 1 tablet PO DAILY 05/12/19 07/30/21 History gabapentin 100 mg capsule 100 mg PO TID 12/06/20 07/30/21 History levothyroxine 75 mcg tablet 75 mcg PO DAILY #90 tabs 03/25/21 07/30/21 Rx albuterol sulfate 90 mcg/actuation 2 puff inhalation TID PRN 05/15/21 07/30/21 Rx aerosol inhaler (ProAir HFA) Shortness Of Breath Or Wheezing #0 grams mycophenolate mofetil 500 mg tablet 1,000 mg PO Q12H 06/26/21 07/30/21 History simethicone 125 mg capsule (Gas-X 125 mg PO DAILY PRN Abdominal 06/26/21 07/30/21 History Extra Strength) Discomfort citalopram 20 mg tablet 20 mg PO DAILY 07/24/21 07/30/21 History metoprolol succinate 50 mg 50 mg PO DAILY 07/24/21 07/30/21 History tablet,extended release 24 hr simvastatin 10 mg tablet 10 mg PO HS 07/24/21 07/30/21 History amlodipine 5 mg tablet 1 tablet PO DAILY 07/30/21 07/30/21 History Patient hx anesthesia problems: none Family hx anesthesia problems: none Results Review: All pre-operative results and documents have been reviewed as part of the pre-operative evaluation. [facility] Past Medical History Medical History Anxiety and depression Cancer of right breast Dermatomyositis Gastroesophageal reflux disease Hypertension Hypertensive chronic kidney disease with stage 1 through stage 4 chronic kidney disease, or unspecified chronic kidney disease Hypothyroidism Long-term use of immunosuppressant medication Loss of appetite Mixed hyperlipidemia Nausea Stable burst fracture of T8 vertebra Surgical History Surgical History History of hysterectomy History of incisional hernia repair (10/03/20) Laparoscopic right lower quadrant incisional hernia repair with mesh, daVtasia per Dr. Martinez. History of removal of ovarian cyst History of right mastectomy (2010) History of surgery Nodule removed from skin and Laryngeal nerve removed Family History Family History Father Depression Family history of lung cancer Mother Depression Hypertension Family history of elevated blood lipids Other No family history of cardiovascular disease Social History Social History Social History: Surrogate decision maker: Viridiana Becker, daughter. Code status: Full code. Smoking packs per day: 0.5 Smoking cigarettes per day: 10.0 Years smoked: 10 Smoking pack-years: 5.00 Smoking status: Former smoker Tobacco type: cigarettes Smoking end date: 03/09/69 Additional smoking assessment comments: smoked briefly - a few cigarettes a week Alcohol intake: never Substance use: never Substance use type: does not use Living arrangements: alone Additional living arrangements comments: Resides in her own home in [place]. as of December 2019. Additional occupation/education comments: Retired. Sp
--- NOTE | 2021-07-30 09:17 | WPDHPUPDATE1 ---
History and Physical Update Update Date/Time: 07/30/21 09:17 History and Physical has been reviewed, including an updated exam of the patient. There are NO changes in the patient's condition. Risks, benefits, and alternatives have been discussed and questions answered. Patient agrees to proceed with procedure.
[2021-07-30 09:44] VITALS: BP 91/56; PULSE 70; RESP 25; O2SAT 100
[2021-07-30 09:54] VITALS: BP 99/59; PULSE 68; RESP 25; O2SAT 98
[2021-07-30 10:04] VITALS: BP 98/57; PULSE 75; RESP 23; O2SAT 100
== END 2021-07-30 10:23 | disposition home or self-care (01) ==
PROVIDERS: PCP Family Medicine; Visit Provider Internal Medicine Gastroenterology
PROC: 0DJ08ZZ Inspection of Upper Intestinal Tract, Via Natural or Artificial Opening Endoscopic (ICD-10-PCS; CPT 43235; principal; 2021-07-30 09:30)
DX: R68.81 Early satiety (principal); K22.2 Esophageal obstruction; R63.4 Abnormal weight loss; K29.50 Unspecified chronic gastritis without bleeding; K44.9 Diaphragmatic hernia without obstruction or gangrene; K31.7 Polyp of stomach and duodenum; E78.5 Hyperlipidemia, unspecified; B36.9 Superficial mycosis, unspecified; F41.8 Other specified anxiety disorders; K21.9 Gastro-esophageal reflux disease without esophagitis; I12.9 Hypertensive chronic kidney disease with stage 1 through stage 4 chronic kidney disease, or unspecified chronic kidney disease; N18.1 Chronic kidney disease, stage 1; E78.2 Mixed hyperlipidemia; Z87.891 Personal history of nicotine dependence; E46 Unspecified protein-calorie malnutrition; R63.0 Anorexia; K91.89 Other postprocedural complications and disorders of digestive system; A04.72 Enterocolitis due to Clostridium difficile, not specified as recurrent; M33.90 Dermatopolymyositis, unspecified, organ involvement unspecified; R11.0 Nausea; E03.9 Hypothyroidism, unspecified; Z79.51 Long term (current) use of inhaled steroids
CPT/HCPCS: 43249; 43239; 88305; C1726; J2704; J7120

== ENCOUNTER 2021-08-22 09:42 | Outpatient (CLI) | payer MEDICARE, SELFPAY ==
--- NOTE | ~2021-08-22 | NM_ITS ---
EXAM: NM gastric emptying study DATE: 08/22/2021 13:59 INDICATION: Early satiety TECHNIQUE: A gastric emptying study was performed using the methodology of Dorothy PULLIAM, et al. J Nucl Med 2007; 48:568-572. The patient was given a meal consisting of 2 scrambled eggs labeled with 1.0 m Ci Tc-99m sulfur colloid, 2 slices of toast, two packages of jam, and approximately 120 mL of water. Simultaneous anterior and posterior 1-min images of the abdomen were obtained with the patient supine at multiple time points over a total period of 4 hours. The geometric mean of anterior and posterior views was determined, and the percentage retention was calculated for each time point. COMPARISON: None. FINDINGS: Gastric retention of the radiotracer-labeled meal was 84%, 52%, and 28% at the 1-hour, 2-hour, and 4- hour time points, respectively. With this technique, apparent rapid gastric emptying is suggested by <30% gastric retention at 1 hour. Delayed gastric emptying is defined by gastric retention of >90% at 1 hour, >60% retention at 2 hours, or >10% retention at 4 hours. IMPRESSION: 1. Delayed gastric emptying. Reviewed, dictated and finalized at location A.
== END 2021-08-22 09:43 | disposition home or self-care (01) ==
PROVIDERS: PCP Family Medicine; Visit Provider Internal Medicine Gastroenterology
DX: R68.81 Early satiety (principal); R63.0 Anorexia; K30 Functional dyspepsia
CPT/HCPCS: 78264; A9541

== ENCOUNTER → 2022-02-17 15:48 | Outpatient (CLI) | payer MEDICARE, SELFPAY ==
--- NOTE | ~2022-02-17 | XR_ITS ---
EXAM: XR knee RT min 4V DATE: 02/17/2022 16:21 HISTORY: M25.561 - Pain in right knee . COMPARISON: None available. FINDINGS: Decreased mineralization. No fracture or dislocation. No lytic or blastic lesion. Joint sp aces are mild medial and lateral joint space narrowing. Mild-moderate tricompartmental osteophytosis. No erosion or periosteal change. Large volume knee joint effusion. IMPRESSION: Large right knee joint effusion. No acute osseous finding in the right knee. Reviewed, dictated and finalized at location K. COMMUNICATIONS PROFESSIONAL IMPRESSION: Large right knee joint effusion. No acute osseous finding in the ri ght knee.
== END ==
PROVIDERS: PCP Family Medicine; Visit Provider Family Medicine
DX: M25.561 Pain in right knee (principal); M25.461 Effusion, right knee
CPT/HCPCS: 73564

== ENCOUNTER 2022-04-01 09:19 | Outpatient (CLI) | payer MEDICARE, SELFPAY ==
[2022-04-01 13:40] LABS: Kit Draw Collected
== END 2022-04-01 09:20 | disposition home or self-care (01) ==
LOC: ANHGOSHLAB 09:20
PROVIDERS: PCP Family Medicine; Visit Provider Nurse Practitioner
DX: D64.9 Anemia, unspecified (principal)
CPT/HCPCS: 36415

== ENCOUNTER → 2022-04-09 14:24 | Outpatient (CLI) | payer MEDICARE, SELFPAY ==
--- NOTE | ~2022-04-09 | DEXA_ITS ---
Bone Density Report Name: JONAS GARCIA Age: 76 Sex: Female Ethnicity: White Date of : 1945 Indication: postmenopausal; screening for osteoporosis; height loss; prior fracture; hysterectomy; Referring Provider: Carolina Bryant Study: Bone densitometry was performed. Exam Date: April 09, 2022 Accession number: [id number] Bone Density: Region BMD T-score Z-score Classification AP Spine (L1-L4) 0.823 -2.0 0.6 Osteopenia Femoral Neck (Left) 0.612 -2.1 0.1 Osteopenia Total Hip (Left) 0.689 -2.1 -0.1 Osteopenia Femoral Neck (Right) 0.612 -2.1 0.1 Osteopenia Total Hip (Right) 0.692 -2.0 -0.1 Osteopenia Total Hip Mean 0.691 -2.1 -0.1 Osteopenia World Health Organization criteria for BMD impression classify patients as: Normal (T-score at or above -1.0), Osteopenia (T-score between -1.0 and -2.5), or Osteoporosis (T-score at or below -2.5). 10-year Fracture Risk: FRAX not reported because: Prior hip or vertebral fracture Clinical Information Provided by Patient: Have had a previous hip or vertebral fracture Has had a low trauma fracture Has used the following medications: Vitamin D, Calcium Has the following medical conditions: Hysterectomy Patient maximum height was 63.5 Menopause Age: 48 No regular weight bearing exercise Does not regularly consume dairy products Drinks caffeinated beverages Onset of menses at age 10 Number of children 0 Impression: The patient has low bone mass, based on the Left Total Hip T-score. The patient has risk factors, including: previous fracture. Discussion: INCREASED RISK OF FRACTURE DUE TO HISTORY OF FRACTURE. The patient's previous fracture puts the patient at high risk of a future fracture. In untreated patients, the risk of osteoporotic fracture increases approximately two-fold for each 1.0 SD decrease in T-score. Low bone density is not the only risk factor for fracture; also consider factors such as patient's age, frailty or poor health, risk of falling, risk of injury, previous osteoporotic fracture, family history of osteoporosis, cigarette smoking, low body weight, etc. Not everyone with a low trauma fracture has osteoporosis; osteomalacia and other metabolic bone disorders should also be considered. Patients who have osteoporosis should be evaluated for specific diseases and conditions (secondary causes) that may cause or contribute to bone loss and fracture risk. National Osteoporosis Foundation (NOF) recommends pharmacologic intervention for patients with a prior hip or vertebral fracture regardless of BMD T-score. The patient should follow a healthful lifestyle (good nutrition with adequate calcium and vitamin D, and appropriate weight-bearing exercise). Follow-Up: Consider a repeat BMD and Vertebral Fracture Assessment (VFA) exam in 2 years or sooner if medically
== END ==
PROVIDERS: PCP Family Medicine; Visit Provider Nurse Practitioner
DX: S22.061A Stable burst fracture of T7-T8 vertebra, initial encounter for closed fracture (principal); M85.9 Disorder of bone density and structure, unspecified; Z78.0 Asymptomatic menopausal state; X58.XXXA Exposure to other specified factors, initial encounter
CPT/HCPCS: 77080

== ENCOUNTER 2022-04-30 20:47 | Outpatient (NON) | payer MEDICARE, SELFPAY | END 2022-04-30 20:48 | disposition home or self-care (01) | PROVIDERS: PCP Family Medicine; Visit Provider Nurse Practitioner | DX: L02.91 Cutaneous abscess, unspecified (principal) | CPT/HCPCS: 87070; 87205 ==

== ENCOUNTER → 2022-06-18 12:51 | Outpatient (CLI) | payer MEDICARE, SELFPAY ==
--- NOTE | ~2022-06-18 | CT_ITS ---
CT of the Abdomen and Pelvis: Indication: Abdominal wall abscess Technique: 2.5 mm axial scans were obtained through the abdomen and pelvis following intravenous adm inistration of 100 cc of Omnipaque 350. Dose reduction technique was used on this scan by utilizing a utomated exposure control and iterative reconstruction technique. The dose-length product (DLP) was 2 25.58 mGy-cm. COMPARISON: 05/09/2021 Findings: Scans through the lung bases are unremarkable. The liver, spleen, pancreas, gallbladder, adrenals and kidneys are within normal limits. There are at herosclerotic calcifications of the aorta. No lymphadenopathy. No bowel obstruction or bowel wall thickening. Evidence of prior bowel surgery noted. There is possib le tiny residual abscess just deep to the anterior abdominal wall, but the previously noted abscess a rteries are nearly completely resolved. Images through the pelvis were performed. Urinary bladder unremarkable. No adnexal mass evident. No a scites evident. Impression: Previously noted abscesses are nearly completely resolved. Probable tiny residual abscess just deep t o the anterior abdominal wall the level of the umbilicus. Reviewed, dictated and finalized at location . Impression: Previously noted abscesses are nearly completely resolved. Probable tiny residu al abscess just deep to the anterior abdominal wall the level of the umbilicus.
[2022-06-18 13:22] LABS: Estimated Glomerular Filt Rate > 60
== END ==
PROVIDERS: PCP Family Medicine; Visit Provider Surgery
DX: L02.211 Cutaneous abscess of abdominal wall (principal)
CPT/HCPCS: 74177; Q9967

== ENCOUNTER 2024-05-13 14:21 | Outpatient (CLI) | payer MEDICARE, SELFPAY ==
--- NOTE | ~2024-05-13 | XR_ITS ---
CHEST RADIOGRAPH, PA AND LATERAL CLINICAL HISTORY: R05.9 - Cough, unspecified . COMPARISON: 05/12/2019 TECHNIQUE: PA and lateral views of the chest. FINDINGS The cardiomediastinal silhouette is unremarkable. The lungs are clear. Anterior wedge compression of the T9 vertebral body, unchanged from prior. Remaining visualized osseous structures and soft tissues are unremarkable. IMPRESSION: No focal infiltrate or effusion. Reviewed, dictated and finalized at location A. N RESOURCE OFFICER
== END 2024-05-13 14:22 | disposition home or self-care (01) ==
LOC: GOSHIMG 14:22
PROVIDERS: PCP Family Medicine; Visit Provider Family Medicine
DX: R05.9 Cough, unspecified (principal)
CPT/HCPCS: 71046

== ENCOUNTER 2024-10-10 15:20 | Emergency (ER) | payer MEDICARE, SELFPAY ==
--- NOTE | ~2024-10-10 | CT_ITS ---
CLINICAL INDICATION: Painful bulge at the level of the umbilicus COMPARISON: 06/18/2022. TECHNIQUE: Multiple contiguous axial images of the abdomen and pelvis were performed following the ad ministration of with 100 mL Omnipaque-350 intravenous contrast The dose-length product (DLP) was 192.32 mGy-cm. Automated exposure control and iterative reconstruction technique were employed. FINDINGS/OBSERVATIONS: Visualized lower thorax: The bilateral lung bases are clear. The heart is borderline enlarged, without pericardial effusion. Small hiatal hernia is present. Liver: The liver demonstrates homogeneous enhancement and is not enlarged. Gallbladder and biliary system: The gallbladder is only minimally distended, contains a bulky calcification and is otherwise unremark able. Pancreas: The pancreas enhances homogeneously without ductal dilatation. Spleen: The spleen enhances homogeneously and is not enlarged. . Kidneys: Well-circumscribed fluid attenuation focus within the upper pole of the left kidney, unchang ed from prior and statistically representing a cyst. The remainder of the bilateral kidneys otherwise enhance symmetrically without hydronephrosis or lise l calculi. Adrenal glands: Unremarkable. Gastrointestinal tract: Significant fluid distention of the stomach. Fecal stasis within the colon. Appendix: The appendix is not definitively visualized. However, no pericecal inflammatory change is identified suggest the presence of acute appendicitis. Vasculature: Densely calcified atherosclerotic disease. Lymph nodes: No pathologically enlarged or morphologically suspicious lymph nodes within the retroperitoneum or at the root of the mesentery. Pelvic structures: The bladder is only minimally distended, and otherwise unremarkable. The uterus is either surgically absent or markedly atrophic Body wall and musculoskeletal: At the level of the umbilicus, extending minimally into the left of midline is a focus of soft tissue attenuation, possibly a lymph node. Focused ultrasound may be performed for further characterization . This is not felt to represent bowel or bowel wall, and is an interval change from previous CT exami nation dated 06/18/2022. Degenerative disease is identified at the level of L4/L5 with osteophyte formation, disc space narrow ing, trace anterolisthesis of L4 onto L5 and facet arthropathy. IMPRESSION: Findings within the umbilicus which may represent a lymph node versus bowel wall, less likely. Cholelithiasis. Reviewed, dictated and finalized at location A. IMPRESSION: Findings within the umbilicus which may represent a lymph node versus bowel wal l, less likely. Cholelithiasis.
--- OUTSIDE RECORDS SUMMARY | 2024-10-10 15:25 | XMS_ITS | Referral Summary ---
Author Organization [facility] Address [address] [place] [address] Care Team Providers Care Home Care Music Therapist Name Role Phone Connor Guevara MD Unavailable [phone] Dara Carranza DO Primary Care Provider [phone] Allergies Active Allergy Reactions Criticality Noted Date Comments Gemfibrozil Other (See comments) Low 10/22/2010 Milk Other (See comments) Low Reaction: Other Sulfa (Sulfonamide Antibiotics) Rash Medium 05/24/2010 Medications coenzyme Q10 100 mg capsuleIndicat ions:brain health Take 1 capsule (100 mg total) by mouth daily Active cranberry extract 200 mg capsule four times daily 02/29/20 19 Active gabapentin (NEURONTIN) 300 mg capsuleIndicat ions:Restless Legs Syndrome Take 1 capsule (300 mg total) by mouth 2 times daily 10/15/19 12 Active hydroCHLOROthi azide (HYDRODIURIL) 25 mg tabletIndicati ons:hypertensi on Take 1 tablet (25 mg total) by mouth daily 11/03/19 18 Active levothyroxine (SYNTHROID, LEVOTHROID) 75 mcg tabletIndicati ons:hypothyroi dism Take 1 tablet (75 mcg total) by mouth early childhood coordinator before breakfast Active metoprolol XL (TOPROL-XL) 50 mg 24 hr tabletIndicati ons:hypertensi on Take 1 tablet (50 mg total) by mouth daily Active multivitamin tabletIndicati ons:Vitamin Deficiency Prevention Take 1 tablet by mouth daily Active simvastatin (ZOCOR) 10 mg tabletIndicati ons:hyperlipid emia Take 1 tablet (10 mg total) by mouth nightly Active ascorbic acid (VITAMIN C) 500 mg tablet,chewabl eIndications:V itamin C Deficiency Take 2 tablet/chew tab (1,000 mg total) by mouth 2 (two) times a day Active cholecalcifero l (VITAMIN D-3) 2,000 unit tablet 2,000 units 02/29/20 19 Active clobetasol (TEMOVATE) 0.05 % cream APPLY TOPICALLY TWO TIMES A DAY NEEDED FOR RASH ON ARMS AND BACK UP TO 14 DAYS 60 g 2 02/03/20 18 Active clobetasol (TEMOVATE) 0.05 % external solutionIndica tions:Dermatos is of the Scalp Apply daily as needed for rash or itching on the scalp 50 mL 3 06/24/19 19 Active cyanocobalamin , vitamin B-12, (VITAMIN B-12 ORAL)Indicatio ns:vitamin health Take 1 tablet by mouth daily Active acetaminophen (TYLENOL) 325 mg tabletIndicati ons:Fever Take 2 tablets (650 mg total) by mouth every 4 (four) hours as needed for pain for up to 30 doses 60 tablet 02/21/20 19 Active albuterol HFA (PROVENTIL HFA,VENTOLIN HFA,PROAIR HFA) 90 mcg/actuation inhaler INHALE 2 PUFFS BY MOUTH EVERY 4 HOURS NEEDED FOR SHORTNESS OF BREATH AND FOR WHEEZING 07/07/19 20 Active amLODIPine (NORVASC) 5 mg tablet Take 1 tablet (5 mg total) by mouth every morning 06/11/19 22 Active mycophenolate mofetil (CELLCEPT) 500 mg tabletIndicati ons:Dermatomyo sitis (HCC) Take 1 tablets by mouth twice daily 60 tablet 5 07/24/[address] (PROTONIX) 40 mg EC tablet Take 1 tablet (40 mg total) by mouth daily Active ROPivacaine (NAROPIN) 5 mg/mL (0.5 %) injection ropivacaine (PF) 5 mg/mL (0.5 %) injection solution in office Active triamcinolone (Kenalog) 10 mg/mL injection Kenalog 10 mg/mL suspension for injection in office Active vancomycin (VANCOCIN) 125 mg capsule vancomycin 125 mg capsule TAKE 1 CAPSULE BY MOUTH TWICE DAILY Active mupirocin (BACTROBAN) 2 % ointment mupirocin 2 % topical ointment APPLY OINTMENT TOPICALLY TWICE DAILY Active alendronate (FOSAMAX) 70 mg tablet alendronate 70 mg tablet TAKE 1 TABLET BY MOUTH ONCE A WEEK Active ergocalciferol (VITAMIN D) 50,000 unit capsule Take 1 capsule (50,000 Units total) by mouth once a week 12 capsule 10/04/19 23 Active chlorhexidine (PERIDEX) 0.12 % solution RINSE MOUTH WITH 15 MLS (1 CAPFUL) FOR 30 SECONDS, THEN EXPECTORATE. 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, estrogen receptor positive (HCC),Anxiety Take 1 tablet by mouth once daily 90 tablet 3 05/19/19 24 025 Discontinued Active Problems Problem Noted Date Diagnosed Date Encounter for screening for malignant neoplasm o f breast 09/01/2019 High risk medication use 03/24/2018 Dermatomyositis 03/24/2018 Carcinoma of lower-outer quadrant of breast 11/2010 Malignant neoplasm of lower- outer quadrant of right breast of female, estrogen receptor positive 02/22/2008 Immunizations Immunization Administration Dates Next Due Influenza, Quadrivalent, Rec ombinant, Egg Free, Preservative Free, Intramuscular 11/25/2018 Influenza, Trivalent, High D ose, Split, Preservative Free, Intramuscular 12/04/2017 Moderna SARS-CoV-2 Monovalent Vaccination (12+ Y RS) 05/04/2020 ZOSTER Recombinant 10/27/2018,08/23/2018 Social History Tobacco Use Types Packs/Day Years Used Date Smoking Tobacco: Former Passive Smoke Exposure: Past Smokeless Tobacco: Never Tobacco Cessation:Counseling Given: Not Answered Comments No Sex and Gender Information Value Date Recorded Sex Assigned at Not on file 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 Gender Identity Not on file Sexual Orientation Not on file Last Filed Vital Signs Vital Sign Reading Time Taken Comments Blood Pressure 101/67 10/09/2023 10:16 AM CDT Pulse 86 10/09/2023 10:16 AM CDT Temperature 36.9 C (98.4 F) 10/09/2023 10:11 AM CDT Respiratory Rate 16 10/09/2023 10:11 AM CDT Oxygen Saturation 97% 10/09/2023 10:16 AM CDT Inhaled Oxygen Concentration - - Weight 47.4 kg (104 lb 9.6 oz) 10/09/2023 10:11 AM CDT Height 156.5 cm (5' 1.61) 09/27/2021 11:18 AM C DT Body Mass Index 19.37 09/27/2021 11:18 AM CDT Plan of Treatment Not on file Procedures Procedure Name Priority Date/Time Associated Diagnosis Comments DEXA AXIAL SKELETON BONE DENSITY 1 OR MORE SITES Schedule Routine, Read Routine (OP Routine) 10/30/2023 10:37 AM CDT 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 The bone mineral density of the lumbar spine is mildly decreased. There has been no significant change in bone mineral density since the baseline examination of 09/10/2018. 2. The bone mineral density of the left femoral neck is moderately decreased. 3. The bone mineral density of the left total hip is mildly decreased. There has been a statistically significant decrease in bone mineral density since the baseline examination of 09/10/2018. 4. Overall, the above findings are diagnostic of osteoporosis by WHO criteria. 5. Based on the FRAX fracture risk model, the 10-year probability for major osteoporotic fracture is 33% and that for hip fracture is 13%. This 10-year fracture risk estimate was calculated using the risk factors noted in the history above, along with the femoral neck bone density. FRAX is intended to help guide treatment decisions in men over age 50 and postmenopausal women with low bone mass (osteopenia). The National Osteoporosis Foundation (NOF) recommends that FDA-approved medical therapies be considered in postmenopausal women and men age 50 years and older with osteoporosis and those with low bone mass whose 10-year fracture probability by FRAX is >= 20% for major osteoporotic fracture or >= 3% for hip fracture. However, all treatment decisions require clinical judgment and consideration of individual patient factors, including patient preferences, comorbidities, previous drug use, risk factors not captured in the FRAX model (e.g., frailty, falls, vitamin D deficiency, increased bone turnover, interval significant decline in bone density) and possible under- or overestimation of fracture risk by FRAX. General comments regarding interpretation of bone density measurements: A) In children, premenopausal woman and males under age 50 not at increased risk for fractures only Z-scores, not T-scores are used to indicate risk. A Z-score above -2.0 is defined as within the expected range for age and Z-score at or less than -2.0 is below the expected range for age. A Z-score below the expected range for age in a patient with recent fractures and/or chronic corticosteroid treatment is consistent with a diagnosis of osteoporosis. B) In post menopausal women and males over 50, comparison of the measured bone mineral density with the average value in young normal subjects (the T-score) has been found to be useful in assessing fracture risk. Fracture risk approximately doubles for each 1.0 standard deviation (SD) in individual's hip or spine bone mineral density is below the average value of young normal subjects. The World Health Organization (WHO) has defined T-scores of -1.0 to -2.5 as diagnostic of low bone mass (OSTEOPENIA), and T-scores of -2.5 or lower to be diagnostic of OSTEOPOROSIS, based on the site of lowest bone density. Note that there will be a change in reporting format and reference databases as patients move from the younger population (group A) to the older population (group B) The National Osteoporosis Foundation (www.nof.org) recommends adequate intake of calcium and vitamin D and regular weight-bearing exercise in all patients. They recommend pharmacologic treatment in postmenopausal women and men age 50 and older presenting with any of the followin) Osteoporosis, after appropriate evaluation to exclude secondary causes. 2) A hip or vertebral (clinical or radiographic) fracture, regardless of the bone density. 3) Low bone mass (Osteopenia) and one or more of: other prior fractures, secondary causes associated with high risk of fracture (such as glucocorticoid use or total immobilization), or computed high risk of fracture (10-yr probability of hip fracture >= 3% or a 10-yr probability of any major osteoporosis-related fracture >= 20% based on the [place].-adapted WHO algorithm), available at http://www.shef.ac.uk/FRAX). Dictated by: Janell Suresh MD The radiology attending physician has personally reviewed this study, and had reviewed and/or edited this written report and agrees with it. Electronically signed by: DO Lilliana Reynolds 10/30/2023 11:50 AM CDT BONE DENSITOMETRY OF THE SPINE AND HIP DATE OF STUDY: 10/30/2023 HISTORY: 78-year-old postmenopausal woman undergoing evaluation for osteopenia. She has history of breast cancer diagnosed in 2008. She is being treated with 1 cm the and calcium supplementation. Evaluate bone mineral density. Additional risk factors for fracture: previous fracture, glucocorticoids, increased risk of secondary osteoporosis. FINDINGS (SPINE): The bone mineral density of L1-L4 was assessed by dual-energy x-ray absorptiometry. The average bone mineral density within this region is 0.898 gm/sq-cm. This is 1.3 standard deviations above the mean of the average bone mineral density for age- and gender-matched subjects (the Z-score). It is 1.4 standard deviations below the mean peak bone mineral density in young adults (the T-score). FINDINGS (FEMORAL NECK): The bone mineral density of the left femoral neck was assessed by dual-energy x-ray absorptiometry. The average bone mineral density within the femoral neck region is 0.544 gm/sq-cm. This is 0.4 standard deviations below the mean of the average bone mineral density for age- and gender-matched subjects (the Z-score). It is 2.8 standard deviations below the mean peak bone mineral density in young adults (the T-score). FINDINGS (TOTAL HIP): The bone mineral density of the left hip was assessed by dual-energy x-ray absorptiometry. The average bone mineral density within the total hip region is 0.649 gm/sq-cm. This is 0.3 standard deviations below the mean of the average bone mineral density for age- and gender-matched subjects (the Z-score). It is 2.4 standard deviations below the mean peak bone mineral density in young adults (the T-score). SUMMARY OF CURRENT RESULTS: Region BMD T-score Z-score AP Spine (L1-L4) 0.898 -1.4 1.3 Femoral Neck (Left) 0.544 -2.8 -0.4 Total Hip (Left) 0.649 -2.4 -0.3 COMPARISON WITH PREVIOUS RESULTS Region Age BMD T-score BMD Change BMD Change Exam Date g/cm2 vs Baseline vs Previous AP Spine (L1-L4) 10/30/2023 78 0.898 -1.4 1.0% 1.0% 09/10/2018 72 0.888 -1.4 Total Hip(Left) 10/30/2023 78 0.649 -2.4 -17.1%* -17.1%* 09/10/2018 72 0.783 -1.3 *Denotes significance at 95% confidence level Procedure Note Joel Juarez DO - 10/30/2023 BONE DENSITOMETRY OF THE SPINE AND HIP DATE OF STUDY: 10/30/2023 HISTORY: 78-year-old postmenopausal woman undergoing evaluation for osteopenia. She has history of breast cancer diagnosed in 2008. She is being treated with 1 cm the and calcium supplementation. Evaluate bone mineral density. Additional risk factors for fracture: previous fracture, glucocorticoids, increased risk of secondary osteoporosis. FINDINGS (SPINE): The bone mineral density of L1-L4 was assessed by dual-energy x-ray absorptiometry. The average bone mineral density within this region is 0.898 gm/sq-cm. This is 1.3 standard deviations above the mean of the average bone mineral density for age- and gender-matched subjects (the Z-score). It is 1.4 standard deviations below the mean peak bone mineral density in young adults (the T-score). FINDINGS (FEMORAL NECK): The bone mineral density of the left femoral neck was assessed by dual-energy x-ray absorptiometry. The average bone mineral density within the femoral neck region is 0.544 gm/sq-cm. This is 0.4 standard deviations below the mean of the average bone mineral density for age- and gender-matched subjects (the Z-score). It is 2.8 standard deviations below the mean peak bone mineral density in young adults (the T-score). FINDINGS (TOTAL HIP): The bone mineral density of the left hip was assessed by dual-energy x-ray absorptiometry. The average bone mineral density within the total hip region is 0.649 gm/sq-cm. This is 0.3 standard deviations below the mean of the average bone mineral density for age- and gender-matched subjects (the Z-score). It is 2.4 standard deviations below the mean peak bone mineral density in young adults (the T-score). SUMMARY OF CURRENT RESULTS: Region BMD T-score Z-score AP Spine (L1-L4) 0.898 -1.4 1.3 Femoral Neck (Left) 0.544 -2.8 -0.4 Total Hip (Left) 0.649 -2.4 -0.3 COMPARISON WITH PREVIOUS RESULTS Region Age BMD T-score BMD Change BMD Change Exam Date g/cm2 vs Baseline vs Previous AP Spine (L1-L4) 10/30/2023 78 0.898 -1.4 1.0% 1.0% 09/10/2018 72 0.888 -1.4 Total Hip(Left) 10/30/2023 78 0.649 -2.4 -17.1%* -17.1%* 09/10/2018 72 0.783 -1.3 *Denotes significance at 95% confidence level IMPRESSION: 1. The bone mineral density of the lumbar spine is mildly decreased. There has been no significant change in bone mineral density since the baseline examination of 09/10/2018. 2. The bone mineral density of the left femoral neck is moderately decreased. 3. The bone mineral density of the left total hip is mildly decreased. There has been a statistically significant decrease in bone mineral density since the baseline examination of 09/10/2018. 4. Overall, the above findings are diagnostic of osteoporosis by WHO criteria. 5. Based on the FRAX fracture risk model, the 10-year probability for major osteoporotic fracture is 33% and that for hip fracture is 13%. This 10-year fracture risk estimate was calculated using the risk factors noted in the history above, along with the femoral neck bone density. FRAX is intended to help guide treatment decisions in men over age 50 and postmenopausal women with low bone mass (osteopenia). The National Osteoporosis Foundation (NOF) recommends that FDA-approved medical therapies be considered in postmenopausal women and men age 50 years and older with osteoporosis and those with low bone mass whose 10-year fracture probability by FRAX is >= 20% for major osteoporotic fracture or >= 3% for hip fracture. However, all treatment decisions require clinical judgment and consideration of individual patient factors, including patient preferences, comorbidities, previous drug use, risk factors not captured in the FRAX model (e.g., frailty, falls, vitamin D deficiency, increased bone turnover, interval significant decline in bone density) and possible under- or overestimation of fracture risk by FRAX. General comments regarding interpretation of bone density measurements: A) In children, premenopausal woman and males under age 50 not at increased risk for fractures only Z-scores, not T-scores are used to indicate risk. A Z-score above -2.0 is defined as within the expected range for age and Z-score at or less than -2.0 is below the expected range for age. A Z-score below the expected range for age in a patient with recent fractures and/or chronic corticosteroid treatment is consistent with a diagnosis of osteoporosis. B) In post menopausal women and males over 50, comparison of the measured bone mineral density with the average value in young normal subjects (the T-score) has been found to be useful in assessing fracture risk. Fracture risk approximately doubles for each 1.0 standard deviation (SD) in individual's hip or spine bone mineral density is below the average value of young normal subjects. The World Health Organization (WHO) has defined T-scores of -1.0 to -2.5 as diagnostic of low bone mass (OSTEOPENIA), and T-scores of -2.5 or lower to be diagnostic of OSTEOPOROSIS, based on the site of lowest bone density. Note that there will be a change in reporting format and reference databases as patients move from the younger population (group A) to the older population (group B) The National Osteoporosis Foundation (www.nof.org) recommends adequate intake of calcium and vitamin D and regular weight-bearing exercise in all patients. They recommend pharmacologic treatment in postmenopausal women and men age 50 and older presenting with any of the followin) Osteoporosis, after appropriate evaluation to exclude secondary causes. 2) A hip or vertebral (clinical or radiographic) fracture, regardless of the bone density. 3) Low bone mass (Osteopenia) and one or more of: other prior fractures, secondary causes associated with high risk of fracture (such as glucocorticoid use or total immobilization), or computed high risk of fracture (10-yr probability of hip fracture >= 3% or a 10-yr probability of any major osteoporosis-related fracture >= 20% based on the [place].-adapted WHO algorithm), available at http://www.shef.ac.uk/FRAX). Dictated by: Janell Suresh MD The radiology attending physician has personally reviewed this study, and had reviewed and/or edited this written report and agrees with it. Electronically signed by: Joel Juarez DO [employer] Provider Result Type Result Stat Annetta Solis NP IMG DXA PROCEDURES Final Resu lt from Last 3 Months or Most Recently Relevant to Health Maintenance Insurance [facility] Advance Directives For more information, please contact: [phone] * Full Code (Latest Code Status on File) Date Activated Date Inactivated Comments 02/19/2019 4:29 AM 02/20/2019 5:02 PM Care Teams Home Care Music Therapist Relationship Specialty Start Date End Date Dara Carranza DO [address] [place], [place] [id number] PCP - General 08/31/20 Connor Guevara MD [address] [place] [address] Referring Physician Family Medicine 09/01/19
--- OUTSIDE RECORDS SUMMARY | 2024-10-10 15:25 | XMS_ITS | Encounter Summary ---
Author Organization [facility] Address [address] [facility] [place] [address] Phone Care Team Providers Care Chronometer Repairer Name Role Phone Connor Guevara MD Unavailable [phone] Dara Carranza DO Primary Care Provider [phone] Encounter Details Date Type Department Care Team (Late st Contact Info) Description 12/19/2020 Orders Only [facility] Scanning, Provider Social History Tobacco Use Types Packs/Day Years Used Date Smoking Tobacco: Former Smokeless Tobacco: Never Comments No Sex and Gender Information Value Date Recorded Sex Assigned at Not on file 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 Gender Identity Not on file Sexual Orientation Not on file documented as of this encounter Plan of Treatment Not on file documented as of this encounter Procedures Procedure Name Priority Date/Time Associated Diagnosis Comments SCAN - LABS 12/19/2020 documented in this encounter Results * SCAN - LABS (12/19/2020) us Provider Scanning Final Result documented in this encounter Visit Diagnoses Not on filedocumented in this encounter Care Teams Chronometer Repairer Relationship Specialty Start Date End Date Dara Carranza DO [address] [place] [address] PCP - General 08/31/20 Connor Guevara MD [address] [place] [address] Referring Physician Family Medicine 09/01/19 documented as of this encounter
--- OUTSIDE RECORDS SUMMARY | 2024-10-10 15:25 | XMS_ITS ---
Author Organization [facility] Address [address] [place] [address] Care Team Providers Care Lumber Stacker Name Role Phone Connor Guevara MD Unavailable [phone] Dara Carranza DO Primary Care Provider [phone] Active Problems Problem Noted Date Diagnosed Date Encounter for screening for malignant neoplasm o f breast 09/01/2019 High risk medication use 03/24/2018 Dermatomyositis 03/24/2018 Carcinoma of lower-outer quadrant of breast 11/2010 Malignant neoplasm of lower- outer quadrant of right breast of female, estrogen receptor positive 02/22/2008 Current Treatment and Therapy Plans No current plan information found. Past Treatment and Therapy Plans No past plan information found. Lifetime Dose Tracking * Chemical Lifetime Dose Automatic Entry Manual Entr y DLP 368 mGycm 368 mGycm 0 mGycm
--- OUTSIDE RECORDS SUMMARY | 2024-10-10 15:25 | XMS_ITS | Clinical Summary ---
Author Organization [facility] Address [address] [place] [address] Care Team Providers Care Construction Craft Laborer Name Role Phone Connor Guevara MD Unavailable [phone] Dara Carranza DO Primary Care Provider [phone] Allergies Active Allergy Reactions Criticality Noted Date [...] 1 tablet (75 mcg total) by mouth practice architect before breakfast Active metoprolol XL (TOPROL-XL) 50 [...] (12+ Y RS) 05/04/2020 ZOSTER Recombinant 10/27/2018,08/23/2018 Surgical History Surgery Date Site/Laterality Comments ME TOTAL ABDOMINAL HYSTERECT W/WO RMVL TUBE OVARY Hysterectomy - (Added by HITESH Conv) HYSTERECTOMY VOCAL CORD LATERALIZATION, ENDOSCOPIC APPROACH W/ MLB MASTECTOMY Medical History Medical History Date Comments Personal history of other en docrine, nutritional and metabolic disease History of thyroid d isease - (Added by Conv) Personal history of malignan t neoplasm of breast History of malignant neoplas m of breast - (Added by TW Conv) Dysphonia Hoarseness - (Ad ded by Conv) Dermatopolymyositis Polymyositis -dermatomyositis - (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 - (Added by TW Conv) Nonspecific (abnormal) findi ngs on radiological and other examination of lung field Imaging Studies Nonspecific Abnormal Findings Lung Field - (Added by TW Conv) Urinary tract infection UTI (uri nary tract infection), uncomplicated - (Added by TW Conv) Other specified abnormal fin dings of blood chemistry Elevated LFTs - (Added by TW Conv) Myalgia Bilateral myofas cial pain - (Added by TW ) Pain in right hip Hip pain, bila teral - (Added by TW Conv) Cancer (HCC) GERD (gastroesophageal reflux disease) Hypercholesteremia Hypertension Family History Medical History Relation Name Comments Down syndrome Brother Family history of Down syndrome - (Added by ) Cancer Father Family history of malignant neoplasm - (Added by ) Lung cancer Father Family history of lung cancer - (Added by TW ) Heart disease Mother Family history of cardiac disorder - (Added by ) Cancer Other Family history of malignant neoplasm - (Added by ) Relation Name Status Comments Brother Father Mother Other Social History Tobacco Use Types Packs/Day Years Used Date Smoking Tobacco: Former Passive Smoke Exposure: Past Smokeless Tobacco: Never Tobacco Cessation:Counseling Given: Not Answered Comments No Sex and Gender Information Value Date Recorded Sex Assigned at Not on file 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 Gender Identity Not on file Sexual Orientation Not on file Obstetrics History Last Filed Vital Signs Vital Sign Reading [...] 09/27/2021 11:18 AM CDT Plan of Treatment Health Maintenance Due Date Last Done Comments Depression Screening 1945 Fall Risk Assessment 1945 DTaP/Tdap/Td Vaccine (1 - Tdap) 09/15/1954 Hepatitis B Screening 09/15/1961 Pneumococcal vaccine 65+ (1 of 2 - PCV) 09/15/1962 Well Visit 65+ 09/15/2008 Covid-19 Vaccine (2 - Modern a risk series) 06/01/2020 05/04/2020 Influenza Vaccine (#1) 2024 11/25/2018, 2017 Osteoporosis Screening-Bone Density Scan 10/29/2025 10/30/2023, 09/10/2018, 05/21/2017, Additional history exists Zoster Vaccine Completed 10/27/2018, 08/23/2018 Procedures Procedure Name Priority Date/Time Associated Diagnosis [...] at 95% confidence level Procedure Note Joel Juarez, DO - 10/30/2023 BONE DENSITOMETRY OF THE [...] it. Electronically signed by: Joel Juarez DO Annetta Solis NP IMG DXA PROCEDURES Final Resu lt from Last 3 Months or Most Recently Relevant to Health Maintenance Insurance MEDICARE [facility] MEDICARE [facility] Member Subscriber Plan / Payer ( fective 2018-) Name:Jonas Black Relation to Subscriber:Self Name:JONAS BLACK Payer ID:[id number] (NAIC) Type: OTHER Address: [place] [id number] MEDICARE [facility] MEDICARE [facility] Advance Directives For more information, please contact: [phone] * Full Code (Latest Code Status on File) Date Activated Date Inactivated Comments 02/19/2019 4:29 AM 02/20/2019 5:02 PM Care Teams Construction Craft Laborer Relationship Specialty Start Date End Date Dara Carranza DO [address] [place] [address] PCP - General 08/31/20 Connor Guevara MD [address] [place] [address] Referring Physician Family Medicine 09/01/19
[2024-10-10 16:24] VITALS: BP 155/68; PULSE 97; RESP 16; TEMP 36.8; O2SAT 97
[2024-10-10 20:42] LABS: Hematocrit 32.7 % (37.0-47.0); Hemoglobin 10.7 g/dL (12.0-15.0); Immature Granulocyte Percent A 0.2 % (0-0.5); Lymphocytes Absolute Auto 1.97 K/mm3 (0.9-3.2); Mean Corpuscular HGB Conc 32.7 g/dl (32-36); Mean Corpuscular Hemoglobin 26.4 pg (26-34); Mean Corpuscular Volume 80.7 fl (80-100); Nucleated Red Blood Cells Absolute Auto 0.000 K/mm3 (0.0-0.012); Nucleated Red Blood Cells Perc 0.0 % (0.0-0.2); Platelet Count Result 201 k/mm3 (150-375); Red Blood Count 4.05 M/mm3 (4.2-5.4); White Blood Count 4.6 K/mm3 (4.5-10.0)
[2024-10-10 20:54] LABS: INR 1.0; Prothrombin Time 13.3 Seconds (11.1-14.7)
[2024-10-10 20:56] LABS: Partial Thromboplastin Time 29.0 Seconds (22.3-36.8)
[2024-10-10 21:02] LABS: Alanine Aminotransferase 32 U/L (6-35); Albumin Level 4.4 g/dL (3.5-5.1); Alkaline Phosphatase 48 U/L (38-126); Anion Gap 11 mmol/L (4-12); Aspartate Amino Transferase 33 U/L (14-36); Bilirubin,Total 0.5 mg/dL (0.2-1.3); Blood Urea Nitrogen 19 mg/dL (7-17); Calcium 9.6 mg/dL (8.4-10.2); Carbon Dioxide 22 mmol/L (22-30); Chloride 104 mmol/L (98-107); Estimated Glomerular Filt Rate 46; Glucose 119 mg/dL (65-110); Potassium 3.3 mmol/L (3.4-5.0); Sodium 137 mmol/L (137-145); Total Protein 7.4 g/dL (6.3-8.2)
--- OUTSIDE RECORDS SUMMARY | 2024-10-10 21:22 | XMS_ITS | Referral Summary ---
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 Gender Identity Not on file Sexual Orientation [...] Recently Relevant to Health Maintenance Insurance MEDICARE [facility] MEDICARE [facility] MEDICARE [facility] MEDICARE [facility] Advance Directives For more information, please contact: [phone] * Full Code (Latest Code Status on File) Date Activated Date Inactivated Comments 02/19/2019 4:29 AM 02/20/2019 5:02 PM Care Teams Dancer Or Choreographer Relationship Specialty Start Date End Date Dara Carranza DO [address] [place], [place] [id number] PCP - General 08/31/20 Connor Guevara MD [address] [place] [address] Referring Physician Family Medicine 09/01/19
--- OUTSIDE RECORDS SUMMARY | 2024-10-10 21:22 | XMS_ITS | Clinical Summary ---
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 Gender Identity Not on file Sexual Orientation [...] Recently Relevant to Health Maintenance Insurance MEDICARE [facility] MEDICARE [facility] Member Subscriber Plan / Payer ( fective 2018-) Name:Jonas Black Relation to Subscriber:Self Name:JONAS BLACK Payer ID:[id number] (NAIC) Type: OTHER Address: [place] [id number] MEDICARE [facility] MEDICARE [facility] Advance Directives For more information, please contact: [phone] * Full Code (Latest Code Status on File) Date Activated Date Inactivated Comments 02/19/2019 4:29 AM 02/20/2019 5:02 PM Care Teams Logistics Team Leader Relationship Specialty Start Date End Date Dara Carranza DO [address] [place] [address] PCP - General 08/31/20 Connor Guevara MD [address] [place] [address] Referring Physician Family Medicine 09/01/19
--- OUTSIDE RECORDS SUMMARY | 2024-10-10 21:22 | XMS_ITS | Encounter Summary ---
Author Organization [facility] Address [address] [place] [address] Phone Care Team Providers Care Editing Internship Name Role Phone Connor Guevara MD Unavailable [phone] Dara Carranza DO Primary Care Provider [phone] Encounter Details Date Type Department Care Team (Late st Contact Info) Description 12/19/2020 Orders Only [facility] Scanning, Provider Social History Tobacco Use Types Packs/Day Years Used Date Smoking Tobacco: Former Smokeless Tobacco: Never Comments No Sex and Gender Information Value Date Recorded Sex Assigned at Not on file 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
--- OUTSIDE RECORDS SUMMARY | 2024-10-10 21:22 | XMS_ITS ---
Author Organization [facility] Address [address] [place] [address] Care Team Providers Care Oil Transport Driver Name Role Phone Connor Guevara MD Unavailable [phone] Dara Carranza DO Primary Care Provider [phone] Active Problems Problem Noted Date Diagnosed Date [...]
[2024-10-10 21:33] VITALS: BP 138/70; PULSE 88; RESP 20; O2SAT 99
--- NOTE | 2024-10-10 21:37 | ED_ITS ---
HPI - Abdominal Pain General Chief Complaint: Abdominal Pain <Diane Garland PA-C - Last Filed: 10/11/24 03:34> Stated Complaint: from pcp, possible hernia, sent from pcp <Diane Garland PA-C - Last Filed: 10/11/24 03:34> Time Seen by Provider: 10/10/24 21:15 <Diane Garland PA-C - Last Filed: 10/11/24 03:34> History of Present Illness HPI narrative: 79-year-old female with history of CKD, hypertension presents to the ED for a painful bulge to her right periumbilical region x2-3 weeks, worsening over the past couple of days. Pt states 5 days ago she developed redness and increasing pain over the bulge. She contacted her daughter and they made an apt with patient's PCP today. Pt was advised by her PCP to come to the ED for further evaluation and CT scan. Patient states she has pain radiating from the bulge throughout her abdomen. She notes the pain is worse when she bends over. She reports subjective fevers. She denies nausea, vomiting, melena, hematochezia. States she has had soft stools for several years which are unchanged from baseline. Her last bowel movement was earlier today. 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 <Diane Garland PA-C - Last Filed: 10/11/24 03:34> Related Data Home Medications: Home Medications ?Medication ?Instructions ?Recorded ?Confirmed ?Last Taken ?Type multivitamin 1 tablet PO DAILY 05/12/19 08/17/24 09/30/20 History citalopram 20 mg tablet 20 mg PO DAILY 07/24/21 08/17/24 Unknown History Saccharomyces boulardii 250 mg 250 mg PO BID 02/16/23 08/17/24 Unknown History capsule (Digest Probiotic (S.boulardii)) ascorbic acid (vitamin C) 500 mg mg PO 02/16/23 08/17/24 Unknown History capsule calcium carbonate (Calcium 600) 600 mg PO DAILY 02/16/23 08/17/24 Unknown History cholecalciferol (vitamin D3) 125 125 mcg PO DAILY 08/17/24 08/17/24 Unknown History mcg (5,000 unit) capsule <Diane Garland PA-C - Last Filed: 10/11/24 03:34> Allergies/Adverse Reactions: Allergies Allergy/AdvReac Type Severity Reaction Status Date / Time Sulfa (Sulfonamide Allergy Mild Rash Verified 10/10/24 16:30 Antibiotics) sulfacetamide Allergy Mild Rash Verified 10/10/24 16:30 sulfamethizole Allergy Mild Rash Verified 10/10/24 16:30 gemfibrozil AdvReac Intermediate elevated Verified 10/10/24 16:30 liver enzymes <Diane Garland PA-C - Last Filed: 10/11/24 03:34> Review of Systems 2 Review of Systems: All systems reviewed & are unremarkable except as noted in HPI and below <Diane Garland PA-C - Last Filed: 10/11/24 03:34> [facility] Past Medical History Medical History: Medical History Early satiety Nausea Loss of appetite Hypothyroidism Anxiety and depression Long-term use of immunosuppressant medication Dermatomyositis Cancer of right breast Hypertension Gastroesophageal reflux disease Stable burst fracture of T8 vertebra Hypertensive chronic kidney disease with stage 1 through stage 4 chronic kidney disease, or unspecified chronic kidney disease Mixed hyperlipidemia <Diane Garland PA-C - Last Filed: 10/11/24 03:34> Surgical History Surgical History: Surgical History History of hysterectomy History of right mastectomy (2010) History of incisional hernia repair (10/03/20) Laparoscopic right lower quadrant incisional hernia repair with mesh, Brian per Dr. Martinez. History of removal of ovarian cyst History of surgery Nodule removed from skin and Laryngeal nerve removed <Diane Garland PA-C - Last Filed: 10/11/24 03:34> Family History Family History: Family History Father Depression Family history of lung cancer Mother Depression Hypertension Family history of elevated blood lipids Other No family history of cardiovascular disease <Diane Garland PA-C - Last Filed: 10/11/24 03:34> Social History Social History: Social History Social History: Surrogate decision maker: Viridiana Becker, daughter. Code status: Full code. Smoking packs per day: 0.5 Smoking cigarettes per day: 10.0 Years smoked: 10 Smoking pack-years: 5.00 Smoking status: Former smoker Tobacco type: cigarettes Smoking end date: 03/09/69 Additional smoking assessment comments: smoked briefly - a few cigarettes a week Alcohol intake: never Substance use: never Substance use type: does not use Lack of Transportation: No Lack of Food: Never True Current Housing: I Have Housing Concerned About Future Housing: No Difficulty Paying Gas/Electric Bills: No Difficulty Paying for Meds: No Currently Unemployed: No Education: High School Diploma/GED Difficulty w/ Childcare or Family Care: No Living arrangements: alone Additional living arrangements comments: Resides in her own home in [place]. as of December 2019. Occupation/Education: retired Additional occupation/education comments: Retired. Spiritual care concerns: No <Diane Garland PA-C - Last Filed: 10/11/24 03:34> Exam 2 Narrative: GENERAL: Well-appearing, well-nourished, and in no acute distress. HEAD: Normocephalic, atraumatic. EYES: EOMI. ENT: Nares clear, no rhinorrhea or epistaxis. Mucous membranes moist. NECK: Supple. CHEST: Clear to auscultation. No respiratory distress. HEART: Regular rate and rhythm. No murmur heard. Normal peripheral pulses. ABDOMEN: Quiet bowel sounds. Small nodule to the right periumbilical region with overlying erythema. Unable to reduce hernia easily at bedside. Mildly tender to palpation. Remainder of abdominal exam is unremarkable EXTREMITIES: Normal range of motion. No edema. SKIN: Warm, dry, no rash. NEURO: No focal deficits. Alert and oriented x3 <Diane Garland PA-C - Last Filed: 10/11/24 03:34> Course [employer] SUPERVISOR/PA Physician Supervision PA did discuss this patient with me. They noted that on initial presentation it appeared that patient had a hernia that was incarcerated versus strangulated this was based on the location at the umbilicus with some overlying skin changes. CT read favors lymph node over bowel wall. Be reviewed this radiology impression together and then I presented at bedside with the PA to personally examine the patient. She does have an equivocal abdominal exam. The location and the overlying skin changes to appear to be consistent with a hernia. Initially it seemed that it could be slightly reduced but this occurred on 2 attempts but not others. It is not firm or indurated but the overlying skin changes are not restricted to just the area of the umbilicus but rather slightly beyond this by 1-2 mm. I suspect this represents hyperemia and inflammation more than anything. She does have fair amount of scar tissue from previous surgeries. Overall though, she is nontoxic appearing and her labs and rest of workup been reassuring. The recommendation from Radiology was to obtain outpatient ultrasound imaging to further differentiate. Patient has available follow-up with primary care physician. Reasonable to discharge proceed with this but given return precautions. <Tabitha Luz MD - Last Filed: 10/11/24 18:35> Vital Signs Vital signs: Vital Signs Temperature 98.3 F 10/10/24 16:24 Pulse Rate 97 10/10/24 16:24 Respiratory Rate 16 10/10/24 16:24 Blood Pressure 155/68 H 10/10/24 16:24 Pulse Oximetry 97 10/10/24 16:24 Oxygen Delivery Room Air 10/10/24 16:24 Temperature 98.3 F 10/10/24 16:24 Pulse Rate 82 10/11/24 04:05 Respiratory Rate 20 10/11/24 04:05 Blood Pressure 140/73 10/11/24 04:05 Pulse Oximetry 97 10/11/24 04:05 Oxygen Delivery Room Air 10/10/24 16:24 <Diane Garland PA-C - Last Filed: 10/11/24 03:34> Vital Signs Temperature 98.3 F 10/10/24 16:24 Pulse Rate 97 10/10/24 16:24 Respiratory Rate 16 10/10/24 16:24 Blood Pressure 155/68 H 10/10/24 16:24 Pulse Oximetry 97 10/10/24 16:24 Oxygen Delivery Room Air 10/10/24 16:24 Temperature 98.3 F 10/10/24 16:24 Pulse Rate 82 10/11/24 04:05 Respiratory Rate 20 10/11/24 04:05 Blood Pressure 140/73 10/11/24 04:05 Pulse Oximetry 97 10/11/24 04:05 Oxygen Delivery Room Air 10/10/24 16:24 <Tabitha Luz MD - Last Filed: 10/11/24 18:35> MDM - Abdominal Pain MDM Narrative Medical decision making narrative: 79-year-old female with history of CKD, hypertension, multiple abdominal surgeries presents to emergency department for a painful, erythematous bulge to her right periumbilical region for the past 2-3 weeks, worsening over the past few days. Vitals are stable. Patient is afebrile and nontoxic appearing. Exam is notable for the above. CBC without leukocytosis. Hemoglobin is 10.7. Patient denies melena or hematochezia. Her chemistries revealed mild hypokalemia of 3.3. Her creatinine is mildly elevated 1.14 with a BUN of 19. Fluids provided. UA with many squamous cells, greater than 100 white blood cells, 20-50 red blood cells, 1+ leuk esterase and 2+ bacteria. Patient denies urinary symptoms, will hold treatment given history of C diff pending urine culture results. Patient's initial lactic acid elevated at 2.2. Repeat lactic improved mildly to 2.1. Patient had not finished her L of fluids prior to repeat lab draw. CT abdomen pelvis shows findings within the umbilicus which may represent a lymph node versus less likely bowel or bowel wall. Patient family at bedside updated on results. Patient was placed in Trendelenburg position and given an ice pack over the periumbilical bulge. I did re-attempt to reduce the bulge without reduction. It is difficult to discern whether this is truly a lymph node versus a hernia. Radiology is recommending ultrasound for further characterization, unfortunately we do not have ultrasound at this time of night. I discussed this with the patient advised her to follow-up closely with her PCP for further workup and imaging. Azucena plan to call in the morning for f/u. I discussed strict ED return precautions. She and her daughter at bedside are agreeable with the plan verbalized understanding. Discharged in stable condition. <Diane Garland PA-C - Last Filed: 10/11/24 03:34> Lab Data Result diagrams: 10/10/24 20:32 10/10/24 20:32 <Diane Garland PA-C - Last Filed: 10/11/24 03:34> Labs: Lab Results 10/10/24 10/10/24 10/11/24 Range/Units 20:32 21:26 00:06 WBC 4.6 (4.5-10.0) K/mm3 RBC 4.05 L (4.2-5.4) M/mm3 Hgb 10.7 L (12.0-15.0) g/dL Hct 32.7 L (37.0-47.0) % MCV 80.7 (80-100) fl MCH 26.4 (26-34) pg MCHC 32.7 (32-36) g/dl RDW 15.3 H (11.5-14.5) % Plt Count 201 (150-375) k/mm3 MPV 10.1 (7.4-10.4) fl Immature Gran % (Auto) 0.2 (0-0.5) % Neut % (Auto) 40.9 L (45.5-73.1) % Lymph % (Auto) 42.5 (18.3-44.2) % [place] % (Auto) 13.4 H (2.6-8.5) % Eos % (Auto) 1.7 (0-4.4) % Baso % (Auto) 1.3 H (0.2-1.2) % Lymph # (Auto) 1.97 (0.9-3.2) K/mm3 [place] # (Auto) 0.6 (0.1-0.6) K/mm3 Eos # (Auto) 0.1 (0-0.3) K/mm3 Baso # (Auto) 0.1 (0.0-0.1) K/mm3 Abs Immat Gran (auto) 0.01 (0.00-0.031) K/mm3 Absolute Neuts (auto) 1.9 (1.3-6.7) K/mm3 Absolute Nucleated RBC 0.000 (0.0-0.012) K/mm3 Nucleated RBC % 0.0 (0.0-0.2) % PT 13.3 (11.1-14.7) Seconds INR 1.0 APTT 29.0 (22.3-36.8) Seconds Sodium 137 (137-145) mmol/L Potassium 3.3 L (3.4-5.0) mmol/L Chloride 104 (98-107) mmol/L Carbon Dioxide 22 (22-30) mmol/L Anion Gap 11 (4-12) mmol/L BUN 19 H (7-17) mg/dL Creatinine 1.14 H (0.7-1.0) mg/dL Estim Creat Clear Calc Not Reportable Estimated GFR 46 L (59 - ) Glucose 119 H (65-110) mg/dL Lactic Acid 2.2 H 2.1 H (0.7-2.0) mmol/L Calcium 9.6 (8.4-10.2) mg/dL Magnesium 2.1 (1.6-2.3) mg/dL Total Bilirubin 0.5 (0.2-1.3) mg/dL AST 33 (14-36) U/L ALT 32 (6-35) U/L Alkaline Phosphatase 48 (38-126) U/L Total Protein 7.4 (6.3-8.2) g/dL Albumin 4.4 (3.5-5.1) g/dL Urine Color Yellow (Yellow) Urine Appearance Cloudy H (Clear) Urine pH 5.5 (5.0-9.0) Ur Specific [place] 1.026 (1.001-1.035) Urine Protein 1+ H (Negative) mg/dL Urine Glucose (UA) Negative (Negative) mg/dL Urine Ketones Negative (Negative) mg/dL Ur Blood (Man) Negative (Negative) Urine Nitrate Negative (Negative) Urine Bilirubin Negative (Negative) Urine Urobilinogen 0.2 (<2.0) mg/dL Add Ur Microanalysis Reviewed Leukocyte Esterase Rfl 1+ H (Negative) MARQUES/UL Urine RBC 21-50 H (0-2) /hpf Urine WBC >100 H (0-3) /hpf Ur Squamous Epith Cells Many H (Few) /hpf Calcium Oxalate Crystal Present (None) /hpf Urine Bacteria 2+ H /hpf Urine Casts 11-20 <Diane Garland PA-C - Last Filed: 10/11/24 03:34> Lab Results 10/10/24 10/10/24 10/11/24 Range/Units 20:32 21:26 00:06 WBC 4.6 (4.5-10.0) K/mm3 RBC 4.05 L (4.2-5.4) M/mm3 Hgb 10.7 L (12.0-15.0) g/dL Hct 32.7 L (37.0-47.0) % MCV 80.7 (80-100) fl MCH 26.4 (26-34) pg MCHC 32.7 (32-36) g/dl RDW 15.3 H (11.5-14.5) % Plt Count 201 (150-375) k/mm3 MPV 10.1 (7.4-10.4) fl Immature Gran % (Auto) 0.2 (0-0.5) % Neut % (Auto) 40.9 L (45.5-73.1) % Lymph % (Auto) 42.5 (18.3-44.2) % [place] % (Auto) 13.4 H (2.6-8.5) % Eos % (Auto) 1.7 (0-4.4) % Baso % (Auto) 1.3 H (0.2-1.2) % Lymph # (Auto) 1.97 (0.9-3.2) K/mm3 [place] # (Auto) 0.6 (0.1-0.6) K/mm3 Eos # (Auto) 0.1 (0-0.3) K/mm3 Baso # (Auto) 0.1 (0.0-0.1) K/mm3 Abs Immat Gran (auto) 0.01 (0.00-0.031) K/mm3 Absolute Neuts (auto) 1.9 (1.3-6.7) K/mm3 Absolute Nucleated RBC 0.000 (0.0-0.012) K/mm3 Nucleated RBC % 0.0 (0.0-0.2) % PT 13.3 (11.1-14.7) Seconds INR 1.0 APTT 29.0 (22.3-36.8) Seconds Sodium 137 (137-145) mmol/L Potassium 3.3 L (3.4-5.0) mmol/L Chloride 104 (98-107) mmol/L Carbon Dioxide 22 (22-30) mmol/L Anion Gap 11 (4-12) mmol/L BUN 19 H (7-17) mg/dL Creatinine 1.14 H (0.7-1.0) mg/dL Estim Creat Clear Calc Not Reportable Estimated GFR 46 L (59 - ) Glucose 119 H (65-110) mg/dL Lactic Acid 2.2 H 2.1 H (0.7-2.0) mmol/L Calcium 9.6 (8.4-10.2) mg/dL Magnesium 2.1 (1.6-2.3) mg/dL Total Bilirubin 0.5 (0.2-1.3) mg/dL AST 33 (14-36) U/L ALT 32 (6-35) U/L Alkaline Phosphatase 48 (38-126) U/L Total Protein 7.4 (6.3-8.2) g/dL Albumin 4.4 (3.5-5.1) g/dL Urine Color Yellow (Yellow) Urine Appearance Cloudy H (Clear) Urine pH 5.5 (5.0-9.0) Ur Specific [place] 1.026 (1.001-1.035) Urine Protein 1+ H (Negative) mg/dL Urine Glucose (UA) Negative (Negative) mg/dL Urine Ketones Negative (Negative) mg/dL Ur Blood (Man) Negative (Negative) Urine Nitrate Negative (Negative) Urine Bilirubin Negative (Negative) Urine Urobilinogen 0.2 (<2.0) mg/dL Add Ur Microanalysis Reviewed Leukocyte Esterase Rfl 1+ H (Negative) MARQUES/UL Urine RBC 21-50 H (0-2) /hpf Urine WBC >100 H (0-3) /hpf Ur Squamous Epith Cells Many H (Few) /hpf Calcium Oxalate Crystal Present (None) /hpf Urine Bacteria 2+ H /hpf Urine Casts 11-20 <Tabitha Luz MD - Last Filed: 10/11/24 18:35> Imaging Data Radiologist's impression: ITS Impressions Abdomen/Pelvis CT 10/10/24 23:38 IMPRESSION: Findings within the umbilicus which may represent a lymph node versus bowel wall, less likely. Cholelithiasis. <Diane Garland PA-C - Last Filed: 10/11/24 03:34> ITS Impressions Abdomen/Pelvis CT 10/10/24 23:38 IMPRESSION: Findings within the umbilicus which may represent a lymph node versus bowel wall, less likely. Cholelithiasis. <Tabitha Luz MD - Last Filed: 10/11/24 18:35> Discharge Plan Discharge Clinical Impression: Periumbilical mass, Hypokalemia, Abnormal urinalysis <Diane Garland PA-C - Last Filed: 10/11/24 03:34> Patient Disposition: Home <CONCHIS Bolden Last Filed: 10/11/24 03:34> Condition: Stable <CONCHIS Bolden Last Filed: 10/11/24 03:34> Instructions: Antibiotic Form <Diane Garland PA-C - Last Filed: 10/11/24 03:34> Additional Instructions: The CT of your abdomen and pelvis shows findings within the belly button which may represent a lymph node versus less likely a hernia as discussed. Please follow-up closely with her primary care provider in the morning as she may need to order an outpatient ultrasound for better characterization as discussed. Please take Tylenol as needed for pain. Return to the emergency department if you develop a fever over 100.4 or greater, worsening pain, a larger bulge or the redness spreads, vomiting, or other concerning symptoms. <Diane Garland PA-C - Last Filed: 10/11/24 03:34> Patient Language: Occitan <Diane Garland PA-C - Last Filed: 10/11/24 03:34> Prescriptions: No Action Saccharomyces boulardii [Digest Probiotic (S.boulardii)] 250 mg capsule 250 mg PO BID ascorbic acid (vitamin C) 500 mg capsule PO calcium carbonate [Calcium 600] 600 mg calcium (1,500 mg) tablet 600 mg PO DAILY cholecalciferol (vitamin D3) 125 mcg (5,000 unit) capsule 125 mcg PO DAILY Rx Instructions: Alternate every other day a 5000unit (1 capsule) dose and 25796kvge dose (2 capsules) multivitamin Tablet 1 tablet PO DAILY citalopram 20 mg Tablet 20 mg PO DAILY gabapentin 100 mg capsule 100 mg PO TID Qty: 270 1RF levothyroxine 75 mcg tablet 75 mcg PO DAILY Qty: 90 1RF alendronate 70 mg tablet See Rx Instructions .ROUTE .COMPLEX Qty: 12 1RF Dose Instruction: Take 1 tablet by mouth once a week Rx Instructions: Take 1 tablet by mouth once a week albuterol sulfate [ProAir HFA] 90 mcg/actuation HFA aerosol inhaler 2 puff INHALATION TID PRN (Reason: Shortness Of Breath Or Wheezing) Qty: 8.5 5RF amlodipine 5 mg tablet 5 mg PO DAILY Qty: 90 1RF simvastatin 10 mg tablet 10 mg PO DAILY Qty: 90 1RF metoprolol succinate 50 mg tablet extended release 24 hr See Rx Instructions .ROUTE .COMPLEX Qty: 90 1RF Dose Instruction: Take 1 tablet by mouth once daily Rx Instructions: Take 1 tablet by mouth once daily <Diane Garland PA-C - Last Filed: 10/11/24 03:34> Follow-up/Referrals: Dara Carranza DO [Primary Care Provider] - <Diane Garland PA-C - Last Filed: 10/11/24 03:34>
[2024-10-10 21:43] LABS: Glucose Urine UA Negative (Negative); Leukocyte Esterase Ur 1+ LEU/UL (Negative); Nitrate Urine Negative (Negative); Specific Grav Ur 1.026 (1.001-1.035)
[2024-10-10 21:52] LABS: Add Urine Microscopic? YES; Appearance Urine Cloudy (Clear)
[2024-10-10] MEDS: SODIUM CHLORIDE 0.9% IV 1,000 ML 999 ML IV CONT (22:23)
[2024-10-11 00:42] VITALS: PULSE 92; RESP 21; O2SAT 97
[2024-10-11 01:58] LABS: Need Manual Microscopic Reviewed
[2024-10-11 03:00] VITALS: BP 130/69; PULSE 86; RESP 20; O2SAT 99
[2024-10-11] MEDS: POTASSIUM CHLORIDE 20 MEQ PACKET (FOR LIQUID) PO (03:02)
[2024-10-11 03:04] LABS: Magnesium 2.1 mg/dL (1.6-2.3)
[2024-10-11 04:05] VITALS: BP 140/73; PULSE 82; RESP 20; O2SAT 97
== END 2024-10-11 04:05 | disposition home or self-care (01) ==
PROVIDERS: Student in an Organized Health Care Education/Training Program; Emergency Provider Physician Assistant; PCP Family Medicine
DX: R19.05 Periumbilic swelling, mass or lump (principal); E87.6 Hypokalemia; R82.998 Other abnormal findings in urine; E03.9 Hypothyroidism, unspecified; F41.9 Anxiety disorder, unspecified; F32.A Depression, unspecified; I12.9 Hypertensive chronic kidney disease with stage 1 through stage 4 chronic kidney disease, or unspecified chronic kidney disease; N18.1 Chronic kidney disease, stage 1; E78.5 Hyperlipidemia, unspecified
CPT/HCPCS: 36415; 74177; 80053; 81001; 83605; 83735; 85025; 85610; 85730; 87086; 96360; 99284; A9270; J7030; Q9967

== ENCOUNTER 2024-10-12 07:51 | Outpatient (CLI) | payer MEDICARE, SELFPAY ==
--- NOTE | ~2024-10-12 | US_ITS ---
US abdomen limited INDICATION: Umbilical mass. Evaluate. PROCEDURE: Targeted ultrasound anterior abdominal wall-umbilical region COMPARISON: No prior studies for comparison. FINDINGS: There is a complex mixed solid and cystic mass in the umbilical region measuring 1.8 x 1.5 x 1.7 cm. There is a hernia with motility within the mixed solid and cystic structure. The lesion dem onstrates internal vascularity on Doppler imaging. No significant posterior acoustic enhancement or s hadowing seen. Surrounding soft tissues are unremarkable. No adjacent fluid collection identified. IMPRESSION: 1: Complex vascular solid/cystic umbilical mass with dynamic motility suggesting an associated umbili lillian hernia. Differential diagnosis includes umbilical hernia containing omentum or bowel (most likely consideration), umbilical endometriosis and less likely metastatic and primary umbilical neoplasm. C onsider surgical consultation. Reviewed, dictated and finalized at location A. IMPRESSION: 1: Complex vascular solid/cystic umbilical mass with dynamic motility suggestin g an associated umbilical hernia. Differential diagnosis includes umbilical her [place] containing omentum or bowel (most likely consideration), umbilical endometr iosis and less likely metastatic and primary umbilical neoplasm. Consider surgi lillian consultation.
--- OUTSIDE RECORDS SUMMARY | 2024-10-12 07:56 | XMS_ITS | Encounter Summary ---
Author Organization [facility] Address [address] [place] [address] Phone Care Team Providers Care Dustless Operator Name Role Phone Connor Guevara MD Unavailable [phone] Dara Carranza DO Primary Care Provider [phone] Encounter Details Date Type Department Care Team (Late st Contact Info) Description 12/19/2020 Orders Only [facility] Scanning, Provider Social History Tobacco Use Types Packs/Day Years Used Date Smoking Tobacco: Former Smokeless Tobacco: Never Comments No Sex and Gender Information Value Date Recorded Sex Assigned at Not on file 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
--- OUTSIDE RECORDS SUMMARY | 2024-10-12 07:57 | XMS_ITS | Clinical Summary ---
Author Organization [facility] Address [address] [place] [address] Care Team Providers Care Rda Name Role Phone Connor Guevara MD Unavailable Dara Carranza DO Primary Care Provider [phone] Allergies Active Allergy Reactions Criticality Noted Date Comments Gemfibrozil Other (See comments) Low 10/22/2010 Milk Other (See comments) Low Reaction: Other Sulfa (Sulfonamide Antibiotics) Rash Medium 05/24/2010 Medications coenzyme Q10 100 mg capsuleIndicati ons:brain health Take 1 capsule (100 mg total) by mouth daily Active cranberry extract 200 mg capsule four times daily 9 Active gabapentin (NEURONTIN) 300 mg capsuleIndicati ons:Restless Legs Syndrome Take 1 capsule (300 mg total) by mouth 2 times daily 2 Active hydroCHLOROthia zide (HYDRODIURIL) 25 mg tabletIndicatio ns:hypertension Take 1 tablet (25 mg total) by mouth daily 8 Active levothyroxine (SYNTHROID, LEVOTHROID) 75 mcg tabletIndicatio ns:hypothyroidi sm Take 1 tablet (75 mcg total) by mouth healthcare management consultant before breakfast Active metoprolol XL (TOPROL-XL) 50 mg 24 hr tabletIndicatio ns:hypertension Take 1 tablet (50 mg total) by mouth daily Active multivitamin tabletIndicatio ns:Vitamin Deficiency Prevention Take 1 tablet by mouth daily Active simvastatin (ZOCOR) 10 mg tabletIndicatio ns:hyperlipidem ia Take 1 tablet (10 mg total) by mouth nightly Active ascorbic acid (VITAMIN C) 500 mg tablet,chewable Indications:Vit casanova C Deficiency Take 2 tablet/chew tab (1,000 mg total) by mouth 2 (two) times a day Active cholecalciferol (VITAMIN D-3) 2,000 unit tablet 2,000 units 9 Active clobetasol (TEMOVATE) 0.05 % cream APPLY TOPICALLY TWO TIMES A DAY NEEDED FOR RASH ON ARMS AND BACK UP TO 14 DAYS 60 g 2 8 Active clobetasol (TEMOVATE) 0.05 % external solutionIndicat ions:Dermatosis of the Scalp Apply daily as needed for rash or itching on the scalp 50 mL 3 9 Active cyanocobalamin, vitamin B-12, (VITAMIN B-12 ORAL)Indication s:vitamin health Take 1 tablet by mouth daily Active acetaminophen (TYLENOL) 325 mg tabletIndicatio ns:Fever Take 2 tablets (650 mg total) by mouth every 4 (four) hours as needed for pain for up to 30 doses 60 tablet 9 Active albuterol HFA (PROVENTIL HFA,VENTOLIN HFA,PROAIR HFA) 90 mcg/actuation inhaler INHALE 2 PUFFS BY MOUTH EVERY 4 HOURS NEEDED FOR SHORTNESS OF BREATH AND FOR WHEEZING 0 Active amLODIPine (NORVASC) 5 mg tablet Take 1 tablet (5 mg total) by mouth every morning 2 Active mycophenolate mofetil (CELLCEPT) 500 mg tabletIndicatio ns:Dermatomyosi tis (HCC) Take 1 tablets by mouth twice daily 60 tablet [address] (PROTONIX) 40 mg EC [...] by mouth once a week 12 capsule 3 Active chlorhexidine (PERIDEX) 0.12 % solution RINSE MOUTH WITH 15 MLS (1 CAPFUL) FOR 30 SECONDS, THEN EXPECTORATE. 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, estrogen receptor positive (HCC),Anxiety Take 1 tablet by mouth once daily 90 tablet 2 5 Active Active Problems Problem Noted Date Diagnosed Date Encounter for screening for malignant neoplasm o f breast 09/01/2019 High risk medication use 03/24/2018 Dermatomyositis 03/24/2018 Carcinoma of lower-outer quadrant of breast /0 11/2010 Malignant neoplasm of lower- outer quadrant of right breast of female, estrogen receptor positive 02/22/2008 Immunizations Immunization Administration Dates Next Due Influenza, Quadrivalent, Rec ombinant, Egg Free, Preservative Free, Intramuscular 11/25/2018 Influenza, Trivalent, High D ose, Split, Preservative Free, Intramuscular 12/04/2017 Moderna SARS-CoV-2 Monovalent Vaccination (12+ Y RS) 05/04/2020 ZOSTER Recombinant 10/27/2018,08/23/2018 Surgical History Surgery Date Site/Laterality Comments NM TOTAL ABDOMINAL HYSTERECT W/WO RMVL TUBE OVARY Hysterectomy - (Added by TW Conv) HYSTERECTOMY VOCAL CORD LATERALIZATION, ENDOSCOPIC APPROACH W/ MLB MASTECTOMY Medical History Medical History Date Comments Personal history of other en docrine, nutritional and metabolic disease History of thyroid d isease - (Added by TW Conv) Personal history of malignan t neoplasm of breast History of malignant neoplas m of breast - (Added by TW Conv) Dysphonia Hoarseness - (Ad ded by TW Conv) Dermatopolymyositis Polymyositis -dermatomyositis - (Added by TW Conv) 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 [...] myofas cial pain - (Added by TW Conv) Pain in right hip Hip pain, bila teral - (Added by TW Conv) Cancer (HCC) GERD (gastroesophageal reflux disease) Hypercholesteremia Hypertension Family History Medical History Relation Name Comments Down syndrome Brother Family history of Down syndrome - (Added by Conv) Cancer Father Family history of malignant neoplasm - (Added by TW Conv) Lung cancer Father Family history of lung cancer - (Added by TW Conv) Heart disease Mother Family history of cardiac disorder - (Added by TW Conv) Cancer Other Family history of malignant neoplasm - (Added by Conv) Relation Name Status Comments Brother Father Mother Other Social History Tobacco Use Types Packs/Day Years Used Date Smoking Tobacco: Former Passive Smoke Exposure: Past Smokeless Tobacco: Never Tobacco Cessation:Counseling Given: Not Answered Comments No Sex and Gender Information Value Date Recorded Sex Assigned at Not on file 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 Gender Identity Not on file Sexual Orientation [...] significance at 95% confidence level Procedure Note Yohannes Juarezhermelindaalan BobDO skyler - 10/30/2023 BONE DENSITOMETRY OF THE SPINE [...] Recently Relevant to Health Maintenance Insurance MEDICARE [facility] MEDICARE SUPPLEMENT MEDICARE [facility] [place] MEDICARE [facility] MEDICARE [facility] MEDICARE SUPPLEMENT Advance Directives For more information, please contact: [phone] * Full Code (Latest Code Status on File) Date Activated Date Inactivated Comments 02/19/2019 4:29 AM 02/20/2019 5:02 PM Care Teams Rda Relationship Specialty Start Date End Date Dara Carranza DO [address] [place] [address] PCP - General 08/31/20 Connor Guevara MD [address] [place] [address] Referring Physician Family Medicine 09/01/19
--- OUTSIDE RECORDS SUMMARY | 2024-10-12 07:57 | XMS_ITS ---
Author Organization [facility] Address [address] [place] [address] Care Team Providers Care Taker Off Name Role Phone Connor Guevara MD Unavailable [phone] Dara Carranza DO Primary Care Provider [phone] Active Problems Problem Noted Date Diagnosed Date [...]
--- OUTSIDE RECORDS SUMMARY | 2024-10-12 07:57 | XMS_ITS | Referral Summary ---
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 Gender Identity Not on file Sexual Orientation [...] Recently Relevant to Health Maintenance Insurance MEDICARE [facility] MEDICARE SUPPLEMENT MEDICARE [facility] MEDICARE [facility] MEDICARE [facility] MEDICARE SUPPLEMENT Advance Directives For more information, please contact: [phone] * Full Code (Latest Code Status on File) Date Activated Date Inactivated Comments 02/19/2019 4:29 AM 02/20/2019 5:02 PM Care Teams Leather Staker Relationship Specialty Start Date End Date Dara Carranza DO [address] [place] [address] PCP - General 08/31/20 Connor Guevara MD [address] [place] [address] Referring Physician Family Medicine 09/01/19
== END 2024-10-12 07:52 | disposition home or self-care (01) ==
LOC: ANHIMG 07:54
PROVIDERS: PCP Family Medicine; Visit Provider Family Medicine
DX: R19.09 Other intra-abdominal and pelvic swelling, mass and lump (principal)
CPT/HCPCS: 76705